=== PATIENT | female | born 1990 | race Caucasian/White ===

== ENCOUNTER 2019-03-29 11:18 | Inpatient (IN) | payer MEDICAID ==
[~2019-03-29] VITALS: Ht 160 cm; Wt 77.6 kg
[2019-03-29] VITALS (10 sets, daily range): BP systolic 83–134; BP diastolic 48–79
[2019-03-29] MEDS ORDERED: [UNRECOGNIZED DRUG - CODE] PO (13:02)
[2019-03-29] MEDS ORDERED: IBUP-1060 PO (13:02)
[2019-03-29] MEDS ORDERED: DOCU100C28 PO (13:02)
[2019-03-29] MEDS ORDERED: FERR325T14 PO (13:02)
[2019-03-29] MEDS: IV NORMAL SALINE 1000ML BAG 1,000 ML IV SCH ×2 (14:30→23:25)
[2019-03-29] MEDS ORDERED: ALBUMIN HUMAN 25% 100 ML IV ONE (14:30)
[2019-03-29 15:18] LABS: BASO % 1 % (0-3); EOS % 0 % (0-3); HEMOGLOBIN 7.1 g/dL (12.0-15.5); LYMPH # 0.7 x10^3/uL (1.0-4.8); LYMPH % 9 % (24-48); MEAN CORPUSCULAR HEMOGLOBIN 27 pg (25-35); MEAN CORPUSCULAR HGB CONC 34 g/dL (31-37); MEAN CORPUSCULAR VOLUME 80 fL (79-100); MONO # 0.9 x10^3/uL (0.0-1.1); MONO % 11 % (0-9); NEUT # 6.4 x10^3/uL (1.8-7.7); NEUT % 79 % (31-73); RED CELL DISTRIBUTION WIDTH 18.9 % (11.5-14.5)
[2019-03-29 15:29] LABS: CALCIUM 6.9 mg/dL (8.5-10.1); CREATININE 1.3 mg/dL (0.6-1.0); GFR 47.8; MAGNESIUM 1.7 mg/dL (1.8-2.4); POTASSIUM 4.1 mmol/L (3.5-5.1)
[2019-03-29 15:33] LABS: HEMATOCRIT 20.9 % (36.0-47.0); PLATELET COUNT 25 x10^3/uL (140-400)
--- NOTE | 2019-03-29 15:40 | CONS ---
DATE OF CONSULTATION: 03/29/2019 ATTENDING PHYSICIAN: Dr. Morales. REASON FOR CONSULTATION: Septic emboli, abnormal CT chest, sepsis. HISTORY OF PRESENT ILLNESS: The patient is a 29-year-old female who has history of substance abuse including marijuana, IV meth. The patient was brought into [facility] with complaint of lightheaded and dizziness and appeared to be dehydrated with decreased oral intake. She was also complaining of shortness of breath. She also had a cough and a low-grade fever. She is 4 weeks . The patient underwent workup including a chest x-ray and CT chest. I have reviewed the report from the CT chest. The actual images were not available. The patient had evidence of lower lobe pulmonary emboli. The patient had multiple thick wall cavitary lesions throughout both lungs, largest in the left upper lobe measuring 3-4 cm in diameter. There was no focal consolidation. There were no pleural effusions. The patient had possible subcarinal and mild bilateral hilar adenopathy. She was noted to be septic and as a result was transferred to our facility. She on arrival appears to be mildly tachypneic. She is lethargic. She is currently on oxygen via nasal cannula. She is able to answer questions. She says she quit IV meth about a year ago. She says she also does vaping and use different flavours as well. The patient has history of tobacco use as well. She is currently requiring low dose Levophed. She is receiving IV fluids as well. Antibiotics have been initiated per Infectious Disease's recommendation. PAST MEDICAL HISTORY: Significant for asthma, history of miscarriage in the past, history of hepatitis C, history of polysubstance abuse including meth and marijuana, history of depression, trauma and visual impairment. PAST SURGICAL HISTORY: . Dental surgeries and D and C. SOCIAL HISTORY: Smoker every day about half pack a day for the last 10 years, history of alcohol use, history of substance abuse. She said she quit meth about a year ago. REVIEW OF SYSTEMS: Limited, but pertinent positives discussed in my history of present illness, otherwise noncontributory. All systems that were negative were reviewed as well. No nausea, no vomiting. No headaches. No dysuria. No focal weakness. FAMILY HISTORY: Noncontributory to lungs. MEDICATIONS: Upon transfer were all reviewed. PHYSICAL EXAMINATION: GENERAL: She is mildly tachypneic. VITAL SIGNS: Blood pressure is stable on low dose Levophed. Pulse is 120 in sinus tachycardia. NECK: Supple. LUNGS: With diminished breath sounds at the bases. CARDIOVASCULAR: With tachycardia. ABDOMEN: Soft, nontender. EXTREMITIES: With no pitting edema. CT chest findings as discussed above. LABORATORY DATA: From [facility] showed a white cell count of 6.2, hemoglobin 7.2 and platelets are 39,000. Sodium 129, potassium 4, chloride 93, bicarbonate 22, albumin 2.3. Bilirubin is 0.9. Urine is negative. D-dimer 5.7. INR is 1.2. IMPRESSION: 1. Acute hypoxic respiratory failure secondary to sepsis/systemic inflammatory response syndrome. Sources of infection likely in the lungs. 2. Highly suspected septic emboli in a patient who has IV meth abuse. 3. Abnormal CT chest with bilateral cavitary nodules throughout the lungs, likely suggestive of septic emboli from suspected right-sided endocarditis. 4. Lower lobe pulmonary emboli.Likely infective emboli. I suspect this is related to obstruction of the pulmonary vessels from right-sided vegetations. In the setting of anemia and thrombocytopenia, anticoagulation would be high risk and not indicated. 5. History of hepatitis C with chronic thrombocytopenia. 6. Polysubstance abuse. 7. Hypotension. Suspect combination of hypovolemic and septic shock. RECOMMENDATIONS: 1. Continue with present oxygen. 2. We will obtain ABGs and assess the need for BiPAP. 3. Avoid benzodiazepines and narcotics. 4. Broad-spectrum antibiotics. 5. Transthoracic echo and if it is not conclusive for right-sided vegetations, then she will need a transesophageal echo. 6. Obtain venous Dopplers of lower extremities and if they are positive, then consider doing IVC filter. 7. Will withhold anticoagulation for now due to her severe thrombocytopenia and anemia. 8. Follow all cultures. 9. Follow labs. 10. GI consult regarding anemia. 11. Hematology consult regarding thrombocytopenia. 12. Discussed with RN. We will follow along with you. Critical care time 39 minutes. EMY SAEED MD DR: NAVEEN/rhina JOB#: [id number] / [id number] INA
[2019-03-29 15:47] LABS: BASE EXCESS ABG -6 mmol/L (-3-3); HCO3 ABG 17 mmol/L (21-28); PCO2 ABG 24 mmHg (35-46); PO2 ABG 71 mmHg (85-108); SAT O2 ABG 92 % (92-99)
--- NOTE | 2019-03-29 15:55 | CARD ---
MR#: [id number] Date of Study: 03/29/2019 Ordering Physician: EMY SAEED, Referring Physician: EMY SAEED Tech: Siri Bocanegra RDCS APPROVED REPORT EXAM: Two-dimensional and M-mode echocardiogram with Doppler and color Doppler. Other Information Quality : Good Rhythm : Tachycardia INDICATION Infection:Rule out subacute bacterial endocarditis 2D DIMENSIONS RVDd3.5 (2.9-3.5cm)Left Atrium(2D)2.7 (1.6-4.0cm) IVSd0.6 (0.7-1.1cm)Aortic Root(2D)2.6 (2.0-3.7cm) LVDd4.8 (3.9-5.9cm)LVOT Diameter2.0 (1.8-2.4cm) PWd0.6 (0.7-1.1cm)LVDs3.6 (2.5-4.0cm) FS (%) 24.3 %SV51.6 ml LVEF(%)48.3 (>50%) Aortic Valve AoV Peak Kirit.96.1cm/sAoV VTI12.8cm AO Peak GR.3.7mmHgLVOT VTI 11.58cm AO Mean GR.2mmHgAVA (VTI)2.90cm2 Mitral Valve MV E Lqjqujyy72.9cm/sMV DECEL AFZP16wy MV A Bscogime25.1cm/sE/A Ratio0.9 TDI Lateral E' P. V6.11cm/sMedial E' P. V6.82cm/s E/Lateral E'10.6E/Medial E'9.5 Tricuspid Valve TR P. Qwshbnmy681gn/sRAP LOKYNDHC89mxFj TR Peak Gr.02daZnVSYM47ksOc Pulmonary Vein S1 Smxqwoto41.6cm/sS2 Onzutash19.41cm/s D2 Llegswdx24.4cm/s LEFT VENTRICLE The left ventricle is normal size. There is normal left ventricular wall thickness. Left ventricle sy stolic function is normal. The ejection fraction is 50-55%. There is a flattened septum consistent wi th right ventricle volume and pressure overload. RIGHT VENTRICLE The right ventricle is moderately dilated. Systolic function is mildly reduced. ATRIA The left atrium size is normal. The right atrium is moderately dilated. The interatrial septum is int act with no evidence for an atrial septal defect or patent foramen ovale as noted on 2-D or Doppler i maging. AORTIC VALVE The aortic valve is normal in structure and function. Doppler and Color Flow revealed no significant aortic regurgitation. There is no significant aortic valvular stenosis. MITRAL VALVE The mitral valve is normal in structure and function. There is no evidence of mitral valve prolapse. There is no mitral valve stenosis. Doppler and Color-flow revealed trace mitral regurgitation. TRICUSPID VALVE The tricuspid valve is not well visualized due to a large vegetation on the valve. Doppler and Color Flow revealed severe tricuspid regurgitation. There is severe pulmonary hypertension. The PA pressure was estimated at 74 mmHg. There is no tricuspid valve stenosis. PULMONIC VALVE The pulmonic valve is not well visualized. Doppler and Color Flow revealed trace pulmonic valvular re gurgitation. There is no pulmonic valvular stenosis. GREAT VESSELS The aortic root is normal in size. The ascending aorta is not well seen. The IVC is dilated and colla pses <50% with inspiration. PERICARDIAL EFFUSION There is no evidence of significant pericardial effusion. Critical Notification Physician Notified Date: 03/29/2019 Time: 15:45 Physician Name:Kalpesh Critical Value: Yes <Conclusion> Left ventricle systolic function is normal. The ejection fraction is 50-55%. There is a flattened septum consistent with right ventricle volume and pressure overload. The right ventricle is moderately dilated. The right atrium is moderately dilated. Trace mitral regurgitation. Vegetation measuring 1.3 x 1.4 cm noted on tricuspid valve Severe tricuspid regurgitation. There is severe pulmonary hypertension. The PA pressure was estimated at 74 mmHg. There is no evidence of significant pericardial effusion. Signed by : Charan Minaya, Electronically Approved : 03/29/2019 15:55:05
[2019-03-29 15:59] LABS: % BANDS 20 % (0-9); % BASOS 1 % (0-3); % LYMPHS 8 % (24-48); % MONOS 6 % (0-10); % SEGS 65 % (35-66)
[2019-03-29 16:00] LABS: PLT ESTIMATE DECREASED (ADEQUATE)
[2019-03-29] MEDS ORDERED: SODIUM BICARB ADULT 8.4% 50 MEQ/50 ML DISP.SYRIN. IV ONE ×2 (16:00)
[2019-03-29 16:01] LABS: ANISOCYTOSIS SLIGHT
--- NOTE | 2019-03-29 16:08 | RAD ---
Examination: Bilateral Lower Extremity Venous Doppler Ultrasound History: Bilateral lower extremity edema, shortness of breath Comparison: None Procedure: Ayala scale, color flow 2D and spectal waveform analysis images are obtained with and without compression in the area of the common femoral vein, superficial femoral vein - femoral vein junction, main femoral vein (superficial femoral vein) and popliteal vein. Veins of the proximal calf are also imaged. Findings: There is normal duplex flow, color flow and compressibility of all visualized vein segments. No evidence of deep venous thrombus is present. Impression: No evidence of DVT in the bilateral lower extremity venous system. Electronically signed by: Cedric Headley MD (03/29/2019 4:05 PM) [place] [id number]
[2019-03-29] MEDS: guaiFENesin DM 200MG/20MG 10 ML SYRUP PO PRN (16:49)
[2019-03-29] MEDS ORDERED: PIP/TAZO PER PHARMACY MC PRN (17:15)
[2019-03-29] MEDS ORDERED: VANCOMYCIN 1.25 GM in IV NORMAL SALINE 250ML 250 ML IV ONE (17:15)
[2019-03-29] MEDS: PIPERACILLIN/TAZOBACTAM 4.5 GM in IV NORMAL SALINE 100ML 100 ML IV SCH (17:37)
[2019-03-29] MEDS: VANCOMYCIN PER PHARMACY MC PRN (17:44)
--- NOTE | 2019-03-29 17:51 | NUR ---
Pharmacy Vancomycin Dosing Note S:Consulted to monitor and dose vancomycin started 03/29/19. O:JODIE SAMSON is a 29 year old F with concerns for septic emboli. Transferred from [facility]. Height: 5 feet, 3 inches Weight: 52.117161 kg [place] Body Weight: 52.40 Adjusted Body Weight: 52.32 Dosing Weight: Actual Other Antibiotics: Zosyn LABS: Last BUN: 54 Last Creatinine: 1.3 Creatinine Clearance: about 50-55 mL/min Last WBC: 8 Last Procalcitonin: 16.76 Tmax (past 24 hours): Temp not yet documented on new admit Microbiology: Pending I/O: Not yet documented new admit Drug Levels: Last dose given 03/29/19 at 1737 Vancomycin Dosing: Loading Dose: 1250 mg x1 Dosing Weight: Actual Target Trough: 15-20 A: Based on: Patient's renal function (unknown baseline renal function), PMH, and severity of suspected infection P: 1. Will initiate Vancomycin 750 mg IV q18h 2. Follow up Trough level on 03/31/19 at 2230 3. Pharmacy will continue to monitor, follow and adjust therapy as needed. YURI JEONG, [facility], 03/29/19 [id number]
--- NOTE | 2019-03-29 18:25 | NUR ---
Dr. Morales discussed with Dr. Chandra about abx. for patient. Dr. Chandra gave recommendations to Dr. Morales. No ABX. were started. RN called Dr. Morales to receive orders for abx. Dr. Morales ordered zosyn and vanco per pharmacy. Orders placed.
[2019-03-29] MEDS ORDERED: MAGNESIUM SULFATE 2GM 50 ML IV ONE (20:00)
[2019-03-29] MEDS: NOREPINEPHRIN 8MG/250ML PREMIX 250 ML IV PRN ×2 (20:09→23:25)
--- NOTE | 2019-03-29 20:38 | HP ---
ADMIT DATE: 03/29/2019 CHIEF COMPLAINT: Sepsis. HISTORY OF PRESENT ILLNESS: The patient is a pleasant 29-year-old female who does IV drugs including methamphetamine and smokes marijuana and actually vapes tobacco as well with flavors in it. She presented to [facility] initially, appeared to be quite septic. They were [place] to [place] the [place] facility, but apparently there were no beds available. I accepted the patient as a transfer. She is now being examined in the ICU where she appears quite ill. She just arrived by ambulance. I helped to transfer her over to the bed. PAST MEDICAL HISTORY: Asthma, hepatitis C, polysubstance abuse, depression, D and C and . ALLERGIES: LATEX, HYDROCODONE, TYLENOL AND PHENERGAN. FAMILY HISTORY: Noncontributory. SOCIAL HISTORY: She smokes and marijuana. She vapes cigarettes. She uses IV methamphetamine, but states she has not done it for a year. MEDICATIONS: Reviewed, please refer to the MRAD. REVIEW OF SYSTEMS: GENERAL: She complains of weakness and fevers. SKIN: No bruising, hair changes or rashes. EYES: No blurred, double or loss of vision. NOSE AND THROAT: No history of nosebleeds, hoarseness or sore throat. HEART: She complains of palpitations. LUNGS: She complains of shortness of breath. GASTROINTESTINAL: Denies changes in appetite, nausea, vomiting, diarrhea or constipation. GENITOURINARY: No history of frequency, urgency, hesitancy or nocturia. NEUROLOGIC: She complains of dizziness. PSYCHIATRIC: She complains of depression. ENDOCRINE: No history of heat or cold intolerance, polyuria or polydipsia. EXTREMITIES: Denies muscle weakness, joint pain, pain on walking or stiffness. PHYSICAL EXAMINATION: VITALS: Within normal limits and are stable. GENERAL: No apparent distress. Alert and oriented. HEENT: Head is normocephalic, atraumatic, pupils were equally round and reactive to light and accommodation. NECK: Supple, no JVD, no thyromegaly was noted. LUNGS: She has some coarse breath sounds bilaterally, greater on the right. HEART: She is tachycardic, irregular at times. No obvious murmurs are noted at this time. ABDOMEN: Nontender, decreased bowel sounds. EXTREMITIES: Very thin skin. She has multiple tattoos. NEUROLOGIC: Normal speech, normal tone. A & O x3, moves all extremities, no obvious focal deficits. PSYCHIATRIC: She seems very depressed and anxious. SKIN: No ulcerations or rashes, good skin turgor, no jaundice. VASCULAR: Good capillary refill, neurovascular bundle appears to be intact. IMAGING: CT of the chest, we do not have the threshold scan here, but as I understand it showed pulmonary emboli including septic emboli as well. LABORATORY DATA: White count 8, hemoglobin 7.1, platelets 25. Electrolytes: Sodium 140, potassium 4.1, chloride 106, bicarb 22, BUN 54, creatinine 1.3, glucose 88. Procalcitonin 16.76. Calcium 6.9. ABG shows a pH of 7.47, pCO2 of 24, pO2 of 71, bicarbonate of 17 with 92% sat, and that was on 2 liters. ASSESSMENT AND PLAN: Severe sepsis, respiratory failure, septic pulmonary emboli, possible right-sided endocarditis, drug abuse, and renal failure. The patient has been admitted to the ICU. We have her on a Levophed drip. I consulted Dr. Pugh, Infectious Disease and called him. He requested we go ahead and get vancomycin and Zosyn running per pharmacy. She did receive a dose of Unasyn at [place]. Consult Dr. Hughes, Pulmonary Medicine. Consult Nephrology regarding the renal failure. Consult Cardiology, ICU monitoring. DVT prophylaxis, frequent labs. Cigarette cessation education. PROGNOSIS: Extremely guarded at best. KALA BATES DO DR: LUZ ELENA/rhina JOB#: [id number] / [id number]
[2019-03-30] VITALS (29 sets, daily range): BP systolic 87–139; BP diastolic 56–74
[2019-03-30] MEDS: PIPERACILLIN/TAZOBACTAM 4.5 GM in IV NORMAL SALINE 100ML 100 ML IV SCH ×4 (00:03→17:26)
--- NOTE | 2019-03-30 00:30 | NUR ---
received call from [facility] at [facility] who stated the pt's blood cultures had resulted from [facility]'s lab. Blood cultures positive for MRSA.
[2019-03-30 01:47] LABS: RED BLOOD COUNT 2.38 x10^6/uL (3.50-5.40); RED CELL DISTRIBUTION WIDTH 18.8 % (11.5-14.5); WHITE BLOOD COUNT 10.6 x10^3/uL (4.0-11.0)
[2019-03-30 01:51] LABS: CALCIUM 6.9 mg/dL (8.5-10.1); CREATININE 1.3 mg/dL (0.6-1.0); GFR 47.8; POTASSIUM 3.6 mmol/L (3.5-5.1)
[2019-03-30 01:57] LABS: HEMATOCRIT 19.4 % (36.0-47.0); HEMOGLOBIN 6.4 g/dL (12.0-15.5)
--- NOTE | 2019-03-30 06:46 | PDOC ---
Infectious Disease Note Vital Sign Vital Signs Vital Signs Date Time Temp Pulse Resp B/P (MAP) Pulse Ox O2 Delivery O2 Flow Rate FiO2 03/30/19 06:00 105 26 112/68 (83) 97 Nasal Cannula 2.0 03/30/19 04:55 99.1 99.1 Labs Lab Laboratory Tests Test 03/29/19 15:05 03/29/19 15:40 03/30/19 01:30 White Blood Count 8.0 x10^3/uL (4.0-11.0) 10.6 x10^3/uL (4.0-11.0) Red Blood Count 2.60 x10^6/uL (3.50-5.40) 2.38 x10^6/uL (3.50-5.40) Hemoglobin 7.1 g/dL (12.0-15.5) 6.4 g/dL (12.0-15.5) Hematocrit 20.9 % (36.0-47.0) 19.4 % (36.0-47.0) Mean Corpuscular Volume 80 fL (79-100) 81 fL (79-100) Mean Corpuscular Hemoglobin 27 pg (25-35) 27 pg (25-35) Mean Corpuscular Hemoglobin Concent 34 g/dL (31-37) 33 g/dL (31-37) Red Cell Distribution Width 18.9 % (11.5-14.5) 18.8 % (11.5-14.5) Platelet Count 25 x10^3/uL (140-400) 25 x10^3/uL (140-400) Neutrophils (%) (Auto) 79 % (31-73) Lymphocytes (%) (Auto) 9 % (24-48) Monocytes (%) (Auto) 11 % (0-9) Eosinophils (%) (Auto) 0 % (0-3) Basophils (%) (Auto) 1 % (0-3) Neutrophils # (Auto) 6.4 x10^3/uL (1.8-7.7) Lymphocytes # (Auto) 0.7 x10^3/uL (1.0-4.8) Monocytes # (Auto) 0.9 x10^3/uL (0.0-1.1) Eosinophils # (Auto) 0.0 x10^3/uL (0.0-0.7) Basophils # (Auto) 0.0 x10^3/uL (0.0-0.2) Segmented Neutrophils % 65 % (35-66) Band Neutrophils % 20 % (0-9) Lymphocytes % 8 % (24-48) Monocytes % 6 % (0-10) Basophils % 1 % (0-3) Platelet Estimate Decreased (ADEQUATE) Large Platelets Occ Anisocytosis Slight Sodium Level 140 mmol/L (136-145) 140 mmol/L (136-145) Potassium Level 4.1 mmol/L (3.5-5.1) 3.6 mmol/L (3.5-5.1) Chloride Level 106 mmol/L (98-107) 108 mmol/L (98-107) Carbon Dioxide Level 22 mmol/L (21-32) 21 mmol/L (21-32) Anion Gap 12 (6-14) 11 (6-14) Blood Urea Nitrogen 54 mg/dL (7-20) 53 mg/dL (7-20) Creatinine 1.3 mg/dL (0.6-1.0) 1.3 mg/dL (0.6-1.0) Estimated GFR (Cockcroft-Gault) 47.8 47.8 Glucose Level 88 mg/dL (70-99) 103 mg/dL (70-99) Lactic Acid Level 2.8 mmol/L (0.4-2.0) 3.3 mmol/L (0.4-2.0) Calcium Level 6.9 mg/dL (8.5-10.1) 6.9 mg/dL (8.5-10.1) Magnesium Level 1.7 mg/dL (1.8-2.4) Procalcitonin 16.76 ng/mL (0.00-0.10) O2 Saturation 92 % (92-99) Arterial Blood pH 7.47 (7.35-7.45) Arterial Blood pCO2 at Patient Temp 24 mmHg (35-46) Arterial Blood pO2 at Patient Temp 71 mmHg (85-108) Arterial Blood HCO3 17 mmol/L (21-28) Arterial Blood Base Excess -6 mmol/L (-3-3) FiO2 2 lpm nc Micro TTE 03/29Left ventricle systolic function is normal. The ejection fraction is 50-55%. There is a flattened septum consistent with right ventricle volume and pressure overload. The right ventricle is moderately dilated. The right atrium is moderately dilated. Trace mitral regurgitation. Vegetation measuring 1.3 x 1.4 cm noted on tricuspid valve Severe tricuspid regurgitation. There is severe pulmonary hypertension. The PA pressure was estimated at 74 mmHg. There is no evidence of significant pericardial effusion. Objective Assessment MRSA sepsis at [facility] per report from blood 03/29 Pancytopenia - S/p PRBCs this am TV Endocarditis Substance abuse PE Likely septic emboli Pulm HTN Hep C - ? if treated in past 4 weeks post parttum Plan Plan of Care Cont Vanc and Zosyn for now - taper Zosyn likely 03/31 when confirm Blood/Urine have no additional organisms from [facility] Add zyvox Perdiex - oral care F/u sensitivities from [facility] Repeat Blood cults in m Will need HUNTER when stable F/u labs and cults May need GI eval from Hep C [facility] records reviewed 35 mins CC time D/w nursing Thank you # [id number] BREN LOCKHART MD Mar 30, 2019 06:46
[2019-03-30] MEDS: CHLORHEXIDINE 0.12% 15 ML MOUTHWASH. SWSP SCH ×2 (08:29→21:04)
[2019-03-30 09:12] LABS: HEMATOCRIT 27.2 % (36.0-47.0); RED BLOOD COUNT 3.26 x10^6/uL (3.50-5.40); RED CELL DISTRIBUTION WIDTH 18.9 % (11.5-14.5); WHITE BLOOD COUNT 11.6 x10^3/uL (4.0-11.0)
[2019-03-30 09:25] LABS: CREATININE 1.1 mg/dL (0.6-1.0); GFR 57.9; MAGNESIUM 2.4 mg/dL (1.8-2.4); POTASSIUM 3.5 mmol/L (3.5-5.1)
--- NOTE | 2019-03-30 09:59 | PDOC ---
[employer] PROGRESS NOTE Chief Complaint Chief Complaint Sepsis Tricuspid Vegetation Septic emboli MRSA History of Present Illness History of Present Illness 03/30/19 Pt seen and examined in the ICU Pt was awake and oriented Pt is weak and tired DW RN Vitals/I&O Vitals/I&O: Vital Signs Date Time Temp Pulse Resp B/P (MAP) Pulse Ox O2 Delivery O2 Flow Rate FiO2 03/30/19 09:00 105 24 128/62 (84) 97 Nasal Cannula 2.0 03/30/19 07:00 98.1 98.1 I & O 03/29/19 03/29/19 03/30/19 15:00 23:00 07:00 Intake Total 0 ml 410 ml 2680 ml Output Total 800 ml Balance 0 ml 410 ml 1880 ml Physical Exam General: Alert, Oriented X3, mild distress Heart: Regular rate, Normal S1, Normal S2 Lungs: Clear Abdomen: Normal bowel sounds Extremities: No clubbing, No cyanosis Skin: No rashes Labs Labs: Laboratory Tests Test 03/29/19 15:05 03/29/19 15:40 03/30/19 01:30 03/30/19 08:40 White Blood Count 8.0 x10^3/uL (4.0-11.0) 10.6 x10^3/uL (4.0-11.0) 11.6 x10^3/uL (4.0-11.0) Red Blood Count 2.60 x10^6/uL (3.50-5.40) 2.38 x10^6/uL (3.50-5.40) 3.26 x10^6/uL (3.50-5.40) Hemoglobin 7.1 g/dL (12.0-15.5) 6.4 g/dL (12.0-15.5) 9.0 g/dL (12.0-15.5) Hematocrit 20.9 % (36.0-47.0) 19.4 % (36.0-47.0) 27.2 % (36.0-47.0) Mean Corpuscular Volume 80 fL (79-100) 81 fL (79-100) 83 fL (79-100) Mean Corpuscular Hemoglobin 27 pg (25-35) 27 pg (25-35) 28 pg (25-35) Mean Corpuscular Hemoglobin Concent 34 g/dL (31-37) 33 g/dL (31-37) 33 g/dL (31-37) Red Cell Distribution Width 18.9 % (11.5-14.5) 18.8 % (11.5-14.5) 18.9 % (11.5-14.5) Platelet Count 25 x10^3/uL (140-400) 25 x10^3/uL (140-400) 27 x10^3/uL (140-400) Neutrophils (%) (Auto) 79 % (31-73) Lymphocytes (%) (Auto) 9 % (24-48) Monocytes (%) (Auto) 11 % (0-9) Eosinophils (%) (Auto) 0 % (0-3) Basophils (%) (Auto) 1 % (0-3) Neutrophils # (Auto) 6.4 x10^3/uL (1.8-7.7) Lymphocytes # (Auto) 0.7 x10^3/uL (1.0-4.8) Monocytes # (Auto) 0.9 x10^3/uL (0.0-1.1) Eosinophils # (Auto) 0.0 x10^3/uL (0.0-0.7) Basophils # (Auto) 0.0 x10^3/uL (0.0-0.2) Segmented Neutrophils % 65 % (35-66) Band Neutrophils % 20 % (0-9) Lymphocytes % 8 % (24-48) Monocytes % 6 % (0-10) Basophils % 1 % (0-3) Platelet Estimate Decreased (ADEQUATE) Large Platelets Occ Anisocytosis Slight Sodium Level 140 mmol/L (136-145) 140 mmol/L (136-145) 141 mmol/L (136-145) Potassium Level 4.1 mmol/L (3.5-5.1) 3.6 mmol/L (3.5-5.1) 3.5 mmol/L (3.5-5.1) Chloride Level 106 mmol/L (98-107) 108 mmol/L (98-107) 107 mmol/L (98-107) Carbon Dioxide Level 22 mmol/L (21-32) 21 mmol/L (21-32) 22 mmol/L (21-32) Anion Gap 12 (6-14) 11 (6-14) 12 (6-14) Blood Urea Nitrogen 54 mg/dL (7-20) 53 mg/dL (7-20) 51 mg/dL (7-20) Creatinine 1.3 mg/dL (0.6-1.0) 1.3 mg/dL (0.6-1.0) 1.1 mg/dL (0.6-1.0) Estimated GFR (Cockcroft-Gault) 47.8 47.8 57.9 Glucose Level 88 mg/dL (70-99) 103 mg/dL (70-99) 115 mg/dL (70-99) Lactic Acid Level 2.8 mmol/L (0.4-2.0) 3.3 mmol/L (0.4-2.0) Calcium Level 6.9 mg/dL (8.5-10.1) 6.9 mg/dL (8.5-10.1) 7.0 mg/dL (8.5-10.1) Magnesium Level 1.7 mg/dL (1.8-2.4) 2.4 mg/dL (1.8-2.4) Procalcitonin 16.76 ng/mL (0.00-0.10) O2 Saturation 92 % (92-99) Arterial Blood pH 7.47 (7.35-7.45) Arterial Blood pCO2 at Patient Temp 24 mmHg (35-46) Arterial Blood pO2 at Patient Temp 71 mmHg (85-108) Arterial Blood HCO3 17 mmol/L (21-28) Arterial Blood Base Excess -6 mmol/L (-3-3) FiO2 2 lpm nc Iron Level 85 ug/dL (50-170) Total Iron Binding Capacity 136 ug/dL (250-450) Iron Saturation 63 % (15-34) Ferritin 583 ng/mL (8-252) Review of Systems Review of Systems: Co weakness Denies pain Assessment and Plan Assessmemt and Plan Problems Medical Problems: (1) Endocarditis Status: Acute (2) Renal failure Status: Acute (3) Respiratory failure Status: Acute (4) Septic pulmonary embolism Status: Acute (5) Severe sepsis Status: Acute Assessment Endocarditis Renal failure respiratory failure Septic PE Severe sepsis Plan ICU monitoring Wean Levophed Consult GI IV Antibiotics Stop normal saline Start procalamine 100/hr Encourage PO Comment Review of Relevant I have reviewed the following items kim (where applicable) has been applied. Medications: Current Medications Medications (Trade) Dose Ordered Sig/[place] Route PRN Reason Start Time Stop Time Status Last Admin Dose Admin Albumin Human 100 ml @ 100 mls/hr 1X ONCE IV 03/29/19 14:30 03/29/19 15:29 DC 03/29/19 14:59 Norepinephrine Bitartrate 250 ml @ 9.781 mls/ hr CONT PRN IV SEE I/O RECORD 03/29/19 14:30 03/29/19 23:25 Sodium Chloride 1,000 ml @ 100 mls/hr Q10H IV 03/29/19 14:30 03/29/19 23:25 Guaifenesin (Robitussin Dm) 10 ml PRN Q6HRS PRN PO COUGH 03/29/19 15:30 03/29/19 16:49 Sodium Bicarbonate (Sodium Bicarb Adult 8.4% Syr) 50 meq 1X ONCE IV 03/29/19 16:00 03/29/19 16:01 DC 03/29/19 16:49 Sodium Bicarbonate (Sodium Bicarb Adult 8.4% Syr) 50 meq 1X ONCE IV 03/29/19 16:00 03/29/19 16:01 DC 03/29/19 16:49 Vancomycin HCl (Vanco Per Pharmacy) 1 each PRN DAILY PRN MC SEE COMMENTS 03/29/19 17:15 03/29/19 17:50 Piperacillin Sod/ Tazobactam Sod 4.5 gm/Sodium Chloride 100 ml @ 200 mls/hr Q6HRS IV 03/29/19 18:00 03/30/19 05:59 Vancomycin HCl 1.25 gm/Sodium Chloride 250 ml @ 166.667 mls/hr 1X ONCE IV 03/29/19 17:15 03/29/19 18:44 DC 03/29/19 17:37 Magnesium Sulfate 50 ml @ 25 mls/hr 1X ONCE IV 03/29/19 20:00 03/29/19 21:59 DC 03/29/19 20:02 Linezolid/Dextrose 300 ml @ 300 mls/hr Q12HR IV 03/30/19 09:00 03/30/19 08:20 Chlorhexidine Gluconate (Peridex) 15 ml BID SWSP 03/30/19 09:00 03/30/19 08:29 KALA BATES III DO Mar 30, 2019 09:59
--- NOTE | 2019-03-30 10:07 | PDOC ---
PULMONARY PROGRESS NOTES Subjective reports she is feeling better, remains on N/C reports non-productive cough Vitals Vital Signs Date Time Temp Pulse Resp B/P (MAP) Pulse Ox O2 Delivery O2 Flow Rate FiO2 03/30/19 09:00 105 24 128/62 (84) 97 Nasal Cannula 2.0 03/30/19 07:00 98.1 98.1 ROS: No Nausea, No Chest Pain, No Abdominal Pain, No Increase Cough General: Alert, No acute distress Lungs: Other (dimished) Cardiovascular: S1, S2 Abdomen: Soft, Non-tender Neuro Exam: Alert Extremities: No Edema Skin: Warm Labs Laboratory Tests Test 03/29/19 15:05 03/29/19 15:40 03/30/19 01:30 03/30/19 08:40 White Blood Count 8.0 x10^3/uL (4.0-11.0) 10.6 x10^3/uL (4.0-11.0) 11.6 x10^3/uL (4.0-11.0) Red Blood Count 2.60 x10^6/uL (3.50-5.40) 2.38 x10^6/uL (3.50-5.40) 3.26 x10^6/uL (3.50-5.40) Hemoglobin 7.1 g/dL (12.0-15.5) 6.4 g/dL (12.0-15.5) 9.0 g/dL (12.0-15.5) Hematocrit 20.9 % (36.0-47.0) 19.4 % (36.0-47.0) 27.2 % (36.0-47.0) Mean Corpuscular Volume 80 fL (79-100) 81 fL (79-100) 83 fL (79-100) Mean Corpuscular Hemoglobin 27 pg (25-35) 27 pg (25-35) 28 pg (25-35) Mean Corpuscular Hemoglobin Concent 34 g/dL (31-37) 33 g/dL (31-37) 33 g/dL (31-37) Red Cell Distribution Width 18.9 % (11.5-14.5) 18.8 % (11.5-14.5) 18.9 % (11.5-14.5) Platelet Count 25 x10^3/uL (140-400) 25 x10^3/uL (140-400) 27 x10^3/uL (140-400) Neutrophils (%) (Auto) 79 % (31-73) Lymphocytes (%) (Auto) 9 % (24-48) Monocytes (%) (Auto) 11 % (0-9) Eosinophils (%) (Auto) 0 % (0-3) Basophils (%) (Auto) 1 % (0-3) Neutrophils # (Auto) 6.4 x10^3/uL (1.8-7.7) Lymphocytes # (Auto) 0.7 x10^3/uL (1.0-4.8) Monocytes # (Auto) 0.9 x10^3/uL (0.0-1.1) Eosinophils # (Auto) 0.0 x10^3/uL (0.0-0.7) Basophils # (Auto) 0.0 x10^3/uL (0.0-0.2) Segmented Neutrophils % 65 % (35-66) Band Neutrophils % 20 % (0-9) Lymphocytes % 8 % (24-48) Monocytes % 6 % (0-10) Basophils % 1 % (0-3) Platelet Estimate Decreased (ADEQUATE) Large Platelets Occ Anisocytosis Slight Sodium Level 140 mmol/L (136-145) 140 mmol/L (136-145) 141 mmol/L (136-145) Potassium Level 4.1 mmol/L (3.5-5.1) 3.6 mmol/L (3.5-5.1) 3.5 mmol/L (3.5-5.1) Chloride Level 106 mmol/L (98-107) 108 mmol/L (98-107) 107 mmol/L (98-107) Carbon Dioxide Level 22 mmol/L (21-32) 21 mmol/L (21-32) 22 mmol/L (21-32) Anion Gap 12 (6-14) 11 (6-14) 12 (6-14) Blood Urea Nitrogen 54 mg/dL (7-20) 53 mg/dL (7-20) 51 mg/dL (7-20) Creatinine 1.3 mg/dL (0.6-1.0) 1.3 mg/dL (0.6-1.0) 1.1 mg/dL (0.6-1.0) Estimated GFR (Cockcroft-Gault) 47.8 47.8 57.9 Glucose Level 88 mg/dL (70-99) 103 mg/dL (70-99) 115 mg/dL (70-99) Lactic Acid Level 2.8 mmol/L (0.4-2.0) 3.3 mmol/L (0.4-2.0) Calcium Level 6.9 mg/dL (8.5-10.1) 6.9 mg/dL (8.5-10.1) 7.0 mg/dL (8.5-10.1) Magnesium Level 1.7 mg/dL (1.8-2.4) 2.4 mg/dL (1.8-2.4) Procalcitonin 16.76 ng/mL (0.00-0.10) O2 Saturation 92 % (92-99) Arterial Blood pH 7.47 (7.35-7.45) Arterial Blood pCO2 at Patient Temp 24 mmHg (35-46) Arterial Blood pO2 at Patient Temp 71 mmHg (85-108) Arterial Blood HCO3 17 mmol/L (21-28) Arterial Blood Base Excess -6 mmol/L (-3-3) FiO2 2 lpm nc Iron Level 85 ug/dL (50-170) Total Iron Binding Capacity 136 ug/dL (250-450) Iron Saturation 63 % (15-34) Ferritin 583 ng/mL (8-252) Laboratory Tests Test 03/29/19 15:05 03/29/19 15:40 03/30/19 01:30 03/30/19 08:40 White Blood Count 8.0 x10^3/uL (4.0-11.0) 10.6 x10^3/uL (4.0-11.0) 11.6 x10^3/uL (4.0-11.0) Red Blood Count 2.60 x10^6/uL (3.50-5.40) 2.38 x10^6/uL (3.50-5.40) 3.26 x10^6/uL (3.50-5.40) Hemoglobin 7.1 g/dL (12.0-15.5) 6.4 g/dL (12.0-15.5) 9.0 g/dL (12.0-15.5) Hematocrit 20.9 % (36.0-47.0) 19.4 % (36.0-47.0) 27.2 % (36.0-47.0) Mean Corpuscular Volume 80 fL (79-100) 81 fL (79-100) 83 fL (79-100) Mean Corpuscular Hemoglobin 27 pg (25-35) 27 pg (25-35) 28 pg (25-35) Mean Corpuscular Hemoglobin Concent 34 g/dL (31-37) 33 g/dL (31-37) 33 g/dL (31-37) Red Cell Distribution Width 18.9 % (11.5-14.5) 18.8 % (11.5-14.5) 18.9 % (11.5-14.5) Platelet Count 25 x10^3/uL (140-400) 25 x10^3/uL (140-400) 27 x10^3/uL (140-400) Neutrophils (%) (Auto) 79 % (31-73) Lymphocytes (%) (Auto) 9 % (24-48) Monocytes (%) (Auto) 11 % (0-9) Eosinophils (%) (Auto) 0 % (0-3) Basophils (%) (Auto) 1 % (0-3) Neutrophils # (Auto) 6.4 x10^3/uL (1.8-7.7) Lymphocytes # (Auto) 0.7 x10^3/uL (1.0-4.8) Monocytes # (Auto) 0.9 x10^3/uL (0.0-1.1) Eosinophils # (Auto) 0.0 x10^3/uL (0.0-0.7) Basophils # (Auto) 0.0 x10^3/uL (0.0-0.2) Segmented Neutrophils % 65 % (35-66) Band Neutrophils % 20 % (0-9) Lymphocytes % 8 % (24-48) Monocytes % 6 % (0-10) Basophils % 1 % (0-3) Platelet Estimate Decreased (ADEQUATE) Large Platelets Occ Anisocytosis Slight Sodium Level 140 mmol/L (136-145) 140 mmol/L (136-145) 141 mmol/L (136-145) Potassium Level 4.1 mmol/L (3.5-5.1) 3.6 mmol/L (3.5-5.1) 3.5 mmol/L (3.5-5.1) Chloride Level 106 mmol/L (98-107) 108 mmol/L (98-107) 107 mmol/L (98-107) Carbon Dioxide Level 22 mmol/L (21-32) 21 mmol/L (21-32) 22 mmol/L (21-32) Anion Gap 12 (6-14) 11 (6-14) 12 (6-14) Blood Urea Nitrogen 54 mg/dL (7-20) 53 mg/dL (7-20) 51 mg/dL (7-20) Creatinine 1.3 mg/dL (0.6-1.0) 1.3 mg/dL (0.6-1.0) 1.1 mg/dL (0.6-1.0) Estimated GFR (Cockcroft-Gault) 47.8 47.8 57.9 Glucose Level 88 mg/dL (70-99) 103 mg/dL (70-99) 115 mg/dL (70-99) Lactic Acid Level 2.8 mmol/L (0.4-2.0) 3.3 mmol/L (0.4-2.0) Calcium Level 6.9 mg/dL (8.5-10.1) 6.9 mg/dL (8.5-10.1) 7.0 mg/dL (8.5-10.1) Magnesium Level 1.7 mg/dL (1.8-2.4) 2.4 mg/dL (1.8-2.4) Procalcitonin 16.76 ng/mL (0.00-0.10) O2 Saturation 92 % (92-99) Arterial Blood pH 7.47 (7.35-7.45) Arterial Blood pCO2 at Patient Temp 24 mmHg (35-46) Arterial Blood pO2 at Patient Temp 71 mmHg (85-108) Arterial Blood HCO3 17 mmol/L (21-28) Arterial Blood Base Excess -6 mmol/L (-3-3) FiO2 2 lpm nc Iron Level 85 ug/dL (50-170) Total Iron Binding Capacity 136 ug/dL (250-450) Iron Saturation 63 % (15-34) Ferritin 583 ng/mL (8-252) Medications Active Scripts Medications Dose Route/Sig Max Daily Dose Days Date Category Prenate Elite Tablet ( #79/Iron Asp Gly/FA#1) 1 Each Tablet 1 Each PO DAILY 03/29/19 Reported Ibuprofen 800 Mg Tablet 800 Mg PO PRN Q6HRS PRN 03/29/19 Reported Ferrous Sulfate 325 Mg Tablet 325 Mg PO DAILY 03/29/19 Reported Docusate Sodium 100 Mg Capsule 100 Mg PO BID 03/29/19 Reported Impression . IMPRESSION: 1. Acute hypoxic respiratory failure secondary to sepsis/systemic inflammatory response syndrome. MRSA in blood 2. 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 3. Abnormal CT chest with bilateral cavitary nodules throughout the lungs, likely suggestive of septic emboli from right-sided endocarditis. 4. Lower lobe pulmonary emboli.Likely infective emboli. I suspect this is related to obstruction of the pulmonary vessels from right-sided vegetations and dislodgement. In the setting of anemia and thrombocytopenia, anticoagulation would be high risk and not indicated. 5. History of hepatitis C with chronic thrombocytopenia. 6. Polysubstance abuse. 7. Hypotension. Suspect combination of hypovolemic and septic shock.improving Plan . 1. Continue with present oxygen. 3. Avoid benzodiazepines and narcotics. 4. antibiotics per ID 5. Transthoracic echo c/w tricuspid right-sided vegetations, EF 50-55% 6. Dopplers of lower extremities and negative 7. No need for anticoagulation 8. Follow all cultures. 9. Follow labs. 10.GI consult regarding anemia. 11.Hematology consult regarding thrombocytopenia. 12. Discussed with JAKY. EMY SAEED MD Mar 30, 2019 10:07
[2019-03-30] MEDS: IV NORMAL SALINE 1000ML BAG 1,000 ML IV SCH (10:30)
[2019-03-30 10:39] LABS: PROTHROMBIN TIME PATIENT 15.7 SEC (11.7-14.0)
--- NOTE | 2019-03-30 10:59 | PDOC2 ---
CONSULT Date of Consult Date of Consult DATE: 03/30/19 TIME: 10:34 Reason for Consult Reason for Consult: Azotemia Referring Physician Referring Physician: Dr. Morales Source Source: Chart review History of Present Illness Reason for Visit: Pt is a 29-year-old CF with Hx of substance abuse including marijuana, IV meth. She was brought to [facility] with complaint of lightheaded and dizziness , decreased oral intake. She was also complaining of shortness of breath. She also had a cough and a low-grade fever. She is 4 weeks . She underwent workup including a chest x-ray and CT chest with evidence of lower lobe pulmonary emboli and multiple thick wall cavitary lesions throughout both lungs, largest in the left upper lobe measuring 3-4 cm in diameter. No pleural effusions. She was noted to be septic and transferred to [facility] . Currently she is lethargic, confused/ hallucinating. She is currently on oxygen via nasal cannula. She quit IV meth about a year ago. She also does vaping and tobacco use. PMHx significant for history of miscarriage , history of hepatitis C, polysubstance abuse including meth and marijuana, history of depression, trauma and visual impairment. We are consulted for " Azotemia" . She doesn't have urinary complaints. Unable to obtain detailed Hx as she is answering intermittently but speech not very clear and is confused as well Current Problem List Problem List Problems Medical Problems: (1) Endocarditis Status: Acute (2) Renal failure Status: Acute (3) Respiratory failure Status: Acute (4) Septic pulmonary embolism Status: Acute (5) Severe sepsis Status: Acute Current Medications Current Medications Current Medications Albumin Human 100 ml @ 100 mls/hr 1X ONCE IV Last administered on 03/29/19at 1 4:59; Start 03/29/19 at 14:30; Stop 03/29/19 at 15:29; Status DC Norepinephrine Bitartrate 250 ml @ 9.781 mls/ hr CONT PRN IV SEE I/O RECORD Last administered on 03/29/19at 23:25; Start 03/29/19 at 14:30 Sodium Chloride 1,000 ml @ 100 mls/hr Q10H IV Last administered on 03/29/19at 23:25; Start 03/29/19 at 14:30 Guaifenesin (Robitussin Dm) 10 ml PRN Q6HRS PRN PO COUGH Last administered on 03/29/19at 16:49; Start 03/29/19 at 15:30 Sodium Bicarbonate (Sodium Bicarb Adult 8.4% Syr) 50 meq 1X ONCE IV Last a dministered on 03/29/19at 16:49; Start 03/29/19 at 16:00; Stop 03/29/19 at 16:01; Status DC Sodium Bicarbonate (Sodium Bicarb Adult 8.4% Syr) 50 meq 1X ONCE IV Last administered on 03/29/19at 16:49; Start 03/29/19 at 16:00; Stop 03/29/19 at 16:01; Status DC Vancomycin HCl (Vanco Per Pharmacy) 1 each PRN DAILY PRN MC SEE COMMENTS Last administered on 03/29/19at 17:50; Start 03/29/19 at 17:15 Piperacillin Sod/ Tazobactam Sod (Zosyn Per Pharmacy) 1 each PRN DAILY PRN MC SEE COMMENTS; Start 03/29/19 at 17:15 Piperacillin Sod/ Tazobactam Sod 4.5 gm/Sodium Chloride 100 ml @ 200 mls/hr Q6HRS IV Last administered on 03/30/19at 05:59; Start 03/29/19 at 18:00 Vancomycin HCl 1.25 gm/Sodium Chloride 250 ml @ 166.667 mls/hr 1X ONCE IV Last administered on 03/29/19at 17:37; Start 03/29/19 at 17:15; Stop 03/29/19 at 18:44; Status DC Vancomycin HCl 750 mg/Sodium Chloride 250 ml @ 250 mls/hr Q18H IV Last administered on 03/30/19at 10:19; Start 03/30/19 at 11:00 Vancomycin HCl (Vancomycin Trough Level) 1 each 1X ONCE MC ; Start 03/31/19 at 22:30; Stop 03/31/19 at 22:31 Magnesium Sulfate 50 ml @ 25 mls/hr 1X ONCE IV Last administered on 03/29/19at 20:02; Start 03/29/19 at 20:00; Stop 03/29/19 at 21:59; Status DC Linezolid/Dextrose 300 ml @ 300 mls/hr Q12HR IV Last administered on 03/30/19at 08:20; Start 03/30/19 at 09:00 Chlorhexidine Gluconate (Peridex) 15 ml BID SWSP Last administered on 03/30/19at 08:29; Start 03/30/19 at 09:00 Active Scripts Active Reported Prenate Elite Tablet ( #79/Iron Asp Gly/FA#1) 1 Each Tablet 1 Each PO DAILY Ibuprofen 800 Mg Tablet 800 Mg PO PRN Q6HRS PRN Ferrous Sulfate 325 Mg Tablet 325 Mg PO DAILY Docusate Sodium 100 Mg Capsule 100 Mg PO BID Allergies Allergies: Coded Allergies: Latex, Natural Rubber (Verified Allergy, Intermediate, Unknown, 03/29/19) acetaminophen (Unverified Allergy, Intermediate, Unknown, 03/29/19) Patient denies alergy hydrocodone (Unverified Allergy, Intermediate, Unknown, 03/29/19) Patient denies alergy prochlorperazine (Verified Adverse Reaction, Intermediate, Anxiety, 03/29/19) ROS Review of System Per HPI Physical Exam Physical Exam GEN: tachypneic HEENT-OM dry NECK: supple CVS: Regular rhythm, tachycardic RESP: decreased at bases GI: BS + ve, Non Tender, Non Distended : No CVA tenderness, No Suprapubic Tenderness, No Sean Neuro- Confused intermittently Skin -Tattoos, No Rash Ext- No edema Vital Signs Vital Signs Date Time Temp Pulse Resp B/P (MAP) Pulse Ox O2 Delivery O2 Flow Rate FiO2 03/30/19 10:00 105 24 132/74 (93) 94 Nasal Cannula 2.0 03/30/19 07:00 98.1 98.1 Assessment & Plan RIKY- Pre-renal 2/2 Hypotension/ sepsis Renal function improving UA no micr hematuria , mild proteinuria , no e/o UTI Will get renal US Supportive care, IVF, strict I/O, Monitor, avoid nephrotoxins MRSA sepsis Anemia - S/p PRBCs this am Hypotension. hypovolemic and septic shock IVF, low dose pressors Acute hypoxic respiratory failure secondary to sepsis/SIRS Sources of infection likely in the lungs. Suspicion of septic emboli - Abnormal CT chest with bilateral cavitary nodules throughout the lungs, Lower lobe pulmonary emboli.Likely infective emboli. Rt Sided Endocarditis- vegetations tricuspid valve on ECHO Severe tricuspid regurgitation. Severe pulmonary hypertension-PA pressure was estimated at 74 mmHg. History of hepatitis C - not sure if treated Recommend GI consult Thrombocytopenia -? Chronic, Hx of Hep C Hem/Onc consulted Polysubstance abuse. Labs Labs Laboratory Tests Test 03/29/19 15:05 03/29/19 15:40 03/30/19 01:30 03/30/19 08:40 White Blood Count 8.0 x10^3/uL (4.0-11.0) 10.6 x10^3/uL (4.0-11.0) 11.6 x10^3/uL (4.0-11.0) Red Blood Count 2.60 x10^6/uL (3.50-5.40) 2.38 x10^6/uL (3.50-5.40) 3.25 x10^6/uL (3.50-5.70) Hemoglobin 7.1 g/dL (12.0-15.5) 6.4 g/dL (12.0-15.5) 9.0 g/dL (12.0-15.5) Hematocrit 20.9 % (36.0-47.0) 19.4 % (36.0-47.0) 27.2 % (36.0-47.0) Mean Corpuscular Volume 80 fL (79-100) 81 fL (79-100) 83 fL (79-100) Mean Corpuscular Hemoglobin 27 pg (25-35) 27 pg (25-35) 28 pg (25-35) Mean Corpuscular Hemoglobin Concent 34 g/dL (31-37) 33 g/dL (31-37) 33 g/dL (31-37) Red Cell Distribution Width 18.9 % (11.5-14.5) 18.8 % (11.5-14.5) 18.9 % (11.5-14.5) Platelet Count 25 x10^3/uL (140-400) 25 x10^3/uL (140-400) 27 x10^3/uL (140-400) Neutrophils (%) (Auto) 79 % (31-73) Lymphocytes (%) (Auto) 9 % (24-48) Monocytes (%) (Auto) 11 % (0-9) Eosinophils (%) (Auto) 0 % (0-3) Basophils (%) (Auto) 1 % (0-3) Neutrophils # (Auto) 6.4 x10^3/uL (1.8-7.7) Lymphocytes # (Auto) 0.7 x10^3/uL (1.0-4.8) Monocytes # (Auto) 0.9 x10^3/uL (0.0-1.1) Eosinophils # (Auto) 0.0 x10^3/uL (0.0-0.7) Basophils # (Auto) 0.0 x10^3/uL (0.0-0.2) Segmented Neutrophils % 65 % (35-66) Band Neutrophils % 20 % (0-9) Lymphocytes % 8 % (24-48) Monocytes % 6 % (0-10) Basophils % 1 % (0-3) Platelet Estimate Decreased (ADEQUATE) Large Platelets Occ Anisocytosis Slight Sodium Level 140 mmol/L (136-145) 140 mmol/L (136-145) 141 mmol/L (136-145) Potassium Level 4.1 mmol/L (3.5-5.1) 3.6 mmol/L (3.5-5.1) 3.5 mmol/L (3.5-5.1) Chloride Level 106 mmol/L (98-107) 108 mmol/L (98-107) 107 mmol/L (98-107) Carbon Dioxide Level 22 mmol/L (21-32) 21 mmol/L (21-32) 22 mmol/L (21-32) Anion Gap 12 (6-14) 11 (6-14) 12 (6-14) Blood Urea Nitrogen 54 mg/dL (7-20) 53 mg/dL (7-20) 51 mg/dL (7-20) Creatinine 1.3 mg/dL (0.6-1.0) 1.3 mg/dL (0.6-1.0) 1.1 mg/dL (0.6-1.0) Estimated GFR (Cockcroft-Gault) 47.8 47.8 57.9 Glucose Level 88 mg/dL (70-99) 103 mg/dL (70-99) 115 mg/dL (70-99) Lactic Acid Level 2.8 mmol/L (0.4-2.0) 3.3 mmol/L (0.4-2.0) Calcium Level 6.9 mg/dL (8.5-10.1) 6.9 mg/dL (8.5-10.1) 7.0 mg/dL (8.5-10.1) Magnesium Level 1.7 mg/dL (1.8-2.4) 2.4 mg/dL (1.8-2.4) Procalcitonin 16.76 ng/mL (0.00-0.10) O2 Saturation 92 % (92-99) Arterial Blood pH 7.47 (7.35-7.45) Arterial Blood pCO2 at Patient Temp 24 mmHg (35-46) Arterial Blood pO2 at Patient Temp 71 mmHg (85-108) Arterial Blood HCO3 17 mmol/L (21-28) Arterial Blood Base Excess -6 mmol/L (-3-3) FiO2 2 lpm nc Absolute Reticulocyte Count 0.024 x10^6/uL (0.020-0.120) Percent Reticulocyte Count 0.7 % (0.5-2.3) Immature Reticulocyte Fraction 0.54 (0.20-0.60) Iron Level 85 ug/dL (50-170) Total Iron Binding Capacity 136 ug/dL (250-450) Iron Saturation 63 % (15-34) Ferritin 583 ng/mL (8-252) Laboratory Tests Test 03/29/19 15:05 03/29/19 15:40 03/30/19 01:30 03/30/19 08:40 White Blood Count 8.0 x10^3/uL (4.0-11.0) 10.6 x10^3/uL (4.0-11.0) 11.6 x10^3/uL (4.0-11.0) Red Blood Count 2.60 x10^6/uL (3.50-5.40) 2.38 x10^6/uL (3.50-5.40) 3.25 x10^6/uL (3.50-5.70) Hemoglobin 7.1 g/dL (12.0-15.5) 6.4 g/dL (12.0-15.5) 9.0 g/dL (12.0-15.5) Hematocrit 20.9 % (36.0-47.0) 19.4 % (36.0-47.0) 27.2 % (36.0-47.0) Mean Corpuscular Volume 80 fL (79-100) 81 fL (79-100) 83 fL (79-100) Mean Corpuscular Hemoglobin 27 pg (25-35) 27 pg (25-35) 28 pg (25-35) Mean Corpuscular Hemoglobin Concent 34 g/dL (31-37) 33 g/dL (31-37) 33 g/dL (31-37) Red Cell Distribution Width 18.9 % (11.5-14.5) 18.8 % (11.5-14.5) 18.9 % (11.5-14.5) Platelet Count 25 x10^3/uL (140-400) 25 x10^3/uL (140-400) 27 x10^3/uL (140-400) Neutrophils (%) (Auto) 79 % (31-73) Lymphocytes (%) (Auto) 9 % (24-48) Monocytes (%) (Auto) 11 % (0-9) Eosinophils (%) (Auto) 0 % (0-3) Basophils (%) (Auto) 1 % (0-3) Neutrophils # (Auto) 6.4 x10^3/uL (1.8-7.7) Lymphocytes # (Auto) 0.7 x10^3/uL (1.0-4.8) Monocytes # (Auto) 0.9 x10^3/uL (0.0-1.1) Eosinophils # (Auto) 0.0 x10^3/uL (0.0-0.7) Basophils # (Auto) 0.0 x10^3/uL (0.0-0.2) Segmented Neutrophils % 65 % (35-66) Band Neutrophils % 20 % (0-9) Lymphocytes % 8 % (24-48) Monocytes % 6 % (0-10) Basophils % 1 % (0-3) Platelet Estimate Decreased (ADEQUATE) Large Platelets Occ Anisocytosis Slight Sodium Level 140 mmol/L (136-145) 140 mmol/L (136-145) 141 mmol/L (136-145) Potassium Level 4.1 mmol/L (3.5-5.1) 3.6 mmol/L (3.5-5.1) 3.5 mmol/L (3.5-5.1) Chloride Level 106 mmol/L (98-107) 108 mmol/L (98-107) 107 mmol/L (98-107) Carbon Dioxide Level 22 mmol/L (21-32) 21 mmol/L (21-32) 22 mmol/L (21-32) Anion Gap 12 (6-14) 11 (6-14) 12 (6-14) Blood Urea Nitrogen 54 mg/dL (7-20) 53 mg/dL (7-20) 51 mg/dL (7-20) Creatinine 1.3 mg/dL (0.6-1.0) 1.3 mg/dL (0.6-1.0) 1.1 mg/dL (0.6-1.0) Estimated GFR (Cockcroft-Gault) 47.8 47.8 57.9 Glucose Level 88 mg/dL (70-99) 103 mg/dL (70-99) 115 mg/dL (70-99) Lactic Acid Level 2.8 mmol/L (0.4-2.0) 3.3 mmol/L (0.4-2.0) Calcium Level 6.9 mg/dL (8.5-10.1) 6.9 mg/dL (8.5-10.1) 7.0 mg/dL (8.5-10.1) Magnesium Level 1.7 mg/dL (1.8-2.4) 2.4 mg/dL (1.8-2.4) Procalcitonin 16.76 ng/mL (0.00-0.10) O2 Saturation 92 % (92-99) Arterial Blood pH 7.47 (7.35-7.45) Arterial Blood pCO2 at Patient Temp 24 mmHg (35-46) Arterial Blood pO2 at Patient Temp 71 mmHg (85-108) Arterial Blood HCO3 17 mmol/L (21-28) Arterial Blood Base Excess -6 mmol/L (-3-3) FiO2 2 lpm nc Absolute Reticulocyte Count 0.024 x10^6/uL (0.020-0.120) Percent Reticulocyte Count 0.7 % (0.5-2.3) Immature Reticulocyte Fraction 0.54 (0.20-0.60) Iron Level 85 ug/dL (50-170) Total Iron Binding Capacity 136 ug/dL (250-450) Iron Saturation 63 % (15-34) Ferritin 583 ng/mL (8-252) Review All relevant outside records, renal labs, imaging studies, telemetry/EKG's were reviewed. Images Images No evidence of DVT in the bilateral lower extremity venous system. EMMETT NARANJO MD Mar 30, 2019 10:59
[2019-03-30] MEDS ORDERED: VANCOMYCIN 750 MG in IV NORMAL SALINE 250ML 250 ML IV SCH (11:00)
--- NOTE | 2019-03-30 11:45 | RAD ---
RENAL COMPLETE BILATERAL History: Acute kidney injury Comparison: None. Procedure: Transabdominal ultrasound images are obtained of the kidneys and bladder. Findings: Right kidney: measures 12.7 x 5.7 x 4.1 cm. Normal cortical echotexture. Corticomedullary differentiation is preserved. No hydronephrosis. No renal cyst. No solid renal mass or calculus. Left kidney: measures 12.8 x 4.1 x 4.6 cm. Normal cortical echotexture. Corticomedullary differentiation is preserved. No hydronephrosis. No renal cyst. No solid renal mass or calculus. Urinary bladder: No urinary bladder wall thickening, stone or calculus. The IVC is patent. The visualized abdominal aorta is normal caliber. IMPRESSION: 1. Unremarkable renal ultrasound. Electronically signed by: Matthew Scott DO (03/30/2019 11:42 AM) [id number]
--- NOTE | 2019-03-30 12:26 | NUR ---
SS following for discharge planning. SS reviewed pt chart. Pt is from home with spouse and is currently requiring oxygen. No discharge needs noted at this time. SS will continue to follow for discharge planning.
[2019-03-30] MEDS: AMINO AC 3%/ELECTROLYTE/GLYCER 1,000 ML IV SCH ×2 (12:37→22:31)
--- NOTE | 2019-03-30 12:40 | PDOC2 ---
BOB MCNAMARA AUDIO VISUAL AIDS DIRECTOR 03/30/19 1240: CARDIAC CONSULT DATE OF CONSULT Date of Consult DATE: 03/30/19 TIME: 11:02 REASON FOR CONSULT Reason for Consult: Tricuspid valve vegetation REFERRING PHYSICIAN Referring Physician: Andrew SOURCE Source: Chart review, Patient HISTORY OF PRESENT ILLNESS HISTORY OF PRESENT ILLNESS This is a 29 yo female admitted initially at [facility] complaining with dizziness and was noted to be dehydrated and SOA as well. She just recently had a baby about 4 weeks ago and has been having cough and fever. She was then transferred to [facility]. After further evaluation she has been noted with septic emboli to lungs and was noted with TV vegetation with also cavitary lesions to her lungs. She is significant for hx of vaping, tobaccoism, and past hx of marijuana and IV meth use. Also noted with anemia. No childhood hx of heart disease. PAST MEDICAL HISTORY Pulmonary: Asthma Hepatobiliary: Hep A/B/C (C) Psych: Depression PAST SURGICAL HISTORY Past Surgical History: (x3) SOCIAL HISTORY Smoke: <1 pack per day ALCOHOL: occassional Drugs: Other (hx of marijuana and IV meth use) Lives: with Family CURRENT MEDICATIONS CURRENT MEDICATIONS Current Medications Medications (Trade) Dose Ordered Sig/[place] Route PRN Reason Start Time Stop Time Status Last Admin Dose Admin Albumin Human 100 ml @ 100 mls/hr 1X ONCE IV 03/29/19 14:30 03/29/19 15:29 DC 03/29/19 14:59 Norepinephrine Bitartrate 250 ml @ 9.781 mls/ hr CONT PRN IV SEE I/O RECORD 03/29/19 14:30 03/29/19 23:25 Sodium Chloride 1,000 ml @ 100 mls/hr Q10H IV 03/29/19 14:30 03/29/19 23:25 Guaifenesin (Robitussin Dm) 10 ml PRN Q6HRS PRN PO COUGH 03/29/19 15:30 03/29/19 16:49 Sodium Bicarbonate (Sodium Bicarb Adult 8.4% Syr) 50 meq 1X ONCE IV 03/29/19 16:00 03/29/19 16:01 DC 03/29/19 16:49 Sodium Bicarbonate (Sodium Bicarb Adult 8.4% Syr) 50 meq 1X ONCE IV 03/29/19 16:00 03/29/19 16:01 DC 03/29/19 16:49 Vancomycin HCl (Vanco Per Pharmacy) 1 each PRN DAILY PRN MC SEE COMMENTS 03/29/19 17:15 03/29/19 17:50 Piperacillin Sod/ Tazobactam Sod 4.5 gm/Sodium Chloride 100 ml @ 200 mls/hr Q6HRS IV 03/29/19 18:00 03/30/19 05:59 Vancomycin HCl 1.25 gm/Sodium Chloride 250 ml @ 166.667 mls/hr 1X ONCE IV 03/29/19 17:15 03/29/19 18:44 DC 03/29/19 17:37 Vancomycin HCl 750 mg/Sodium Chloride 250 ml @ 250 mls/hr Q18H IV 03/30/19 11:00 03/30/19 10:19 Magnesium Sulfate 50 ml @ 25 mls/hr 1X ONCE IV 03/29/19 20:00 03/29/19 21:59 DC 03/29/19 20:02 Linezolid/Dextrose 300 ml @ 300 mls/hr Q12HR IV 03/30/19 09:00 03/30/19 08:20 Chlorhexidine Gluconate (Peridex) 15 ml BID SWSP 03/30/19 09:00 03/30/19 08:29 ALLERGIES ALLERGIES: Coded Allergies: Latex, Natural Rubber (Verified Allergy, Intermediate, Unknown, 03/29/19) acetaminophen (Unverified Allergy, Intermediate, Unknown, 03/29/19) Patient denies alergy hydrocodone (Unverified Allergy, Intermediate, Unknown, 03/29/19) Patient denies alergy prochlorperazine (Verified Adverse Reaction, Intermediate, Anxiety, 03/29/19) ROS Review of System limited, drowsy PHYSICAL EXAM General: Alert, Cooperative, No acute distress HEENT: Atraumatic, Other (dry oral mucoa) Heart: Regular rate (SR), Other (3/6 systolic mumrur to LLS border) Abdomen: Soft, No tenderness Extremities: No cyanosis, No edema Skin: No breakdown Neuro: Other (mumbles) Psych/Mental Status: Other (flat affect; drowsy) MUSCULOSKELETAL: Full range of motion without pain VITALS/I&O VITALS/I&O: Vital Signs Date Time Temp Pulse Resp B/P (MAP) Pulse Ox O2 Delivery O2 Flow Rate FiO2 03/30/19 10:00 105 24 132/74 (93) 94 Nasal Cannula 2.0 03/30/19 07:00 98.1 98.1 I & O 03/29/19 03/29/19 03/30/19 15:00 23:00 07:00 Intake Total 0 ml 410 ml 2680 ml Output Total 800 ml Balance 0 ml 410 ml 1880 ml LABS Lab: Laboratory Tests Test 03/29/19 15:05 03/29/19 15:40 03/30/19 01:30 03/30/19 08:40 White Blood Count 8.0 x10^3/uL (4.0-11.0) 10.6 x10^3/uL (4.0-11.0) 11.6 x10^3/uL (4.0-11.0) H Red Blood Count 2.60 x10^6/uL (3.50-5.40) L 2.38 x10^6/uL (3.50-5.40) L 3.25 x10^6/uL (3.50-5.70) L Hemoglobin 7.1 g/dL (12.0-15.5) L 6.4 g/dL (12.0-15.5) *L 9.0 g/dL (12.0-15.5) #L Hematocrit 20.9 % (36.0-47.0) *L 19.4 % (36.0-47.0) *L 27.2 % (36.0-47.0) L Mean Corpuscular Volume 80 fL (79-100) 81 fL (79-100) 83 fL (79-100) Mean Corpuscular Hemoglobin 27 pg (25-35) 27 pg (25-35) 28 pg (25-35) Mean Corpuscular Hemoglobin Concent 34 g/dL (31-37) 33 g/dL (31-37) 33 g/dL (31-37) Red Cell Distribution Width 18.9 % (11.5-14.5) H 18.8 % (11.5-14.5) H 18.9 % (11.5-14.5) H Platelet Count 25 x10^3/uL (140-400) *L 25 x10^3/uL (140-400) *L 27 x10^3/uL (140-400) L Neutrophils (%) (Auto) 79 % (31-73) H Lymphocytes (%) (Auto) 9 % (24-48) L Monocytes (%) (Auto) 11 % (0-9) H Eosinophils (%) (Auto) 0 % (0-3) Basophils (%) (Auto) 1 % (0-3) Neutrophils # (Auto) 6.4 x10^3/uL (1.8-7.7) Lymphocytes # (Auto) 0.7 x10^3/uL (1.0-4.8) L Monocytes # (Auto) 0.9 x10^3/uL (0.0-1.1) Eosinophils # (Auto) 0.0 x10^3/uL (0.0-0.7) Basophils # (Auto) 0.0 x10^3/uL (0.0-0.2) Segmented Neutrophils % 65 % (35-66) Band Neutrophils % 20 % (0-9) H Lymphocytes % 8 % (24-48) L Monocytes % 6 % (0-10) Basophils % 1 % (0-3) Platelet Estimate Decreased (ADEQUATE) Large Platelets Occ Anisocytosis Slight Sodium Level 140 mmol/L (136-145) 140 mmol/L (136-145) 141 mmol/L (136-145) Potassium Level 4.1 mmol/L (3.5-5.1) 3.6 mmol/L (3.5-5.1) 3.5 mmol/L (3.5-5.1) Chloride Level 106 mmol/L (98-107) 108 mmol/L (98-107) H 107 mmol/L (98-107) Carbon Dioxide Level 22 mmol/L (21-32) 21 mmol/L (21-32) 22 mmol/L (21-32) Anion Gap 12 (6-14) 11 (6-14) 12 (6-14) Blood Urea Nitrogen 54 mg/dL (7-20) H 53 mg/dL (7-20) H 51 mg/dL (7-20) H Creatinine 1.3 mg/dL (0.6-1.0) H 1.3 mg/dL (0.6-1.0) H 1.1 mg/dL (0.6-1.0) H Estimated GFR (Cockcroft-Gault) 47.8 47.8 57.9 Glucose Level 88 mg/dL (70-99) 103 mg/dL (70-99) H 115 mg/dL (70-99) H Lactic Acid Level 2.8 mmol/L (0.4-2.0) H 3.3 mmol/L (0.4-2.0) H Calcium Level 6.9 mg/dL (8.5-10.1) L 6.9 mg/dL (8.5-10.1) L 7.0 mg/dL (8.5-10.1) L Magnesium Level 1.7 mg/dL (1.8-2.4) L 2.4 mg/dL (1.8-2.4) Procalcitonin 16.76 ng/mL (0.00-0.10) H O2 Saturation 92 % (92-99) Arterial Blood pH 7.47 (7.35-7.45) H Arterial Blood pCO2 at Patient Temp 24 mmHg (35-46) L Arterial Blood pO2 at Patient Temp 71 mmHg (85-108) L Arterial Blood HCO3 17 mmol/L (21-28) L Arterial Blood Base Excess -6 mmol/L (-3-3) L FiO2 2 lpm nc Absolute Reticulocyte Count 0.024 x10^6/uL (0.020-0.120) Percent Reticulocyte Count 0.7 % (0.5-2.3) Immature Reticulocyte Fraction 0.54 (0.20-0.60) Iron Level 85 ug/dL (50-170) Total Iron Binding Capacity 136 ug/dL (250-450) L Iron Saturation 63 % (15-34) H Ferritin 583 ng/mL (8-252) H Test 03/30/19 10:15 Prothrombin Time 15.7 SEC (11.7-14.0) H Prothrombin Time INR 1.3 (0.8-1.1) H Activated Partial Thromboplast Time 30 SEC (24-38) Laboratory Tests 03/29/19 15:05 03/30/19 01:30 03/30/19 08:40 Laboratory Tests 03/29/19 15:05 03/30/19 01:30 03/30/19 08:40 ECHOCARDIOGRAM ECHOCARDIOGRAM <Conclusion> Left ventricle systolic function is normal. The ejection fraction is 50-55%. There is a flattened septum consistent with right ventricle volume and pressure overload. The right ventricle is moderately dilated. The right atrium is moderately dilated. Trace mitral regurgitation. Vegetation measuring 1.3 x 1.4 cm noted on tricuspid valve Severe tricuspid regurgitation. There is severe pulmonary hypertension. The PA pressure was estimated at 74 mmHg. There is no evidence of significant pericardial effusion. DATE: 03/29/19 1545 ASSESSMENT/PLAN ASSESSMENT/PLAN 1. Acute PE: septic emboli 2. TV vegetation/endocarditis: per TTE 3. RIKY: prerenal 4. Microcytic hypochromic anemia with thrombocytopenia 5. Substance abuse: relapse + for meth with hx of IV drug use and marijuana 6. : C section 02/07/2019 7. Sepsis: MRSA with past hx of hep C 8. NSVT: prone to this with TV vegetation Recommendations 1. Continue antibiotic treatment. Now off levophed. 2. Metoprolol PRN. 3. Unable to anticoagulate with platelet significantly low. 4. Maintain hydration. Supportive care. STEPHANE HAYS MD 03/30/19 1639: CARDIAC CONSULT ASSESSMENT/PLAN ASSESSMENT/PLAN Patient seen and examined. Agree with STUDENT DEVELOPMENT SPECIALIST's assessment and plan. Patient with infective endocarditis and septic pulmonary emboli secondary to IV drug use 2-D echo showed tricuspid valve vegetation and severe tricuspid regurgitation. LV systolic function preserved. Continue antibiotics per ID team. Thank you for your consultation. BOB MCNAMARA APRN Mar 30, 2019 12:40 STEPHANE HAYS MD Mar 30, 2019 16:39
[2019-03-30] MEDS: VANCOMYCIN PER PHARMACY MC PRN (13:03)
--- NOTE | 2019-03-30 13:04 | NUR ---
BRIEF VANCOMYCIN DOSING NOTE Patient was started on vancomycin 03/29/19 for possible endocarditis. Dosing started at vancomycin 750 mg IV a18hrs due to an eCrCl of 55 ml/min. Her renal function has improved slightly today on AM labs. Due to the high trough goal associated with endocarditis, will change to more aggressive dosing. Plan: 1. Change to vancomycin 750 mg IV q12hrs 2. Vancomycin trough 03/31 @ 0930 Linda Jordan Pharm.D.
--- NOTE | 2019-03-30 15:08 | NUR ---
Rehab screen completed. Pt would benefit from PT/OT eval and treat once medically stable. Please order if you agree. Addendum: 03/30/19 at 1509 by ISABEL CORONADO PT Amended: Links added.
--- NOTE | 2019-03-30 15:24 | CONS ---
DATE OF CONSULTATION: 03/30/2019 INFECTIOUS DISEASE CONSULTATION LOCATION: Patient's room, ICU, 103. REQUESTING PHYSICIAN: Dr. Morales. REASON FOR CONSULTATION: Sepsis. HISTORY OF PRESENT ILLNESS: The patient is a 29-year-old female who is not a very good historian currently as she has a history of substance abuse including meth, marijuana, and per nursing report, some heroin. She reports that she had been feeling ill since this past Wednesday, she began taking cephalexin which she got from a friend. She denies any known previous staph or strep infections, but does state that she had previous urinary tract infections. She presented to [facility] on the with lightheadedness and dehydration as well as shortness of air. She is 4 weeks with a and bilateral tubal ligation. She states that her last meth use was about a year ago or so at least IV-padron, but she does admit states that some people put it in a vape pen and she is unaware of it at times. While at [facility], she underwent a CT scan of her chest after a chest x-ray, which showed some bilateral interstitial infiltrates and nodular opacities. White count was 6.26, hemoglobin was 7.9, platelets were 39. She had 83% neutrophils. Sodium was 129, creatinine was 1.3. Urinalysis did not appear infected as the nitrite and leukocyte esterase were negative. test was negative. Drug screen was positive for methamphetamines and tricyclics. She had a normal TSH of 1.33 and her lactic acid was 3.8. CT scan revealed she had acute PE in the lower lungs, left greater than right with multiple bilateral pulmonary nodules, many of which are cavitary. She had blood cultures obtained. She was given Zosyn and then transferred to [facility]. She underwent an echo yesterday afternoon, showed she had a vegetation on her tricuspid valve, it is 1.3 x 1.4 cm. Additionally, she had severe pulmonary hypertension with a PA pressure of 74. She has been placed on vancomycin and Zosyn. Per nursing report [facility] called this morning and states that a blood culture is positive for MRSA. Currently, the patient is lying in bed. She is complaining of "cotton mouth." She has no gross headaches or change in vision. She states she has been coughing a lot without any blood with minimal sputum production. No nausea, vomiting or diarrhea. No dysuria, frequency or urgency. Denies any joint aches. PAST MEDICAL HISTORY: Positive for the above-mentioned substance abuse. She has a history of asthma; previous miscarriage; history of hepatitis C, uncertain if it has ever been treated or not; depression; trauma; visual impairment; history of urinary tract infections. PAST SURGICAL HISTORY: Positive for C-sections, dental surgery, D and C of the uterus. REVIEW OF SYSTEMS: Otherwise negative except for what is mentioned above. ALLERGIES: LISTED LATEX, NATURAL RUBBER, ACETAMINOPHEN, HYDROCORTISONE, . SOCIAL HISTORY: She is a smoker. Does substance abuse. She is . FAMILY HISTORY: Noncontributory. No staph infections. CURRENT MEDICATIONS: Include Levophed at 2 down from 8 initially, Zosyn, vancomycin, guaifenesin. PHYSICAL EXAMINATION: VITAL SIGNS: T-max has been 99.9 axillary, currently 99.1, pulse 105, respirations 26, blood pressure 112/68, satting 97% on 2 L. CONSTITUTIONAL: She is alert. She is little confused. She feels tired. She does not look in any acute distress. HEENT: Her pupils are equal and reactive. She has questionable conjunctival hemorrhage on the right side. Oral cavity, pharynx is very dry, questionable dentition, no petechia. NECK: Supple, no JVD. LUNGS: Clear to auscultation bilaterally. Lungs were decreased in the bases, no wheeze. HEART: Mildly tachy. S1, S2 with questionable murmur. ABDOMEN: Soft, nontender, no guarding or rebound. EXTREMITIES: Without clubbing or cyanosis. No gross edema. SKIN: Warm to touch without rash. She has multiple tattoos. Her toes are painted, unable to see if there are any splinter hemorrhages there. Her fingers were without splinter hemorrhages. NEUROLOGIC: She is nonfocal, moves all extremities. She is a little confused, but improved per nursing. PSYCHIATRIC: Affect is somewhat flat. LABORATORY VALUES: White count 10.6, hemoglobin was 6.4, platelets are 25. She had 20% bands, 8 lymphs and 65 neutrophils on arrival. Creatinine is 1.3, glucose of 103. Lactic acid recently was 3.3. Procalcitonin of 16.76. Lower extremity Dopplers negative for DVT. IMPRESSION: 1. Methicillin-resistant Staphylococcus aureus sepsis at [facility] per report from blood, 03/29. 2. Pancytopenia, status post packed red blood cells this a.m. 3. Tricuspid valve endocarditis. 4. Substance abuse. 5. Pulmonary embolism. 6. Likely septic emboli. 7. Pulmonary hypertension. 8. Hepatitis C, question if treated in the past. 9. Four weeks . RECOMMENDATIONS: Continue vancomycin and Zosyn for now and taper Zosyn likely on when confirmed blood and urine. Have no additional organisms from [facility]. I will add Zyvox for now given her septic emboli. Add oral care and Peridex, follow up sensitivities from [facility], repeat blood cultures in the morning. She will need a HUNTER when she is stable. Follow up on labs and cultures. [facility] records were reviewed with the nurse. I spent 35 minutes of critical care time. Dr. Morales, thank you for allowing me to see and participate in the patient's care. Should you have any questions, please do not hesitate to contact me. BREN LOCKHART MD DR: MAX/rhina JOB#: [id number] / [id number]
--- NOTE | 2019-03-30 15:30 | NUR ---
talked to trinity her on the phone. He states "if I come to see her, she is going to want to leave with me". "I don't think I can come, I want to but..." Discussed with Trinity what the physicians are discussing on pt. Talked about pt hallucinating, aggitated, incontinent of urine/stool and being delusional most of the time if she is not asleep. plan of care discussed. verbalized understanding. the next time pt awake will have her call Trinity.
[2019-03-30] MEDS: HYDROmorphone 2 MG/ML VIAL IV PRN (21:04)
--- NOTE | 2019-03-30 21:15 | NUR ---
Pt has c/o 7-8/10 neck, upper arm, and generalized pain. No PRN pain medication available. Call placed to on-call MD, Dr. George. Updated MD on pt condition. Received order for Dilaudid 1 mg Q4hrs x1 day for pain. Pt a&o to self and situation. Pt did report "seeing an Amazonian woman in the corner of the room". Pt denied any further hallucinations. Pt is within sight of this RN and pt call light is within reach. Will continue to monitor.
[2019-03-30] MEDS: VANCOMYCIN 750 MG in IV NORMAL SALINE 250ML 250 ML IV SCH (22:32)
[2019-03-30 22:45] LABS: BASE EXCESS ABG -6 mmol/L (-3-3); HCO3 ABG 18 mmol/L (21-28); PCO2 ABG 29 mmHg (35-46); PO2 ABG 66 mmHg (85-108); SAT O2 ABG 90 % (92-99)
[2019-03-30 22:50] LABS: FIO2 ABG 21
[2019-03-31] VITALS (23 sets, daily range): BP systolic 86–110; BP diastolic 49–68
[2019-03-31] MEDS: PIPERACILLIN/TAZOBACTAM 4.5 GM in IV NORMAL SALINE 100ML 100 ML IV SCH ×2 (00:02→06:23)
[2019-03-31] MEDS: HYDROmorphone 2 MG/ML VIAL IV PRN ×4 (01:06→20:06)
--- NOTE | 2019-03-31 04:41 | CONS ---
DATE OF CONSULTATION: 03/30/2019 HEMATOLOGY ONCOLOGY CONSULTATION REQUESTING PHYSICIAN: Tino Morales DO REASON FOR CONSULTATION: Thrombocytopenia. HISTORY OF PRESENT ILLNESS: The patient is a 29-year-old female, who has a history of substance abuse including marijuana and IV meth. She was brought in to [facility] with complaints of lightheadedness and dizziness. She also had symptoms of cough, low-grade fever, and dyspnea. She was 4 weeks at the time of admission. CT scan of the chest revealed evidence of lower lobe pulmonary emboli. The patient had multiple thick walled cavitary lesions throughout the lung, largest in the left upper lobe measuring 3-4 cm in diameter. She had possible subcarinal and mild bilateral hilar lymphadenopathy. She was transferred to [facility] because of sepsis. She also has history of vaping as well as tobacco use as well. She was given IV fluids, Levophed, and antibiotics per Infectious Disease. She was noted to have thrombocytopenia with a platelet count of 25,000 on 03/29/2019, and hence I was consulted for further evaluation. WBC was 8 with 20% bands. PAST MEDICAL HISTORY: Bronchial asthma, history of miscarriage, hepatitis C, polysubstance abuse including meth and marijuana, history of depression, trauma, and visual impairment. PAST SURGICAL HISTORY: section. SOCIAL HISTORY: She smokes cigarettes every day for at least 10 years. She has a history of alcohol use and substance abuse. FAMILY HISTORY: Negative for primary hematologic disorders. REVIEW OF SYSTEMS: A 12-point review of system was performed. Pertinent positives are mentioned in the history of present illness. Rest of the system review is negative. PHYSICAL EXAMINATION: GENERAL APPEARANCE: The patient is a 29-year-old female, who is in no acute cardiorespiratory distress. VITAL SIGNS: Blood pressure 139/69, heart rate 103, and temperature 98.1. HEENT: Atraumatic, normocephalic. EYES: No icterus. NECK: Supple. CHEST: Bilaterally symmetrical. HEART: S1, S2 normal. ABDOMEN: Soft, nontender. CENTRAL NERVOUS SYSTEM: No focal deficits. LYMPHATICS: No lymphadenopathy. SKIN: No rashes. PSYCHOLOGIC: Flat affect. MUSCULOSKELETAL: No joint effusions. LABORATORY DATA: On 03/29/2019, WBC 8, hemoglobin 7.1, and platelet count 25. On 03/30/2019, hemoglobin 6.4 with a platelet count of 25, reticulocyte count 0.7. Ferritin 583, iron 85, iron saturation 63, TIBC 136. B12 of 776. BUN 51 and creatinine 1.1. IMPRESSION AND PLAN: 1. Thrombocytopenia due to sepsis. Appreciate Infectious Disease consultation. The patient has methicillin-resistant Staphylococcus aureus sepsis noted in [facility]. She is on vancomycin and Zosyn. Continue antibiotic management per Infectious Diseases. I suspect that the significant worsened thrombocytopenia is also due to underlying hepatitis C. No signs of bleeding. If she has any significant bleeding, she would need platelet transfusion. I discussed with the patient and the registered nurse. 2. Septic pulmonary emboli. Platelet counts are too low for anticoagulation. In addition, since these are septic emboli, I agree with Dr. Hughes that treatment with antibiotics will be the primary modality of management. 3. Abnormal CT with bilateral cavitary nodules throughout the lungs, likely suggestive of septic emboli. I discussed with Dr. Hughes. Continue management per Dr. Hughes. TROY WASSERMAN MD DR: GAVIOTA/rhina JOB#: [id number] / [id number] INA
[2019-03-31 05:18] LABS: BASO % 0 % (0-3); EOS # 0.1 x10^3/uL (0.0-0.7); EOS % 1 % (0-3); HEMOGLOBIN 8.3 g/dL (12.0-15.5); LYMPH # 1.5 x10^3/uL (1.0-4.8); LYMPH % 12 % (24-48); MEAN CORPUSCULAR HEMOGLOBIN 28 pg (25-35); MEAN CORPUSCULAR HGB CONC 33 g/dL (31-37); MEAN CORPUSCULAR VOLUME 83 fL (79-100); MONO # 1.1 x10^3/uL (0.0-1.1); MONO % 9 % (0-9); NEUT # 9.7 x10^3/uL (1.8-7.7); NEUT % 78 % (31-73); PLATELET COUNT 30 x10^3/uL (140-400); RED BLOOD COUNT 3.02 x10^6/uL (3.50-5.40); RED CELL DISTRIBUTION WIDTH 18.8 % (11.5-14.5); WHITE BLOOD COUNT 12.4 x10^3/uL (4.0-11.0)
[2019-03-31 05:55] LABS: ALBUMIN 1.2 g/dL (3.4-5.0); ALBUMIN/GLOBULIN RATIO 0.3 (1.0-1.7); CALCIUM 7.2 mg/dL (8.5-10.1); CREATININE 1.2 mg/dL (0.6-1.0); GFR 52.4; POTASSIUM 3.5 mmol/L (3.5-5.1); TOTAL BILIRUBIN 0.7 mg/dL (0.2-1.0); TOTAL PROTEIN 5.2 g/dL (6.4-8.2)
--- NOTE | 2019-03-31 07:37 | PDOC ---
Infectious Disease Note Subjective Subjective Has some pain in LUE No N/V/SOA/Rash/F/C/S ROS ROS o/w neg Vital Sign Vital Signs Vital Signs Date Time Temp Pulse Resp B/P (MAP) Pulse Ox O2 Delivery O2 Flow Rate FiO2 03/31/19 06:24 30 94 Nasal Cannula 2.0 03/31/19 06:00 102 91/49 (63) 03/31/19 04:00 97.1 97.1 Physical Exam PHYSICAL EXAM CONSTITUTIONAL: She is alert. She is little confused. She looks tired. She does not look in any acute distress. HEENT: Her pupils are equal and reactive. She has questionable conjunctival hemorrhage on the right side. Oral cavity, pharynx is very dry, questionable dentition, no petechia. NECK: Supple, no JVD. LUNGS: Clear to auscultation bilaterally. Lungs were decreased in the bases, no wheeze. HEART: Mildly tachy. S1, S2 with questionable murmur. ABDOMEN: Soft, nontender, no guarding or rebound. EXTREMITIES: Without clubbing or cyanosis. No gross edema. Some pain in LUE with PROM but no joint swelling and no gross erythema/warmth SKIN: Warm to touch without rash. She has multiple tattoos. Her toes are painted, unable to see if there are any splinter hemorrhages there. Her fingers were without splinter hemorrhages. NEUROLOGIC: She is nonfocal, moves all extremities. She is a little confused, but improved per nursing. PSYCHIATRIC: Affect is somewhat flat. Labs Lab Laboratory Tests Test 03/30/19 08:40 03/30/19 10:15 03/30/19 22:19 03/31/19 04:55 White Blood Count 11.6 x10^3/uL (4.0-11.0) 12.4 x10^3/uL (4.0-11.0) Red Blood Count 3.25 x10^6/uL (3.50-5.70) 3.02 x10^6/uL (3.50-5.40) Hemoglobin 9.0 g/dL (12.0-15.5) 8.3 g/dL (12.0-15.5) Hematocrit 27.2 % (36.0-47.0) 25.0 % (36.0-47.0) Mean Corpuscular Volume 83 fL (79-100) 83 fL (79-100) Mean Corpuscular Hemoglobin 28 pg (25-35) 28 pg (25-35) Mean Corpuscular Hemoglobin Concent 33 g/dL (31-37) 33 g/dL (31-37) Red Cell Distribution Width 18.9 % (11.5-14.5) 18.8 % (11.5-14.5) Platelet Count 27 x10^3/uL (140-400) 30 x10^3/uL (140-400) Absolute Reticulocyte Count 0.024 x10^6/uL (0.020-0.120) Percent Reticulocyte Count 0.7 % (0.5-2.3) Immature Reticulocyte Fraction 0.54 (0.20-0.60) Sodium Level 141 mmol/L (136-145) 135 mmol/L (136-145) Potassium Level 3.5 mmol/L (3.5-5.1) 3.5 mmol/L (3.5-5.1) Chloride Level 107 mmol/L (98-107) 104 mmol/L (98-107) Carbon Dioxide Level 22 mmol/L (21-32) 21 mmol/L (21-32) Anion Gap 12 (6-14) 10 (6-14) Blood Urea Nitrogen 51 mg/dL (7-20) 53 mg/dL (7-20) Creatinine 1.1 mg/dL (0.6-1.0) 1.2 mg/dL (0.6-1.0) Estimated GFR (Cockcroft-Gault) 57.9 52.4 Glucose Level 115 mg/dL (70-99) 110 mg/dL (70-99) Calcium Level 7.0 mg/dL (8.5-10.1) 7.2 mg/dL (8.5-10.1) Magnesium Level 2.4 mg/dL (1.8-2.4) Iron Level 85 ug/dL (50-170) Total Iron Binding Capacity 136 ug/dL (250-450) Iron Saturation 63 % (15-34) Ferritin 583 ng/mL (8-252) Vitamin B12 Level 776 pg/mL (247-911) Prothrombin Time 15.7 SEC (11.7-14.0) Prothromb Time International Ratio 1.3 (0.8-1.1) Activated Partial Thromboplast Time 30 SEC (24-38) O2 Saturation 90 % (92-99) Arterial Blood pH 7.41 (7.35-7.45) Arterial Blood pCO2 at Patient Temp 29 mmHg (35-46) Arterial Blood pO2 at Patient Temp 66 mmHg (85-108) Arterial Blood HCO3 18 mmol/L (21-28) Arterial Blood Base Excess -6 mmol/L (-3-3) FiO2 21 Neutrophils (%) (Auto) 78 % (31-73) Lymphocytes (%) (Auto) 12 % (24-48) Monocytes (%) (Auto) 9 % (0-9) Eosinophils (%) (Auto) 1 % (0-3) Basophils (%) (Auto) 0 % (0-3) Neutrophils # (Auto) 9.7 x10^3/uL (1.8-7.7) Lymphocytes # (Auto) 1.5 x10^3/uL (1.0-4.8) Monocytes # (Auto) 1.1 x10^3/uL (0.0-1.1) Eosinophils # (Auto) 0.1 x10^3/uL (0.0-0.7) Basophils # (Auto) 0.0 x10^3/uL (0.0-0.2) BUN/Creatinine Ratio 44 (6-20) Total Bilirubin 0.7 mg/dL (0.2-1.0) Aspartate Amino Transf (AST/SGOT) 21 U/L (15-37) Alanine Aminotransferase (ALT/SGPT) 8 U/L (14-59) Alkaline Phosphatase 95 U/L (46-116) Total Protein 5.2 g/dL (6.4-8.2) Albumin 1.2 g/dL (3.4-5.0) Albumin/Globulin Ratio 0.3 (1.0-1.7) Micro TTE 03/29Left ventricle systolic function is normal. The ejection fraction is 50-55%. There is a flattened septum consistent with right ventricle volume and pressure overload. The right ventricle is moderately dilated. The right atrium is moderately dilated. Trace mitral regurgitation. Vegetation measuring 1.3 x 1.4 cm noted on tricuspid valve Severe tricuspid regurgitation. There is severe pulmonary hypertension. The PA pressure was estimated at 74 mmHg. There is no evidence of significant pericardial effusion. Objective Assessment + MRSA sepsis at [place] per report from blood 03/29 Leukocytosis - in part post PRBCs Pancytopenia - S/p PRBCs this am TV Endocarditis Substance abuse ? PE Likely septic emboli Pulm HTN Hep C - ? if treated in past 4 weeks post Plan Plan of Care Cont Vanc and Zyvox D/c Zosyn Perdiex - oral care F/u sensitivities from [place] to be faxed Repeat Blood cults this am Will need HUNTER when stable F/u labs and cults May need GI eval from Hep C D/w [facility] micro Critically ill BREN LOCKHART MD Mar 31, 2019 07:37
[2019-03-31] MEDS: CHLORHEXIDINE 0.12% 15 ML MOUTHWASH. SWSP SCH ×2 (08:10→21:12)
[2019-03-31] MEDS: AMINO AC 3%/ELECTROLYTE/GLYCER 1,000 ML IV SCH ×2 (08:10→17:46)
--- NOTE | 2019-03-31 09:30 | NUR ---
pt awake. unable to find words to express needs. garbled/loose speech. pt talking about standing in corner and different animals walking in her room. pt oriented to self and time. pt able to tell the time and count out when her next pain meds are due. pt keeps yelling out about how much pain she is in, and requesting pain medication at the appropriate times that she was told the pain med is due. pt states she is unable to move her left arm and even when you point to a spot on her body, to see if it hurts, she yells about how much it hurts that i am touching her. When able to distract pt and help her to commode, she is able to move her entire body fluidly without any complaints of pain even when touching her in the transfer. Communicated to dr hsu.
--- NOTE | 2019-03-31 09:48 | PDOC ---
SUBJECTIVE ROS More alert , states mouth feels dry ,withdrawing, c/o pain per RN OBJECTIVE Vital Signs Vital Signs Date Time Temp Pulse Resp B/P (MAP) Pulse Ox O2 Delivery O2 Flow Rate FiO2 03/31/19 08:00 98.0 91 26 104/58 (73) 97 Nasal Cannula 2.0 98.0 I & 0 Intake and Output 03/31/19 06:59 Intake Total 6444.9 ml Balance 6444.9 ml Intake Oral 1950 ml IV Total 4494.9 ml # Voids 6 # Bowel Movements 5 PHYSICAL EXAM Physical Exam General- NAD HEENT: OM NECK: Supple, LUNGS: Clear to auscultation bilaterally. Lungs were decreased in the bases, HEART: Mildly tachy. S1, S2 ABDOMEN: Soft, nontender, EXTREMITIES: Without clubbing or cyanosis. No gross edema SKIN: multiple tattoos NEUROLOGIC:little confused, [place] + DIAGNOSIS/ASSESSMENT Assessment & Plan RIKY- ATN 2/2 Hypotension/ sepsis Renal function stable , incontinent UA no micr hematuria, mild proteinuria , no e/o UTI , renal US unremarkable Supportive care, currently on PPN MRSA sepsis - On Abx Anemia - S/p PRBCs 03/30 Hypotension. hypovolemic and septic shock IVF, low dose pressors Acute hypoxic respiratory failure secondary to sepsis/SIRS Sources of infection likely in the lungs. Suspicion of septic emboli - Abnormal CT chest with bilateral cavitary nodules throughout the lungs, Lower lobe pulmonary emboli.Likely infective emboli. Rt Sided Endocarditis- vegetations tricuspid valve on ECHO Severe tricuspid regurgitation. Severe pulmonary hypertension-PA pressure was estimated at 74 mmHg. History of hepatitis C - not sure if treated Recommend GI consult Thrombocytopenia -? Chronic, Hx of Hep C Hem/Onc consulted Polysubstance abuse. COMMENT/RELEVANT DATA Meds Current Medications Medications (Trade) Dose Ordered Sig/[place] Start Time Stop Time Status Last Admin Dose Admin Albumin Human 100 ml @ 100 mls/hr 1X ONCE 03/29/19 14:30 03/29/19 15:29 DC 03/29/19 14:59 100 MLS/HR Amino Acids/ Glycerin/ Electrolytes 1,000 ml @ 100 mls/hr Q10H 03/30/19 12:00 03/31/19 08:10 100 MLS/HR Chlorhexidine Gluconate (Peridex) 15 ml BID 03/30/19 09:00 03/31/19 08:11 15 ML Guaifenesin (Robitussin Dm) 10 ml PRN Q6HRS PRN 03/29/19 15:30 03/29/19 16:49 10 ML Hydromorphone HCl (Dilaudid) 1 mg PRN Q4HRS PRN 03/30/19 21:00 03/31/19 22:00 03/31/19 05:11 1 MG Linezolid/Dextrose 300 ml @ 300 mls/hr Q12HR 03/30/19 09:00 03/31/19 08:10 300 MLS/HR Magnesium Sulfate 50 ml @ 25 mls/hr 1X ONCE 03/29/19 20:00 03/29/19 21:59 DC 03/29/19 20:02 25 MLS/HR Norepinephrine Bitartrate 250 ml @ 9.781 mls/ hr CONT PRN 03/29/19 14:30 03/29/19 23:25 9.781 MLS/HR Piperacillin Sod/ Tazobactam Sod (Zosyn Per Pharmacy) 1 each PRN DAILY PRN 03/29/19 17:15 03/31/19 07:37 DC Piperacillin Sod/ Tazobactam Sod 4.5 gm/Sodium Chloride 100 ml @ 200 mls/hr Q6HRS 03/29/19 18:00 03/31/19 07:37 DC 03/31/19 06:23 200 MLS/HR Sodium Bicarbonate (Sodium Bicarb Adult 8.4% Syr) 50 meq 1X ONCE 03/29/19 16:00 03/29/19 16:01 DC 03/29/19 16:49 50 MEQ Sodium Chloride 1,000 ml @ 100 mls/hr Q10H 03/29/19 14:30 03/30/19 12:08 DC 03/29/19 23:25 100 MLS/HR Vancomycin HCl (Vanco Per Pharmacy) 1 each PRN DAILY PRN 03/29/19 17:15 03/30/19 13:03 1 EACH Vancomycin HCl (Vancomycin Trough Level) 1 each 1X ONCE 03/31/19 09:30 03/31/19 09:31 DC Vancomycin HCl 1.25 gm/Sodium Chloride 250 ml @ 166.667 mls/hr 1X ONCE 03/29/19 17:15 03/29/19 18:44 DC 03/29/19 17:37 166.667 MLS/HR Vancomycin HCl 750 mg/Sodium Chloride 250 ml @ 250 mls/hr Q12H 03/30/19 22:00 03/30/19 22:32 250 MLS/HR Lab Laboratory Tests Test 03/30/19 10:15 03/30/19 22:19 03/31/19 04:55 Prothrombin Time 15.7 SEC (11.7-14.0) Prothromb Time International Ratio 1.3 (0.8-1.1) Activated Partial Thromboplast Time 30 SEC (24-38) O2 Saturation 90 % (92-99) Arterial Blood pH 7.41 (7.35-7.45) Arterial Blood pCO2 at Patient Temp 29 mmHg (35-46) Arterial Blood pO2 at Patient Temp 66 mmHg (85-108) Arterial Blood HCO3 18 mmol/L (21-28) Arterial Blood Base Excess -6 mmol/L (-3-3) FiO2 21 White Blood Count 12.4 x10^3/uL (4.0-11.0) Red Blood Count 3.02 x10^6/uL (3.50-5.40) Hemoglobin 8.3 g/dL (12.0-15.5) Hematocrit 25.0 % (36.0-47.0) Mean Corpuscular Volume 83 fL (79-100) Mean Corpuscular Hemoglobin 28 pg (25-35) Mean Corpuscular Hemoglobin Concent 33 g/dL (31-37) Red Cell Distribution Width 18.8 % (11.5-14.5) Platelet Count 30 x10^3/uL (140-400) Neutrophils (%) (Auto) 78 % (31-73) Lymphocytes (%) (Auto) 12 % (24-48) Monocytes (%) (Auto) 9 % (0-9) Eosinophils (%) (Auto) 1 % (0-3) Basophils (%) (Auto) 0 % (0-3) Neutrophils # (Auto) 9.7 x10^3/uL (1.8-7.7) Lymphocytes # (Auto) 1.5 x10^3/uL (1.0-4.8) Monocytes # (Auto) 1.1 x10^3/uL (0.0-1.1) Eosinophils # (Auto) 0.1 x10^3/uL (0.0-0.7) Basophils # (Auto) 0.0 x10^3/uL (0.0-0.2) Sodium Level 135 mmol/L (136-145) Potassium Level 3.5 mmol/L (3.5-5.1) Chloride Level 104 mmol/L (98-107) Carbon Dioxide Level 21 mmol/L (21-32) Anion Gap 10 (6-14) Blood Urea Nitrogen 53 mg/dL (7-20) Creatinine 1.2 mg/dL (0.6-1.0) Estimated GFR (Cockcroft-Gault) 52.4 BUN/Creatinine Ratio 44 (6-20) Glucose Level 110 mg/dL (70-99) Calcium Level 7.2 mg/dL (8.5-10.1) Total Bilirubin 0.7 mg/dL (0.2-1.0) Aspartate Amino Transf (AST/SGOT) 21 U/L (15-37) Alanine Aminotransferase (ALT/SGPT) 8 U/L (14-59) Alkaline Phosphatase 95 U/L (46-116) Total Protein 5.2 g/dL (6.4-8.2) Albumin 1.2 g/dL (3.4-5.0) Albumin/Globulin Ratio 0.3 (1.0-1.7) Results All relevant outside records, renal labs, imaging studies, telemetry/EKG's were reviewed. Other Renal US-- Right kidney: measures 12.7 x 5.7 x 4.1 cm. Normal cortical echotexture. Corticomedullary differentiation is preserved. No hydronephrosis. No renal cyst. No solid renal mass or calculus. Left kidney: measures 12.8 x 4.1 x 4.6 cm. Normal cortical echotexture. Corticomedullary differentiation is preserved. No hydronephrosis. No renal cyst. No solid renal mass or calculus. Urinary bladder: No urinary bladder wall thickening, stone or calculus. The IVC is patent. The visualized abdominal aorta is normal caliber. IMPRESSION: 1. Unremarkable renal ultrasound. EMMETT NARANJO MD Mar 31, 2019 09:48
[2019-03-31] MEDS: HALOPERIDOL LACTATE 5 MG/ML VIAL. IVP PRN ×2 (10:32→18:31)
[2019-03-31 10:44] LABS: VANC TR 18.2 mcg/mL (10.0-20.0)
[2019-03-31] MEDS: VANCOMYCIN 750 MG in IV NORMAL SALINE 250ML 250 ML IV SCH ×2 (11:02→22:24)
[2019-03-31] MEDS: VANCOMYCIN PER PHARMACY MC PRN (11:05)
--- NOTE | 2019-03-31 11:05 | NUR ---
Pharmacy Vancomycin Dosing Note S:Consulted to monitor and dose vancomycin started 03/29/19. O:JODIE SAMSON is a 29 year old F with bacteremia/endocarditis/septic emboli. Height: 5 feet, 3 inches Weight: 59.947450 kg [place] Body Weight: 52.40 Adjusted Body Weight: 55.20 Dosing Weight: Actual Other Antibiotics: ZOSYN 4.5G IV Q6HRS - Dc'd per ID ZYVOX 600 MG IV Q12HRS LABS: Last BUN: 53 Last Creatinine: 1.2 Creatinine Clearance: 55-60 mL/min Last WBC: 12.4 Last Procalcitonin: 16.76 Tmax (past 24 hours): 99.1 Microbiology: BLOOD CX (@ [facility]): MRSA I/O: 6444.9/ 6 voids Drug Levels: Last Trough level: 18.2 on 03/31/19 at 1010 Last dose given 03/30/19 at 2232 Vancomycin Dosing: Loading Dose: 1250 mg x1 Dosing Weight: Actual Target Trough: 15-20 A: Based on: Patient's vancomycin trough, renal function, severity of suspected infection and patient's PMH P: 1. Will continue Vancomycin 750 mg IV q12h 2. Follow up Trough level as needed 3. Pharmacy will continue to monitor, follow and adjust therapy as needed. YURI JEONG [facility], 03/31/19 [id number]
--- NOTE | 2019-03-31 11:31 | PDOC ---
PULMONARY PROGRESS NOTES Subjective remains on N/C no increase SOA no increase cough Vitals Vital Signs Date Time Temp Pulse Resp B/P (MAP) Pulse Ox O2 Delivery O2 Flow Rate FiO2 03/31/19 11:04 90 26 95/58 (70) 96 Nasal Cannula 2.0 03/31/19 08:00 98.0 98.0 ROS: No Nausea, No Chest Pain, No Abdominal Pain, No Increase Cough General: Alert, No acute distress Lungs: Other (dimished) Cardiovascular: S1, S2 Abdomen: Soft, Non-tender Neuro Exam: Alert, Oriented Extremities: No Edema Skin: Warm Labs Laboratory Tests Test 03/29/19 15:05 03/29/19 15:40 03/30/19 01:30 03/30/19 08:40 White Blood Count 8.0 x10^3/uL (4.0-11.0) 10.6 x10^3/uL (4.0-11.0) 11.6 x10^3/uL (4.0-11.0) Red Blood Count 2.60 x10^6/uL (3.50-5.40) 2.38 x10^6/uL (3.50-5.40) 3.25 x10^6/uL (3.50-5.70) Hemoglobin 7.1 g/dL (12.0-15.5) 6.4 g/dL (12.0-15.5) 9.0 g/dL (12.0-15.5) Hematocrit 20.9 % (36.0-47.0) 19.4 % (36.0-47.0) 27.2 % (36.0-47.0) Mean Corpuscular Volume 80 fL (79-100) 81 fL (79-100) 83 fL (79-100) Mean Corpuscular Hemoglobin 27 pg (25-35) 27 pg (25-35) 28 pg (25-35) Mean Corpuscular Hemoglobin Concent 34 g/dL (31-37) 33 g/dL (31-37) 33 g/dL (31-37) Red Cell Distribution Width 18.9 % (11.5-14.5) 18.8 % (11.5-14.5) 18.9 % (11.5-14.5) Platelet Count 25 x10^3/uL (140-400) 25 x10^3/uL (140-400) 27 x10^3/uL (140-400) Neutrophils (%) (Auto) 79 % (31-73) Lymphocytes (%) (Auto) 9 % (24-48) Monocytes (%) (Auto) 11 % (0-9) Eosinophils (%) (Auto) 0 % (0-3) Basophils (%) (Auto) 1 % (0-3) Neutrophils # (Auto) 6.4 x10^3/uL (1.8-7.7) Lymphocytes # (Auto) 0.7 x10^3/uL (1.0-4.8) Monocytes # (Auto) 0.9 x10^3/uL (0.0-1.1) Eosinophils # (Auto) 0.0 x10^3/uL (0.0-0.7) Basophils # (Auto) 0.0 x10^3/uL (0.0-0.2) Segmented Neutrophils % 65 % (35-66) Band Neutrophils % 20 % (0-9) Lymphocytes % 8 % (24-48) Monocytes % 6 % (0-10) Basophils % 1 % (0-3) Platelet Estimate Decreased (ADEQUATE) Large Platelets Occ Anisocytosis Slight Sodium Level 140 mmol/L (136-145) 140 mmol/L (136-145) 141 mmol/L (136-145) Potassium Level 4.1 mmol/L (3.5-5.1) 3.6 mmol/L (3.5-5.1) 3.5 mmol/L (3.5-5.1) Chloride Level 106 mmol/L (98-107) 108 mmol/L (98-107) 107 mmol/L (98-107) Carbon Dioxide Level 22 mmol/L (21-32) 21 mmol/L (21-32) 22 mmol/L (21-32) Anion Gap 12 (6-14) 11 (6-14) 12 (6-14) Blood Urea Nitrogen 54 mg/dL (7-20) 53 mg/dL (7-20) 51 mg/dL (7-20) Creatinine 1.3 mg/dL (0.6-1.0) 1.3 mg/dL (0.6-1.0) 1.1 mg/dL (0.6-1.0) Estimated GFR (Cockcroft-Gault) 47.8 47.8 57.9 Glucose Level 88 mg/dL (70-99) 103 mg/dL (70-99) 115 mg/dL (70-99) Lactic Acid Level 2.8 mmol/L (0.4-2.0) 3.3 mmol/L (0.4-2.0) Calcium Level 6.9 mg/dL (8.5-10.1) 6.9 mg/dL (8.5-10.1) 7.0 mg/dL (8.5-10.1) Magnesium Level 1.7 mg/dL (1.8-2.4) 2.4 mg/dL (1.8-2.4) Procalcitonin 16.76 ng/mL (0.00-0.10) O2 Saturation 92 % (92-99) Arterial Blood pH 7.47 (7.35-7.45) Arterial Blood pCO2 at Patient Temp 24 mmHg (35-46) Arterial Blood pO2 at Patient Temp 71 mmHg (85-108) Arterial Blood HCO3 17 mmol/L (21-28) Arterial Blood Base Excess -6 mmol/L (-3-3) FiO2 2 lpm nc Absolute Reticulocyte Count 0.024 x10^6/uL (0.020-0.120) Percent Reticulocyte Count 0.7 % (0.5-2.3) Immature Reticulocyte Fraction 0.54 (0.20-0.60) Iron Level 85 ug/dL (50-170) Total Iron Binding Capacity 136 ug/dL (250-450) Iron Saturation 63 % (15-34) Ferritin 583 ng/mL (8-252) Vitamin B12 Level 776 pg/mL (247-911) Test 03/30/19 10:15 03/30/19 22:19 03/31/19 04:55 03/31/19 10:10 Prothrombin Time 15.7 SEC (11.7-14.0) Prothromb Time International Ratio 1.3 (0.8-1.1) Activated Partial Thromboplast Time 30 SEC (24-38) O2 Saturation 90 % (92-99) Arterial Blood pH 7.41 (7.35-7.45) Arterial Blood pCO2 at Patient Temp 29 mmHg (35-46) Arterial Blood pO2 at Patient Temp 66 mmHg (85-108) Arterial Blood HCO3 18 mmol/L (21-28) Arterial Blood Base Excess -6 mmol/L (-3-3) FiO2 21 White Blood Count 12.4 x10^3/uL (4.0-11.0) Red Blood Count 3.02 x10^6/uL (3.50-5.40) Hemoglobin 8.3 g/dL (12.0-15.5) Hematocrit 25.0 % (36.0-47.0) Mean Corpuscular Volume 83 fL (79-100) Mean Corpuscular Hemoglobin 28 pg (25-35) Mean Corpuscular Hemoglobin Concent 33 g/dL (31-37) Red Cell Distribution Width 18.8 % (11.5-14.5) Platelet Count 30 x10^3/uL (140-400) Neutrophils (%) (Auto) 78 % (31-73) Lymphocytes (%) (Auto) 12 % (24-48) Monocytes (%) (Auto) 9 % (0-9) Eosinophils (%) (Auto) 1 % (0-3) Basophils (%) (Auto) 0 % (0-3) Neutrophils # (Auto) 9.7 x10^3/uL (1.8-7.7) Lymphocytes # (Auto) 1.5 x10^3/uL (1.0-4.8) Monocytes # (Auto) 1.1 x10^3/uL (0.0-1.1) Eosinophils # (Auto) 0.1 x10^3/uL (0.0-0.7) Basophils # (Auto) 0.0 x10^3/uL (0.0-0.2) Sodium Level 135 mmol/L (136-145) Potassium Level 3.5 mmol/L (3.5-5.1) Chloride Level 104 mmol/L (98-107) Carbon Dioxide Level 21 mmol/L (21-32) Anion Gap 10 (6-14) Blood Urea Nitrogen 53 mg/dL (7-20) Creatinine 1.2 mg/dL (0.6-1.0) Estimated GFR (Cockcroft-Gault) 52.4 BUN/Creatinine Ratio 44 (6-20) Glucose Level 110 mg/dL (70-99) Calcium Level 7.2 mg/dL (8.5-10.1) Total Bilirubin 0.7 mg/dL (0.2-1.0) Aspartate Amino Transf (AST/SGOT) 21 U/L (15-37) Alanine Aminotransferase (ALT/SGPT) 8 U/L (14-59) Alkaline Phosphatase 95 U/L (46-116) Total Protein 5.2 g/dL (6.4-8.2) Albumin 1.2 g/dL (3.4-5.0) Albumin/Globulin Ratio 0.3 (1.0-1.7) Vancomycin Level Trough 18.2 mcg/mL (10.0-20.0) Vancomycin Last Dose Date 03/30/19 Vancomycin Last Dose Time 2200 Laboratory Tests Test 03/30/19 22:19 03/31/19 04:55 03/31/19 10:10 O2 Saturation 90 % (92-99) Arterial Blood pH 7.41 (7.35-7.45) Arterial Blood pCO2 at Patient Temp 29 mmHg (35-46) Arterial Blood pO2 at Patient Temp 66 mmHg (85-108) Arterial Blood HCO3 18 mmol/L (21-28) Arterial Blood Base Excess -6 mmol/L (-3-3) FiO2 21 White Blood Count 12.4 x10^3/uL (4.0-11.0) Red Blood Count 3.02 x10^6/uL (3.50-5.40) Hemoglobin 8.3 g/dL (12.0-15.5) Hematocrit 25.0 % (36.0-47.0) Mean Corpuscular Volume 83 fL (79-100) Mean Corpuscular Hemoglobin 28 pg (25-35) Mean Corpuscular Hemoglobin Concent 33 g/dL (31-37) Red Cell Distribution Width 18.8 % (11.5-14.5) Platelet Count 30 x10^3/uL (140-400) Neutrophils (%) (Auto) 78 % (31-73) Lymphocytes (%) (Auto) 12 % (24-48) Monocytes (%) (Auto) 9 % (0-9) Eosinophils (%) (Auto) 1 % (0-3) Basophils (%) (Auto) 0 % (0-3) Neutrophils # (Auto) 9.7 x10^3/uL (1.8-7.7) Lymphocytes # (Auto) 1.5 x10^3/uL (1.0-4.8) Monocytes # (Auto) 1.1 x10^3/uL (0.0-1.1) Eosinophils # (Auto) 0.1 x10^3/uL (0.0-0.7) Basophils # (Auto) 0.0 x10^3/uL (0.0-0.2) Sodium Level 135 mmol/L (136-145) Potassium Level 3.5 mmol/L (3.5-5.1) Chloride Level 104 mmol/L (98-107) Carbon Dioxide Level 21 mmol/L (21-32) Anion Gap 10 (6-14) Blood Urea Nitrogen 53 mg/dL (7-20) Creatinine 1.2 mg/dL (0.6-1.0) Estimated GFR (Cockcroft-Gault) 52.4 BUN/Creatinine Ratio 44 (6-20) Glucose Level 110 mg/dL (70-99) Calcium Level 7.2 mg/dL (8.5-10.1) Total Bilirubin 0.7 mg/dL (0.2-1.0) Aspartate Amino Transf (AST/SGOT) 21 U/L (15-37) Alanine Aminotransferase (ALT/SGPT) 8 U/L (14-59) Alkaline Phosphatase 95 U/L (46-116) Total Protein 5.2 g/dL (6.4-8.2) Albumin 1.2 g/dL (3.4-5.0) Albumin/Globulin Ratio 0.3 (1.0-1.7) Vancomycin Level Trough 18.2 mcg/mL (10.0-20.0) Vancomycin Last Dose Date 03/30/19 Vancomycin Last Dose Time 2200 Medications Active Scripts Medications Dose Route/Sig Max Daily Dose Days Date Category Prenate Elite Tablet ( #79/Iron Asp Gly/FA#1) 1 Each Tablet 1 Each PO DAILY 03/29/19 Reported Ibuprofen 800 Mg Tablet 800 Mg PO PRN Q6HRS PRN 03/29/19 Reported Ferrous Sulfate 325 Mg Tablet 325 Mg PO DAILY 03/29/19 Reported Docusate Sodium 100 Mg Capsule 100 Mg PO BID 03/29/19 Reported Impression . IMPRESSION: 1. Acute hypoxic respiratory failure secondary to sepsis MRSA in blood.- improved 2. septic emboli history of IV meth abuse. 3. Abnormal CT chest with bilateral cavitary nodules throughout the lungs, likely suggestive of septic emboli from right-sided endocarditis. 4. Lower lobe pulmonary emboli.Likely infective emboli. I suspect this is related to obstruction of the pulmonary vessels from right-sided vegetations and dislodgement. In the setting of anemia and thrombocytopenia, anticoagulation would be high risk and not indicated. 5. History of hepatitis C with chronic thrombocytopenia.--improving slowly/stable 6. Polysubstance abuse. 7. Hypotension. Suspect combination of hypovolemic and septic shock.---improving Plan . 1. Continue with present oxygen. 3. Avoid benzodiazepines and narcotics. 4. antibiotics per ID currently vanco/zyvox 5. Transthoracic echo c/w tricuspid right-sided vegetations, EF 50-55% 6. Dopplers of lower extremities and negative 7. No need for anticoagulation 8. Follow all cultures, blood cultures repeated on 03/30/19 9.GI consult regarding anemia. 10.Hematology consulted regarding thrombocytopenia. 11. Discussed with JAKY. EMY SAEED MD Mar 31, 2019 11:31
--- NOTE | 2019-03-31 13:47 | PDOC ---
PROGRESS NOTES Chief Complaint Chief Complaint Sepsis Tricuspid Vegetation Septic emboli MRSA bacteremia acute metabolic encephalopathy polysubstance abuse History of Present Illness History of Present Illness critcally ill agitated, wants more pain meds is confusd, will try low dose haldol, PRN Vitals Vitals Vital Signs Date Time Temp Pulse Resp B/P (MAP) Pulse Ox O2 Delivery O2 Flow Rate FiO2 03/31/19 13:42 28 97 Nasal Cannula 2.0 03/31/19 13:06 96 98/62 (74) 03/31/19 12:00 98.0 98.0 Physical Exam Physical Exam CONSTITUTIONAL: She is alert. She is little confused. She looks tired. She does not look in any acute distress. HEENT: Her pupils are equal and reactive. She has questionable conjunctival hemorrhage on the right side. Oral cavity, pharynx is very dry, questionable dentition, no petechia. NECK: Supple, no JVD. LUNGS: Clear to auscultation bilaterally. Lungs were decreased in the bases, no wheeze. HEART: Mildly tachy. S1, S2 with questionable murmur. ABDOMEN: Soft, nontender, no guarding or rebound. EXTREMITIES: Without clubbing or cyanosis. No gross edema. Some pain in LUE with PROM but no joint swelling and no gross erythema/warmth SKIN: Warm to touch without rash. She has multiple tattoos. Her toes are painted, unable to see if there are any splinter hemorrhages there. Her fingers were without splinter hemorrhages. NEUROLOGIC: She is nonfocal, moves all extremities. She is a little confused, but improved per nursing. PSYCHIATRIC: Affect is somewhat flat. General: Alert, Cooperative, No acute distress Heart: Regular rate (SR), Other (3/6 systolic mumrur to LLS border) Lungs: Other (dimished) Abdomen: Soft, No tenderness Extremities: No cyanosis, No edema Skin: No breakdown Labs LABS Laboratory Tests Test 03/30/19 22:19 03/31/19 04:55 03/31/19 10:10 O2 Saturation 90 % (92-99) Arterial Blood pH 7.41 (7.35-7.45) Arterial Blood pCO2 at Patient Temp 29 mmHg (35-46) Arterial Blood pO2 at Patient Temp 66 mmHg (85-108) Arterial Blood HCO3 18 mmol/L (21-28) Arterial Blood Base Excess -6 mmol/L (-3-3) FiO2 21 White Blood Count 12.4 x10^3/uL (4.0-11.0) Red Blood Count 3.02 x10^6/uL (3.50-5.40) Hemoglobin 8.3 g/dL (12.0-15.5) Hematocrit 25.0 % (36.0-47.0) Mean Corpuscular Volume 83 fL (79-100) Mean Corpuscular Hemoglobin 28 pg (25-35) Mean Corpuscular Hemoglobin Concent 33 g/dL (31-37) Red Cell Distribution Width 18.8 % (11.5-14.5) Platelet Count 30 x10^3/uL (140-400) Neutrophils (%) (Auto) 78 % (31-73) Lymphocytes (%) (Auto) 12 % (24-48) Monocytes (%) (Auto) 9 % (0-9) Eosinophils (%) (Auto) 1 % (0-3) Basophils (%) (Auto) 0 % (0-3) Neutrophils # (Auto) 9.7 x10^3/uL (1.8-7.7) Lymphocytes # (Auto) 1.5 x10^3/uL (1.0-4.8) Monocytes # (Auto) 1.1 x10^3/uL (0.0-1.1) Eosinophils # (Auto) 0.1 x10^3/uL (0.0-0.7) Basophils # (Auto) 0.0 x10^3/uL (0.0-0.2) Sodium Level 135 mmol/L (136-145) Potassium Level 3.5 mmol/L (3.5-5.1) Chloride Level 104 mmol/L (98-107) Carbon Dioxide Level 21 mmol/L (21-32) Anion Gap 10 (6-14) Blood Urea Nitrogen 53 mg/dL (7-20) Creatinine 1.2 mg/dL (0.6-1.0) Estimated GFR (Cockcroft-Gault) 52.4 BUN/Creatinine Ratio 44 (6-20) Glucose Level 110 mg/dL (70-99) Calcium Level 7.2 mg/dL (8.5-10.1) Total Bilirubin 0.7 mg/dL (0.2-1.0) Aspartate Amino Transf (AST/SGOT) 21 U/L (15-37) Alanine Aminotransferase (ALT/SGPT) 8 U/L (14-59) Alkaline Phosphatase 95 U/L (46-116) Total Protein 5.2 g/dL (6.4-8.2) Albumin 1.2 g/dL (3.4-5.0) Albumin/Globulin Ratio 0.3 (1.0-1.7) Vancomycin Level Trough 18.2 mcg/mL (10.0-20.0) Vancomycin Last Dose Date 03/30/19 Vancomycin Last Dose Time 2200 Assessment and Plan Assessmemt and Plan Problems Medical Problems: (1) RIKY (acute kidney injury) Status: Acute (2) Endocarditis Status: Acute (3) Hypotension Status: Acute (4) Pulmonary hypertension Status: Chronic (5) Renal failure Status: Acute (6) Respiratory failure Status: Acute (7) Septic pulmonary embolism Status: Acute (8) Severe sepsis Status: Acute (9) Severe tricuspid regurgitation Status: Chronic Comment Review of Relevant I have reviewed the following items kim (where applicable) has been applied. Labs Laboratory Tests Test 03/29/19 15:05 03/29/19 15:40 03/30/19 01:30 03/30/19 08:40 White Blood Count 8.0 x10^3/uL (4.0-11.0) 10.6 x10^3/uL (4.0-11.0) 11.6 x10^3/uL (4.0-11.0) Red Blood Count 2.60 x10^6/uL (3.50-5.40) 2.38 x10^6/uL (3.50-5.40) 3.25 x10^6/uL (3.50-5.70) Hemoglobin 7.1 g/dL (12.0-15.5) 6.4 g/dL (12.0-15.5) 9.0 g/dL (12.0-15.5) Hematocrit 20.9 % (36.0-47.0) 19.4 % (36.0-47.0) 27.2 % (36.0-47.0) Mean Corpuscular Volume 80 fL (79-100) 81 fL (79-100) 83 fL (79-100) Mean Corpuscular Hemoglobin 27 pg (25-35) 27 pg (25-35) 28 pg (25-35) Mean Corpuscular Hemoglobin Concent 34 g/dL (31-37) 33 g/dL (31-37) 33 g/dL (31-37) Red Cell Distribution Width 18.9 % (11.5-14.5) 18.8 % (11.5-14.5) 18.9 % (11.5-14.5) Platelet Count 25 x10^3/uL (140-400) 25 x10^3/uL (140-400) 27 x10^3/uL (140-400) Neutrophils (%) (Auto) 79 % (31-73) Lymphocytes (%) (Auto) 9 % (24-48) Monocytes (%) (Auto) 11 % (0-9) Eosinophils (%) (Auto) 0 % (0-3) Basophils (%) (Auto) 1 % (0-3) Neutrophils # (Auto) 6.4 x10^3/uL (1.8-7.7) Lymphocytes # (Auto) 0.7 x10^3/uL (1.0-4.8) Monocytes # (Auto) 0.9 x10^3/uL (0.0-1.1) Eosinophils # (Auto) 0.0 x10^3/uL (0.0-0.7) Basophils # (Auto) 0.0 x10^3/uL (0.0-0.2) Segmented Neutrophils % 65 % (35-66) Band Neutrophils % 20 % (0-9) Lymphocytes % 8 % (24-48) Monocytes % 6 % (0-10) Basophils % 1 % (0-3) Platelet Estimate Decreased (ADEQUATE) Large Platelets Occ Anisocytosis Slight Sodium Level 140 mmol/L (136-145) 140 mmol/L (136-145) 141 mmol/L (136-145) Potassium Level 4.1 mmol/L (3.5-5.1) 3.6 mmol/L (3.5-5.1) 3.5 mmol/L (3.5-5.1) Chloride Level 106 mmol/L (98-107) 108 mmol/L (98-107) 107 mmol/L (98-107) Carbon Dioxide Level 22 mmol/L (21-32) 21 mmol/L (21-32) 22 mmol/L (21-32) Anion Gap 12 (6-14) 11 (6-14) 12 (6-14) Blood Urea Nitrogen 54 mg/dL (7-20) 53 mg/dL (7-20) 51 mg/dL (7-20) Creatinine 1.3 mg/dL (0.6-1.0) 1.3 mg/dL (0.6-1.0) 1.1 mg/dL (0.6-1.0) Estimated GFR (Cockcroft-Gault) 47.8 47.8 57.9 Glucose Level 88 mg/dL (70-99) 103 mg/dL (70-99) 115 mg/dL (70-99) Lactic Acid Level 2.8 mmol/L (0.4-2.0) 3.3 mmol/L (0.4-2.0) Calcium Level 6.9 mg/dL (8.5-10.1) 6.9 mg/dL (8.5-10.1) 7.0 mg/dL (8.5-10.1) Magnesium Level 1.7 mg/dL (1.8-2.4) 2.4 mg/dL (1.8-2.4) Procalcitonin 16.76 ng/mL (0.00-0.10) O2 Saturation 92 % (92-99) Arterial Blood pH 7.47 (7.35-7.45) Arterial Blood pCO2 at Patient Temp 24 mmHg (35-46) Arterial Blood pO2 at Patient Temp 71 mmHg (85-108) Arterial Blood HCO3 17 mmol/L (21-28) Arterial Blood Base Excess -6 mmol/L (-3-3) FiO2 2 lpm nc Absolute Reticulocyte Count 0.024 x10^6/uL (0.020-0.120) Percent Reticulocyte Count 0.7 % (0.5-2.3) Immature Reticulocyte Fraction 0.54 (0.20-0.60) Iron Level 85 ug/dL (50-170) Total Iron Binding Capacity 136 ug/dL (250-450) Iron Saturation 63 % (15-34) Ferritin 583 ng/mL (8-252) Vitamin B12 Level 776 pg/mL (247-911) Test 03/30/19 10:15 03/30/19 22:19 03/31/19 04:55 03/31/19 10:10 Prothrombin Time 15.7 SEC (11.7-14.0) Prothromb Time International Ratio 1.3 (0.8-1.1) Activated Partial Thromboplast Time 30 SEC (24-38) O2 Saturation 90 % (92-99) Arterial Blood pH 7.41 (7.35-7.45) Arterial Blood pCO2 at Patient Temp 29 mmHg (35-46) Arterial Blood pO2 at Patient Temp 66 mmHg (85-108) Arterial Blood HCO3 18 mmol/L (21-28) Arterial Blood Base Excess -6 mmol/L (-3-3) FiO2 21 White Blood Count 12.4 x10^3/uL (4.0-11.0) Red Blood Count 3.02 x10^6/uL (3.50-5.40) Hemoglobin 8.3 g/dL (12.0-15.5) Hematocrit 25.0 % (36.0-47.0) Mean Corpuscular Volume 83 fL (79-100) Mean Corpuscular Hemoglobin 28 pg (25-35) Mean Corpuscular Hemoglobin Concent 33 g/dL (31-37) Red Cell Distribution Width 18.8 % (11.5-14.5) Platelet Count 30 x10^3/uL (140-400) Neutrophils (%) (Auto) 78 % (31-73) Lymphocytes (%) (Auto) 12 % (24-48) Monocytes (%) (Auto) 9 % (0-9) Eosinophils (%) (Auto) 1 % (0-3) Basophils (%) (Auto) 0 % (0-3) Neutrophils # (Auto) 9.7 x10^3/uL (1.8-7.7) Lymphocytes # (Auto) 1.5 x10^3/uL (1.0-4.8) Monocytes # (Auto) 1.1 x10^3/uL (0.0-1.1) Eosinophils # (Auto) 0.1 x10^3/uL (0.0-0.7) Basophils # (Auto) 0.0 x10^3/uL (0.0-0.2) Sodium Level 135 mmol/L (136-145) Potassium Level 3.5 mmol/L (3.5-5.1) Chloride Level 104 mmol/L (98-107) Carbon Dioxide Level 21 mmol/L (21-32) Anion Gap 10 (6-14) Blood Urea Nitrogen 53 mg/dL (7-20) Creatinine 1.2 mg/dL (0.6-1.0) Estimated GFR (Cockcroft-Gault) 52.4 BUN/Creatinine Ratio 44 (6-20) Glucose Level 110 mg/dL (70-99) Calcium Level 7.2 mg/dL (8.5-10.1) Total Bilirubin 0.7 mg/dL (0.2-1.0) Aspartate Amino Transf (AST/SGOT) 21 U/L (15-37) Alanine Aminotransferase (ALT/SGPT) 8 U/L (14-59) Alkaline Phosphatase 95 U/L (46-116) Total Protein 5.2 g/dL (6.4-8.2) Albumin 1.2 g/dL (3.4-5.0) Albumin/Globulin Ratio 0.3 (1.0-1.7) Vancomycin Level Trough 18.2 mcg/mL (10.0-20.0) Vancomycin Last Dose Date 03/30/19 Vancomycin Last Dose Time 2200 Laboratory Tests Test 03/30/19 22:19 03/31/19 04:55 03/31/19 10:10 O2 Saturation 90 % (92-99) Arterial Blood pH 7.41 (7.35-7.45) Arterial Blood pCO2 at Patient Temp 29 mmHg (35-46) Arterial Blood pO2 at Patient Temp 66 mmHg (85-108) Arterial Blood HCO3 18 mmol/L (21-28) Arterial Blood Base Excess -6 mmol/L (-3-3) FiO2 21 White Blood Count 12.4 x10^3/uL (4.0-11.0) Red Blood Count 3.02 x10^6/uL (3.50-5.40) Hemoglobin 8.3 g/dL (12.0-15.5) Hematocrit 25.0 % (36.0-47.0) Mean Corpuscular Volume 83 fL (79-100) Mean Corpuscular Hemoglobin 28 pg (25-35) Mean Corpuscular Hemoglobin Concent 33 g/dL (31-37) Red Cell Distribution Width 18.8 % (11.5-14.5) Platelet Count 30 x10^3/uL (140-400) Neutrophils (%) (Auto) 78 % (31-73) Lymphocytes (%) (Auto) 12 % (24-48) Monocytes (%) (Auto) 9 % (0-9) Eosinophils (%) (Auto) 1 % (0-3) Basophils (%) (Auto) 0 % (0-3) Neutrophils # (Auto) 9.7 x10^3/uL (1.8-7.7) Lymphocytes # (Auto) 1.5 x10^3/uL (1.0-4.8) Monocytes # (Auto) 1.1 x10^3/uL (0.0-1.1) Eosinophils # (Auto) 0.1 x10^3/uL (0.0-0.7) Basophils # (Auto) 0.0 x10^3/uL (0.0-0.2) Sodium Level 135 mmol/L (136-145) Potassium Level 3.5 mmol/L (3.5-5.1) Chloride Level 104 mmol/L (98-107) Carbon Dioxide Level 21 mmol/L (21-32) Anion Gap 10 (6-14) Blood Urea Nitrogen 53 mg/dL (7-20) Creatinine 1.2 mg/dL (0.6-1.0) Estimated GFR (Cockcroft-Gault) 52.4 BUN/Creatinine Ratio 44 (6-20) Glucose Level 110 mg/dL (70-99) Calcium Level 7.2 mg/dL (8.5-10.1) Total Bilirubin 0.7 mg/dL (0.2-1.0) Aspartate Amino Transf (AST/SGOT) 21 U/L (15-37) Alanine Aminotransferase (ALT/SGPT) 8 U/L (14-59) Alkaline Phosphatase 95 U/L (46-116) Total Protein 5.2 g/dL (6.4-8.2) Albumin 1.2 g/dL (3.4-5.0) Albumin/Globulin Ratio 0.3 (1.0-1.7) Vancomycin Level Trough 18.2 mcg/mL (10.0-20.0) Vancomycin Last Dose Date 03/30/19 Vancomycin Last Dose Time 2200 Medications Current Medications Albumin Human 100 ml @ 100 mls/hr 1X ONCE IV Last administered on 03/29/19at 14:59; Start 03/29/19 at 14:30; Stop 03/29/19 at 15:29; Status DC Norepinephrine Bitartrate 250 ml @ 9.781 mls/ hr CONT PRN IV SEE I/O RECORD Last administered on 03/29/19at 23:25; Start 03/29/19 at 14:30 Sodium Chloride 1,000 ml @ 100 mls/hr Q10H IV Last administered on 03/29/19at 23:25; Start 03/29/19 at 14:30; Stop 03/30/19 at 12:08; Status DC Guaifenesin (Robitussin Dm) 10 ml PRN Q6HRS PRN PO COUGH Last administered on 03/29/19at 16:49; Start 03/29/19 at 15:30 Sodium Bicarbonate (Sodium Bicarb Adult 8.4% Syr) 50 meq 1X ONCE IV Last administered on 03/29/19at 16:49; Start 03/29/19 at 16:00; Stop 03/29/19 at 16:01; Status DC Sodium Bicarbonate (Sodium Bicarb Adult 8.4% Syr) 50 meq 1X ONCE IV Last admi nistered on 03/29/19at 16:49; Start 03/29/19 at 16:00; Stop 03/29/19 at 16:01; Status DC Vancomycin HCl (Vanco Per Pharmacy) 1 each PRN DAILY PRN MC SEE COMMENTS Last administered on 03/31/19at 11:05; Start 03/29/19 at 17:15 Piperacillin Sod/ Tazobactam Sod (Zosyn Per Pharmacy) 1 each PRN DAILY PRN MC SEE COMMENTS; Start 03/29/19 at 17:15; Stop 03/31/19 at 07:37; Status DC Piperacillin Sod/ Tazobactam Sod 4.5 gm/Sodium Chloride 100 ml @ 200 mls/hr Q6HRS IV Last administered on 03/31/19at 06:23; Start 03/29/19 at 18:00; Stop 03/31/19 at 07:37; Status DC Vancomycin HCl 1.25 gm/Sodium Chloride 250 ml @ 166.667 mls/hr 1X ONCE IV Last administered on 03/29/19at 17:37; Start 03/29/19 at 17:15; Stop 03/29/19 at 18:44; Status DC Vancomycin HCl 750 mg/Sodium Chloride 250 ml @ 250 mls/hr Q18H IV Last administered on 03/30/19at 10:19; Start 03/30/19 at 11:00; Stop 03/30/19 at 12:54; Status DC Vancomycin HCl (Vancomycin Trough Level) 1 each 1X ONCE MC ; Start 03/31/19 at 09:30; Stop 03/31/19 at 09:31; Status DC Magnesium Sulfate 50 ml @ 25 mls/hr 1X ONCE IV Last administered on 03/29/19at 20:02; Start 03/29/19 at 20:00; Stop 03/29/19 at 21:59; Status DC Linezolid/Dextrose 300 ml @ 300 mls/hr Q12HR IV Last administered on 03/31/19at 08:10; Start 03/30/19 at 09:00 Chlorhexidine Gluconate (Peridex) 15 ml BID SWSP Last administered on 03/31/19at 08:11; Start 03/30/19 at 09:00 Amino Acids/ Glycerin/ Electrolytes 1,000 ml @ 100 mls/hr Q10H IV Last administered on 03/31/19at 08:10; Start 03/30/19 at 12:00 Vancomycin HCl 750 mg/Sodium Chloride 250 ml @ 250 mls/hr Q12H IV Last administered on 03/31/19at 11:02; Start 03/30/19 at 22:00 Hydromorphone HCl (Dilaudid) 1 mg PRN Q4HRS PRN IV PAIN Last administered on 03/31/19at 05:11; Start 03/30/19 at 21:00; Stop 03/31/19 at 09:43; Status DC Hydromorphone HCl (Dilaudid) 1 mg PRN Q2HR PRN IV PAIN Last administered on 03/31/19at 13:42; Start 03/31/19 at 09:45; Stop 03/31/19 at 22:00 Haloperidol Lactate (Haldol Inj) 2 mg PRN Q6HRS PRN IVP AGITATION Last administered on 03/31/19at 10:32; Start 03/31/19 at 09:45 Active Scripts Active Reported Prenate Elite Tablet ( #79/Iron Asp Gly/FA#1) 1 Each Tablet 1 Each PO DAILY Ibuprofen 800 Mg Tablet 800 Mg PO PRN Q6HRS PRN Ferrous Sulfate 325 Mg Tablet 325 Mg PO DAILY Docusate Sodium 100 Mg Capsule 100 Mg PO BID Vitals/I & O Vital Sign - Last 24 Hours 03/30/19 03/30/19 03/30/19 03/30/19 14:00 15:00 15:16 16:00 Pulse 103 103 103 Resp 24 B/P (MAP) 112/67 (82) 117/66 (83) 136/71 (92) Pulse Ox 93 95 93 O2 Delivery Nasal Cannula Nasal Cannula Nasal Cannula Nasal Cannula O2 Flow Rate 2.0 2.0 2.0 2.0 03/30/19 03/30/19 03/30/19 03/30/19 17:00 18:02 19:00 20:00 Temp 97.7 97.7 97.7 97.7 Pulse 106 108 107 106 Resp 22 20 B/P (MAP) 108/59 (75) 138/73 (94) 112/57 (75) 104/67 (79) Pulse Ox 96 96 97 95 O2 Delivery Nasal Cannula Nasal Cannula Nasal Cannula Nasal Cannula O2 Flow Rate 2.0 2.0 2.0 2.0 03/30/19 03/30/19 03/30/19 03/30/19 20:00 21:00 21:07 22:00 Pulse 108 106 Resp B/P (MAP) 105/74 (84) 94/62 (73) Pulse Ox 96 93 O2 Delivery Nasal Cannula Nasal Cannula Nasal Cannula Nasal Cannula O2 Flow Rate 2.0 2.0 2.0 03/30/19 03/30/19 03/30/19 03/31/19 22:34 23:00 23:59 00:00 Temp 98.0 98.0 Pulse 102 101 Resp 28 B/P (MAP) 96/61 (73) 95/61 (72) Pulse Ox 93 98 O2 Delivery Nasal Cannula Nasal Cannula Nasal Cannula Nasal Cannula O2 Flow Rate 2.0 2.0 2.0 2.0 03/31/19 03/31/19 03/31/19 03/31/19 01:00 01:06 01:45 02:00 Pulse 104 100 Resp 24 B/P (MAP) 101/62 (75) 90/54 (66) Pulse Ox 96 95 94 96 O2 Delivery Nasal Cannula Nasal Cannula Nasal Cannula Nasal Cannula O2 Flow Rate 2.0 2.0 2.0 2.0 03/31/19 03/31/19 03/31/19 03/31/19 03:00 04:00 04:00 05:00 Temp 97.1 97.1 Pulse 104 106 106 Resp 20 B/P (MAP) 87/63 (71) 90/62 (71) 91/57 (68) Pulse Ox 96 97 96 O2 Delivery Nasal Cannula Nasal Cannula Nasal Cannula Nasal Cannula O2 Flow Rate 2.0 2.0 2.0 2.0 03/31/19 03/31/19 03/31/19 03/31/19 05:11 06:00 06:24 07:00 Pulse 102 96 Resp B/P (MAP) 91/49 (63) 86/55 (65) Pulse Ox 96 95 94 96 O2 Delivery Nasal Cannula Nasal Cannula Nasal Cannula Nasal Cannula O2 Flow Rate 2.0 2.0 2.0 2.0 03/31/19 03/31/19 03/31/19 03/31/19 07:30 08:00 09:00 10:00 Temp 98.0 98.0 Pulse 91 98 92 Resp B/P (MAP) 104/58 (73) 93/56 (68) 99/56 (70) Pulse Ox 97 98 99 O2 Delivery Nasal Cannula Nasal Cannula Nasal Cannula Nasal Cannula O2 Flow Rate 2.0 2.0 2.0 2.0 03/31/19 03/31/19 03/31/19 03/31/19 11:04 12:00 12:00 13:06 Temp 98.0 98.0 Pulse 90 90 96 Resp 28 B/P (MAP) 95/58 (70) 92/52 (65) 98/62 (74) Pulse Ox 96 96 99 O2 Delivery Nasal Cannula Nasal Cannula Nasal Cannula Nasal Cannula O2 Flow Rate 2.0 2.0 2.0 2.0 03/31/19 13:42 Resp 28 Pulse Ox 97 O2 Delivery Nasal Cannula O2 Flow Rate 2.0 Intake and Output 03/30/19 03/30/19 03/31/19 14:59 22:59 06:59 Intake Total 2626 ml 1682 ml 2136.9 ml Balance 2626 ml 1682 ml 2136.9 ml Nutrition Consultation Dietary Evaluation: Recommendations by RD: Protein supplementation, PPN/TPN Comments: REC Ensure clear w/dinner trays Continue w/PPN to supplement PO intake at this time Advance diet as able/tolerated to goal diet regular Expected Outcomes/Goals: PO intake + PPN to meet >75% est needs Interpretation of weight loss: >20% in 1 year Malnutrition Findings: Food and Nutrition Intake (Mod: <75% est energy req 7days Weight Status: Appropriate ELISE LOVETT MD Mar 31, 2019 13:47
--- NOTE | 2019-03-31 14:03 | PDOC ---
PROGRESS NOTES Subjective Subjective HPI - f/u of Thrombocytopenia ROS - no bleeding Objective Objective Vital Signs Date Time Temp Pulse Resp B/P (MAP) Pulse Ox O2 Delivery O2 Flow Rate FiO2 03/31/19 13:42 28 97 Nasal Cannula 2.0 03/31/19 13:06 96 98/62 (74) 03/31/19 12:00 98.0 98.0 Intake and Output 03/31/19 06:59 Intake Total 6444.9 ml Balance 6444.9 ml Intake Oral 1950 ml IV Total 4494.9 ml # Voids 6 # Bowel Movements 5 Physical Exam Heart: Normal S1, Normal S2 General: Alert, No acute distress Lungs: Clear to auscultation Assessment Assessment Problems Medical Problems: (1) RIKY (acute kidney injury) Status: Acute (2) Endocarditis Status: Acute (3) Hypotension Status: Acute (4) Pulmonary hypertension Status: Chronic (5) Renal failure Status: Acute (6) Respiratory failure Status: Acute (7) Septic pulmonary embolism Status: Acute (8) Severe sepsis Status: Acute (9) Severe tricuspid regurgitation Status: Chronic IMPRESSION AND PLAN: 1. Thrombocytopenia due to sepsis. Appreciate Infectious Disease consultation. The patient has methicillin-resistant Staphylococcus aureus sepsis noted in [facility]. She is on vancomycin and Zosyn. Continue antibiotic management per Infectious Diseases. I suspect that the significant worsened thrombocytopenia is also due to underlying hepatitis C. No signs of bleeding. If she has any significant bleeding, she would need platelet transfusion. I discussed with the patient and the registered nurse. Plt 30. 2. Septic pulmonary emboli. Platelet counts are too low for anticoagulation. In addition, since these are septic emboli, I agree with Dr. Hughes that treatment with antibiotics will be the primary modality of management. 3. Abnormal CT with bilateral cavitary nodules throughout the lungs, likely suggestive of septic emboli. I discussed with Dr. Hughes. Continue management per Dr. Hughes. 4. Sepsis - management per ID Comment Review of Relevant I have reviewed the following items kim (where applicable) has been applied. Labs Laboratory Tests Test 03/29/19 15:05 03/29/19 15:40 03/30/19 01:30 03/30/19 08:40 White Blood Count 8.0 x10^3/uL (4.0-11.0) 10.6 x10^3/uL (4.0-11.0) 11.6 x10^3/uL (4.0-11.0) Red Blood Count 2.60 x10^6/uL (3.50-5.40) 2.38 x10^6/uL (3.50-5.40) 3.25 x10^6/uL (3.50-5.70) Hemoglobin 7.1 g/dL (12.0-15.5) 6.4 g/dL (12.0-15.5) 9.0 g/dL (12.0-15.5) Hematocrit 20.9 % (36.0-47.0) 19.4 % (36.0-47.0) 27.2 % (36.0-47.0) Mean Corpuscular Volume 80 fL (79-100) 81 fL (79-100) 83 fL (79-100) Mean Corpuscular Hemoglobin 27 pg (25-35) 27 pg (25-35) 28 pg (25-35) Mean Corpuscular Hemoglobin Concent 34 g/dL (31-37) 33 g/dL (31-37) 33 g/dL (31-37) Red Cell Distribution Width 18.9 % (11.5-14.5) 18.8 % (11.5-14.5) 18.9 % (11.5-14.5) Platelet Count 25 x10^3/uL (140-400) 25 x10^3/uL (140-400) 27 x10^3/uL (140-400) Neutrophils (%) (Auto) 79 % (31-73) Lymphocytes (%) (Auto) 9 % (24-48) Monocytes (%) (Auto) 11 % (0-9) Eosinophils (%) (Auto) 0 % (0-3) Basophils (%) (Auto) 1 % (0-3) Neutrophils # (Auto) 6.4 x10^3/uL (1.8-7.7) Lymphocytes # (Auto) 0.7 x10^3/uL (1.0-4.8) Monocytes # (Auto) 0.9 x10^3/uL (0.0-1.1) Eosinophils # (Auto) 0.0 x10^3/uL (0.0-0.7) Basophils # (Auto) 0.0 x10^3/uL (0.0-0.2) Segmented Neutrophils % 65 % (35-66) Band Neutrophils % 20 % (0-9) Lymphocytes % 8 % (24-48) Monocytes % 6 % (0-10) Basophils % 1 % (0-3) Platelet Estimate Decreased (ADEQUATE) Large Platelets Occ Anisocytosis Slight Sodium Level 140 mmol/L (136-145) 140 mmol/L (136-145) 141 mmol/L (136-145) Potassium Level 4.1 mmol/L (3.5-5.1) 3.6 mmol/L (3.5-5.1) 3.5 mmol/L (3.5-5.1) Chloride Level 106 mmol/L (98-107) 108 mmol/L (98-107) 107 mmol/L (98-107) Carbon Dioxide Level 22 mmol/L (21-32) 21 mmol/L (21-32) 22 mmol/L (21-32) Anion Gap 12 (6-14) 11 (6-14) 12 (6-14) Blood Urea Nitrogen 54 mg/dL (7-20) 53 mg/dL (7-20) 51 mg/dL (7-20) Creatinine 1.3 mg/dL (0.6-1.0) 1.3 mg/dL (0.6-1.0) 1.1 mg/dL (0.6-1.0) Estimated GFR (Cockcroft-Gault) 47.8 47.8 57.9 Glucose Level 88 mg/dL (70-99) 103 mg/dL (70-99) 115 mg/dL (70-99) Lactic Acid Level 2.8 mmol/L (0.4-2.0) 3.3 mmol/L (0.4-2.0) Calcium Level 6.9 mg/dL (8.5-10.1) 6.9 mg/dL (8.5-10.1) 7.0 mg/dL (8.5-10.1) Magnesium Level 1.7 mg/dL (1.8-2.4) 2.4 mg/dL (1.8-2.4) Procalcitonin 16.76 ng/mL (0.00-0.10) O2 Saturation 92 % (92-99) Arterial Blood pH 7.47 (7.35-7.45) Arterial Blood pCO2 at Patient Temp 24 mmHg (35-46) Arterial Blood pO2 at Patient Temp 71 mmHg (85-108) Arterial Blood HCO3 17 mmol/L (21-28) Arterial Blood Base Excess -6 mmol/L (-3-3) FiO2 2 lpm nc Absolute Reticulocyte Count 0.024 x10^6/uL (0.020-0.120) Percent Reticulocyte Count 0.7 % (0.5-2.3) Immature Reticulocyte Fraction 0.54 (0.20-0.60) Iron Level 85 ug/dL (50-170) Total Iron Binding Capacity 136 ug/dL (250-450) Iron Saturation 63 % (15-34) Ferritin 583 ng/mL (8-252) Vitamin B12 Level 776 pg/mL (247-911) Test 03/30/19 10:15 03/30/19 22:19 03/31/19 04:55 03/31/19 10:10 Prothrombin Time 15.7 SEC (11.7-14.0) Prothromb Time International Ratio 1.3 (0.8-1.1) Activated Partial Thromboplast Time 30 SEC (24-38) O2 Saturation 90 % (92-99) Arterial Blood pH 7.41 (7.35-7.45) Arterial Blood pCO2 at Patient Temp 29 mmHg (35-46) Arterial Blood pO2 at Patient Temp 66 mmHg (85-108) Arterial Blood HCO3 18 mmol/L (21-28) Arterial Blood Base Excess -6 mmol/L (-3-3) FiO2 21 White Blood Count 12.4 x10^3/uL (4.0-11.0) Red Blood Count 3.02 x10^6/uL (3.50-5.40) Hemoglobin 8.3 g/dL (12.0-15.5) Hematocrit 25.0 % (36.0-47.0) Mean Corpuscular Volume 83 fL (79-100) Mean Corpuscular Hemoglobin 28 pg (25-35) Mean Corpuscular Hemoglobin Concent 33 g/dL (31-37) Red Cell Distribution Width 18.8 % (11.5-14.5) Platelet Count 30 x10^3/uL (140-400) Neutrophils (%) (Auto) 78 % (31-73) Lymphocytes (%) (Auto) 12 % (24-48) Monocytes (%) (Auto) 9 % (0-9) Eosinophils (%) (Auto) 1 % (0-3) Basophils (%) (Auto) 0 % (0-3) Neutrophils # (Auto) 9.7 x10^3/uL (1.8-7.7) Lymphocytes # (Auto) 1.5 x10^3/uL (1.0-4.8) Monocytes # (Auto) 1.1 x10^3/uL (0.0-1.1) Eosinophils # (Auto) 0.1 x10^3/uL (0.0-0.7) Basophils # (Auto) 0.0 x10^3/uL (0.0-0.2) Sodium Level 135 mmol/L (136-145) Potassium Level 3.5 mmol/L (3.5-5.1) Chloride Level 104 mmol/L (98-107) Carbon Dioxide Level 21 mmol/L (21-32) Anion Gap 10 (6-14) Blood Urea Nitrogen 53 mg/dL (7-20) Creatinine 1.2 mg/dL (0.6-1.0) Estimated GFR (Cockcroft-Gault) 52.4 BUN/Creatinine Ratio 44 (6-20) Glucose Level 110 mg/dL (70-99) Calcium Level 7.2 mg/dL (8.5-10.1) Total Bilirubin 0.7 mg/dL (0.2-1.0) Aspartate Amino Transf (AST/SGOT) 21 U/L (15-37) Alanine Aminotransferase (ALT/SGPT) 8 U/L (14-59) Alkaline Phosphatase 95 U/L (46-116) Total Protein 5.2 g/dL (6.4-8.2) Albumin 1.2 g/dL (3.4-5.0) Albumin/Globulin Ratio 0.3 (1.0-1.7) Vancomycin Level Trough 18.2 mcg/mL (10.0-20.0) Vancomycin Last Dose Date 03/30/19 Vancomycin Last Dose Time 2200 Laboratory Tests Test 03/30/19 22:19 03/31/19 04:55 03/31/19 10:10 O2 Saturation 90 % (92-99) Arterial Blood pH 7.41 (7.35-7.45) Arterial Blood pCO2 at Patient Temp 29 mmHg (35-46) Arterial Blood pO2 at Patient Temp 66 mmHg (85-108) Arterial Blood HCO3 18 mmol/L (21-28) Arterial Blood Base Excess -6 mmol/L (-3-3) FiO2 21 White Blood Count 12.4 x10^3/uL (4.0-11.0) Red Blood Count 3.02 x10^6/uL (3.50-5.40) Hemoglobin 8.3 g/dL (12.0-15.5) Hematocrit 25.0 % (36.0-47.0) Mean Corpuscular Volume 83 fL (79-100) Mean Corpuscular Hemoglobin 28 pg (25-35) Mean Corpuscular Hemoglobin Concent 33 g/dL (31-37) Red Cell Distribution Width 18.8 % (11.5-14.5) Platelet Count 30 x10^3/uL (140-400) Neutrophils (%) (Auto) 78 % (31-73) Lymphocytes (%) (Auto) 12 % (24-48) Monocytes (%) (Auto) 9 % (0-9) Eosinophils (%) (Auto) 1 % (0-3) Basophils (%) (Auto) 0 % (0-3) Neutrophils # (Auto) 9.7 x10^3/uL (1.8-7.7) Lymphocytes # (Auto) 1.5 x10^3/uL (1.0-4.8) Monocytes # (Auto) 1.1 x10^3/uL (0.0-1.1) Eosinophils # (Auto) 0.1 x10^3/uL (0.0-0.7) Basophils # (Auto) 0.0 x10^3/uL (0.0-0.2) Sodium Level 135 mmol/L (136-145) Potassium Level 3.5 mmol/L (3.5-5.1) Chloride Level 104 mmol/L (98-107) Carbon Dioxide Level 21 mmol/L (21-32) Anion Gap 10 (6-14) Blood Urea Nitrogen 53 mg/dL (7-20) Creatinine 1.2 mg/dL (0.6-1.0) Estimated GFR (Cockcroft-Gault) 52.4 BUN/Creatinine Ratio 44 (6-20) Glucose Level 110 mg/dL (70-99) Calcium Level 7.2 mg/dL (8.5-10.1) Total Bilirubin 0.7 mg/dL (0.2-1.0) Aspartate Amino Transf (AST/SGOT) 21 U/L (15-37) Alanine Aminotransferase (ALT/SGPT) 8 U/L (14-59) Alkaline Phosphatase 95 U/L (46-116) Total Protein 5.2 g/dL (6.4-8.2) Albumin 1.2 g/dL (3.4-5.0) Albumin/Globulin Ratio 0.3 (1.0-1.7) Vancomycin Level Trough 18.2 mcg/mL (10.0-20.0) Vancomycin Last Dose Date 03/30/19 Vancomycin Last Dose Time 2200 Medications Current Medications Albumin Human 100 ml @ 100 mls/hr 1X ONCE IV Last administered on 03/29/19at 14:59; Start 03/29/19 at 14:30; Stop 03/29/19 at 15:29; Status DC Norepinephrine Bitartrate 250 ml @ 9.781 mls/ hr CONT PRN IV SEE I/O RECORD Last administered on 03/29/19at 23:25; Start 03/29/19 at 14:30 Sodium Chloride 1,000 ml @ 100 mls/hr Q10H IV Last administered on 03/29/19at 23:25; Start 03/29/19 at 14:30; Stop 03/30/19 at 12:08; Status DC Guaifenesin (Robitussin Dm) 10 ml PRN Q6HRS PRN PO COUGH Last administered on 03/29/19at 16:49; Start 03/29/19 at 15:30 Sodium Bicarbonate (Sodium Bicarb Adult 8.4% Syr) 50 meq 1X ONCE IV Last administered on 03/29/19 16:49; Start 03/29/19 at 16:00; Stop 03/29/19 at 16:01; Status DC Sodium Bicarbonate (Sodium Bicarb Adult 8.4% Syr) 50 meq 1X ONCE IV Last administered on 03/29/19at 16:49; Start 03/29/19 at 16:00; Stop 03/29/19 at 16:01; Status DC Vancomycin HCl (Vanco Per Pharmacy) 1 each PRN DAILY PRN MC SEE COMMENTS Last administered on 03/31/19at 11:05; Start 03/29/19 at 17:15 Piperacillin Sod/ Tazobactam Sod (Zosyn Per Pharmacy) 1 each PRN DAILY PRN MC SEE COMMENTS; Start 03/29/19 at 17:15; Stop 03/31/19 at 07:37; Status DC Piperacillin Sod/ Tazobactam Sod 4.5 gm/Sodium Chloride 100 ml @ 200 mls/hr Q6HRS IV Last administered on 03/31/19at 06:23; Start 03/29/19 at 18:00; Stop 03/31/19 at 07:37; Status DC Vancomycin HCl 1.25 gm/Sodium Chloride 250 ml @ 166.667 mls/hr 1X ONCE IV Last administered on 03/29/19at 17:37; Start 03/29/19 at 17:15; Stop 03/29/19 at 18:44; Status DC Vancomycin HCl 750 mg/Sodium Chloride 250 ml @ 250 mls/hr Q18H IV Last administered on 03/30/19at 10:19; Start 03/30/19 at 11:00; Stop 03/30/19 at 12:54; Status DC Vancomycin HCl (Vancomycin Trough Level) 1 each 1X ONCE MC ; Start 03/31/19 at 09:30; Stop 03/31/19 at 09:31; Status DC Magnesium Sulfate 50 ml @ 25 mls/hr 1X ONCE IV Last administered on 03/29/19at 20:02; Start 03/29/19 at 20:00; Stop 03/29/19 at 21:59; Status DC Linezolid/Dextrose 300 ml @ 300 mls/hr Q12HR IV Last administered on 03/31/19at 08:10; Start 03/30/19 at 09:00 Chlorhexidine Gluconate (Peridex) 15 ml BID SWSP Last administered on 03/31/19at 08:11; Start 03/30/19 at 09:00 Amino Acids/ Glycerin/ Electrolytes 1,000 ml @ 100 mls/hr Q10H IV Last administered on 03/31/19at 08:10; Start 03/30/19 at 12:00 Vancomycin HCl 750 mg/Sodium Chloride 250 ml @ 250 mls/hr Q12H IV Last administered on 03/31/19at 11:02; Start 03/30/19 at 22:00 Hydromorphone HCl (Dilaudid) 1 mg PRN Q4HRS PRN IV PAIN Last administered on 03/31/19at 05:11; Start 03/30/19 at 21:00; Stop 03/31/19 at 09:43; Status DC Hydromorphone HCl (Dilaudid) 1 mg PRN Q2HR PRN IV PAIN Last administered on 03/31/19at 13:42; Start 03/31/19 at 09:45; Stop 03/31/19 at 22:00 Haloperidol Lactate (Haldol Inj) 2 mg PRN Q6HRS PRN IVP AGITATION Last administered on 03/31/19at 10:32; Start 03/31/19 at 09:45 Active Scripts Active Reported Prenate Elite Tablet ( #79/Iron Asp Gly/FA#1) 1 Each Tablet 1 Each PO DAILY Ibuprofen 800 Mg Tablet 800 Mg PO PRN Q6HRS PRN Ferrous Sulfate 325 Mg Tablet 325 Mg PO DAILY Docusate Sodium 100 Mg Capsule 100 Mg PO BID Vitals/I & O Vital Sign - Last 24 Hours 03/30/19 03/30/19 03/30/19 03/30/19 15:00 15:16 16:00 17:00 Temp 97.7 97.7 Pulse 103 103 106 Resp 24 24 24 B/P (MAP) 117/66 (83) 136/71 (92) 108/59 (75) Pulse Ox 95 93 96 O2 Delivery Nasal Cannula Nasal Cannula Nasal Cannula Nasal Cannula O2 Flow Rate 2.0 2.0 2.0 2.0 03/30/19 03/30/19 03/30/19 03/30/19 18:02 19:00 20:00 20:00 Temp 97.7 97.7 Pulse 108 107 106 Resp 24 22 20 B/P (MAP) 138/73 (94) 112/57 (75) 104/67 (79) Pulse Ox 96 97 95 O2 Delivery Nasal Cannula Nasal Cannula Nasal Cannula Nasal Cannula O2 Flow Rate 2.0 2.0 2.0 2.0 03/30/19 03/30/19 03/30/19 03/30/19 21:00 21:07 22:00 22:34 Pulse 108 106 Resp 24 26 24 B/P (MAP) 105/74 (84) 94/62 (73) Pulse Ox 96 93 O2 Delivery Nasal Cannula Nasal Cannula Nasal Cannula Nasal Cannula O2 Flow Rate 2.0 2.0 2.0 03/30/19 03/30/19 03/31/19 03/31/19 23:00 23:59 00:00 01:00 Temp 98.0 98.0 Pulse 102 101 104 Resp 24 28 26 B/P (MAP) 96/61 (73) 95/61 (72) 101/62 (75) Pulse Ox 93 98 96 O2 Delivery Nasal Cannula Nasal Cannula Nasal Cannula Nasal Cannula O2 Flow Rate 2.0 2.0 2.0 2.0 03/31/19 03/31/19 03/31/19 03/31/19 01:06 01:45 02:00 03:00 Pulse 100 104 Resp 24 B/P (MAP) 90/54 (66) 87/63 (71) Pulse Ox 95 94 96 96 O2 Delivery Nasal Cannula Nasal Cannula Nasal Cannula Nasal Cannula O2 Flow Rate 2.0 2.0 2.0 2.0 03/31/19 03/31/19 03/31/19 03/31/19 04:00 04:00 05:00 05:11 Temp 97.1 97.1 Pulse 106 106 Resp 22 20 B/P (MAP) 90/62 (71) 91/57 (68) Pulse Ox 97 96 96 O2 Delivery Nasal Cannula Nasal Cannula Nasal Cannula Nasal Cannula O2 Flow Rate 2.0 2.0 2.0 2.0 03/31/19 03/31/19 03/31/19 03/31/19 06:00 06:24 07:00 07:30 Pulse 102 96 Resp 26 B/P (MAP) 91/49 (63) 86/55 (65) Pulse Ox 95 94 96 O2 Delivery Nasal Cannula Nasal Cannula Nasal Cannula Nasal Cannula O2 Flow Rate 2.0 2.0 2.0 2.0 03/31/19 03/31/19 03/31/19 03/31/19 08:00 09:00 10:00 11:04 Temp 98.0 98.0 Pulse 91 98 92 90 Resp 26 26 26 26 B/P (MAP) 104/58 (73) 93/56 (68) 99/56 (70) 95/58 (70) Pulse Ox 97 98 99 96 O2 Delivery Nasal Cannula Nasal Cannula Nasal Cannula Nasal Cannula O2 Flow Rate 2.0 2.0 2.0 2.0 03/31/19 03/31/19 03/31/19 03/31/19 12:00 12:00 13:06 13:42 Temp 98.0 98.0 Pulse 90 96 Resp 26 28 28 B/P (MAP) 92/52 (65) 98/62 (74) Pulse Ox 96 99 97 O2 Delivery Nasal Cannula Nasal Cannula Nasal Cannula Nasal Cannula O2 Flow Rate 2.0 2.0 2.0 2.0 Intake and Output 0 03/30/19 03/30/19 03/31/19 14:59 22:59 06:59 Intake Total 2626 ml 1682 ml 2136.9 ml Balance 2626 ml 1682 ml 2136.9 ml Nutrition Consultation Dietary Evaluation: Recommendations by RD: Protein supplementation, PPN/TPN Comments: REC Ensure clear w/dinner trays Continue w/PPN to supplement PO intake at this time Advance diet as able/tolerated to goal diet regular Expected Outcomes/Goals: PO intake + PPN to meet >75% est needs Interpretation of weight loss: >20% in 1 year Malnutrition Findings: Food and Nutrition Intake (Mod: <75% est energy req 7days Weight Status: Appropriate TROY WASSERMAN MD Mar 31, 2019 14:02
[2019-04-01] VITALS (20 sets, daily range): BP systolic 76–113; BP diastolic 47–63
[2019-04-01] MEDS: HALOPERIDOL LACTATE 5 MG/ML VIAL. IVP PRN (00:07)
--- NOTE | 2019-04-01 00:46 | NUR ---
Pt c/o extreme pain r/t coughing rated at 10/10. Provider paged through [email or web address] paging service at [phone]. Provider returned page at [phone]. Provider updated on pt condition. Order received for Dilaudid 1mg Q2H PRN IVP. Will continue to assess and monitor.
[2019-04-01] MEDS: HYDROmorphone 2 MG/ML VIAL IV PRN (01:36)
[2019-04-01] MEDS: AMINO AC 3%/ELECTROLYTE/GLYCER 1,000 ML IV SCH ×2 (03:57→18:06)
[2019-04-01 05:32] LABS: BASO % 0 % (0-3); EOS % 0 % (0-3); HEMATOCRIT 22.4 % (36.0-47.0); HEMOGLOBIN 7.3 g/dL (12.0-15.5); LYMPH # 1.2 x10^3/uL (1.0-4.8); LYMPH % 11 % (24-48); MEAN CORPUSCULAR HEMOGLOBIN 27 pg (25-35); MEAN CORPUSCULAR HGB CONC 33 g/dL (31-37); MEAN CORPUSCULAR VOLUME 83 fL (79-100); MONO # 0.9 x10^3/uL (0.0-1.1); MONO % 8 % (0-9); NEUT # 9.1 x10^3/uL (1.8-7.7); NEUT % 81 % (31-73); PLATELET COUNT 27 x10^3/uL (140-400); RED CELL DISTRIBUTION WIDTH 19.1 % (11.5-14.5); WHITE BLOOD COUNT 11.2 x10^3/uL (4.0-11.0)
[2019-04-01 06:02] LABS: CALCIUM 7.3 mg/dL (8.5-10.1); CREATININE 1.1 mg/dL (0.6-1.0); GFR 57.9; POTASSIUM 3.6 mmol/L (3.5-5.1)
--- NOTE | 2019-04-01 08:24 | PDOC ---
PULMONARY PROGRESS NOTES Subjective Sleeping upon my entry. complains of cough, shortness of breath and generally feeling bad. Comments no acute distress. Vitals Vital Signs Date Time Temp Pulse Resp B/P (MAP) Pulse Ox O2 Delivery O2 Flow Rate FiO2 04/01/19 06:00 100 30 97/53 (68) 94 Nasal Cannula 2.0 04/01/19 05:00 98.5 98.5 ROS: No Nausea, No Chest Pain, No Abdominal Pain, No Increase Cough General: Alert, No acute distress Lungs: Clear, Other Cardiovascular: S1, S2 Abdomen: Soft, Non-tender Neuro Exam: Alert, Oriented Extremities: No Edema Skin: Warm Labs Laboratory Tests Test 03/30/19 08:40 03/30/19 10:15 03/30/19 22:19 03/31/19 04:55 White Blood Count 11.6 x10^3/uL (4.0-11.0) 12.4 x10^3/uL (4.0-11.0) Red Blood Count 3.25 x10^6/uL (3.50-5.70) 3.02 x10^6/uL (3.50-5.40) Hemoglobin 9.0 g/dL (12.0-15.5) 8.3 g/dL (12.0-15.5) Hematocrit 27.2 % (36.0-47.0) 25.0 % (36.0-47.0) Mean Corpuscular Volume 83 fL (79-100) 83 fL (79-100) Mean Corpuscular Hemoglobin 28 pg (25-35) 28 pg (25-35) Mean Corpuscular Hemoglobin Concent 33 g/dL (31-37) 33 g/dL (31-37) Red Cell Distribution Width 18.9 % (11.5-14.5) 18.8 % (11.5-14.5) Platelet Count 27 x10^3/uL (140-400) 30 x10^3/uL (140-400) Absolute Reticulocyte Count 0.024 x10^6/uL (0.020-0.120) Percent Reticulocyte Count 0.7 % (0.5-2.3) Immature Reticulocyte Fraction 0.54 (0.20-0.60) Sodium Level 141 mmol/L (136-145) 135 mmol/L (136-145) Potassium Level 3.5 mmol/L (3.5-5.1) 3.5 mmol/L (3.5-5.1) Chloride Level 107 mmol/L (98-107) 104 mmol/L (98-107) Carbon Dioxide Level 22 mmol/L (21-32) 21 mmol/L (21-32) Anion Gap 12 (6-14) 10 (6-14) Blood Urea Nitrogen 51 mg/dL (7-20) 53 mg/dL (7-20) Creatinine 1.1 mg/dL (0.6-1.0) 1.2 mg/dL (0.6-1.0) Estimated GFR (Cockcroft-Gault) 57.9 52.4 Glucose Level 115 mg/dL (70-99) 110 mg/dL (70-99) Calcium Level 7.0 mg/dL (8.5-10.1) 7.2 mg/dL (8.5-10.1) Magnesium Level 2.4 mg/dL (1.8-2.4) Iron Level 85 ug/dL (50-170) Total Iron Binding Capacity 136 ug/dL (250-450) Iron Saturation 63 % (15-34) Ferritin 583 ng/mL (8-252) Vitamin B12 Level 776 pg/mL (247-911) Prothrombin Time 15.7 SEC (11.7-14.0) Prothromb Time International Ratio 1.3 (0.8-1.1) Activated Partial Thromboplast Time 30 SEC (24-38) O2 Saturation 90 % (92-99) Arterial Blood pH 7.41 (7.35-7.45) Arterial Blood pCO2 at Patient Temp 29 mmHg (35-46) Arterial Blood pO2 at Patient Temp 66 mmHg (85-108) Arterial Blood HCO3 18 mmol/L (21-28) Arterial Blood Base Excess -6 mmol/L (-3-3) FiO2 21 Neutrophils (%) (Auto) 78 % (31-73) Lymphocytes (%) (Auto) 12 % (24-48) Monocytes (%) (Auto) 9 % (0-9) Eosinophils (%) (Auto) 1 % (0-3) Basophils (%) (Auto) 0 % (0-3) Neutrophils # (Auto) 9.7 x10^3/uL (1.8-7.7) Lymphocytes # (Auto) 1.5 x10^3/uL (1.0-4.8) Monocytes # (Auto) 1.1 x10^3/uL (0.0-1.1) Eosinophils # (Auto) 0.1 x10^3/uL (0.0-0.7) Basophils # (Auto) 0.0 x10^3/uL (0.0-0.2) BUN/Creatinine Ratio 44 (6-20) Total Bilirubin 0.7 mg/dL (0.2-1.0) Aspartate Amino Transf (AST/SGOT) 21 U/L (15-37) Alanine Aminotransferase (ALT/SGPT) 8 U/L (14-59) Alkaline Phosphatase 95 U/L (46-116) Total Protein 5.2 g/dL (6.4-8.2) Albumin 1.2 g/dL (3.4-5.0) Albumin/Globulin Ratio 0.3 (1.0-1.7) Test 03/31/19 10:10 04/01/19 05:11 Vancomycin Level Trough 18.2 mcg/mL (10.0-20.0) Vancomycin Last Dose Date 03/30/19 Vancomycin Last Dose Time 2200 White Blood Count 11.2 x10^3/uL (4.0-11.0) Red Blood Count 2.70 x10^6/uL (3.50-5.40) Hemoglobin 7.3 g/dL (12.0-15.5) Hematocrit 22.4 % (36.0-47.0) Mean Corpuscular Volume 83 fL (79-100) Mean Corpuscular Hemoglobin 27 pg (25-35) Mean Corpuscular Hemoglobin Concent 33 g/dL (31-37) Red Cell Distribution Width 19.1 % (11.5-14.5) Platelet Count 27 x10^3/uL (140-400) Neutrophils (%) (Auto) 81 % (31-73) Lymphocytes (%) (Auto) 11 % (24-48) Monocytes (%) (Auto) 8 % (0-9) Eosinophils (%) (Auto) 0 % (0-3) Basophils (%) (Auto) 0 % (0-3) Neutrophils # (Auto) 9.1 x10^3/uL (1.8-7.7) Lymphocytes # (Auto) 1.2 x10^3/uL (1.0-4.8) Monocytes # (Auto) 0.9 x10^3/uL (0.0-1.1) Eosinophils # (Auto) 0.0 x10^3/uL (0.0-0.7) Basophils # (Auto) 0.0 x10^3/uL (0.0-0.2) Sodium Level 132 mmol/L (136-145) Potassium Level 3.6 mmol/L (3.5-5.1) Chloride Level 103 mmol/L (98-107) Carbon Dioxide Level 19 mmol/L (21-32) Anion Gap 10 (6-14) Blood Urea Nitrogen 60 mg/dL (7-20) Creatinine 1.1 mg/dL (0.6-1.0) Estimated GFR (Cockcroft-Gault) 57.9 Glucose Level 100 mg/dL (70-99) Calcium Level 7.3 mg/dL (8.5-10.1) Laboratory Tests Test 03/31/19 10:10 04/01/19 05:11 Vancomycin Level Trough 18.2 mcg/mL (10.0-20.0) Vancomycin Last Dose Date 03/30/19 Vancomycin Last Dose Time 2200 White Blood Count 11.2 x10^3/uL (4.0-11.0) Red Blood Count 2.70 x10^6/uL (3.50-5.40) Hemoglobin 7.3 g/dL (12.0-15.5) Hematocrit 22.4 % (36.0-47.0) Mean Corpuscular Volume 83 fL (79-100) Mean Corpuscular Hemoglobin 27 pg (25-35) Mean Corpuscular Hemoglobin Concent 33 g/dL (31-37) Red Cell Distribution Width 19.1 % (11.5-14.5) Platelet Count 27 x10^3/uL (140-400) Neutrophils (%) (Auto) 81 % (31-73) Lymphocytes (%) (Auto) 11 % (24-48) Monocytes (%) (Auto) 8 % (0-9) Eosinophils (%) (Auto) 0 % (0-3) Basophils (%) (Auto) 0 % (0-3) Neutrophils # (Auto) 9.1 x10^3/uL (1.8-7.7) Lymphocytes # (Auto) 1.2 x10^3/uL (1.0-4.8) Monocytes # (Auto) 0.9 x10^3/uL (0.0-1.1) Eosinophils # (Auto) 0.0 x10^3/uL (0.0-0.7) Basophils # (Auto) 0.0 x10^3/uL (0.0-0.2) Sodium Level 132 mmol/L (136-145) Potassium Level 3.6 mmol/L (3.5-5.1) Chloride Level 103 mmol/L (98-107) Carbon Dioxide Level 19 mmol/L (21-32) Anion Gap 10 (6-14) Blood Urea Nitrogen 60 mg/dL (7-20) Creatinine 1.1 mg/dL (0.6-1.0) Estimated GFR (Cockcroft-Gault) 57.9 Glucose Level 100 mg/dL (70-99) Calcium Level 7.3 mg/dL (8.5-10.1) Medications Active Scripts Medications Dose Route/Sig Max Daily Dose Days Date Category Prenate Elite Tablet ( #79/Iron Asp Gly/FA#1) 1 Each Tablet 1 Each PO DAILY 03/29/19 Reported Ibuprofen 800 Mg Tablet 800 Mg PO PRN Q6HRS PRN 03/29/19 Reported Ferrous Sulfate 325 Mg Tablet 325 Mg PO DAILY 03/29/19 Reported Docusate Sodium 100 Mg Capsule 100 Mg PO BID 03/29/19 Reported Impression . IMPRESSION: 1. Acute hypoxic respiratory failure secondary to sepsis MRSA in blood.- improved 2. septic emboli, history of IV meth abuse. 3. 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 4. Lower lobe pulmonary emboli.Likely infective emboli. I suspect this is related to obstruction of the pulmonary vessels from right-sided vegetations and dislodgement. In the setting of anemia and thrombocytopenia, anticoagulation would be high risk and not indicated. 5. History of hepatitis C with chronic thrombocytopenia.--improving slowly/stable 6. Polysubstance abuse. 7. Hypotension. Suspect combination of hypovolemic and septic shock.---improving Plan . 1. Continue with present oxygen. 2. Avoid benzodiazepines and narcotics. 3. antibiotics per ID currently vanco/zyvox 4. No need for anticoagulation 5. Follow all cultures, blood cultures repeated on 03/30/19 6.GI consult regarding anemia. 7.Hematology consulted regarding thrombocytopenia. . Discussed with JAKY. GILBERTO VITALE MD Apr 01, 2019 08:24
--- NOTE | 2019-04-01 08:49 | PDOC ---
Infectious Disease Note Subjective Subjective Fever 100.0 c/o all body aches and joint pain Denies N/V/SOA/CP ROS ROS per HPI Vital Sign Vital Signs Vital Signs Date Time Temp Pulse Resp B/P (MAP) Pulse Ox O2 Delivery O2 Flow Rate FiO2 04/01/19 06:00 100 30 97/53 (68) 94 Nasal Cannula 2.0 04/01/19 05:00 98.5 98.5 Physical Exam PHYSICAL EXAM GENERAL: Propped up in bed, tired appearance, NAD HEENT: Pupils are equal and reactive. She has questionable conjunctival hemorrhage on the right side. Oral cavity, pharynx is very dry, questionable dentition, no petechia. NECK: Supple, no JVD. LUNGS: Clear to auscultation bilaterally. HEART: S1, S2 with questionable murmur. ABDOMEN: Soft, nontender, no guarding or rebound. EXTREMITIES: Without clubbing or cyanosis. No gross edema. Some pain in LUE with PROM but no joint swelling and no gross erythema/warmth SKIN: Warm to touch without rash. Multiple tattoos. NEUROLOGIC: Nonfocal, moves all extremities. PIV Labs Lab Laboratory Tests Test 03/31/19 10:10 04/01/19 05:11 Vancomycin Level Trough 18.2 mcg/mL (10.0-20.0) Vancomycin Last Dose Date 03/30/19 Vancomycin Last Dose Time 2200 White Blood Count 11.2 x10^3/uL (4.0-11.0) Red Blood Count 2.70 x10^6/uL (3.50-5.40) Hemoglobin 7.3 g/dL (12.0-15.5) Hematocrit 22.4 % (36.0-47.0) Mean Corpuscular Volume 83 fL (79-100) Mean Corpuscular Hemoglobin 27 pg (25-35) Mean Corpuscular Hemoglobin Concent 33 g/dL (31-37) Red Cell Distribution Width 19.1 % (11.5-14.5) Platelet Count 27 x10^3/uL (140-400) Neutrophils (%) (Auto) 81 % (31-73) Lymphocytes (%) (Auto) 11 % (24-48) Monocytes (%) (Auto) 8 % (0-9) Eosinophils (%) (Auto) 0 % (0-3) Basophils (%) (Auto) 0 % (0-3) Neutrophils # (Auto) 9.1 x10^3/uL (1.8-7.7) Lymphocytes # (Auto) 1.2 x10^3/uL (1.0-4.8) Monocytes # (Auto) 0.9 x10^3/uL (0.0-1.1) Eosinophils # (Auto) 0.0 x10^3/uL (0.0-0.7) Basophils # (Auto) 0.0 x10^3/uL (0.0-0.2) Sodium Level 132 mmol/L (136-145) Potassium Level 3.6 mmol/L (3.5-5.1) Chloride Level 103 mmol/L (98-107) Carbon Dioxide Level 19 mmol/L (21-32) Anion Gap 10 (6-14) Blood Urea Nitrogen 60 mg/dL (7-20) Creatinine 1.1 mg/dL (0.6-1.0) Estimated GFR (Cockcroft-Gault) 57.9 Glucose Level 100 mg/dL (70-99) Calcium Level 7.3 mg/dL (8.5-10.1) Micro 03/31. BLOOD CULTURE Final GRAM POSITIVE COCCI IN CLUSTERS SEEN IN 2 OF 4 BOTTLES; 2 SETS WERE DRAWN; RESULTS WERE CALLED TO SUNITHA ZACARIAS IN ICU AT 0648; 04/01/19 BY MAYA. THE BLOOD CULTURES HAVE BEEN SENT TO [facility] FOR FURTHER WORKUP. Objective Assessment Fever MRSA sepsis (at [place] per report from blood 03/29). repeat BC 03/31 GPC TV endocarditis Cavitary nodules, likely septic emboli Leukocytosis, better Thrombocytopenia/anemia Substance abuse ? PE Pulm HTN Hep C - ? if treated in past 4 weeks post Plan Plan of Care Cont Vanc and Zyvox Trough 18.2 Perdiex - oral care Repeat BC Will need HUNTER when stable F/u labs and cults May need GI eval from Hep C D/w nursing Critically ill Attending Co-Sign The patient was seen and interviewed as well as examined at the bedside. The chart was reviewed. The case was discussed. Agree with the plan of care. JERRY ZUNIGA APRN Apr 01, 2019 08:49 VERA CARTER MD Apr 01, 2019 10:54
[2019-04-01] MEDS ORDERED: IV NORMAL SALINE 1000ML BAG 1,000 ML IV ONE (09:00)
[2019-04-01] MEDS: oxyCODONE/APAP 7.5/325 1 TAB TABLET PO PRN ×3 (09:36→21:39)
[2019-04-01] MEDS: KETOROLAC 15 MG/ML VIAL. IV PRN ×2 (09:36→18:16)
[2019-04-01] MEDS: CHLORHEXIDINE 0.12% 15 ML MOUTHWASH. SWSP SCH ×2 (09:37→21:21)
[2019-04-01] MEDS: VANCOMYCIN 750 MG in IV NORMAL SALINE 250ML 250 ML IV SCH ×2 (09:38→22:37)
[2019-04-01] MEDS: guaiFENesin DM 200MG/20MG 10 ML SYRUP PO PRN ×2 (10:57→18:04)
--- NOTE | 2019-04-01 13:51 | PDOC ---
SUBJECTIVE ROS Hurting all over, BP dropped to 70's , Good UOP OBJECTIVE Vital Signs Vital Signs Date Time Temp Pulse Resp B/P (MAP) Pulse Ox O2 Delivery O2 Flow Rate FiO2 04/01/19 12:00 Nasal Cannula 2.0 04/01/19 10:00 100 33 80/47 (58) 98 04/01/19 08:00 97.9 97.9 I & 0 Intake and Output 04/01/19 07:00 Intake Total 3654 ml Output Total 850 ml Balance 2804 ml Intake Oral 480 ml IV Total 3174 ml Output Urine Total 850 ml # Voids 1 # Bowel Movements 1 PHYSICAL EXAM Physical Exam General- NAD HEENT: OM dry, On O2 by NC 2 lts NECK: Supple, LUNGS: Clear to auscultation bilaterally. Lungs were decreased in the bases, HEART: S1, S2 ABDOMEN: Soft, nontender, EXTREMITIES: Without clubbing or cyanosis. No gross edema SKIN: multiple tattoos NEUROLOGIC:alert, Oriented No [place] DIAGNOSIS/ASSESSMENT Assessment & Plan RIKY- ATN 2/2 Hypotension/ sepsis Renal function stable , incontinent UA no micr hematuria, mild proteinuria , no e/o UTI , renal US unremarkable on PPN , IV NS bolus if hypotensive MRSA sepsis - On Abx Anemia - S/p PRBCs 03/30 Hypotension. hypovolemic and septic shock IVF, been off pressor Acute hypoxic respiratory failure secondary to sepsis/SIRS Sources of infection likely in the lungs. Suspicion of septic emboli - Abnormal CT chest with bilateral cavitary nodules throughout the lungs, Lower lobe pulmonary emboli.Likely infective emboli. Rt Sided Endocarditis- vegetations tricuspid valve on ECHO Severe tricuspid regurgitation. Severe pulmonary hypertension-PA pressure was estimated at 74 mmHg. History of hepatitis C - not sure if treated Recommend GI consult Thrombocytopenia -? Chronic, Hx of Hep C Hem/Onc consulted Polysubstance abuse. COMMENT/RELEVANT DATA Meds Current Medications Medications (Trade) Dose Ordered Sig/[place] Start Time Stop Time Status Last Admin Dose Admin Albumin Human 100 ml @ 100 mls/hr 1X ONCE 03/29/19 14:30 03/29/19 15:29 DC 03/29/19 14:59 100 MLS/HR Amino Acids/ Glycerin/ Electrolytes 1,000 ml @ 100 mls/hr Q10H 03/30/19 12:00 04/01/19 03:57 100 MLS/HR Chlorhexidine Gluconate (Peridex) 15 ml BID 03/30/19 09:00 04/01/19 09:38 15 ML Guaifenesin (Robitussin Dm) 10 ml PRN Q6HRS PRN 03/29/19 15:30 04/01/19 10:57 10 ML Haloperidol Lactate (Haldol Inj) 2 mg PRN Q6HRS PRN 03/31/19 09:45 04/01/19 00:07 2 MG Hydromorphone HCl (Dilaudid) 1 mg PRN Q2HR PRN 04/01/19 00:45 04/01/19 01:37 1 MG Ketorolac Tromethamine (Toradol 15mg Vial) 15 mg PRN Q6HRS PRN 04/01/19 09:00 04/06/19 08:59 04/01/19 09:36 15 MG Linezolid/Dextrose 300 ml @ 300 mls/hr Q12HR 03/30/19 09:00 04/01/19 09:38 300 MLS/HR Magnesium Sulfate 50 ml @ 25 mls/hr 1X ONCE 03/29/19 20:00 03/29/19 21:59 DC 03/29/19 20:02 25 MLS/HR Norepinephrine Bitartrate 250 ml @ 9.781 mls/ hr CONT PRN 03/29/19 14:30 03/29/19 23:25 9.781 MLS/HR Oxycodone/ Acetaminophen (Percocet 7.5/ 325) 1 tab PRN Q4HRS PRN 04/01/19 09:00 04/01/19 09:36 1 TAB Piperacillin Sod/ Tazobactam Sod (Zosyn Per Pharmacy) 1 each PRN DAILY PRN 03/29/19 17:15 03/31/19 07:37 DC Piperacillin Sod/ Tazobactam Sod 4.5 gm/Sodium Chloride 100 ml @ 200 mls/hr Q6HRS 03/29/19 18:00 03/31/19 07:37 DC 03/31/19 06:23 200 MLS/HR Sodium Bicarbonate (Sodium Bicarb Adult 8.4% Syr) 50 meq 1X ONCE 03/29/19 16:00 03/29/19 16:01 DC 03/29/19 16:49 50 MEQ Sodium Chloride 1,000 ml @ 125 mls/hr 1X ONCE 04/01/19 09:00 04/01/19 16:59 Vancomycin HCl (Vanco Per Pharmacy) 1 each PRN DAILY PRN 03/29/19 17:15 03/31/19 11:05 1 EACH Vancomycin HCl (Vancomycin Trough Level) 1 each 1X ONCE 03/31/19 09:30 03/31/19 09:31 DC Vancomycin HCl 1.25 gm/Sodium Chloride 250 ml @ 166.667 mls/hr 1X ONCE 03/29/19 17:15 03/29/19 18:44 DC 03/29/19 17:37 166.667 MLS/HR Vancomycin HCl 750 mg/Sodium Chloride 250 ml @ 250 mls/hr Q12H 03/30/19 22:00 04/01/19 09:38 250 MLS/HR Lab Laboratory Tests Test 04/01/19 05:11 White Blood Count 11.2 x10^3/uL (4.0-11.0) Red Blood Count 2.70 x10^6/uL (3.50-5.40) Hemoglobin 7.3 g/dL (12.0-15.5) Hematocrit 22.4 % (36.0-47.0) Mean Corpuscular Volume 83 fL (79-100) Mean Corpuscular Hemoglobin 27 pg (25-35) Mean Corpuscular Hemoglobin Concent 33 g/dL (31-37) Red Cell Distribution Width 19.1 % (11.5-14.5) Platelet Count 27 x10^3/uL (140-400) Neutrophils (%) (Auto) 81 % (31-73) Lymphocytes (%) (Auto) 11 % (24-48) Monocytes (%) (Auto) 8 % (0-9) Eosinophils (%) (Auto) 0 % (0-3) Basophils (%) (Auto) 0 % (0-3) Neutrophils # (Auto) 9.1 x10^3/uL (1.8-7.7) Lymphocytes # (Auto) 1.2 x10^3/uL (1.0-4.8) Monocytes # (Auto) 0.9 x10^3/uL (0.0-1.1) Eosinophils # (Auto) 0.0 x10^3/uL (0.0-0.7) Basophils # (Auto) 0.0 x10^3/uL (0.0-0.2) Sodium Level 132 mmol/L (136-145) Potassium Level 3.6 mmol/L (3.5-5.1) Chloride Level 103 mmol/L (98-107) Carbon Dioxide Level 19 mmol/L (21-32) Anion Gap 10 (6-14) Blood Urea Nitrogen 60 mg/dL (7-20) Creatinine 1.1 mg/dL (0.6-1.0) Estimated GFR (Cockcroft-Gault) 57.9 Glucose Level 100 mg/dL (70-99) Calcium Level 7.3 mg/dL (8.5-10.1) Results All relevant outside records, renal labs, imaging studies, telemetry/EKG's were reviewed. EMMETT NARANJO MD Apr 01, 2019 13:51
--- NOTE | 2019-04-01 13:56 | PDOC ---
PROGRESS NOTES Chief Complaint Chief Complaint Sepsis Tricuspid Vegetation Septic emboli MRSA bacteremia acute metabolic encephalopathy polysubstance abuse, and withdrawl symptoms pancytopenia from sepsis History of Present Illness History of Present Illness today is much less agitated, again wants more pain meds confused still in ICU, sepsis, has been hypotensive, Vitals Vitals Vital Signs Date Time Temp Pulse Resp B/P (MAP) Pulse Ox O2 Delivery O2 Flow Rate FiO2 04/01/19 12:00 Nasal Cannula 2.0 04/01/19 10:00 100 33 80/47 (58) 98 04/01/19 08:00 97.9 97.9 Physical Exam Physical Exam GENERAL: Propped up in bed, tired appearance, NAD HEENT: Pupils are equal and reactive. She has questionable conjunctival hemorrhage on the right side. Oral cavity, pharynx is very dry, questionable dentition, no petechia. NECK: Supple, no JVD. LUNGS: Clear to auscultation bilaterally. HEART: S1, S2 with questionable murmur. ABDOMEN: Soft, nontender, no guarding or rebound. EXTREMITIES: Without clubbing or cyanosis. No gross edema. Some pain in LUE with PROM but no joint swelling and no gross erythema/warmth SKIN: Warm to touch without rash. Multiple tattoos. NEUROLOGIC: Nonfocal, moves all extremities. PIV General: Alert, No acute distress Heart: Normal S1, Normal S2 Lungs: Clear, Other Abdomen: Soft, No tenderness Extremities: No cyanosis, No edema Skin: No breakdown Labs LABS Laboratory Tests Test 04/01/19 05:11 White Blood Count 11.2 x10^3/uL (4.0-11.0) Red Blood Count 2.70 x10^6/uL (3.50-5.40) Hemoglobin 7.3 g/dL (12.0-15.5) Hematocrit 22.4 % (36.0-47.0) Mean Corpuscular Volume 83 fL (79-100) Mean Corpuscular Hemoglobin 27 pg (25-35) Mean Corpuscular Hemoglobin Concent 33 g/dL (31-37) Red Cell Distribution Width 19.1 % (11.5-14.5) Platelet Count 27 x10^3/uL (140-400) Neutrophils (%) (Auto) 81 % (31-73) Lymphocytes (%) (Auto) 11 % (24-48) Monocytes (%) (Auto) 8 % (0-9) Eosinophils (%) (Auto) 0 % (0-3) Basophils (%) (Auto) 0 % (0-3) Neutrophils # (Auto) 9.1 x10^3/uL (1.8-7.7) Lymphocytes # (Auto) 1.2 x10^3/uL (1.0-4.8) Monocytes # (Auto) 0.9 x10^3/uL (0.0-1.1) Eosinophils # (Auto) 0.0 x10^3/uL (0.0-0.7) Basophils # (Auto) 0.0 x10^3/uL (0.0-0.2) Sodium Level 132 mmol/L (136-145) Potassium Level 3.6 mmol/L (3.5-5.1) Chloride Level 103 mmol/L (98-107) Carbon Dioxide Level 19 mmol/L (21-32) Anion Gap 10 (6-14) Blood Urea Nitrogen 60 mg/dL (7-20) Creatinine 1.1 mg/dL (0.6-1.0) Estimated GFR (Cockcroft-Gault) 57.9 Glucose Level 100 mg/dL (70-99) Calcium Level 7.3 mg/dL (8.5-10.1) Assessment and Plan Assessmemt and Plan Problems Medical Problems: (1) RIKY (acute kidney injury) Status: Acute (2) Endocarditis Status: Acute (3) Hypotension Status: Acute (4) Pulmonary hypertension Status: Chronic (5) Renal failure Status: Acute (6) Respiratory failure Status: Acute (7) Septic pulmonary embolism Status: Acute (8) Severe sepsis Status: Acute (9) Severe tricuspid regurgitation Status: Chronic Comment Review of Relevant I have reviewed the following items kim (where applicable) has been applied. Labs Laboratory Tests Test 03/30/19 22:19 03/31/19 04:55 03/31/19 10:10 04/01/19 05:11 O2 Saturation 90 % (92-99) Arterial Blood pH 7.41 (7.35-7.45) Arterial Blood pCO2 at Patient Temp 29 mmHg (35-46) Arterial Blood pO2 at Patient Temp 66 mmHg (85-108) Arterial Blood HCO3 18 mmol/L (21-28) Arterial Blood Base Excess -6 mmol/L (-3-3) FiO2 21 White Blood Count 12.4 x10^3/uL (4.0-11.0) 11.2 x10^3/uL (4.0-11.0) Red Blood Count 3.02 x10^6/uL (3.50-5.40) 2.70 x10^6/uL (3.50-5.40) Hemoglobin 8.3 g/dL (12.0-15.5) 7.3 g/dL (12.0-15.5) Hematocrit 25.0 % (36.0-47.0) 22.4 % (36.0-47.0) Mean Corpuscular Volume 83 fL (79-100) 83 fL (79-100) Mean Corpuscular Hemoglobin 28 pg (25-35) 27 pg (25-35) Mean Corpuscular Hemoglobin Concent 33 g/dL (31-37) 33 g/dL (31-37) Red Cell Distribution Width 18.8 % (11.5-14.5) 19.1 % (11.5-14.5) Platelet Count 30 x10^3/uL (140-400) 27 x10^3/uL (140-400) Neutrophils (%) (Auto) 78 % (31-73) 81 % (31-73) Lymphocytes (%) (Auto) 12 % (24-48) 11 % (24-48) Monocytes (%) (Auto) 9 % (0-9) 8 % (0-9) Eosinophils (%) (Auto) 1 % (0-3) 0 % (0-3) Basophils (%) (Auto) 0 % (0-3) 0 % (0-3) Neutrophils # (Auto) 9.7 x10^3/uL (1.8-7.7) 9.1 x10^3/uL (1.8-7.7) Lymphocytes # (Auto) 1.5 x10^3/uL (1.0-4.8) 1.2 x10^3/uL (1.0-4.8) Monocytes # (Auto) 1.1 x10^3/uL (0.0-1.1) 0.9 x10^3/uL (0.0-1.1) Eosinophils # (Auto) 0.1 x10^3/uL (0.0-0.7) 0.0 x10^3/uL (0.0-0.7) Basophils # (Auto) 0.0 x10^3/uL (0.0-0.2) 0.0 x10^3/uL (0.0-0.2) Sodium Level 135 mmol/L (136-145) 132 mmol/L (136-145) Potassium Level 3.5 mmol/L (3.5-5.1) 3.6 mmol/L (3.5-5.1) Chloride Level 104 mmol/L (98-107) 103 mmol/L (98-107) Carbon Dioxide Level 21 mmol/L (21-32) 19 mmol/L (21-32) Anion Gap 10 (6-14) 10 (6-14) Blood Urea Nitrogen 53 mg/dL (7-20) 60 mg/dL (7-20) Creatinine 1.2 mg/dL (0.6-1.0) 1.1 mg/dL (0.6-1.0) Estimated GFR (Cockcroft-Gault) 52.4 57.9 BUN/Creatinine Ratio 44 (6-20) Glucose Level 110 mg/dL (70-99) 100 mg/dL (70-99) Calcium Level 7.2 mg/dL (8.5-10.1) 7.3 mg/dL (8.5-10.1) Total Bilirubin 0.7 mg/dL (0.2-1.0) Aspartate Amino Transf (AST/SGOT) 21 U/L (15-37) Alanine Aminotransferase (ALT/SGPT) 8 U/L (14-59) Alkaline Phosphatase 95 U/L (46-116) Total Protein 5.2 g/dL (6.4-8.2) Albumin 1.2 g/dL (3.4-5.0) Albumin/Globulin Ratio 0.3 (1.0-1.7) Vancomycin Level Trough 18.2 mcg/mL (10.0-20.0) Vancomycin Last Dose Date 03/30/19 Vancomycin Last Dose Time 2200 Laboratory Tests Test 04/01/19 05:11 White Blood Count 11.2 x10^3/uL (4.0-11.0) Red Blood Count 2.70 x10^6/uL (3.50-5.40) Hemoglobin 7.3 g/dL (12.0-15.5) Hematocrit 22.4 % (36.0-47.0) Mean Corpuscular Volume 83 fL (79-100) Mean Corpuscular Hemoglobin 27 pg (25-35) Mean Corpuscular Hemoglobin Concent 33 g/dL (31-37) Red Cell Distribution Width 19.1 % (11.5-14.5) Platelet Count 27 x10^3/uL (140-400) Neutrophils (%) (Auto) 81 % (31-73) Lymphocytes (%) (Auto) 11 % (24-48) Monocytes (%) (Auto) 8 % (0-9) Eosinophils (%) (Auto) 0 % (0-3) Basophils (%) (Auto) 0 % (0-3) Neutrophils # (Auto) 9.1 x10^3/uL (1.8-7.7) Lymphocytes # (Auto) 1.2 x10^3/uL (1.0-4.8) Monocytes # (Auto) 0.9 x10^3/uL (0.0-1.1) Eosinophils # (Auto) 0.0 x10^3/uL (0.0-0.7) Basophils # (Auto) 0.0 x10^3/uL (0.0-0.2) Sodium Level 132 mmol/L (136-145) Potassium Level 3.6 mmol/L (3.5-5.1) Chloride Level 103 mmol/L (98-107) Carbon Dioxide Level 19 mmol/L (21-32) Anion Gap 10 (6-14) Blood Urea Nitrogen 60 mg/dL (7-20) Creatinine 1.1 mg/dL (0.6-1.0) Estimated GFR (Cockcroft-Gault) 57.9 Glucose Level 100 mg/dL (70-99) Calcium Level 7.3 mg/dL (8.5-10.1) Microbiology 03/31/19 Blood Culture - Final, Complete Medications Current Medications Albumin Human 100 ml @ 100 mls/hr 1X ONCE IV Last administered on 03/29/19at 14:59; Start 03/29/19 at 14:30; Stop 03/29/19 at 15:29; Status DC Norepinephrine Bitartrate 250 ml @ 9.781 mls/ hr CONT PRN IV SEE I/O RECORD Last administered on 03/29/19at 23:25; Start 03/29/19 at 14:30 Sodium Chloride 1,000 ml @ 100 mls/hr Q10H IV Last administered on 03/29/19at 23:25; Start 03/29/19 at 14:30; Stop 03/30/19 at 12:08; Status DC Guaifenesin (Robitussin Dm) 10 ml PRN Q6HRS PRN PO COUGH Last administered on 04/01/19at 10:57; Start 03/29/19 at 15:30 Sodium Bicarbonate (Sodium Bicarb Adult 8.4% Syr) 50 meq 1X ONCE IV Last administered on 03/29/19 16:49; Start 03/29/19 at 16:00; Stop 03/29/19 at 16:01; Status DC Sodium Bicarbonate (Sodium Bicarb Adult 8.4% Syr) 50 meq 1X ONCE IV Last administered on 03/29/19at 16:49; Start 03/29/19 at 16:00; Stop 03/29/19 at 16:01; Status DC Vancomycin HCl (Vanco Per Pharmacy) 1 each PRN DAILY PRN MC SEE COMMENTS Last administered on 03/31/19at 11:05; Start 03/29/19 at 17:15 Piperacillin Sod/ Tazobactam Sod (Zosyn Per Pharmacy) 1 each PRN DAILY PRN MC SEE COMMENTS; Start 03/29/19 at 17:15; Stop 03/31/19 at 07:37; Status DC Piperacillin Sod/ Tazobactam Sod 4.5 gm/Sodium Chloride 100 ml @ 200 mls/hr Q6HRS IV Last administered on 03/31/19at 06:23; Start 03/29/19 at 18:00; Stop 03/31/19 at 07:37; Status DC Vancomycin HCl 1.25 gm/Sodium Chloride 250 ml @ 166.667 mls/hr 1X ONCE IV Last administered on 03/29/19at 17:37; Start 03/29/19 at 17:15; Stop 03/29/19 at 18:44; Status DC Vancomycin HCl 750 mg/Sodium Chloride 250 ml @ 250 mls/hr Q18H IV Last administered on 9/19/19at 10:19; Start 03/30/19 at 11:00; Stop 03/30/19 at 12:54; Status DC Vancomycin HCl (Vancomycin Trough Level) 1 each 1X ONCE MC ; Start 03/31/19 at 09:30; Stop 03/31/19 at 09:31; Status DC Magnesium Sulfate 50 ml @ 25 mls/hr 1X ONCE IV Last administered on 03/29/19at 20:02; Start 03/29/19 at 20:00; Stop 03/29/19 at 21:59; Status DC Linezolid/Dextrose 300 ml @ 300 mls/hr Q12HR IV Last administered on 04/01/19 09:38; Start 03/30/19 at 09:00 Chlorhexidine Gluconate (Peridex) 15 ml BID SWSP Last administered on 04/01/19 09:38; Start 03/30/19 at 09:00 Amino Acids/ Glycerin/ Electrolytes 1,000 ml @ 100 mls/hr Q10H IV Last administered on 04/01/19 03:57; Start 03/30/19 at 12:00 Vancomycin HCl 750 mg/Sodium Chloride 250 ml @ 250 mls/hr Q12H IV Last administered on 04/01/19 09:38; Start 03/30/19 at 22:00 Hydromorphone HCl (Dilaudid) 1 mg PRN Q4HRS PRN IV PAIN Last administered on 03/31/19at 05:11; Start 03/30/19 at 21:00; Stop 03/31/19 at 09:43; Status DC Hydromorphone HCl (Dilaudid) 1 mg PRN Q2HR PRN IV PAIN Last administered on 03/31/19at 20:06; Start 03/31/19 at 09:45; Stop 03/31/19 at 22:00; Status DC Haloperidol Lactate (Haldol Inj) 2 mg PRN Q6HRS PRN IVP AGITATION Last administered on 04/01/19at 00:07; Start 03/31/19 at 09:45 Hydromorphone HCl (Dilaudid) 1 mg PRN Q2HR PRN IV MOD TO SEVERE PAIN Last administered on 04/01/19at 01:37; Start 04/01/19 at 00:45 Oxycodone/ Acetaminophen (Percocet 7.5/ 325) 1 tab PRN Q4HRS PRN PO PAIN Last administered on 04/01/19at 09:36; Start 04/01/19 at 09:00 Sodium Chloride 1,000 ml @ 125 mls/hr 1X ONCE IV ; Start 04/01/19 at 09:00; Stop 04/01/19 at 16:59 Ketorolac Tromethamine (Toradol 15mg Vial) 15 mg PRN Q6HRS PRN IV MILD PAIN 1-3 Last administered on 04/01/19at 09:36; Start 04/01/19 at 09:00; Stop 04/06/19 at 08:59 Active Scripts Active Reported Prenate Elite Tablet ( #79/Iron Asp Gly/FA#1) 1 Each Tablet 1 Each PO DAILY Ibuprofen 800 Mg Tablet 800 Mg PO PRN Q6HRS PRN Ferrous Sulfate 325 Mg Tablet 325 Mg PO DAILY Docusate Sodium 100 Mg Capsule 100 Mg PO BID Vitals/I & O Vital Sign - Last 24 Hours 03/31/19 03/31/19 03/31/19 03/31/19 14:00 15:00 15:26 15:50 Pulse 93 93 Resp 30 30 30 B/P (MAP) 97/61 (73) 93/58 (70) Pulse Ox 96 96 96 O2 Delivery Nasal Cannula Nasal Cannula Nasal Cannula Nasal Cannula O2 Flow Rate 2.0 2.0 2.0 2.0 03/31/19 03/31/19 03/31/19 03/31/19 16:07 17:00 18:00 20:00 Temp 98.0 98.3 98.0 98.3 Pulse 91 96 96 99 Resp 30 30 30 28 B/P (MAP) 107/68 (81) 101/64 (76) 107/66 (80) 110/61 (77) Pulse Ox 96 97 99 100 O2 Delivery Nasal Cannula Nasal Cannula Nasal Cannula Nasal Cannula O2 Flow Rate 2.0 2.0 2.0 2.0 03/31/19 03/31/19 03/31/19 03/31/19 20:00 20:06 21:00 21:12 Pulse 100 Resp 28 30 32 B/P (MAP) 109/57 (74) Pulse Ox 98 97 96 O2 Delivery Nasal Cannula Nasal Cannula Nasal Cannula Nasal Cannula O2 Flow Rate 2.0 2.0 2.0 2.0 03/31/19 03/31/19 04/01/19 04/01/19 22:00 23:00 00:00 00:00 Temp 100.0 100.0 Pulse 100 102 108 Resp 30 30 30 B/P (MAP) 103/55 (71) 96/65 (75) 113/63 (80) Pulse Ox 96 97 100 O2 Delivery Nasal Cannula Nasal Cannula Nasal Cannula Nasal Cannula O2 Flow Rate 2.0 2.0 2.0 2.0 04/01/19 04/01/19 04/01/19 04/01/19 01:00 01:37 02:00 02:12 Pulse 116 108 Resp 30 30 30 28 B/P (MAP) 101/55 (70) 93/50 (64) Pulse Ox 98 95 95 93 O2 Delivery Nasal Cannula Nasal Cannula Nasal Cannula Nasal Cannula O2 Flow Rate 2.0 2.0 04/01/19 04/01/19 04/01/19 04/01/19 03:00 04:00 04:00 05:00 Temp 98.5 98.5 Pulse 103 105 97 Resp 30 30 30 B/P (MAP) 95/49 (64) 104/59 (74) 94/54 (67) Pulse Ox 98 97 98 O2 Delivery Nasal Cannula Nasal Cannula Nasal Cannula Nasal Cannula O2 Flow Rate 2.0 2.0 2.0 2.0 04/01/19 04/01/19 04/01/19 04/01/19 06:00 07:00 08:00 08:00 Temp 97.9 97.9 Pulse 100 94 92 Resp 30 34 29 B/P (MAP) 97/53 (68) 88/53 (65) 95/54 (68) Pulse Ox 94 97 99 O2 Delivery Nasal Cannula Nasal Cannula Nasal Cannula Nasal Cannula O2 Flow Rate 2.0 2.0 2.0 2.0 04/01/19 04/01/19 04/01/19 04/01/19 09:00 09:36 10:00 12:00 Pulse 104 100 Resp 30 33 B/P (MAP) 93/57 (69) 80/47 (58) Pulse Ox 100 94 98 O2 Delivery Nasal Cannula Nasal Cannula Nasal Cannula Nasal Cannula O2 Flow Rate 2.0 2.0 2.0 2.0 Intake and Output 9/20/19 9/20/19 9/21/19 14:59 22:59 06:59 Intake Total 730 ml 1204 ml 1820 ml Output Total 650 ml 200 ml Balance 730 ml 554 ml 1620 ml Nutrition Consultation Dietary Evaluation: Recommendations by RD: Protein supplementation, PPN/TPN Comments: REC Ensure clear w/dinner trays Continue w/PPN to supplement PO intake at this time Advance diet as able/tolerated to goal diet regular Expected Outcomes/Goals: PO intake + PPN to meet >75% est needs Interpretation of weight loss: >20% in 1 year Malnutrition Findings: Food and Nutrition Intake (Mod: <75% est energy req 7days Weight Status: Appropriate ELISE LOVETT MD Apr 01, 2019 13:56
[2019-04-01] MEDS: diphenhydrAMINE 50 MG/ML VIAL IVP PRN (14:43)
[2019-04-01] MEDS: VANCOMYCIN PER PHARMACY MC PRN (15:03)
[2019-04-02] VITALS (19 sets, daily range): BP systolic 89–109; BP diastolic 53–67
[2019-04-02] MEDS: KETOROLAC 15 MG/ML VIAL. IV PRN ×4 (00:27→22:30)
[2019-04-02] MEDS: AMINO AC 3%/ELECTROLYTE/GLYCER 1,000 ML IV SCH ×3 (00:27→20:39)
[2019-04-02] MEDS: guaiFENesin DM 200MG/20MG 10 ML SYRUP PO PRN ×3 (02:26→22:30)
[2019-04-02] MEDS: diphenhydrAMINE 50 MG/ML VIAL IVP PRN ×3 (02:27→20:39)
[2019-04-02] MEDS: oxyCODONE/APAP 7.5/325 1 TAB TABLET PO PRN ×4 (05:11→20:40)
--- NOTE | 2019-04-02 07:52 | PDOC ---
PULMONARY PROGRESS NOTES Subjective Sleeping upon my entry. more comfortable today. denies shortness of breath.. Comments no acute distress. Vitals Vital Signs Date Time Temp Pulse Resp B/P (MAP) Pulse Ox O2 Delivery O2 Flow Rate FiO2 04/02/19 06:26 100 Nasal Cannula 2.0 04/02/19 05:53 97.5 91 16 98/63 (75) 97.5 ROS: No Nausea, No Chest Pain, No Abdominal Pain, No Increase Cough General: Alert, No acute distress Lungs: Clear, Other Cardiovascular: S1, S2 Abdomen: Soft, Non-tender Neuro Exam: Alert, Oriented Extremities: No Edema Skin: Warm Labs Blood cultures 03/31 still positive 08/15 Laboratory Tests Test 03/31/19 10:10 04/01/19 05:11 Vancomycin Level Trough 18.2 mcg/mL (10.0-20.0) Vancomycin Last Dose Date 03/30/19 Vancomycin Last Dose Time 2200 White Blood Count 11.2 x10^3/uL (4.0-11.0) Red Blood Count 2.70 x10^6/uL (3.50-5.40) Hemoglobin 7.3 g/dL (12.0-15.5) Hematocrit 22.4 % (36.0-47.0) Mean Corpuscular Volume 83 fL (79-100) Mean Corpuscular Hemoglobin 27 pg (25-35) Mean Corpuscular Hemoglobin Concent 33 g/dL (31-37) Red Cell Distribution Width 19.1 % (11.5-14.5) Platelet Count 27 x10^3/uL (140-400) Neutrophils (%) (Auto) 81 % (31-73) Lymphocytes (%) (Auto) 11 % (24-48) Monocytes (%) (Auto) 8 % (0-9) Eosinophils (%) (Auto) 0 % (0-3) Basophils (%) (Auto) 0 % (0-3) Neutrophils # (Auto) 9.1 x10^3/uL (1.8-7.7) Lymphocytes # (Auto) 1.2 x10^3/uL (1.0-4.8) Monocytes # (Auto) 0.9 x10^3/uL (0.0-1.1) Eosinophils # (Auto) 0.0 x10^3/uL (0.0-0.7) Basophils # (Auto) 0.0 x10^3/uL (0.0-0.2) Sodium Level 132 mmol/L (136-145) Potassium Level 3.6 mmol/L (3.5-5.1) Chloride Level 103 mmol/L (98-107) Carbon Dioxide Level 19 mmol/L (21-32) Anion Gap 10 (6-14) Blood Urea Nitrogen 60 mg/dL (7-20) Creatinine 1.1 mg/dL (0.6-1.0) Estimated GFR (Cockcroft-Gault) 57.9 Glucose Level 100 mg/dL (70-99) Calcium Level 7.3 mg/dL (8.5-10.1) Medications Active Scripts Medications Dose Route/Sig Max Daily Dose Days Date Category Prenate Elite Tablet ( #79/Iron Asp Gly/FA#1) 1 Each Tablet 1 Each PO DAILY 03/29/19 Reported Ibuprofen 800 Mg Tablet 800 Mg PO PRN Q6HRS PRN 03/29/19 Reported Ferrous Sulfate 325 Mg Tablet 325 Mg PO DAILY 03/29/19 Reported Docusate Sodium 100 Mg Capsule 100 Mg PO BID 03/29/19 Reported Impression . IMPRESSION: 1. Acute hypoxic respiratory failure secondary to sepsis MRSA in blood.- improved 2. septic emboli, history of IV meth abuse. Clinically doing well although still had 2/4 blood cultures positive from 03/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 4. Lower lobe pulmonary emboli.Likely infective emboli. I suspect this is related to obstruction of the pulmonary vessels from right-sided vegetations and dislodgement. In the setting of anemia and thrombocytopenia, anticoagulation would be high risk and not indicated. 5. History of hepatitis C with chronic thrombocytopenia.--improving slowly/stable 6. Polysubstance abuse. 7. Hypotension. Suspect combination of hypovolemic and septic shock.---improving Plan . 1. Continue with present oxygen. 2. minimize benzodiazepines and narcotics. 3. antibiotics per ID currently vanco/zyvox 4. No need for anticoagulation 5. Repeat CXR in AM, blood culture repeat per ID . Discussed with JAKY. GILBERTO VITALE MD Apr 02, 2019 07:52
--- NOTE | 2019-04-02 08:36 | PDOC ---
Infectious Disease Note Subjective Subjective No fevers last 24 hours Denies SOA/CP Sating 100% on 2L PPN ROS ROS per HPI Vital Sign Vital Signs Vital Signs Date Time Temp Pulse Resp B/P (MAP) Pulse Ox O2 Delivery O2 Flow Rate FiO2 04/02/19 06:26 100 Nasal Cannula 2.0 04/02/19 05:53 97.5 91 16 98/63 (75) 97.5 Physical Exam PHYSICAL EXAM GENERAL: Propped up in bed, tired appearance, NAD HEENT: Pupils are equal and reactive. Oral cavity, pharynx is very dry NECK: Supple, no JVD. LUNGS: Clear to auscultation bilaterally. HEART: S1, S2 with questionable murmur. ABDOMEN: Soft, nontender, no guarding or rebound. EXTREMITIES: Trace edema, no cyanosis SKIN: Warm to touch without rash. Multiple tattoos. NEUROLOGIC: Nonfocal, moves all extremities. PIVs Labs Micro 03/31. BLOOD CULTURE Final GRAM POSITIVE COCCI IN CLUSTERS SEEN IN 2 OF 4 BOTTLES; 2 SETS WERE DRAWN; RESULTS WERE CALLED TO SUNITHA ZACARIAS IN ICU AT 0648; 04/01/19 BY MAYA. THE BLOOD CULTURES HAVE BEEN SENT TO [facility] FOR FURTHER WORKUP. 04/01. BLOOD CULTURE Final GRAM POSITIVE COCCI IN CLUSTERS SEEN IN 1 OF 1 PED BOTTLES; 1 SET WAS DRAWN; RESULTS WERE CALLED TO TON VANN IN ICU AT 0815; 04/02/19 BY MAYA. THE BLOOD CULTURES HAVE Objective Assessment Fever MRSA sepsis (at [place] per report from blood 03/29). repeat BC 03/31 & 04/01 [facility] TV endocarditis Cavitary nodules, likely septic emboli Leukocytosis, better Thrombocytopenia/anemia Substance abuse ? PE Pulm HTN Hep C - ? if treated in past 4 weeks post Plan Plan of Care Cont Vanc and Zyvox Trough 18.2 Perdiex - oral care Will need HUNTER when stable F/u labs and cults May need GI eval from Hep C f/u todays labs D/w nursing Critically ill Attending Co-Sign The patient was seen and interviewed as well as examined at the bedside. The chart was reviewed. The case was discussed. Agree with the plan of care. JERRY ZUNIGA APRN Apr 02, 2019 08:36 VERA CARTER MD Apr 02, 2019 10:24
--- NOTE | 2019-04-02 09:16 | RAD ---
Exam performed one view chest HISTORY: Respiratory failure DATE OF SERVICE: 04/02/2019. COMPARISON: None available FINDINGS: Heart size and mediastinal silhouette is within limits of normal. Pulmonary vascularity is unremarkable. Diffuse patchy airspace opacities are seen throughout both lungs most pronounced in the left lung base. There are small bilateral pleural effusions. There is no pneumothorax. IMPRESSION: Scattered bilateral airspace opacities and small bilateral pleural effusions. Electronically signed by: Mine Britton MD (04/02/2019 9:13 AM) [facility]
[2019-04-02] MEDS: CHLORHEXIDINE 0.12% 15 ML MOUTHWASH. SWSP SCH ×2 (09:42→20:39)
[2019-04-02] MEDS: VANCOMYCIN PER PHARMACY MC PRN ×3 (11:18→15:03)
[2019-04-02] MEDS: VANCOMYCIN 750 MG in IV NORMAL SALINE 250ML 250 ML IV SCH ×2 (11:25→21:48)
[2019-04-02 12:11] LABS: BASO % 0 % (0-3); EOS # 0.1 x10^3/uL (0.0-0.7); EOS % 1 % (0-3); HEMOGLOBIN 7.3 g/dL (12.0-15.5); LYMPH # 0.8 x10^3/uL (1.0-4.8); LYMPH % 8 % (24-48); MEAN CORPUSCULAR HEMOGLOBIN 28 pg (25-35); MEAN CORPUSCULAR HGB CONC 33 g/dL (31-37); MEAN CORPUSCULAR VOLUME 84 fL (79-100); MONO # 0.5 x10^3/uL (0.0-1.1); MONO % 5 % (0-9); NEUT # 8.6 x10^3/uL (1.8-7.7); NEUT % 87 % (31-73); PLATELET COUNT 33 x10^3/uL (140-400); RED BLOOD COUNT 2.62 x10^6/uL (3.50-5.40); RED CELL DISTRIBUTION WIDTH 19.7 % (11.5-14.5); WHITE BLOOD COUNT 9.9 x10^3/uL (4.0-11.0)
[2019-04-02 12:26] LABS: ALBUMIN 0.9 g/dL (3.4-5.0); ALBUMIN/GLOBULIN RATIO 0.2 (1.0-1.7); CALCIUM 7.3 mg/dL (8.5-10.1); CREATININE 1.4 mg/dL (0.6-1.0); GFR 43.9; POTASSIUM 4.4 mmol/L (3.5-5.1); TOTAL BILIRUBIN 0.3 mg/dL (0.2-1.0); TOTAL PROTEIN 5.2 g/dL (6.4-8.2)
--- NOTE | 2019-04-02 12:58 | PDOC ---
OBJECTIVE Vital Signs Vital Signs Date Time Temp Pulse Resp B/P (MAP) Pulse Ox O2 Delivery O2 Flow Rate FiO2 04/02/19 11:46 98 Nasal Cannula 2.0 04/02/19 11:00 90 38 96/58 (71) 04/02/19 08:00 96.8 96.8 I & 0 Intake and Output 04/02/19 07:00 Intake Total 690 ml Output Total 0 ml Balance 690 ml Intake Oral 690 ml Output Urine Total 0 ml # Voids 4 PHYSICAL EXAM Physical Exam General- NAD HEENT: OM dry, On O2 by NC 2 lts NECK: Supple, LUNGS: Clear to auscultation bilaterally. Lungs were decreased in the bases, HEART: S1, S2 ABDOMEN: Soft, nontender, EXTREMITIES: Without clubbing or cyanosis. No gross edema SKIN: multiple tattoos NEUROLOGIC:alert, Oriented No [place] DIAGNOSIS/ASSESSMENT Assessment & Plan RIKY- ATN 2/2 Hypotension/ sepsis Renal function - Cr Increased this am , was hypotensive, recd boluses UA no micr hematuria, mild proteinuria , no e/o UTI , renal US unremarkable on PPN , Van Trough 18, ID managing Supportive care Monitor, I/O(If Out not accurate, check Bladder scan to r/o retention) - Alvin RN MRSA sepsis - On Abx Anemia - S/p PRBCs 03/30 Hypotension. hypovolemic and septic shock IVF, been off pressor Acute hypoxic respiratory failure secondary to sepsis/SIRS Sources of infection likely in the lungs. Suspicion of septic emboli - Abnormal CT chest with bilateral cavitary nodules throughout the lungs, Lower lobe pulmonary emboli.Likely infective emboli. Rt Sided Endocarditis- vegetations tricuspid valve on ECHO Severe tricuspid regurgitation. Severe pulmonary hypertension-PA pressure was estimated at 74 mmHg. History of hepatitis C - not sure if treated Recommend GI consult Thrombocytopenia -? Chronic, Hx of Hep C Hem/Onc consulted Polysubstance abuse. COMMENT/RELEVANT DATA Meds Current Medications Medications (Trade) Dose Ordered Sig/[place] Start Time Stop Time Status Last Admin Dose Admin Albumin Human 100 ml @ 100 mls/hr 1X ONCE 03/29/19 14:30 03/29/19 15:29 DC 03/29/19 14:59 100 MLS/HR Amino Acids/ Glycerin/ Electrolytes 1,000 ml @ 100 mls/hr Q10H 03/30/19 12:00 04/02/19 11:25 100 MLS/HR Chlorhexidine Gluconate (Peridex) 15 ml BID 03/30/19 09:00 04/02/19 09:43 15 ML Diphenhydramine HCl (Benadryl) 25 mg PRN Q6HRS PRN 04/01/19 14:00 04/02/19 11:25 25 MG Guaifenesin (Robitussin Dm) 10 ml PRN Q6HRS PRN 03/29/19 15:30 04/02/19 02:29 10 ML Haloperidol Lactate (Haldol Inj) 2 mg PRN Q6HRS PRN 03/31/19 09:45 04/01/19 00:07 2 MG Hydromorphone HCl (Dilaudid) 1 mg PRN Q2HR PRN 04/01/19 00:45 04/01/19 01:37 1 MG Ketorolac Tromethamine (Toradol 15mg Vial) 15 mg PRN Q6HRS PRN 04/01/19 09:00 04/06/19 08:59 04/02/19 09:43 15 MG Linezolid/Dextrose 300 ml @ 300 mls/hr Q12HR 03/30/19 09:00 04/02/19 09:44 300 MLS/HR Magnesium Sulfate 50 ml @ 25 mls/hr 1X ONCE 03/29/19 20:00 03/29/19 21:59 DC 03/29/19 20:02 25 MLS/HR Norepinephrine Bitartrate 250 ml @ 9.781 mls/ hr CONT PRN 03/29/19 14:30 03/29/19 23:25 9.781 MLS/HR Oxycodone/ Acetaminophen (Percocet 7.5/ 325) 1 tab PRN Q4HRS PRN 04/01/19 09:00 04/02/19 09:43 1 TAB Piperacillin Sod/ Tazobactam Sod (Zosyn Per Pharmacy) 1 each PRN DAILY PRN 03/29/19 17:15 03/31/19 07:37 DC Piperacillin Sod/ Tazobactam Sod 4.5 gm/Sodium Chloride 100 ml @ 200 mls/hr Q6HRS 03/29/19 18:00 03/31/19 07:37 DC 03/31/19 06:23 200 MLS/HR Sodium Bicarbonate (Sodium Bicarb Adult 8.4% Syr) 50 meq 1X ONCE 03/29/19 16:00 03/29/19 16:01 DC 03/29/19 16:49 50 MEQ Sodium Chloride 1,000 ml @ 125 mls/hr 1X ONCE 04/01/19 09:00 04/01/19 16:59 DC 04/01/19 18:11 125 MLS/HR Vancomycin HCl (Vanco Per Pharmacy) 1 each PRN DAILY PRN 03/29/19 17:15 04/02/19 11:47 1 EACH Vancomycin HCl (Vancomycin Trough Level) 1 each 1X ONCE 03/31/19 09:30 03/31/19 09:31 DC Vancomycin HCl 1.25 gm/Sodium Chloride 250 ml @ 166.667 mls/hr 1X ONCE 03/29/19 17:15 03/29/19 18:44 DC 03/29/19 17:37 166.667 MLS/HR Vancomycin HCl 750 mg/Sodium Chloride 250 ml @ 250 mls/hr Q12H 03/30/19 22:00 04/02/19 11:25 250 MLS/HR Lab Laboratory Tests Test 04/02/19 11:35 White Blood Count 9.9 x10^3/uL (4.0-11.0) Red Blood Count 2.62 x10^6/uL (3.50-5.40) Hemoglobin 7.3 g/dL (12.0-15.5) Hematocrit 22.0 % (36.0-47.0) Mean Corpuscular Volume 84 fL (79-100) Mean Corpuscular Hemoglobin 28 pg (25-35) Mean Corpuscular Hemoglobin Concent 33 g/dL (31-37) Red Cell Distribution Width 19.7 % (11.5-14.5) Platelet Count 33 x10^3/uL (140-400) Neutrophils (%) (Auto) 87 % (31-73) Lymphocytes (%) (Auto) 8 % (24-48) Monocytes (%) (Auto) 5 % (0-9) Eosinophils (%) (Auto) 1 % (0-3) Basophils (%) (Auto) 0 % (0-3) Neutrophils # (Auto) 8.6 x10^3/uL (1.8-7.7) Lymphocytes # (Auto) 0.8 x10^3/uL (1.0-4.8) Monocytes # (Auto) 0.5 x10^3/uL (0.0-1.1) Eosinophils # (Auto) 0.1 x10^3/uL (0.0-0.7) Basophils # (Auto) 0.0 x10^3/uL (0.0-0.2) Sodium Level 131 mmol/L (136-145) Potassium Level 4.4 mmol/L (3.5-5.1) Chloride Level 102 mmol/L (98-107) Carbon Dioxide Level 18 mmol/L (21-32) Anion Gap 11 (6-14) Blood Urea Nitrogen 74 mg/dL (7-20) Creatinine 1.4 mg/dL (0.6-1.0) Estimated GFR (Cockcroft-Gault) 43.9 BUN/Creatinine Ratio 53 (6-20) Glucose Level 99 mg/dL (70-99) Calcium Level 7.3 mg/dL (8.5-10.1) Total Bilirubin 0.3 mg/dL (0.2-1.0) Aspartate Amino Transf (AST/SGOT) 16 U/L (15-37) Alanine Aminotransferase (ALT/SGPT) 8 U/L (14-59) Alkaline Phosphatase 77 U/L (46-116) Total Protein 5.2 g/dL (6.4-8.2) Albumin 0.9 g/dL (3.4-5.0) Albumin/Globulin Ratio 0.2 (1.0-1.7) Results All relevant outside records, renal labs, imaging studies, telemetry/EKG's were reviewed. Other Scattered bilateral airspace opacities and small bilateral pleural effusions. EMMETT NARANJO MD Apr 02, 2019 12:58
--- NOTE | 2019-04-02 16:18 | PDOC ---
PROGRESS NOTES Chief Complaint Chief Complaint Sepsis Tricuspid Vegetation Septic emboli MRSA bacteremia acute metabolic encephalopathy polysubstance abuse, and withdrawl symptoms pancytopenia from sepsis History of Present Illness History of Present Illness more orientd, up to chair able to eat more, will advance diet discussed with ID consult, keep in ICU Vitals Vitals Vital Signs Date Time Temp Pulse Resp B/P (MAP) Pulse Ox O2 Delivery O2 Flow Rate FiO2 04/02/19 11:46 98 Nasal Cannula 2.0 04/02/19 11:00 90 38 96/58 (71) 04/02/19 08:00 96.8 96.8 Physical Exam Physical Exam GENERAL: Propped up in bed, tired appearance, NAD HEENT: Pupils are equal and reactive. Oral cavity, pharynx is very dry NECK: Supple, no JVD. LUNGS: Clear to auscultation bilaterally. HEART: S1, S2 with questionable murmur. ABDOMEN: Soft, nontender, no guarding or rebound. EXTREMITIES: Trace edema, no cyanosis SKIN: Warm to touch without rash. Multiple tattoos. NEUROLOGIC: Nonfocal, moves all extremities. PIVs General: Alert, No acute distress Heart: Normal S1, Normal S2 Lungs: Clear, Other Abdomen: Soft, No tenderness Extremities: No cyanosis, No edema Skin: No breakdown Labs LABS Laboratory Tests Test 04/02/19 11:35 White Blood Count 9.9 x10^3/uL (4.0-11.0) Red Blood Count 2.62 x10^6/uL (3.50-5.40) Hemoglobin 7.3 g/dL (12.0-15.5) Hematocrit 22.0 % (36.0-47.0) Mean Corpuscular Volume 84 fL (79-100) Mean Corpuscular Hemoglobin 28 pg (25-35) Mean Corpuscular Hemoglobin Concent 33 g/dL (31-37) Red Cell Distribution Width 19.7 % (11.5-14.5) Platelet Count 33 x10^3/uL (140-400) Neutrophils (%) (Auto) 87 % (31-73) Lymphocytes (%) (Auto) 8 % (24-48) Monocytes (%) (Auto) 5 % (0-9) Eosinophils (%) (Auto) 1 % (0-3) Basophils (%) (Auto) 0 % (0-3) Neutrophils # (Auto) 8.6 x10^3/uL (1.8-7.7) Lymphocytes # (Auto) 0.8 x10^3/uL (1.0-4.8) Monocytes # (Auto) 0.5 x10^3/uL (0.0-1.1) Eosinophils # (Auto) 0.1 x10^3/uL (0.0-0.7) Basophils # (Auto) 0.0 x10^3/uL (0.0-0.2) Sodium Level 131 mmol/L (136-145) Potassium Level 4.4 mmol/L (3.5-5.1) Chloride Level 102 mmol/L (98-107) Carbon Dioxide Level 18 mmol/L (21-32) Anion Gap 11 (6-14) Blood Urea Nitrogen 74 mg/dL (7-20) Creatinine 1.4 mg/dL (0.6-1.0) Estimated GFR (Cockcroft-Gault) 43.9 BUN/Creatinine Ratio 53 (6-20) Glucose Level 99 mg/dL (70-99) Calcium Level 7.3 mg/dL (8.5-10.1) Total Bilirubin 0.3 mg/dL (0.2-1.0) Aspartate Amino Transf (AST/SGOT) 16 U/L (15-37) Alanine Aminotransferase (ALT/SGPT) 8 U/L (14-59) Alkaline Phosphatase 77 U/L (46-116) Total Protein 5.2 g/dL (6.4-8.2) Albumin 0.9 g/dL (3.4-5.0) Albumin/Globulin Ratio 0.2 (1.0-1.7) Assessment and Plan Assessmemt and Plan Problems Medical Problems: (1) RIKY (acute kidney injury) Status: Acute (2) Endocarditis Status: Acute (3) Hypotension Status: Acute (4) Pulmonary hypertension Status: Chronic (5) Renal failure Status: Acute (6) Respiratory failure Status: Acute (7) Septic pulmonary embolism Status: Acute (8) Severe sepsis Status: Acute (9) Severe tricuspid regurgitation Status: Chronic Comment Review of Relevant I have reviewed the following items kim (where applicable) has been applied. Labs Laboratory Tests Test 04/01/19 05:11 04/02/19 11:35 White Blood Count 11.2 x10^3/uL (4.0-11.0) 9.9 x10^3/uL (4.0-11.0) Red Blood Count 2.70 x10^6/uL (3.50-5.40) 2.62 x10^6/uL (3.50-5.40) Hemoglobin 7.3 g/dL (12.0-15.5) 7.3 g/dL (12.0-15.5) Hematocrit 22.4 % (36.0-47.0) 22.0 % (36.0-47.0) Mean Corpuscular Volume 83 fL (79-100) 84 fL (79-100) Mean Corpuscular Hemoglobin 27 pg (25-35) 28 pg (25-35) Mean Corpuscular Hemoglobin Concent 33 g/dL (31-37) 33 g/dL (31-37) Red Cell Distribution Width 19.1 % (11.5-14.5) 19.7 % (11.5-14.5) Platelet Count 27 x10^3/uL (140-400) 33 x10^3/uL (140-400) Neutrophils (%) (Auto) 81 % (31-73) 87 % (31-73) Lymphocytes (%) (Auto) 11 % (24-48) 8 % (24-48) Monocytes (%) (Auto) 8 % (0-9) 5 % (0-9) Eosinophils (%) (Auto) 0 % (0-3) 1 % (0-3) Basophils (%) (Auto) 0 % (0-3) 0 % (0-3) Neutrophils # (Auto) 9.1 x10^3/uL (1.8-7.7) 8.6 x10^3/uL (1.8-7.7) Lymphocytes # (Auto) 1.2 x10^3/uL (1.0-4.8) 0.8 x10^3/uL (1.0-4.8) Monocytes # (Auto) 0.9 x10^3/uL (0.0-1.1) 0.5 x10^3/uL (0.0-1.1) Eosinophils # (Auto) 0.0 x10^3/uL (0.0-0.7) 0.1 x10^3/uL (0.0-0.7) Basophils # (Auto) 0.0 x10^3/uL (0.0-0.2) 0.0 x10^3/uL (0.0-0.2) Sodium Level 132 mmol/L (136-145) 131 mmol/L (136-145) Potassium Level 3.6 mmol/L (3.5-5.1) 4.4 mmol/L (3.5-5.1) Chloride Level 103 mmol/L (98-107) 102 mmol/L (98-107) Carbon Dioxide Level 19 mmol/L (21-32) 18 mmol/L (21-32) Anion Gap 10 (6-14) 11 (6-14) Blood Urea Nitrogen 60 mg/dL (7-20) 74 mg/dL (7-20) Creatinine 1.1 mg/dL (0.6-1.0) 1.4 mg/dL (0.6-1.0) Estimated GFR (Cockcroft-Gault) 57.9 43.9 Glucose Level 100 mg/dL (70-99) 99 mg/dL (70-99) Calcium Level 7.3 mg/dL (8.5-10.1) 7.3 mg/dL (8.5-10.1) BUN/Creatinine Ratio 53 (6-20) Total Bilirubin 0.3 mg/dL (0.2-1.0) Aspartate Amino Transf (AST/SGOT) 16 U/L (15-37) Alanine Aminotransferase (ALT/SGPT) 8 U/L (14-59) Alkaline Phosphatase 77 U/L (46-116) Total Protein 5.2 g/dL (6.4-8.2) Albumin 0.9 g/dL (3.4-5.0) Albumin/Globulin Ratio 0.2 (1.0-1.7) Laboratory Tests Test 04/02/19 11:35 White Blood Count 9.9 x10^3/uL (4.0-11.0) Red Blood Count 2.62 x10^6/uL (3.50-5.40) Hemoglobin 7.3 g/dL (12.0-15.5) Hematocrit 22.0 % (36.0-47.0) Mean Corpuscular Volume 84 fL (79-100) Mean Corpuscular Hemoglobin 28 pg (25-35) Mean Corpuscular Hemoglobin Concent 33 g/dL (31-37) Red Cell Distribution Width 19.7 % (11.5-14.5) Platelet Count 33 x10^3/uL (140-400) Neutrophils (%) (Auto) 87 % (31-73) Lymphocytes (%) (Auto) 8 % (24-48) Monocytes (%) (Auto) 5 % (0-9) Eosinophils (%) (Auto) 1 % (0-3) Basophils (%) (Auto) 0 % (0-3) Neutrophils # (Auto) 8.6 x10^3/uL (1.8-7.7) Lymphocytes # (Auto) 0.8 x10^3/uL (1.0-4.8) Monocytes # (Auto) 0.5 x10^3/uL (0.0-1.1) Eosinophils # (Auto) 0.1 x10^3/uL (0.0-0.7) Basophils # (Auto) 0.0 x10^3/uL (0.0-0.2) Sodium Level 131 mmol/L (136-145) Potassium Level 4.4 mmol/L (3.5-5.1) Chloride Level 102 mmol/L (98-107) Carbon Dioxide Level 18 mmol/L (21-32) Anion Gap 11 (6-14) Blood Urea Nitrogen 74 mg/dL (7-20) Creatinine 1.4 mg/dL (0.6-1.0) Estimated GFR (Cockcroft-Gault) 43.9 BUN/Creatinine Ratio 53 (6-20) Glucose Level 99 mg/dL (70-99) Calcium Level 7.3 mg/dL (8.5-10.1) Total Bilirubin 0.3 mg/dL (0.2-1.0) Aspartate Amino Transf (AST/SGOT) 16 U/L (15-37) Alanine Aminotransferase (ALT/SGPT) 8 U/L (14-59) Alkaline Phosphatase 77 U/L (46-116) Total Protein 5.2 g/dL (6.4-8.2) Albumin 0.9 g/dL (3.4-5.0) Albumin/Globulin Ratio 0.2 (1.0-1.7) Microbiology 04/01/19 Blood Culture - Final, Complete Medications Current Medications Albumin Human 100 ml @ 100 mls/hr 1X ONCE IV Last administered on 03/29/19at 14:59; Start 03/29/19 at 14:30; Stop 03/29/19 at 15:29; Status DC Norepinephrine Bitartrate 250 ml @ 9.781 mls/ hr CONT PRN IV SEE I/O RECORD Last administered on 03/29/19at 23:25; Start 03/29/19 at 14:30 Sodium Chloride 1,000 ml @ 100 mls/hr Q10H IV Last administered on 03/29/19at 23:25; Start 03/29/19 at 14:30; Stop 03/30/19 at 12:08; Status DC Guaifenesin (Robitussin Dm) 10 ml PRN Q6HRS PRN PO COUGH Last administered on 04/02/19at 02:29; Start 03/29/19 at 15:30 Sodium Bicarbonate (Sodium Bicarb Adult 8.4% Syr) 50 meq 1X ONCE IV Last administered on 03/29/19at 16:49; Start 03/29/19 at 16:00; Stop 03/29/19 at 16:01; Status DC Sodium Bicarbonate (Sodium Bicarb Adult 8.4% Syr) 50 meq 1X ONCE IV Last administered on 03/29/19at 16:49; Start 03/29/19 at 16:00; Stop 03/29/19 at 16:01; Status DC Vancomycin HCl (Vanco Per Pharmacy) 1 each PRN DAILY PRN MC SEE COMMENTS Last administered on 04/02/19at 15:03; Start 03/29/19 at 17:15 Piperacillin Sod/ Tazobactam Sod (Zosyn Per Pharmacy) 1 each PRN DAILY PRN MC SEE COMMENTS; Start 03/29/19 at 17:15; Stop 03/31/19 at 07:37; Status DC Piperacillin Sod/ Tazobactam Sod 4.5 gm/Sodium Chloride 100 ml @ 200 mls/hr Q6HRS IV Last administered on 03/31/19at 06:23; Start 03/29/19 at 18:00; Stop 03/31/19 at 07:37; Status DC Vancomycin HCl 1.25 gm/Sodium Chloride 250 ml @ 166.667 mls/hr 1X ONCE IV Last administered on 03/29/19at 17:37; Start 03/29/19 at 17:15; Stop 03/29/19 at 18:44; Status DC Vancomycin HCl 750 mg/Sodium Chloride 250 ml @ 250 mls/hr Q18H IV Last administered on 03/30/19at 10:19; Start 03/30/19 at 11:00; Stop 03/30/19 at 12:54; Status DC Vancomycin HCl (Vancomycin Trough Level) 1 each 1X ONCE MC ; Start 03/31/19 at 09:30; Stop 03/31/19 at 09:31; Status DC Magnesium Sulfate 50 ml @ 25 mls/hr 1X ONCE IV Last administered on 03/29/19at 20:02; Start 03/29/19 at 20:00; Stop 03/29/19 at 21:59; Status DC Linezolid/Dextrose 300 ml @ 300 mls/hr Q12HR IV Last administered on 04/02/19at 09:44; Start 03/30/19 at 09:00 Chlorhexidine Gluconate (Peridex) 15 ml BID SWSP Last administered on 04/02/19 09:43; Start 03/30/19 at 09:00 Amino Acids/ Glycerin/ Electrolytes 1,000 ml @ 100 mls/hr Q10H IV Last administered on 04/02/19 11:25; Start 03/30/19 at 12:00 Vancomycin HCl 750 mg/Sodium Chloride 250 ml @ 250 mls/hr Q12H IV Last administered on 04/02/19 11:25; Start 03/30/19 at 22:00 Hydromorphone HCl (Dilaudid) 1 mg PRN Q4HRS PRN IV PAIN Last administered on 03/31/19at 05:11; Start 03/30/19 at 21:00; Stop 03/31/19 at 09:43; Status DC Hydromorphone HCl (Dilaudid) 1 mg PRN Q2HR PRN IV PAIN Last administered on 03/31/19at 20:06; Start 03/31/19 at 09:45; Stop 03/31/19 at 22:00; Status DC Haloperidol Lactate (Haldol Inj) 2 mg PRN Q6HRS PRN IVP AGITATION Last administered on 04/01/19at 00:07; Start 03/31/19 at 09:45 Hydromorphone HCl (Dilaudid) 1 mg PRN Q2HR PRN IV MOD TO SEVERE PAIN Last administered on 04/01/19at 01:37; Start 04/01/19 at 00:45 Oxycodone/ Acetaminophen (Percocet 7.5/ 325) 1 tab PRN Q4HRS PRN PO PAIN Last administered on 04/02/19 09:43; Start 04/01/19 at 09:00 Sodium Chloride 1,000 ml @ 125 mls/hr 1X ONCE IV Last administered on 04/01/19at 18:11; Start 04/01/19 at 09:00; Stop 04/01/19 at 16:59; Status DC Ketorolac Tromethamine (Toradol 15mg Vial) 15 mg PRN Q6HRS PRN IV MILD PAIN 1-3 Last administered on 04/02/19at 09:43; Start 04/01/19 at 09:00; Stop 04/06/19 at 08:59 Diphenhydramine HCl (Benadryl) 25 mg PRN Q6HRS PRN IVP ITCHING Last administered on 04/02/19at 11:25; Start 04/01/19 at 14:00 Lactobacillus Rhamnosus (Culturelle) 1 cap BID PO ; Start 04/02/19 at 21:00 Active Scripts Active Reported Prenate Elite Tablet ( #79/Iron Asp Gly/FA#1) 1 Each Tablet 1 Each PO DAILY Ibuprofen 800 Mg Tablet 800 Mg PO PRN Q6HRS PRN Ferrous Sulfate 325 Mg Tablet 325 Mg PO DAILY Docusate Sodium 100 Mg Capsule 100 Mg PO BID Vitals/I & O Vital Sign - Last 24 Hours 04/01/19 04/01/19 04/01/19 04/01/19 18:00 18:11 18:12 19:00 Temp 97.1 97.1 Pulse 100 80 Resp 22 20 B/P (MAP) 90/62 (71) 97/63 (74) Pulse Ox 99 98 98 100 O2 Delivery Nasal Cannula Nasal Cannula Nasal Cannula Nasal Cannula O2 Flow Rate 2.0 2.0 2.0 2.0 04/01/19 04/01/19 04/01/19 04/01/19 20:00 20:00 21:00 21:39 Pulse 68 82 Resp 26 26 30 B/P (MAP) 76/62 (67) 85/54 (64) Pulse Ox 100 100 100 O2 Delivery Nasal Cannula Nasal Cannula Nasal Cannula Nasal Cannula O2 Flow Rate 2.0 2.0 2.0 2.0 04/01/19 04/01/19 04/01/19 04/02/19 22:00 23:00 23:00 00:00 Pulse 80 80 Resp 24 25 18 B/P (MAP) 80/53 (62) 91/53 (66) Pulse Ox 100 100 100 O2 Delivery Nasal Cannula Nasal Cannula Nasal Cannula Nasal Cannula O2 Flow Rate 2.0 2.0 2.0 2.0 04/02/19 04/02/19 04/02/19 04/02/19 02:00 03:03 03:58 04:05 Temp 97.8 97.5 96.5 97.8 97.5 96.5 Pulse 83 89 88 Resp 12 12 16 B/P (MAP) 96/56 (69) 94/55 (68) 94/54 (67) Pulse Ox 99 100 100 O2 Delivery Nasal Cannula Nasal Cannula Nasal Cannula Nasal Cannula O2 Flow Rate 2.0 2.0 2.0 2.0 04/02/19 04/02/19 04/02/19 04/02/19 05:00 05:12 05:53 06:26 Temp 97.6 97.5 97.6 97.5 Pulse 96 91 Resp 16 16 B/P (MAP) 107/59 (75) 98/63 (75) Pulse Ox 100 100 100 O2 Delivery Nasal Cannula Nasal Cannula Nasal Cannula Nasal Cannula O2 Flow Rate 2.0 2.0 2.0 2.0 04/02/19 04/02/19 04/02/19 04/02/19 08:00 08:00 10:00 11:00 Temp 96.8 96.8 Pulse 90 88 90 Resp 27 24 38 B/P (MAP) 95/54 (68) 109/61 (77) 96/58 (71) Pulse Ox 100 100 98 O2 Delivery Nasal Cannula Nasal Cannula Nasal Cannula Nasal Cannula O2 Flow Rate 2.0 2.0 2.0 2.0 04/02/19 11:46 Pulse Ox 98 O2 Delivery Nasal Cannula O2 Flow Rate 2.0 Intake and Output 04/01/19 04/01/19 04/02/19 15:00 23:00 07:00 Intake Total 320 ml 150 ml 220 ml Output Total 0 ml 0 ml 0 ml Balance 320 ml 150 ml 220 ml Nutrition Consultation Dietary Evaluation: Recommendations by RD: Protein supplementation, PPN/TPN Comments: REC Ensure clear w/dinner trays Continue w/PPN to supplement PO intake at this time Advance diet as able/tolerated to goal diet regular Expected Outcomes/Goals: PO intake + PPN to meet >75% est needs Interpretation of weight loss: >20% in 1 year Malnutrition Findings: Food and Nutrition Intake (Mod: <75% est energy req 7days Weight Status: Appropriate ELISE LOVETT MD Apr 02, 2019 16:18
[2019-04-02] MEDS: LACTOBACILLUS RHAMNOSUS GG 1 CAPSULE. PO SCH (20:39)
[2019-04-03] VITALS (13 sets, daily range): BP systolic 72–123; BP diastolic 52–75
[2019-04-03] MEDS: oxyCODONE/APAP 7.5/325 1 TAB TABLET PO PRN ×4 (00:31→21:16)
[2019-04-03] MEDS: guaiFENesin DM 200MG/20MG 10 ML SYRUP PO PRN ×3 (04:29→23:27)
[2019-04-03] MEDS: KETOROLAC 15 MG/ML VIAL. IV PRN ×2 (04:29→16:21)
[2019-04-03] MEDS: diphenhydrAMINE 50 MG/ML VIAL IVP PRN ×3 (04:29→21:35)
--- NOTE | 2019-04-03 05:45 | NUR ---
Patient refused labs this AM because she "hurt all over". Convinced patient to possibly reconsider after pain medication is given. Will inform next RN.
[2019-04-03] MEDS: AMINO AC 3%/ELECTROLYTE/GLYCER 1,000 ML IV SCH (07:36)
--- NOTE | 2019-04-03 07:39 | PDOC ---
Infectious Disease Note Subjective Subjective No fevers last 24 hours Denies SOA/CP Sating 100% on 2L PPN ROS ROS no n/v/d/sob Vital Sign Vital Signs Vital Signs Date Time Temp Pulse Resp B/P (MAP) Pulse Ox O2 Delivery O2 Flow Rate FiO2 04/03/19 06:00 99 32 103/65 (78) 95 Room Air 04/03/19 04:00 97.6 97.6 04/02/19 18:19 2.0 Physical Exam PHYSICAL EXAM GENERAL: Propped up in bed, tired appearance, NAD HEENT: Pupils are equal and reactive. Oral cavity, pharynx is very dry NECK: Supple, no JVD. LUNGS: Clear to auscultation bilaterally. HEART: S1, S2 with questionable murmur. ABDOMEN: Soft, nontender, no guarding or rebound. EXTREMITIES: Trace edema, no cyanosis SKIN: Warm to touch without rash. Multiple tattoos. NEUROLOGIC: Nonfocal, moves all extremities. PIVs Labs Lab Laboratory Tests Test 04/02/19 11:35 White Blood Count 9.9 x10^3/uL (4.0-11.0) Red Blood Count 2.62 x10^6/uL (3.50-5.40) Hemoglobin 7.3 g/dL (12.0-15.5) Hematocrit 22.0 % (36.0-47.0) Mean Corpuscular Volume 84 fL (79-100) Mean Corpuscular Hemoglobin 28 pg (25-35) Mean Corpuscular Hemoglobin Concent 33 g/dL (31-37) Red Cell Distribution Width 19.7 % (11.5-14.5) Platelet Count 33 x10^3/uL (140-400) Neutrophils (%) (Auto) 87 % (31-73) Lymphocytes (%) (Auto) 8 % (24-48) Monocytes (%) (Auto) 5 % (0-9) Eosinophils (%) (Auto) 1 % (0-3) Basophils (%) (Auto) 0 % (0-3) Neutrophils # (Auto) 8.6 x10^3/uL (1.8-7.7) Lymphocytes # (Auto) 0.8 x10^3/uL (1.0-4.8) Monocytes # (Auto) 0.5 x10^3/uL (0.0-1.1) Eosinophils # (Auto) 0.1 x10^3/uL (0.0-0.7) Basophils # (Auto) 0.0 x10^3/uL (0.0-0.2) Sodium Level 131 mmol/L (136-145) Potassium Level 4.4 mmol/L (3.5-5.1) Chloride Level 102 mmol/L (98-107) Carbon Dioxide Level 18 mmol/L (21-32) Anion Gap 11 (6-14) Blood Urea Nitrogen 74 mg/dL (7-20) Creatinine 1.4 mg/dL (0.6-1.0) Estimated GFR (Cockcroft-Gault) 43.9 BUN/Creatinine Ratio 53 (6-20) Glucose Level 99 mg/dL (70-99) Calcium Level 7.3 mg/dL (8.5-10.1) Total Bilirubin 0.3 mg/dL (0.2-1.0) Aspartate Amino Transf (AST/SGOT) 16 U/L (15-37) Alanine Aminotransferase (ALT/SGPT) 8 U/L (14-59) Alkaline Phosphatase 77 U/L (46-116) Total Protein 5.2 g/dL (6.4-8.2) Albumin 0.9 g/dL (3.4-5.0) Albumin/Globulin Ratio 0.2 (1.0-1.7) Micro BLOOD CULTURE Final GRAM POSITIVE COCCI IN CLUSTERS SEEN IN 1 OF 1 PED BOTTLES; 1 SET WAS DRAWN; RESULTS WERE CALLED TO [facility] VANN IN ICU AT 0815; 04/02/19 BY MAYA. THE BLOOD CULTURES HAVE BEEN SENT TO [facility] FOR FURTHER WORKUP. Objective Assessment Fever MRSA sepsis (at [facility] per report from blood 03/29). repeat BC 03/31 & 04/01 GPC TV endocarditis Cavitary nodules, likely septic emboli Leukocytosis, better Thrombocytopenia/anemia Substance abuse ? PE Pulm HTN Hep C - ? if treated in past 4 weeks post Plan Plan of Care Cont Zyvox ,, change vanc to ceftarolin, cr is going up need fluids Trough 18.2 Perdiex - oral care Will need HUNTER when stable F/u labs and cults May need GI eval from Hep C f/u todays labs D/w nursing VERA CARTER MD Apr 03, 2019 07:39
[2019-04-03] MEDS ORDERED: IV NORMAL SALINE 1000ML BAG 1,000 ML IV ONE (08:30)
[2019-04-03 08:42] LABS: BASO % 0 % (0-3); EOS # 0.1 x10^3/uL (0.0-0.7); EOS % 1 % (0-3); HEMATOCRIT 23.1 % (36.0-47.0); HEMOGLOBIN 7.6 g/dL (12.0-15.5); LYMPH # 1.1 x10^3/uL (1.0-4.8); LYMPH % 9 % (24-48); MEAN CORPUSCULAR HEMOGLOBIN 28 pg (25-35); MEAN CORPUSCULAR HGB CONC 33 g/dL (31-37); MEAN CORPUSCULAR VOLUME 84 fL (79-100); MONO # 0.6 x10^3/uL (0.0-1.1); MONO % 5 % (0-9); NEUT # 9.5 x10^3/uL (1.8-7.7); NEUT % 84 % (31-73); PLATELET COUNT 52 x10^3/uL (140-400); RED BLOOD COUNT 2.74 x10^6/uL (3.50-5.40); RED CELL DISTRIBUTION WIDTH 19.6 % (11.5-14.5); WHITE BLOOD COUNT 11.2 x10^3/uL (4.0-11.0)
[2019-04-03] MEDS: LACTOBACILLUS RHAMNOSUS GG 1 CAPSULE. PO SCH ×2 (08:44→21:15)
[2019-04-03] MEDS: CEFTAROLINE FOSAMIL 600 MG in IV NORMAL SALINE 250ML 250 ML IV SCH ×2 (08:45→16:23)
[2019-04-03 08:57] LABS: ALBUMIN/GLOBULIN RATIO 0.2 (1.0-1.7); CALCIUM 7.5 mg/dL (8.5-10.1); CREATININE 1.4 mg/dL (0.6-1.0); GFR 43.9; POTASSIUM 4.8 mmol/L (3.5-5.1); TOTAL BILIRUBIN 0.3 mg/dL (0.2-1.0); TOTAL PROTEIN 5.4 g/dL (6.4-8.2)
[2019-04-03] MEDS: CHLORHEXIDINE 0.12% 15 ML MOUTHWASH. SWSP SCH ×3 (09:00→21:15)
--- NOTE | 2019-04-03 09:14 | PDOC ---
PROGRESS NOTES Subjective Subjective HPI - f/u of Thrombocytopenia ROS - no bleeding Objective Objective Vital Signs Date Time Temp Pulse Resp B/P (MAP) Pulse Ox O2 Delivery O2 Flow Rate FiO2 04/03/19 08:00 102 32 102/62 (75) 98 Room Air 04/03/19 07:00 97.8 97.8 04/02/19 18:19 2.0 Intake and Output 04/03/19 07:00 Intake Total 1683 ml Output Total 301 ml Balance 1382 ml Intake Oral 75 ml IV Total 1608 ml Output Urine Total 300 ml Stool Total 1 ml # Voids 2 # Bowel Movements 1 Physical Exam General: Alert, No acute distress Assessment Assessment Problems Medical Problems: (1) RIKY (acute kidney injury) Status: Acute (2) Endocarditis Status: Acute (3) Hypotension Status: Acute (4) Pulmonary hypertension Status: Chronic (5) Renal failure Status: Acute (6) Respiratory failure Status: Acute (7) Septic pulmonary embolism Status: Acute (8) Severe sepsis Status: Acute (9) Severe tricuspid regurgitation Status: Chronic IMPRESSION AND PLAN: 1. Thrombocytopenia due to sepsis. Appreciate Infectious Disease consultation. The patient has methicillin-resistant Staphylococcus aureus sepsis noted in [facility]. Continue antibiotic management per Infectious Diseases. I suspect that the significant worsened thrombocytopenia is also due to underlying hepatitis C. No signs of bleeding. If she has any significant bleeding, she would need platelet transfusion. Plt 33. I d/w RN, no bleeding. 2. Septic pulmonary emboli. Platelet counts are too low for anticoagulation. In addition, since these are septic emboli, I agree with Dr. Hughes that treatment with antibiotics will be the primary modality of management. 3. Abnormal CT with bilateral cavitary nodules throughout the lungs, likely suggestive of septic emboli. I discussed with Dr. Hughes. Continue management per Dr. Hughes. 4. Sepsis - management per ID Comment Review of Relevant I have reviewed the following items kim (where applicable) has been applied. Labs Laboratory Tests Test 04/02/19 11:35 04/03/19 08:10 White Blood Count 9.9 x10^3/uL (4.0-11.0) 11.2 x10^3/uL (4.0-11.0) Red Blood Count 2.62 x10^6/uL (3.50-5.40) 2.74 x10^6/uL (3.50-5.40) Hemoglobin 7.3 g/dL (12.0-15.5) 7.6 g/dL (12.0-15.5) Hematocrit 22.0 % (36.0-47.0) 23.1 % (36.0-47.0) Mean Corpuscular Volume 84 fL (79-100) 84 fL (79-100) Mean Corpuscular Hemoglobin 28 pg (25-35) 28 pg (25-35) Mean Corpuscular Hemoglobin Concent 33 g/dL (31-37) 33 g/dL (31-37) Red Cell Distribution Width 19.7 % (11.5-14.5) 19.6 % (11.5-14.5) Platelet Count 33 x10^3/uL (140-400) 52 x10^3/uL (140-400) Neutrophils (%) (Auto) 87 % (31-73) 84 % (31-73) Lymphocytes (%) (Auto) 8 % (24-48) 9 % (24-48) Monocytes (%) (Auto) 5 % (0-9) 5 % (0-9) Eosinophils (%) (Auto) 1 % (0-3) 1 % (0-3) Basophils (%) (Auto) 0 % (0-3) 0 % (0-3) Neutrophils # (Auto) 8.6 x10^3/uL (1.8-7.7) 9.5 x10^3/uL (1.8-7.7) Lymphocytes # (Auto) 0.8 x10^3/uL (1.0-4.8) 1.1 x10^3/uL (1.0-4.8) Monocytes # (Auto) 0.5 x10^3/uL (0.0-1.1) 0.6 x10^3/uL (0.0-1.1) Eosinophils # (Auto) 0.1 x10^3/uL (0.0-0.7) 0.1 x10^3/uL (0.0-0.7) Basophils # (Auto) 0.0 x10^3/uL (0.0-0.2) 0.0 x10^3/uL (0.0-0.2) Sodium Level 131 mmol/L (136-145) 129 mmol/L (136-145) Potassium Level 4.4 mmol/L (3.5-5.1) 4.8 mmol/L (3.5-5.1) Chloride Level 102 mmol/L (98-107) 101 mmol/L (98-107) Carbon Dioxide Level 18 mmol/L (21-32) 17 mmol/L (21-32) Anion Gap 11 (6-14) 11 (6-14) Blood Urea Nitrogen 74 mg/dL (7-20) 86 mg/dL (7-20) Creatinine 1.4 mg/dL (0.6-1.0) 1.4 mg/dL (0.6-1.0) Estimated GFR (Cockcroft-Gault) 43.9 43.9 BUN/Creatinine Ratio 53 (6-20) 61 (6-20) Glucose Level 99 mg/dL (70-99) 84 mg/dL (70-99) Calcium Level 7.3 mg/dL (8.5-10.1) 7.5 mg/dL (8.5-10.1) Total Bilirubin 0.3 mg/dL (0.2-1.0) 0.3 mg/dL (0.2-1.0) Aspartate Amino Transf (AST/SGOT) 16 U/L (15-37) 18 U/L (15-37) Alanine Aminotransferase (ALT/SGPT) 8 U/L (14-59) 7 U/L (14-59) Alkaline Phosphatase 77 U/L (46-116) 90 U/L (46-116) Total Protein 5.2 g/dL (6.4-8.2) 5.4 g/dL (6.4-8.2) Albumin 0.9 g/dL (3.4-5.0) 1.0 g/dL (3.4-5.0) Albumin/Globulin Ratio 0.2 (1.0-1.7) 0.2 (1.0-1.7) Laboratory Tests Test 04/02/19 11:35 04/03/19 08:10 White Blood Count 9.9 x10^3/uL (4.0-11.0) 11.2 x10^3/uL (4.0-11.0) Red Blood Count 2.62 x10^6/uL (3.50-5.40) 2.74 x10^6/uL (3.50-5.40) Hemoglobin 7.3 g/dL (12.0-15.5) 7.6 g/dL (12.0-15.5) Hematocrit 22.0 % (36.0-47.0) 23.1 % (36.0-47.0) Mean Corpuscular Volume 84 fL (79-100) 84 fL (79-100) Mean Corpuscular Hemoglobin 28 pg (25-35) 28 pg (25-35) Mean Corpuscular Hemoglobin Concent 33 g/dL (31-37) 33 g/dL (31-37) Red Cell Distribution Width 19.7 % (11.5-14.5) 19.6 % (11.5-14.5) Platelet Count 33 x10^3/uL (140-400) 52 x10^3/uL (140-400) Neutrophils (%) (Auto) 87 % (31-73) 84 % (31-73) Lymphocytes (%) (Auto) 8 % (24-48) 9 % (24-48) Monocytes (%) (Auto) 5 % (0-9) 5 % (0-9) Eosinophils (%) (Auto) 1 % (0-3) 1 % (0-3) Basophils (%) (Auto) 0 % (0-3) 0 % (0-3) Neutrophils # (Auto) 8.6 x10^3/uL (1.8-7.7) 9.5 x10^3/uL (1.8-7.7) Lymphocytes # (Auto) 0.8 x10^3/uL (1.0-4.8) 1.1 x10^3/uL (1.0-4.8) Monocytes # (Auto) 0.5 x10^3/uL (0.0-1.1) 0.6 x10^3/uL (0.0-1.1) Eosinophils # (Auto) 0.1 x10^3/uL (0.0-0.7) 0.1 x10^3/uL (0.0-0.7) Basophils # (Auto) 0.0 x10^3/uL (0.0-0.2) 0.0 x10^3/uL (0.0-0.2) Sodium Level 131 mmol/L (136-145) 129 mmol/L (136-145) Potassium Level 4.4 mmol/L (3.5-5.1) 4.8 mmol/L (3.5-5.1) Chloride Level 102 mmol/L (98-107) 101 mmol/L (98-107) Carbon Dioxide Level 18 mmol/L (21-32) 17 mmol/L (21-32) Anion Gap 11 (6-14) 11 (6-14) Blood Urea Nitrogen 74 mg/dL (7-20) 86 mg/dL (7-20) Creatinine 1.4 mg/dL (0.6-1.0) 1.4 mg/dL (0.6-1.0) Estimated GFR (Cockcroft-Gault) 43.9 43.9 BUN/Creatinine Ratio 53 (6-20) 61 (6-20) Glucose Level 99 mg/dL (70-99) 84 mg/dL (70-99) Calcium Level 7.3 mg/dL (8.5-10.1) 7.5 mg/dL (8.5-10.1) Total Bilirubin 0.3 mg/dL (0.2-1.0) 0.3 mg/dL (0.2-1.0) Aspartate Amino Transf (AST/SGOT) 16 U/L (15-37) 18 U/L (15-37) Alanine Aminotransferase (ALT/SGPT) 8 U/L (14-59) 7 U/L (14-59) Alkaline Phosphatase 77 U/L (46-116) 90 U/L (46-116) Total Protein 5.2 g/dL (6.4-8.2) 5.4 g/dL (6.4-8.2) Albumin 0.9 g/dL (3.4-5.0) 1.0 g/dL (3.4-5.0) Albumin/Globulin Ratio 0.2 (1.0-1.7) 0.2 (1.0-1.7) Microbiology 04/01/19 Blood Culture - Final, Complete Medications Current Medications Albumin Human 100 ml @ 100 mls/hr 1X ONCE IV Last administered on 03/29/19at 14:59; Start 03/29/19 at 14:30; Stop 03/29/19 at 15:29; Status DC Norepinephrine Bitartrate 250 ml @ 9.781 mls/ hr CONT PRN IV SEE I/O RECORD Last administered on 03/29/19at 23:25; Start 03/29/19 at 14:30 Sodium Chloride 1,000 ml @ 100 mls/hr Q10H IV Last administered on 03/29/19at 23:25; Start 03/29/19 at 14:30; Stop 03/30/19 at 12:08; Status DC Guaifenesin (Robitussin Dm) 10 ml PRN Q6HRS PRN PO COUGH Last administered on 04/03/19 04:29; Start 03/29/19 at 15:30 Sodium Bicarbonate (Sodium Bicarb Adult 8.4% Syr) 50 meq 1X ONCE IV Last administered on 03/29/19at 16:49; Start 03/29/19 at 16:00; Stop 03/29/19 at 16:01; Status DC Sodium Bicarbonate (Sodium Bicarb Adult 8.4% Syr) 50 meq 1X ONCE IV Last administered on 03/29/19 16:49; Start 03/29/19 at 16:00; Stop 03/29/19 at 16:01; Status DC Vancomycin HCl (Vanco Per Pharmacy) 1 each PRN DAILY PRN MC SEE COMMENTS Last administered on 04/02/19at 15:03; Start 03/29/19 at 17:15; Stop 04/03/19 at 07:34; Status DC Piperacillin Sod/ Tazobactam Sod (Zosyn Per Pharmacy) 1 each PRN DAILY PRN MC SEE COMMENTS; Start 03/29/19 at 17:15; Stop 03/31/19 at 07:37; Status DC Piperacillin Sod/ Tazobactam Sod 4.5 gm/Sodium Chloride 100 ml @ 200 mls/hr Q6HRS IV Last administered on 03/31/19at 06:23; Start 03/29/19 at 18:00; Stop 03/31/19 at 07:37; Status DC Vancomycin HCl 1.25 gm/Sodium Chloride 250 ml @ 166.667 mls/hr 1X ONCE IV Last administered on 03/29/19at 17:37; Start 03/29/19 at 17:15; Stop 03/29/19 at 18:44; Status DC Vancomycin HCl 750 mg/Sodium Chloride 250 ml @ 250 mls/hr Q18H IV Last administered on 03/30/19at 10:19; Start 03/30/19 at 11:00; Stop 03/30/19 at 12:54; Status DC Vancomycin HCl (Vancomycin Trough Level) 1 each 1X ONCE MC ; Start 03/31/19 at 09:30; Stop 03/31/19 at 09:31; Status DC Magnesium Sulfate 50 ml @ 25 mls/hr 1X ONCE IV Last administered on 03/29/19at 20:02; Start 03/29/19 at 20:00; Stop 03/29/19 at 21:59; Status DC Linezolid/Dextrose 300 ml @ 300 mls/hr Q12HR IV Last administered on 04/02/19at 20:40; Start 03/30/19 at 09:00 Chlorhexidine Gluconate (Peridex) 15 ml BID SWSP Last administered on 04/02/19at 20:40; Start 03/30/19 at 09:00 Amino Acids/ Glycerin/ Electrolytes 1,000 ml @ 100 mls/hr Q10H IV Last administered on 04/03/19at 07:36; Start 03/30/19 at 12:00 Vancomycin HCl 750 mg/Sodium Chloride 250 ml @ 250 mls/hr Q12H IV Last administered on 04/02/19at 21:48; Start 03/30/19 at 22:00; Stop 04/03/19 at 07:34; Status DC Hydromorphone HCl (Dilaudid) 1 mg PRN Q4HRS PRN IV PAIN Last administered on 03/31/19at 05:11; Start 03/30/19 at 21:00; Stop 03/31/19 at 09:43; Status DC Hydromorphone HCl (Dilaudid) 1 mg PRN Q2HR PRN IV PAIN Last administered on 03/31/19at 20:06; Start 03/31/19 at 09:45; Stop 03/31/19 at 22:00; Status DC Haloperidol Lactate (Haldol Inj) 2 mg PRN Q6HRS PRN IVP AGITATION Last administered on 04/01/19at 00:07; Start 03/31/19 at 09:45 Hydromorphone HCl (Dilaudid) 1 mg PRN Q2HR PRN IV MOD TO SEVERE PAIN Last administered on 04/01/19 01:37; Start 04/01/19 at 00:45 Oxycodone/ Acetaminophen (Percocet 7.5/ 325) 1 tab PRN Q4HRS PRN PO PAIN Last administered on 04/03/19 00:31; Start 04/01/19 at 09:00 Sodium Chloride 1,000 ml @ 125 mls/hr 1X ONCE IV Last administered on 04/01/19at 18:11; Start 04/01/19 at 09:00; Stop 04/01/19 at 16:59; Status DC Ketorolac Tromethamine (Toradol 15mg Vial) 15 mg PRN Q6HRS PRN IV MILD PAIN 1-3 Last administered on 04/03/19 04:29; Start 04/01/19 at 09:00; Stop 04/06/19 at 08:59 Diphenhydramine HCl (Benadryl) 25 mg PRN Q6HRS PRN IVP ITCHING Last administered on 04/03/19at 04:29; Start 04/01/19 at 14:00 Lactobacillus Rhamnosus (Culturelle) 1 cap BID PO Last administered on 04/03/19 08:45; Start 04/02/19 at 21:00 Ceftaroline Fosamil 600 mg/ Sodium Chloride 250 ml @ 250 mls/hr Q8HRS IV Last administered on 04/03/19 08:45; Start 04/03/19 at 08:00 Sodium Chloride 1,000 ml @ 200 mls/hr 1X ONCE IV Last administered on 04/03/19 08:45; Start 04/03/19 at 08:30; Stop 04/03/19 at 13:29 Active Scripts Active Reported Prenate Elite Tablet ( #79/Iron Asp Gly/FA#1) 1 Each Tablet 1 Each PO DAILY Ibuprofen 800 Mg Tablet 800 Mg PO PRN Q6HRS PRN Ferrous Sulfate 325 Mg Tablet 325 Mg PO DAILY Docusate Sodium 100 Mg Capsule 100 Mg PO BID Vitals/I & O Vital Sign - Last 24 Hours 04/02/19 04/02/19 04/02/19 04/02/19 10:00 11:00 11:46 12:00 Pulse 88 90 Resp 24 38 B/P (MAP) 109/61 (77) 96/58 (71) Pulse Ox 100 98 98 O2 Delivery Nasal Cannula Nasal Cannula Nasal Cannula Nasal Cannula O2 Flow Rate 2.0 2.0 2.0 2.0 04/02/19 04/02/19 04/02/19 04/02/19 12:00 13:00 14:00 15:00 Temp 97.2 97.2 Pulse 98 91 90 94 Resp 25 26 27 29 B/P (MAP) 91/56 (68) 96/58 (71) 95/58 (70) Pulse Ox 99 100 97 98 O2 Delivery Nasal Cannula Nasal Cannula Nasal Cannula Room Air O2 Flow Rate 2.0 2.0 2.0 04/02/19 04/02/19 04/02/19 04/02/19 16:00 16:00 16:28 17:00 Temp 97.7 97.7 Pulse 92 97 Resp 31 28 B/P (MAP) 96/54 (68) 94/53 (67) Pulse Ox 97 98 97 O2 Delivery Room Air Room Air Nasal Cannula Room Air O2 Flow Rate 2.0 04/02/19 04/02/19 04/02/19 04/02/19 18:00 18:19 19:00 20:00 Temp 97.8 97.8 Pulse 96 98 95 Resp 28 26 27 B/P (MAP) 93/56 (68) 89/59 (69) 101/58 (72) Pulse Ox 97 97 95 97 O2 Delivery Room Air Nasal Cannula Room Air Room Air O2 Flow Rate 2.0 04/02/19 04/02/19 04/02/19 04/02/19 20:00 20:40 21:00 21:47 Pulse 100 Resp 29 32 26 B/P (MAP) 96/62 (73) Pulse Ox 97 97 97 O2 Delivery Room Air Room Air Room Air Room Air 04/02/19 04/02/19 04/02/19 04/03/19 22:00 23:00 23:59 00:00 Pulse 89 96 93 Resp 30 26 32 B/P (MAP) 103/67 (79) 103/62 (76) 101/61 (74) Pulse Ox 97 97 96 O2 Delivery Room Air Room Air Room Air Room Air 04/03/19 04/03/19 04/03/19 04/03/19 00:31 01:00 01:34 02:00 Temp 98.2 98.2 Pulse 95 99 Resp 26 34 27 22 B/P (MAP) 99/59 (72) 111/66 (81) Pulse Ox 97 96 97 97 O2 Delivery Room Air Room Air Room Air Room Air 04/03/19 04/03/19 04/03/19 04/03/19 03:00 03:45 04:00 05:00 Temp 97.6 97.6 Pulse 93 96 97 Resp 30 25 27 B/P (MAP) 116/68 (84) 112/75 (87) 109/62 (78) Pulse Ox 96 98 96 O2 Delivery Room Air Room Air Room Air Room Air 04/03/19 04/03/19 04/03/19 06:00 07:00 08:00 Temp 97.8 97.8 Pulse 99 90 102 Resp 32 32 32 B/P (MAP) 103/65 (78) 109/69 (82) 102/62 (75) Pulse Ox 95 97 98 O2 Delivery Room Air Room Air Room Air Intake and Output 04/02/19 04/02/19 04/03/19 15:00 23:00 07:00 Intake Total 550 ml 1133 ml Output Total 301 ml Balance -301 ml 550 ml 1133 ml Nutrition Consultation Dietary Evaluation: Recommendations by RD: Protein supplementation, PPN/TPN Comments: REC Ensure clear w/dinner trays Continue w/PPN to supplement PO intake at this time Advance diet as able/tolerated to goal diet regular Expected Outcomes/Goals: PO intake + PPN to meet >75% est needs Interpretation of weight loss: >20% in 1 year Malnutrition Findings: Food and Nutrition Intake (Mod: <75% est energy req 7days Weight Status: Appropriate TROY WASSERMAN MD Apr 03, 2019 09:13
--- NOTE | 2019-04-03 09:25 | NUR ---
Bladder scanned patient post void per Dr. Gan note. Bladder scan resulted >200. This RN will update Dr. Gan.
--- NOTE | 2019-04-03 09:49 | PDOC ---
PULMONARY PROGRESS NOTES Subjective denies shortness of breath.. Comments no acute distress. Vitals Vital Signs Date Time Temp Pulse Resp B/P (MAP) Pulse Ox O2 Delivery O2 Flow Rate FiO2 04/03/19 08:00 102 32 102/62 (75) 98 Room Air 04/03/19 07:00 97.8 97.8 04/02/19 18:19 2.0 ROS: No Nausea, No Chest Pain, No Abdominal Pain, No Increase Cough General: Alert, No acute distress Lungs: Clear, Other Cardiovascular: S1, S2 Abdomen: Soft, Non-tender Neuro Exam: Alert, Oriented Extremities: No Edema Skin: Warm Labs Laboratory Tests Test 04/02/19 11:35 04/03/19 08:10 White Blood Count 9.9 x10^3/uL (4.0-11.0) 11.2 x10^3/uL (4.0-11.0) Red Blood Count 2.62 x10^6/uL (3.50-5.40) 2.74 x10^6/uL (3.50-5.40) Hemoglobin 7.3 g/dL (12.0-15.5) 7.6 g/dL (12.0-15.5) Hematocrit 22.0 % (36.0-47.0) 23.1 % (36.0-47.0) Mean Corpuscular Volume 84 fL (79-100) 84 fL (79-100) Mean Corpuscular Hemoglobin 28 pg (25-35) 28 pg (25-35) Mean Corpuscular Hemoglobin Concent 33 g/dL (31-37) 33 g/dL (31-37) Red Cell Distribution Width 19.7 % (11.5-14.5) 19.6 % (11.5-14.5) Platelet Count 33 x10^3/uL (140-400) 52 x10^3/uL (140-400) Neutrophils (%) (Auto) 87 % (31-73) 84 % (31-73) Lymphocytes (%) (Auto) 8 % (24-48) 9 % (24-48) Monocytes (%) (Auto) 5 % (0-9) 5 % (0-9) Eosinophils (%) (Auto) 1 % (0-3) 1 % (0-3) Basophils (%) (Auto) 0 % (0-3) 0 % (0-3) Neutrophils # (Auto) 8.6 x10^3/uL (1.8-7.7) 9.5 x10^3/uL (1.8-7.7) Lymphocytes # (Auto) 0.8 x10^3/uL (1.0-4.8) 1.1 x10^3/uL (1.0-4.8) Monocytes # (Auto) 0.5 x10^3/uL (0.0-1.1) 0.6 x10^3/uL (0.0-1.1) Eosinophils # (Auto) 0.1 x10^3/uL (0.0-0.7) 0.1 x10^3/uL (0.0-0.7) Basophils # (Auto) 0.0 x10^3/uL (0.0-0.2) 0.0 x10^3/uL (0.0-0.2) Sodium Level 131 mmol/L (136-145) 129 mmol/L (136-145) Potassium Level 4.4 mmol/L (3.5-5.1) 4.8 mmol/L (3.5-5.1) Chloride Level 102 mmol/L (98-107) 101 mmol/L (98-107) Carbon Dioxide Level 18 mmol/L (21-32) 17 mmol/L (21-32) Anion Gap 11 (6-14) 11 (6-14) Blood Urea Nitrogen 74 mg/dL (7-20) 86 mg/dL (7-20) Creatinine 1.4 mg/dL (0.6-1.0) 1.4 mg/dL (0.6-1.0) Estimated GFR (Cockcroft-Gault) 43.9 43.9 BUN/Creatinine Ratio 53 (6-20) 61 (6-20) Glucose Level 99 mg/dL (70-99) 84 mg/dL (70-99) Calcium Level 7.3 mg/dL (8.5-10.1) 7.5 mg/dL (8.5-10.1) Total Bilirubin 0.3 mg/dL (0.2-1.0) 0.3 mg/dL (0.2-1.0) Aspartate Amino Transf (AST/SGOT) 16 U/L (15-37) 18 U/L (15-37) Alanine Aminotransferase (ALT/SGPT) 8 U/L (14-59) 7 U/L (14-59) Alkaline Phosphatase 77 U/L (46-116) 90 U/L (46-116) Total Protein 5.2 g/dL (6.4-8.2) 5.4 g/dL (6.4-8.2) Albumin 0.9 g/dL (3.4-5.0) 1.0 g/dL (3.4-5.0) Albumin/Globulin Ratio 0.2 (1.0-1.7) 0.2 (1.0-1.7) Laboratory Tests Test 04/02/19 11:35 04/03/19 08:10 White Blood Count 9.9 x10^3/uL (4.0-11.0) 11.2 x10^3/uL (4.0-11.0) Red Blood Count 2.62 x10^6/uL (3.50-5.40) 2.74 x10^6/uL (3.50-5.40) Hemoglobin 7.3 g/dL (12.0-15.5) 7.6 g/dL (12.0-15.5) Hematocrit 22.0 % (36.0-47.0) 23.1 % (36.0-47.0) Mean Corpuscular Volume 84 fL (79-100) 84 fL (79-100) Mean Corpuscular Hemoglobin 28 pg (25-35) 28 pg (25-35) Mean Corpuscular Hemoglobin Concent 33 g/dL (31-37) 33 g/dL (31-37) Red Cell Distribution Width 19.7 % (11.5-14.5) 19.6 % (11.5-14.5) Platelet Count 33 x10^3/uL (140-400) 52 x10^3/uL (140-400) Neutrophils (%) (Auto) 87 % (31-73) 84 % (31-73) Lymphocytes (%) (Auto) 8 % (24-48) 9 % (24-48) Monocytes (%) (Auto) 5 % (0-9) 5 % (0-9) Eosinophils (%) (Auto) 1 % (0-3) 1 % (0-3) Basophils (%) (Auto) 0 % (0-3) 0 % (0-3) Neutrophils # (Auto) 8.6 x10^3/uL (1.8-7.7) 9.5 x10^3/uL (1.8-7.7) Lymphocytes # (Auto) 0.8 x10^3/uL (1.0-4.8) 1.1 x10^3/uL (1.0-4.8) Monocytes # (Auto) 0.5 x10^3/uL (0.0-1.1) 0.6 x10^3/uL (0.0-1.1) Eosinophils # (Auto) 0.1 x10^3/uL (0.0-0.7) 0.1 x10^3/uL (0.0-0.7) Basophils # (Auto) 0.0 x10^3/uL (0.0-0.2) 0.0 x10^3/uL (0.0-0.2) Sodium Level 131 mmol/L (136-145) 129 mmol/L (136-145) Potassium Level 4.4 mmol/L (3.5-5.1) 4.8 mmol/L (3.5-5.1) Chloride Level 102 mmol/L (98-107) 101 mmol/L (98-107) Carbon Dioxide Level 18 mmol/L (21-32) 17 mmol/L (21-32) Anion Gap 11 (6-14) 11 (6-14) Blood Urea Nitrogen 74 mg/dL (7-20) 86 mg/dL (7-20) Creatinine 1.4 mg/dL (0.6-1.0) 1.4 mg/dL (0.6-1.0) Estimated GFR (Cockcroft-Gault) 43.9 43.9 BUN/Creatinine Ratio 53 (6-20) 61 (6-20) Glucose Level 99 mg/dL (70-99) 84 mg/dL (70-99) Calcium Level 7.3 mg/dL (8.5-10.1) 7.5 mg/dL (8.5-10.1) Total Bilirubin 0.3 mg/dL (0.2-1.0) 0.3 mg/dL (0.2-1.0) Aspartate Amino Transf (AST/SGOT) 16 U/L (15-37) 18 U/L (15-37) Alanine Aminotransferase (ALT/SGPT) 8 U/L (14-59) 7 U/L (14-59) Alkaline Phosphatase 77 U/L (46-116) 90 U/L (46-116) Total Protein 5.2 g/dL (6.4-8.2) 5.4 g/dL (6.4-8.2) Albumin 0.9 g/dL (3.4-5.0) 1.0 g/dL (3.4-5.0) Albumin/Globulin Ratio 0.2 (1.0-1.7) 0.2 (1.0-1.7) Medications Active Scripts Medications Dose Route/Sig Max Daily Dose Days Date Category Prenate Elite Tablet ( #79/Iron Asp Gly/FA#1) 1 Each Tablet 1 Each PO DAILY 03/29/19 Reported Ibuprofen 800 Mg Tablet 800 Mg PO PRN Q6HRS PRN 03/29/19 Reported Ferrous Sulfate 325 Mg Tablet 325 Mg PO DAILY 03/29/19 Reported Docusate Sodium 100 Mg Capsule 100 Mg PO BID 03/29/19 Reported Impression . IMPRESSION: 1. Acute hypoxic respiratory failure secondary to sepsis MRSA in blood.- improved 2. septic emboli, history of IV meth abuse. Clinically doing well although still had 2/4 blood cultures positive from 03/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 4. Lower lobe pulmonary emboli.Likely infective emboli. I suspect this is related to obstruction of the pulmonary vessels from right-sided vegetations and dislodgement. In the setting of anemia and thrombocytopenia, anticoagulation would be high risk and not indicated. 5. History of hepatitis C with chronic thrombocytopenia.--improving slowly/stable 6. Polysubstance abuse. 7. Hypotension. Suspect combination of hypovolemic and septic shock.---RESOLVED 8. Abn cxr with bilateral cavitary nodules Plan . 1. Continue with present oxygen. 2. minimize benzodiazepines and narcotics. 3. antibiotics per ID currently vanco/zyvox 4. No need for anticoagulation 5. Repeat CXR as needed. blood culture repeat per ID . Discussed with RN. EMY SAEED MD Apr 03, 2019 09:49
--- NOTE | 2019-04-03 11:27 | PDOC ---
Renal-Progress Notes Subjective Notes Notes NOTHING NEW. NO SOB History of Present Illness Hx of present illness STABLE Vitals Vitals Vital Signs Date Time Temp Pulse Resp B/P (MAP) Pulse Ox O2 Delivery O2 Flow Rate FiO2 04/03/19 10:22 32 98 Room Air 2.0 04/03/19 08:00 102 102/62 (75) 04/03/19 07:00 97.8 97.8 Weight Weight [ ] I.O. Intake and Output Intake and Output 04/03/19 07:00 Intake Total 1683 ml Output Total 301 ml Balance 1382 ml Intake Oral 75 ml IV Total 1608 ml Output Urine Total 300 ml Stool Total 1 ml # Voids 2 # Bowel Movements 1 Labs Labs Laboratory Tests Test 04/02/19 11:35 04/03/19 08:10 White Blood Count 9.9 x10^3/uL (4.0-11.0) 11.2 x10^3/uL (4.0-11.0) Red Blood Count 2.62 x10^6/uL (3.50-5.40) 2.74 x10^6/uL (3.50-5.40) Hemoglobin 7.3 g/dL (12.0-15.5) 7.6 g/dL (12.0-15.5) Hematocrit 22.0 % (36.0-47.0) 23.1 % (36.0-47.0) Mean Corpuscular Volume 84 fL (79-100) 84 fL (79-100) Mean Corpuscular Hemoglobin 28 pg (25-35) 28 pg (25-35) Mean Corpuscular Hemoglobin Concent 33 g/dL (31-37) 33 g/dL (31-37) Red Cell Distribution Width 19.7 % (11.5-14.5) 19.6 % (11.5-14.5) Platelet Count 33 x10^3/uL (140-400) 52 x10^3/uL (140-400) Neutrophils (%) (Auto) 87 % (31-73) 84 % (31-73) Lymphocytes (%) (Auto) 8 % (24-48) 9 % (24-48) Monocytes (%) (Auto) 5 % (0-9) 5 % (0-9) Eosinophils (%) (Auto) 1 % (0-3) 1 % (0-3) Basophils (%) (Auto) 0 % (0-3) 0 % (0-3) Neutrophils # (Auto) 8.6 x10^3/uL (1.8-7.7) 9.5 x10^3/uL (1.8-7.7) Lymphocytes # (Auto) 0.8 x10^3/uL (1.0-4.8) 1.1 x10^3/uL (1.0-4.8) Monocytes # (Auto) 0.5 x10^3/uL (0.0-1.1) 0.6 x10^3/uL (0.0-1.1) Eosinophils # (Auto) 0.1 x10^3/uL (0.0-0.7) 0.1 x10^3/uL (0.0-0.7) Basophils # (Auto) 0.0 x10^3/uL (0.0-0.2) 0.0 x10^3/uL (0.0-0.2) Sodium Level 131 mmol/L (136-145) 129 mmol/L (136-145) Potassium Level 4.4 mmol/L (3.5-5.1) 4.8 mmol/L (3.5-5.1) Chloride Level 102 mmol/L (98-107) 101 mmol/L (98-107) Carbon Dioxide Level 18 mmol/L (21-32) 17 mmol/L (21-32) Anion Gap 11 (6-14) 11 (6-14) Blood Urea Nitrogen 74 mg/dL (7-20) 86 mg/dL (7-20) Creatinine 1.4 mg/dL (0.6-1.0) 1.4 mg/dL (0.6-1.0) Estimated GFR (Cockcroft-Gault) 43.9 43.9 BUN/Creatinine Ratio 53 (6-20) 61 (6-20) Glucose Level 99 mg/dL (70-99) 84 mg/dL (70-99) Calcium Level 7.3 mg/dL (8.5-10.1) 7.5 mg/dL (8.5-10.1) Total Bilirubin 0.3 mg/dL (0.2-1.0) 0.3 mg/dL (0.2-1.0) Aspartate Amino Transf (AST/SGOT) 16 U/L (15-37) 18 U/L (15-37) Alanine Aminotransferase (ALT/SGPT) 8 U/L (14-59) 7 U/L (14-59) Alkaline Phosphatase 77 U/L (46-116) 90 U/L (46-116) Total Protein 5.2 g/dL (6.4-8.2) 5.4 g/dL (6.4-8.2) Albumin 0.9 g/dL (3.4-5.0) 1.0 g/dL (3.4-5.0) Albumin/Globulin Ratio 0.2 (1.0-1.7) 0.2 (1.0-1.7) Cortisol AM Sample 24.1 ug/dL (4.3-22.4) Micro Micro Microbiology 04/01/19 Blood Culture - Final, Complete Review of Systems Constitutional: yes: alert Ears/Nose/Throat: Yes: no symptom reported Eyes: Yes: no symptom reported Pulmonary: Yes no symptom reported Cardiovascular: Yes no symptom reported Gastrointestional: Yes: no symptom reported Genitourinary: Yes: no symptom reported Musculoskeletal: Yes: no symptom reported Skin: Yes no symptom reported Psychiatric/Neurological: Yes: no symptom reported Endocrine: Yes: no symptom reported Physical Exam General Appearance: no apparent distress Skin: warm Respiratory: decreased breath sounds Heart: S1S2 Abdomen: soft Genitourinary: bladder flat Neurology: alert Assessment Assessment IMP RIKY-STABLE HYPONATREMIA SEPTIC EMBOLI ACUTE HYPOXIC RESP FAILURE SEPSIS HYPOTENSION-RESOLVED PROB ENDOCARDITIS AND RESULTING EMBOLI TO LUNGS PLAN ENC PO STOP HER PPN ANTIBIOTICS CHECK UA WILL FOLLOW ABHIJEET BOWERS MD Apr 03, 2019 11:27
--- NOTE | 2019-04-03 11:33 | NUR ---
pt arrived to unit at 1125 in stable condition. pt is alert and oriented and on RA. assessment and vitals complete on arrival. pt is not stating that she is having any pain at this time but appears to have tense facial expressions. pt denies the need for anything at this time. call light is within reach. received report from JAKY Hernandez in ICU. will continue to monitor.
[2019-04-03 14:15] LABS: BILIRUBIN,URINE NEGATIVE (NEG); CLARITY,URINE CLEAR; COLOR,URINE YELLOW; NITRITE,URINE NEGATIVE (NEG); PH,URINE 5.5; PROTEIN,URINE NEGATIVE (NEG-TRACE); UROBILINOGEN,URINE 0.2 mg/dL (0.2 mg/dL)
[2019-04-03 14:36] LABS: BACTERIA,URINE FEW /HPF (0-FEW); SQUAMOUS EPITHELIAL CELL,UR MANY /LPF
--- NOTE | 2019-04-03 15:26 | NUR ---
SS following up with discharge planning. Pt is currently on room air. Pt declining PT/OT at this time. No discharge needs noted at this time. SS will continue to follow for discharge planning.
--- NOTE | 2019-04-03 15:35 | PDOC ---
PROGRESS NOTES Chief Complaint Chief Complaint Sepsis Tricuspid Vegetation Septic emboli MRSA bacteremia acute metabolic encephalopathy polysubstance abuse, and withdrawl symptoms pancytopenia from sepsis History of Present Illness History of Present Illness transfer out of ICU today, still weak, eating better, still on PPN, will wean as able to take more food try PT and OT more orientd, up to chair able to eat more, will advance diet discussed with ID consult, keep in ICU Vitals Vitals Vital Signs Date Time Temp Pulse Resp B/P (MAP) Pulse Ox O2 Delivery O2 Flow Rate FiO2 04/03/19 11:29 Room Air 04/03/19 11:25 98.1 105 22 115/66 (82) 97 98.1 04/03/19 10:22 2.0 Physical Exam Physical Exam GENERAL: Propped up in bed, tired appearance, NAD HEENT: Pupils are equal and reactive. Oral cavity, pharynx is very dry NECK: Supple, no JVD. LUNGS: Clear to auscultation bilaterally. HEART: S1, S2 with questionable murmur. ABDOMEN: Soft, nontender, no guarding or rebound. EXTREMITIES: Trace edema, no cyanosis SKIN: Warm to touch without rash. Multiple tattoos. NEUROLOGIC: Nonfocal, moves all extremities. PIVs General: Alert, No acute distress Heart: Normal S1, Normal S2 Lungs: Clear, Other Abdomen: Soft, No tenderness Extremities: No cyanosis, No edema Skin: No breakdown Labs LABS Laboratory Tests Test 04/03/19 08:10 04/03/19 13:20 White Blood Count 11.2 x10^3/uL (4.0-11.0) Red Blood Count 2.74 x10^6/uL (3.50-5.40) Hemoglobin 7.6 g/dL (12.0-15.5) Hematocrit 23.1 % (36.0-47.0) Mean Corpuscular Volume 84 fL (79-100) Mean Corpuscular Hemoglobin 28 pg (25-35) Mean Corpuscular Hemoglobin Concent 33 g/dL (31-37) Red Cell Distribution Width 19.6 % (11.5-14.5) Platelet Count 52 x10^3/uL (140-400) Neutrophils (%) (Auto) 84 % (31-73) Lymphocytes (%) (Auto) 9 % (24-48) Monocytes (%) (Auto) 5 % (0-9) Eosinophils (%) (Auto) 1 % (0-3) Basophils (%) (Auto) 0 % (0-3) Neutrophils # (Auto) 9.5 x10^3/uL (1.8-7.7) Lymphocytes # (Auto) 1.1 x10^3/uL (1.0-4.8) Monocytes # (Auto) 0.6 x10^3/uL (0.0-1.1) Eosinophils # (Auto) 0.1 x10^3/uL (0.0-0.7) Basophils # (Auto) 0.0 x10^3/uL (0.0-0.2) Sodium Level 129 mmol/L (136-145) Potassium Level 4.8 mmol/L (3.5-5.1) Chloride Level 101 mmol/L (98-107) Carbon Dioxide Level 17 mmol/L (21-32) Anion Gap 11 (6-14) Blood Urea Nitrogen 86 mg/dL (7-20) Creatinine 1.4 mg/dL (0.6-1.0) Estimated GFR (Cockcroft-Gault) 43.9 BUN/Creatinine Ratio 61 (6-20) Glucose Level 84 mg/dL (70-99) Calcium Level 7.5 mg/dL (8.5-10.1) Total Bilirubin 0.3 mg/dL (0.2-1.0) Aspartate Amino Transf (AST/SGOT) 18 U/L (15-37) Alanine Aminotransferase (ALT/SGPT) 7 U/L (14-59) Alkaline Phosphatase 90 U/L (46-116) Total Protein 5.4 g/dL (6.4-8.2) Albumin 1.0 g/dL (3.4-5.0) Albumin/Globulin Ratio 0.2 (1.0-1.7) Urine Collection Type Unknown Urine Color Yellow Urine Clarity Clear Urine pH 5.5 Urine Specific [place] 1.015 Urine Protein Negative mg/dL (NEG-TRACE) Urine Glucose (UA) Negative mg/dL (NEG) Urine Ketones (Stick) Negative mg/dL (NEG) Urine Blood Moderate (NEG) Urine Nitrite Negative (NEG) Urine Bilirubin Negative (NEG) Urine Urobilinogen Dipstick 0.2 mg/dL (0.2 mg/dL) Urine Leukocyte Esterase Trace (NEG) Urine RBC 1-2 /HPF (0-2) Urine WBC 1-4 /HPF (0-4) Urine Squamous Epithelial Cells Many /LPF Urine Bacteria Few /HPF (0-FEW) Assessment and Plan Assessmemt and Plan Problems Medical Problems: (1) RIKY (acute kidney injury) Status: Acute (2) Endocarditis Status: Acute (3) Hypotension Status: Acute (4) Pulmonary hypertension Status: Chronic (5) Renal failure Status: Acute (6) Respiratory failure Status: Acute (7) Septic pulmonary embolism Status: Acute (8) Severe sepsis Status: Acute (9) Severe tricuspid regurgitation Status: Chronic Comment Review of Relevant I have reviewed the following items kim (where applicable) has been applied. Labs Laboratory Tests Test 04/02/19 11:35 04/03/19 08:10 04/03/19 13:20 White Blood Count 9.9 x10^3/uL (4.0-11.0) 11.2 x10^3/uL (4.0-11.0) Red Blood Count 2.62 x10^6/uL (3.50-5.40) 2.74 x10^6/uL (3.50-5.40) Hemoglobin 7.3 g/dL (12.0-15.5) 7.6 g/dL (12.0-15.5) Hematocrit 22.0 % (36.0-47.0) 23.1 % (36.0-47.0) Mean Corpuscular Volume 84 fL (79-100) 84 fL (79-100) Mean Corpuscular Hemoglobin 28 pg (25-35) 28 pg (25-35) Mean Corpuscular Hemoglobin Concent 33 g/dL (31-37) 33 g/dL (31-37) Red Cell Distribution Width 19.7 % (11.5-14.5) 19.6 % (11.5-14.5) Platelet Count 33 x10^3/uL (140-400) 52 x10^3/uL (140-400) Neutrophils (%) (Auto) 87 % (31-73) 84 % (31-73) Lymphocytes (%) (Auto) 8 % (24-48) 9 % (24-48) Monocytes (%) (Auto) 5 % (0-9) 5 % (0-9) Eosinophils (%) (Auto) 1 % (0-3) 1 % (0-3) Basophils (%) (Auto) 0 % (0-3) 0 % (0-3) Neutrophils # (Auto) 8.6 x10^3/uL (1.8-7.7) 9.5 x10^3/uL (1.8-7.7) Lymphocytes # (Auto) 0.8 x10^3/uL (1.0-4.8) 1.1 x10^3/uL (1.0-4.8) Monocytes # (Auto) 0.5 x10^3/uL (0.0-1.1) 0.6 x10^3/uL (0.0-1.1) Eosinophils # (Auto) 0.1 x10^3/uL (0.0-0.7) 0.1 x10^3/uL (0.0-0.7) Basophils # (Auto) 0.0 x10^3/uL (0.0-0.2) 0.0 x10^3/uL (0.0-0.2) Sodium Level 131 mmol/L (136-145) 129 mmol/L (136-145) Potassium Level 4.4 mmol/L (3.5-5.1) 4.8 mmol/L (3.5-5.1) Chloride Level 102 mmol/L (98-107) 101 mmol/L (98-107) Carbon Dioxide Level 18 mmol/L (21-32) 17 mmol/L (21-32) Anion Gap 11 (6-14) 11 (6-14) Blood Urea Nitrogen 74 mg/dL (7-20) 86 mg/dL (7-20) Creatinine 1.4 mg/dL (0.6-1.0) 1.4 mg/dL (0.6-1.0) Estimated GFR (Cockcroft-Gault) 43.9 43.9 BUN/Creatinine Ratio 53 (6-20) 61 (6-20) Glucose Level 99 mg/dL (70-99) 84 mg/dL (70-99) Calcium Level 7.3 mg/dL (8.5-10.1) 7.5 mg/dL (8.5-10.1) Total Bilirubin 0.3 mg/dL (0.2-1.0) 0.3 mg/dL (0.2-1.0) Aspartate Amino Transf (AST/SGOT) 16 U/L (15-37) 18 U/L (15-37) Alanine Aminotransferase (ALT/SGPT) 8 U/L (14-59) 7 U/L (14-59) Alkaline Phosphatase 77 U/L (46-116) 90 U/L (46-116) Total Protein 5.2 g/dL (6.4-8.2) 5.4 g/dL (6.4-8.2) Albumin 0.9 g/dL (3.4-5.0) 1.0 g/dL (3.4-5.0) Albumin/Globulin Ratio 0.2 (1.0-1.7) 0.2 (1.0-1.7) Cortisol AM Sample 24.1 ug/dL (4.3-22.4) Urine Collection Type Unknown Urine Color Yellow Urine Clarity Clear Urine pH 5.5 Urine Specific [place] 1.015 Urine Protein Negative mg/dL (NEG-TRACE) Urine Glucose (UA) Negative mg/dL (NEG) Urine Ketones (Stick) Negative mg/dL (NEG) Urine Blood Moderate (NEG) Urine Nitrite Negative (NEG) Urine Bilirubin Negative (NEG) Urine Urobilinogen Dipstick 0.2 mg/dL (0.2 mg/dL) Urine Leukocyte Esterase Trace (NEG) Urine RBC 1-2 /HPF (0-2) Urine WBC 1-4 /HPF (0-4) Urine Squamous Epithelial Cells Many /LPF Urine Bacteria Few /HPF (0-FEW) Laboratory Tests Test 04/03/19 08:10 04/03/19 13:20 White Blood Count 11.2 x10^3/uL (4.0-11.0) Red Blood Count 2.74 x10^6/uL (3.50-5.40) Hemoglobin 7.6 g/dL (12.0-15.5) Hematocrit 23.1 % (36.0-47.0) Mean Corpuscular Volume 84 fL (79-100) Mean Corpuscular Hemoglobin 28 pg (25-35) Mean Corpuscular Hemoglobin Concent 33 g/dL (31-37) Red Cell Distribution Width 19.6 % (11.5-14.5) Platelet Count 52 x10^3/uL (140-400) Neutrophils (%) (Auto) 84 % (31-73) Lymphocytes (%) (Auto) 9 % (24-48) Monocytes (%) (Auto) 5 % (0-9) Eosinophils (%) (Auto) 1 % (0-3) Basophils (%) (Auto) 0 % (0-3) Neutrophils # (Auto) 9.5 x10^3/uL (1.8-7.7) Lymphocytes # (Auto) 1.1 x10^3/uL (1.0-4.8) Monocytes # (Auto) 0.6 x10^3/uL (0.0-1.1) Eosinophils # (Auto) 0.1 x10^3/uL (0.0-0.7) Basophils # (Auto) 0.0 x10^3/uL (0.0-0.2) Sodium Level 129 mmol/L (136-145) Potassium Level 4.8 mmol/L (3.5-5.1) Chloride Level 101 mmol/L (98-107) Carbon Dioxide Level 17 mmol/L (21-32) Anion Gap 11 (6-14) Blood Urea Nitrogen 86 mg/dL (7-20) Creatinine 1.4 mg/dL (0.6-1.0) Estimated GFR (Cockcroft-Gault) 43.9 BUN/Creatinine Ratio 61 (6-20) Glucose Level 84 mg/dL (70-99) Calcium Level 7.5 mg/dL (8.5-10.1) Total Bilirubin 0.3 mg/dL (0.2-1.0) Aspartate Amino Transf (AST/SGOT) 18 U/L (15-37) Alanine Aminotransferase (ALT/SGPT) 7 U/L (14-59) Alkaline Phosphatase 90 U/L (46-116) Total Protein 5.4 g/dL (6.4-8.2) Albumin 1.0 g/dL (3.4-5.0) Albumin/Globulin Ratio 0.2 (1.0-1.7) Urine Collection Type Unknown Urine Color Yellow Urine Clarity Clear Urine pH 5.5 Urine Specific [place] 1.015 Urine Protein Negative mg/dL (NEG-TRACE) Urine Glucose (UA) Negative mg/dL (NEG) Urine Ketones (Stick) Negative mg/dL (NEG) Urine Blood Moderate (NEG) Urine Nitrite Negative (NEG) Urine Bilirubin Negative (NEG) Urine Urobilinogen Dipstick 0.2 mg/dL (0.2 mg/dL) Urine Leukocyte Esterase Trace (NEG) Urine RBC 1-2 /HPF (0-2) Urine WBC 1-4 /HPF (0-4) Urine Squamous Epithelial Cells Many /LPF Urine Bacteria Few /HPF (0-FEW) Microbiology 04/01/19 Blood Culture - Final, Complete Medications Current Medications Albumin Human 100 ml @ 100 mls/hr 1X ONCE IV Last administered on 03/29/19at 14:59; Start 03/29/19 at 14:30; Stop 03/29/19 at 15:29; Status DC Norepinephrine Bitartrate 250 ml @ 9.781 mls/ hr CONT PRN IV SEE I/O RECORD Last administered on 03/29/19at 23:25; Start 03/29/19 at 14:30; Stop 04/03/19 at 11:24; Status DC Sodium Chloride 1,000 ml @ 100 mls/hr Q10H IV Last administered on 03/29/19at 23:25; Start 03/29/19 at 14:30; Stop 03/30/19 at 12:08; Status DC Guaifenesin (Robitussin Dm) 10 ml PRN Q6HRS PRN PO COUGH Last administered on 04/03/19at 04:29; Start 03/29/19 at 15:30 Sodium Bicarbonate (Sodium Bicarb Adult 8.4% Syr) 50 meq 1X ONCE IV Last administered on 03/29/19at 16:49; Start 03/29/19 at 16:00; Stop 03/29/19 at 16:01; Status DC Sodium Bicarbonate (Sodium Bicarb Adult 8.4% Syr) 50 meq 1X ONCE IV Last administered on 03/29/19at 16:49; Start 03/29/19 at 16:00; Stop 03/29/19 at 16:01; Status DC Vancomycin HCl (Vanco Per Pharmacy) 1 each PRN DAILY PRN MC SEE COMMENTS Last administered on 04/02/19at 15:03; Start 03/29/19 at 17:15; Stop 04/03/19 at 07:34; Status DC Piperacillin Sod/ Tazobactam Sod (Zosyn Per Pharmacy) 1 each PRN DAILY PRN MC SEE COMMENTS; Start 03/29/19 at 17:15; Stop 03/31/19 at 07:37; Status DC Piperacillin Sod/ Tazobactam Sod 4.5 gm/Sodium Chloride 100 ml @ 200 mls/hr Q6HRS IV Last administered on 03/31/19at 06:23; Start 03/29/19 at 18:00; Stop 03/31/19 at 07:37; Status DC Vancomycin HCl 1.25 gm/Sodium Chloride 250 ml @ 166.667 mls/hr 1X ONCE IV Last administered on 03/29/19at 17:37; Start 03/29/19 at 17:15; Stop 03/29/19 at 18:44; Status DC Vancomycin HCl 750 mg/Sodium Chloride 250 ml @ 250 mls/hr Q18H IV Last administered on 03/30/19at 10:19; Start 03/30/19 at 11:00; Stop 03/30/19 at 12:54; Status DC Vancomycin HCl (Vancomycin Trough Level) 1 each 1X ONCE MC ; Start 03/31/19 at 09:30; Stop 03/31/19 at 09:31; Status DC Magnesium Sulfate 50 ml @ 25 mls/hr 1X ONCE IV Last administered on 03/29/19at 20:02; Start 03/29/19 at 20:00; Stop 03/29/19 at 21:59; Status DC Linezolid/Dextrose 300 ml @ 300 mls/hr Q12HR IV Last administered on 04/03/19at 10:22; Start 03/30/19 at 09:00 Chlorhexidine Gluconate (Peridex) 15 ml BID SWSP Last administered on 04/02/19at 20:40; Start 03/30/19 at 09:00 Amino Acids/ Glycerin/ Electrolytes 1,000 ml @ 100 mls/hr Q10H IV Last administered on 04/03/19at 07:36; Start 03/30/19 at 12:00; Stop 04/03/19 at 1 1:38; Status DC Vancomycin HCl 750 mg/Sodium Chloride 250 ml @ 250 mls/hr Q12H IV Last administered on 04/02/19at 21:48; Start 03/30/19 at 22:00; Stop 04/03/19 at 07:34; Status DC Hydromorphone HCl (Dilaudid) 1 mg PRN Q4HRS PRN IV PAIN Last administered on 03/31/19at 05:11; Start 03/30/19 at 21:00; Stop 03/31/19 at 09:43; Status DC Hydromorphone HCl (Dilaudid) 1 mg PRN Q2HR PRN IV PAIN Last administered on 03/31/19at 20:06; Start 03/31/19 at 09:45; Stop 03/31/19 at 22:00; Status DC Haloperidol Lactate (Haldol Inj) 2 mg PRN Q6HRS PRN IVP AGITATION Last administered on 04/01/19at 00:07; Start 03/31/19 at 09:45 Hydromorphone HCl (Dilaudid) 1 mg PRN Q2HR PRN IV MOD TO SEVERE PAIN Last administered on 04/01/19at 01:37; Start 04/01/19 at 00:45 Oxycodone/ Acetaminophen (Percocet 7.5/ 325) 1 tab PRN Q4HRS PRN PO PAIN Last administered on 04/03/19 10:22; Start 04/01/19 at 09:00 Sodium Chloride 1,000 ml @ 125 mls/hr 1X ONCE IV Last administered on 04/01/19at 18:11; Start 04/01/19 at 09:00; Stop 04/01/19 at 16:59; Status DC Ketorolac Tromethamine (Toradol 15mg Vial) 15 mg PRN Q6HRS PRN IV MILD PAIN 1-3 Last administered on 04/03/19at 04:29; Start 04/01/19 at 09:00; Stop 04/06/19 at 08:59 Diphenhydramine HCl (Benadryl) 25 mg PRN Q6HRS PRN IVP ITCHING Last admin istered on 04/03/19at 10:22; Start 04/01/19 at 14:00 Lactobacillus Rhamnosus (Culturelle) 1 cap BID PO Last administered on 04/03 08:45; Start 04/02/19 at 21:00 Ceftaroline Fosamil 600 mg/ Sodium Chloride 250 ml @ 250 mls/hr Q8HRS IV Last administered on 9/23/19at 08:45; Start 04/03/19 at 08:00 Sodium Chloride 1,000 ml @ 200 mls/hr 1X ONCE IV Last administered on 04/03/19at 08:45; Start 04/03/19 at 08:30; Stop 04/03/19 at 13:29; Status DC Active Scripts Active Reported Prenate Elite Tablet ( #79/Iron Asp Gly/FA#1) 1 Each Tablet 1 Each PO DAILY Ibuprofen 800 Mg Tablet 800 Mg PO PRN Q6HRS PRN Ferrous Sulfate 325 Mg Tablet 325 Mg PO DAILY Docusate Sodium 100 Mg Capsule 100 Mg PO BID Vitals/I & O Vital Sign - Last 24 Hours 04/02/19 04/02/19 04/02/19 04/02/19 16:00 16:00 16:28 17:00 Temp 97.7 97.7 Pulse 92 97 Resp 31 28 B/P (MAP) 96/54 (68) 94/53 (67) Pulse Ox 97 98 97 O2 Delivery Room Air Room Air Nasal Cannula Room Air O2 Flow Rate 2.0 04/02/19 04/02/19 04/02/19 04/02/19 18:00 18:19 19:00 20:00 Temp 97.8 97.8 Pulse 96 98 95 Resp 28 26 27 B/P (MAP) 93/56 (68) 89/59 (69) 101/58 (72) Pulse Ox 97 97 95 97 O2 Delivery Room Air Nasal Cannula Room Air Room Air O2 Flow Rate 2.0 04/02/19 04/02/19 04/02/19 04/02/19 20:00 20:40 21:00 21:47 Pulse 100 Resp 29 32 26 B/P (MAP) 96/62 (73) Pulse Ox 97 97 97 O2 Delivery Room Air Room Air Room Air Room Air 04/02/19 04/02/19 04/02/19 04/03/19 22:00 23:00 23:59 00:00 Pulse 89 96 93 Resp 30 26 32 B/P (MAP) 103/67 (79) 103/62 (76) 101/61 (74) Pulse Ox 97 97 96 O2 Delivery Room Air Room Air Room Air Room Air 04/03/19 04/03/19 04/03/19 04/03/19 00:31 01:00 01:34 02:00 Temp 98.2 98.2 Pulse 95 99 Resp 26 34 27 22 B/P (MAP) 99/59 (72) 111/66 (81) Pulse Ox 97 96 97 97 O2 Delivery Room Air Room Air Room Air Room Air 04/03/19 04/03/19 04/03/19 04/03/19 03:00 03:45 04:00 05:00 Temp 97.6 97.6 Pulse 93 96 97 Resp 30 25 27 B/P (MAP) 116/68 (84) 112/75 (87) 109/62 (78) Pulse Ox 96 98 96 O2 Delivery Room Air Room Air Room Air Room Air 04/03/19 04/03/19 04/03/19 04/03/19 06:00 07:00 08:00 08:00 Temp 97.8 97.8 Pulse 99 90 102 Resp 32 32 32 B/P (MAP) 103/65 (78) 109/69 (82) 102/62 (75) Pulse Ox 95 97 98 O2 Delivery Room Air Room Air Room Air Room Air 04/03/19 04/03/19 04/03/19 04/03/19 10:22 11:25 11:25 11:29 Temp 98.1 98.1 Pulse 105 Resp 32 22 B/P (MAP) 115/66 (82) Pulse Ox 98 97 O2 Delivery Room Air Room Air Room Air Room Air O2 Flow Rate 2.0 Intake and Output 04/02/19 04/02/19 04/03/19 15:00 23:00 07:00 Intake Total 550 ml 1133 ml Output Total 301 ml Balance -301 ml 550 ml 1133 ml Nutrition Consultation Dietary Evaluation: Recommendations by RD: Protein supplementation, PPN/TPN Comments: Continue w/regular diet as ordered, honor food preferences, and provide snacks as requested Continue w/PPN to supplement PO intake at this time, can stop PPN once PO intake consistently >50% meals and tolerated Expected Outcomes/Goals: PO intake + PPN to meet >75% est needs - met, goal ongoing Interpretation of weight loss: >20% in 1 year Malnutrition Findings: Food and Nutrition Intake (Mod: <75% est energy req 7days Weight Status: Appropriate ELISE LOVETT MD Apr 03, 2019 15:35
[2019-04-04] VITALS (7 sets, daily range): BP systolic 114–126; BP diastolic 70–86
--- NOTE | 2019-04-04 00:47 | NUR ---
RN administered the ceftaroline fosamile late due to not having any IV access. Both of the patients IV's were infiltrated and anesthesia had to come start a new IV. RN will continue to monitor the patient closely.
[2019-04-04] MEDS: oxyCODONE/APAP 7.5/325 1 TAB TABLET PO PRN ×4 (01:58→21:01)
[2019-04-04] MEDS: CEFTAROLINE FOSAMIL 600 MG in IV NORMAL SALINE 250ML 250 ML IV SCH ×5 (05:49→22:30)
[2019-04-04] MEDS: diphenhydrAMINE 50 MG/ML VIAL IVP PRN ×2 (08:17→16:16)
[2019-04-04] MEDS: CHLORHEXIDINE 0.12% 15 ML MOUTHWASH. SWSP SCH ×2 (08:17→21:00)
[2019-04-04] MEDS: LACTOBACILLUS RHAMNOSUS GG 1 CAPSULE. PO SCH ×2 (09:00→21:01)
--- NOTE | 2019-04-04 09:02 | PDOC ---
PROGRESS NOTES Subjective Subjective HPI - f/u of Thrombocytopenia ROS - no bleeding Objective Objective Vital Signs Date Time Temp Pulse Resp B/P (MAP) Pulse Ox O2 Delivery O2 Flow Rate FiO2 04/04/19 08:46 16 Room Air 04/04/19 07:00 98.0 100 114/78 (90) 96 98.0 04/03/19 19:40 2.0 Intake and Output 04/04/19 07:00 Intake Total 1825 ml Output Total 500 ml Balance 1325 ml Intake Oral 275 ml IV Total 1550 ml Output Urine Total 500 ml # Voids 4 Physical Exam Heart: Regular rate General: Alert, Oriented X3, No acute distress Assessment Assessment Problems Medical Problems: (1) RIKY (acute kidney injury) Status: Acute (2) Endocarditis Status: Acute (3) Hypotension Status: Acute (4) Pulmonary hypertension Status: Chronic (5) Renal failure Status: Acute (6) Respiratory failure Status: Acute (7) Septic pulmonary embolism Status: Acute (8) Severe sepsis Status: Acute (9) Severe tricuspid regurgitation Status: Chronic IMPRESSION AND PLAN: 1. Thrombocytopenia due to sepsis. Appreciate Infectious Disease consultation. The patient has methicillin-resistant Staphylococcus aureus sepsis noted in [facility]. Continue antibiotic management per Infectious Diseases. I suspect that the significant worsened thrombocytopenia is also due to underlying hepatitis C. No signs of bleeding. If she has any significant bleeding, she would need platelet transfusion. Plt 52. I d/w RN, no bleeding. 2. Septic pulmonary emboli. Anticoagulation is not indicated for septic emboli as it increases the risk of bleeding, I agree with Dr. Hughes that treatment with antibiotics will be the primary modality of management. 3. Abnormal CT with bilateral cavitary nodules throughout the lungs, likely suggestive of septic emboli. I discussed with Dr. Hughes. Continue management per Dr. Hughes. 4. Sepsis - management per ID Comment Review of Relevant I have reviewed the following items kim (where applicable) has been applied. Labs Laboratory Tests Test 04/02/19 11:35 04/03/19 08:10 04/03/19 13:20 White Blood Count 9.9 x10^3/uL (4.0-11.0) 11.2 x10^3/uL (4.0-11.0) Red Blood Count 2.62 x10^6/uL (3.50-5.40) 2.74 x10^6/uL (3.50-5.40) Hemoglobin 7.3 g/dL (12.0-15.5) 7.6 g/dL (12.0-15.5) Hematocrit 22.0 % (36.0-47.0) 23.1 % (36.0-47.0) Mean Corpuscular Volume 84 fL (79-100) 84 fL (79-100) Mean Corpuscular Hemoglobin 28 pg (25-35) 28 pg (25-35) Mean Corpuscular Hemoglobin Concent 33 g/dL (31-37) 33 g/dL (31-37) Red Cell Distribution Width 19.7 % (11.5-14.5) 19.6 % (11.5-14.5) Platelet Count 33 x10^3/uL (140-400) 52 x10^3/uL (140-400) Neutrophils (%) (Auto) 87 % (31-73) 84 % (31-73) Lymphocytes (%) (Auto) 8 % (24-48) 9 % (24-48) Monocytes (%) (Auto) 5 % (0-9) 5 % (0-9) Eosinophils (%) (Auto) 1 % (0-3) 1 % (0-3) Basophils (%) (Auto) 0 % (0-3) 0 % (0-3) Neutrophils # (Auto) 8.6 x10^3/uL (1.8-7.7) 9.5 x10^3/uL (1.8-7.7) Lymphocytes # (Auto) 0.8 x10^3/uL (1.0-4.8) 1.1 x10^3/uL (1.0-4.8) Monocytes # (Auto) 0.5 x10^3/uL (0.0-1.1) 0.6 x10^3/uL (0.0-1.1) Eosinophils # (Auto) 0.1 x10^3/uL (0.0-0.7) 0.1 x10^3/uL (0.0-0.7) Basophils # (Auto) 0.0 x10^3/uL (0.0-0.2) 0.0 x10^3/uL (0.0-0.2) Sodium Level 131 mmol/L (136-145) 129 mmol/L (136-145) Potassium Level 4.4 mmol/L (3.5-5.1) 4.8 mmol/L (3.5-5.1) Chloride Level 102 mmol/L (98-107) 101 mmol/L (98-107) Carbon Dioxide Level 18 mmol/L (21-32) 17 mmol/L (21-32) Anion Gap 11 (6-14) 11 (6-14) Blood Urea Nitrogen 74 mg/dL (7-20) 86 mg/dL (7-20) Creatinine 1.4 mg/dL (0.6-1.0) 1.4 mg/dL (0.6-1.0) Estimated GFR (Cockcroft-Gault) 43.9 43.9 BUN/Creatinine Ratio 53 (6-20) 61 (6-20) Glucose Level 99 mg/dL (70-99) 84 mg/dL (70-99) Calcium Level 7.3 mg/dL (8.5-10.1) 7.5 mg/dL (8.5-10.1) Total Bilirubin 0.3 mg/dL (0.2-1.0) 0.3 mg/dL (0.2-1.0) Aspartate Amino Transf (AST/SGOT) 16 U/L (15-37) 18 U/L (15-37) Alanine Aminotransferase (ALT/SGPT) 8 U/L (14-59) 7 U/L (14-59) Alkaline Phosphatase 77 U/L (46-116) 90 U/L (46-116) Total Protein 5.2 g/dL (6.4-8.2) 5.4 g/dL (6.4-8.2) Albumin 0.9 g/dL (3.4-5.0) 1.0 g/dL (3.4-5.0) Albumin/Globulin Ratio 0.2 (1.0-1.7) 0.2 (1.0-1.7) Cortisol AM Sample 24.1 ug/dL (4.3-22.4) Urine Collection Type Unknown Urine Color Yellow Urine Clarity Clear Urine pH 5.5 Urine Specific [place] 1.015 Urine Protein Negative mg/dL (NEG-TRACE) Urine Glucose (UA) Negative mg/dL (NEG) Urine Ketones (Stick) Negative mg/dL (NEG) Urine Blood Moderate (NEG) Urine Nitrite Negative (NEG) Urine Bilirubin Negative (NEG) Urine Urobilinogen Dipstick 0.2 mg/dL (0.2 mg/dL) Urine Leukocyte Esterase Trace (NEG) Urine RBC 1-2 /HPF (0-2) Urine WBC 1-4 /HPF (0-4) Urine Squamous Epithelial Cells Many /LPF Urine Bacteria Few /HPF (0-FEW) Laboratory Tests Test 04/03/19 13:20 Urine Collection Type Unknown Urine Color Yellow Urine Clarity Clear Urine pH 5.5 Urine Specific [place] 1.015 Urine Protein Negative mg/dL (NEG-TRACE) Urine Glucose (UA) Negative mg/dL (NEG) Urine Ketones (Stick) Negative mg/dL (NEG) Urine Blood Moderate (NEG) Urine Nitrite Negative (NEG) Urine Bilirubin Negative (NEG) Urine Urobilinogen Dipstick 0.2 mg/dL (0.2 mg/dL) Urine Leukocyte Esterase Trace (NEG) Urine RBC 1-2 /HPF (0-2) Urine WBC 1-4 /HPF (0-4) Urine Squamous Epithelial Cells Many /LPF Urine Bacteria Few /HPF (0-FEW) Microbiology 04/03/19 Blood Culture - Final, Complete Medications Current Medications Albumin Human 100 ml @ 100 mls/hr 1X ONCE IV Last administered on 03/29/19at 14:59; Start 03/29/19 at 14:30; Stop 03/29/19 at 15:29; Status DC Norepinephrine Bitartrate 250 ml @ 9.781 mls/ hr CONT PRN IV SEE I/O RECORD Last administered on 03/29/19at 23:25; Start 03/29/19 at 14:30; Stop 04/03/19 at 11:24; Status DC Sodium Chloride 1,000 ml @ 100 mls/hr Q10H IV Last administered on 03/29/19at 23:25; Start 03/29/19 at 14:30; Stop 03/30/19 at 12:08; Status DC Guaifenesin (Robitussin Dm) 10 ml PRN Q6HRS PRN PO COUGH Last administered on 04/03/19at 23:27; Start 03/29/19 at 15:30 Sodium Bicarbonate (Sodium Bicarb Adult 8.4% Syr) 50 meq 1X ONCE IV Last administered on 03/29/19at 16:49; Start 03/29/19 at 16:00; Stop 03/29/19 at 16:01; Status DC Sodium Bicarbonate (Sodium Bicarb Adult 8.4% Syr) 50 meq 1X ONCE IV Last administered on 03/29/19at 16:49; Start 03/29/19 at 16:00; Stop 03/29/19 at 16:01; Status DC Vancomycin HCl (Vanco Per Pharmacy) 1 each PRN DAILY PRN MC SEE COMMENTS Last administered on 04/02/19at 15:03; Start 03/29/19 at 17:15; Stop 04/03/19 at 07:34; Status DC Piperacillin Sod/ Tazobactam Sod (Zosyn Per Pharmacy) 1 each PRN DAILY PRN MC SEE COMMENTS; Start 03/29/19 at 17:15; Stop 03/31/19 at 07:37; Status DC Piperacillin Sod/ Tazobactam Sod 4.5 gm/Sodium Chloride 100 ml @ 200 mls/hr Q6HRS IV Last administered on 03/31/19at 06:23; Start 03/29/19 at 18:00; Stop 03/31/19 at 07:37; Status DC Vancomycin HCl 1.25 gm/Sodium Chloride 250 ml @ 166.667 mls/hr 1X ONCE IV Last administered on 03/29/19at 17:37; Start 03/29/19 at 17:15; Stop 03/29/19 at 18:44; Status DC Vancomycin HCl 750 mg/Sodium Chloride 250 ml @ 250 mls/hr Q18H IV Last administered on 03/30/19at 10:19; Start 03/30/19 at 11:00; Stop 03/30/19 at 12:54; Status DC Vancomycin HCl (Vancomycin Trough Level) 1 each 1X ONCE MC ; Start 03/31/19 at 09:30; Stop 03/31/19 at 09:31; Status DC Magnesium Sulfate 50 ml @ 25 mls/hr 1X ONCE IV Last administered on 03/29/19at 20:02; Start 03/29/19 at 20:00; Stop 03/29/19 at 21:59; Status DC Linezolid/Dextrose 300 ml @ 300 mls/hr Q12HR IV Last administered on 9/24/19at 08:17; Start 03/30/19 at 09:00 Chlorhexidine Gluconate (Peridex) 15 ml BID SWSP Last administered on 04/04/19 08:17; Start 03/30/19 at 09:00 Amino Acids/ Glycerin/ Electrolytes 1,000 ml @ 100 mls/hr Q10H IV Last administered on 04/03/19 07:36; Start 03/30/19 at 12:00; Stop 04/03/19 at 11:38; Status DC Vancomycin HCl 750 mg/Sodium Chloride 250 ml @ 250 mls/hr Q12H IV Last administered on 04/02/19 21:48; Start 03/30/19 at 22:00; Stop 04/03/19 at 07:34; Status DC Hydromorphone HCl (Dilaudid) 1 mg PRN Q4HRS PRN IV PAIN Last administered on 03/31/19 05:11; Start 03/30/19 at 21:00; Stop 03/31/19 at 09:43; Status DC Hydromorphone HCl (Dilaudid) 1 mg PRN Q2HR PRN IV PAIN Last administered on 03/31/19 20:06; Start 03/31/19 at 09:45; Stop 03/31/19 at 22:00; Status DC Haloperidol Lactate (Haldol Inj) 2 mg PRN Q6HRS PRN IVP AGITATION Last administered on 04/01/19at 00:07; Start 03/31/19 at 09:45 Hydromorphone HCl (Dilaudid) 1 mg PRN Q2HR PRN IV MOD TO SEVERE PAIN Last administered on 04/01/19at 01:37; Start 04/01/19 at 00:45 Oxycodone/ Acetaminophen (Percocet 7.5/ 325) 1 tab PRN Q4HRS PRN PO PAIN Last administered on 04/04/19 07:29; Start 04/01/19 at 09:00 Sodium Chloride 1,000 ml @ 125 mls/hr 1X ONCE IV Last administered on 04/01/19 18:11; Start 04/01/19 at 09:00; Stop 04/01/19 at 16:59; Status DC Ketorolac Tromethamine (Toradol 15mg Vial) 15 mg PRN Q6HRS PRN IV MILD PAIN 1-3 Last administered on 04/03/19at 16:21; Start 04/01/19 at 09:00; Stop 04/06/19 at 08:59 Diphenhydramine HCl (Benadryl) 25 mg PRN Q6HRS PRN IVP ITCHING Last administered on 04/04/19at 08:17; Start 04/01/19 at 14:00 Lactobacillus Rhamnosus (Culturelle) 1 cap BID PO Last administered on 04/03/19at 21:17; Start 04/02/19 at 21:00 Ceftaroline Fosamil 600 mg/ Sodium Chloride 250 ml @ 250 mls/hr Q8HRS IV Last administered on 04/04/19at 05:49; Start 04/03/19 at 08:00 Sodium Chloride 1,000 ml @ 200 mls/hr 1X ONCE IV Last administered on 04/03/19at 08:45; Start 04/03/19 at 08:30; Stop 04/03/19 at 13:29; Status DC Active Scripts Active Reported Prenate Elite Tablet ( #79/Iron Asp Gly/FA#1) 1 Each Tablet 1 Each PO DAILY Ibuprofen 800 Mg Tablet 800 Mg PO PRN Q6HRS PRN Ferrous Sulfate 325 Mg Tablet 325 Mg PO DAILY Docusate Sodium 100 Mg Capsule 100 Mg PO BID Vitals/I & O Vital Sign - Last 24 Hours 04/03/19 04/03/19 04/03/19 04/03/19 10:22 11:25 11:25 11:29 Temp 98.1 98.1 Pulse 105 Resp 32 22 B/P (MAP) 115/66 (82) Pulse Ox 98 97 O2 Delivery Room Air Room Air Room Air Room Air O2 Flow Rate 2.0 04/03/19 04/03/19 04/03/19 04/03/19 15:00 16:21 19:14 19:18 Temp 97.9 97.5 97.9 97.5 Pulse 109 100 Resp 18 18 B/P (MAP) 123/75 (91) 111/69 (83) Pulse Ox 100 97 O2 Delivery Room Air Room Air Room Air Room Air 04/03/19 04/03/19 04/03/19 04/04/19 19:40 21:17 23:33 00:32 Temp 97.5 97.5 Pulse 104 Resp 18 B/P (MAP) 72/52 (59) Pulse Ox 95 O2 Delivery Room Air Room Air Room Air Room Air O2 Flow Rate 2.0 04/04/19 04/04/19 04/04/19 04/04/19 00:44 01:58 03:17 03:32 Temp 97.7 97.7 Pulse 99 98 Resp 18 B/P (MAP) 120/76 (91) 119/83 (95) Pulse Ox 98 O2 Delivery Room Air Room Air Room Air Room Air 04/04/19 04/04/19 04/04/19 07:00 07:29 08:46 Temp 98.0 98.0 Pulse 100 Resp 18 16 16 B/P (MAP) 114/78 (90) Pulse Ox 96 O2 Delivery Room Air Room Air Room Air Intake and Output 04/03/19 04/03/19 04/04/19 15:00 23:00 07:00 Intake Total 300 ml 1325 ml 200 ml Output Total 500 ml Balance -200 ml 1325 ml 200 ml Nutrition Consultation Dietary Evaluation: Recommendations by RD: Protein supplementation, PPN/TPN Comments: Continue w/regular diet as ordered, honor food preferences, and provide snacks as requested Continue w/PPN to supplement PO intake at this time, can stop PPN once PO intake consistently >50% meals and tolerated Expected Outcomes/Goals: PO intake + PPN to meet >75% est needs - met, goal ongoing Interpretation of weight loss: >20% in 1 year Malnutrition Findings: Food and Nutrition Intake (Mod: <75% est energy req 7days Weight Status: Appropriate TROY WASSERMAN MD Apr 04, 2019 09:02
--- NOTE | 2019-04-04 09:12 | PDOC ---
PROGRESS NOTES Chief Complaint Chief Complaint impression Sepsis Tricuspid Vegetation Septic emboli MRSA bacteremia acute metabolic encephalopathy polysubstance abuse, and withdrawl symptoms pancytopenia from sepsis very poor prognosis due to severe drug abuse 39 min pt exam, chart review, > 50% of time spent with exam, chart review, pt care coordination History of Present Illness History of Present Illness transfer out of ICU today, still weak, eating better, still on PPN, will wean as able to take more food try PT and OT more orientd, up to chair able to eat more, will advance diet discussed with ID consult, keep in ICU Vitals Vitals Vital Signs Date Time Temp Pulse Resp B/P (MAP) Pulse Ox O2 Delivery O2 Flow Rate FiO2 04/04/19 08:46 16 Room Air 04/04/19 07:00 98.0 100 114/78 (90) 96 98.0 04/03/19 19:40 2.0 Physical Exam Physical Exam GENERAL: Propped up in bed, tired appearance, NAD HEENT: Pupils are equal and reactive. Oral cavity, pharynx is dry NECK: Supple, no JVD. LUNGS: Clear to auscultation bilaterally. HEART: S1, S2 with questionable murmur. ABDOMEN: Soft, nontender, no guarding or rebound. EXTREMITIES: Trace edema, no cyanosis SKIN: Warm to touch without rash. Multiple tattoos. NEUROLOGIC: Nonfocal, moves all extremities. PIVs General: Alert, Oriented X3, No acute distress, mild distress Heart: Regular rate Lungs: Clear, Other Abdomen: Soft, No tenderness Extremities: No cyanosis, No edema Skin: No breakdown Labs LABS RENAL COMPLETE BILATERAL History: Acute kidney injury Comparison: None. Procedure: Transabdominal ultrasound images are obtained of the kidneys and bladder. Findings: Right kidney: measures 12.7 x 5.7 x 4.1 cm. Normal cortical echotexture. Corticomedullary differentiation is preserved. No hydronephrosis. No renal cyst. No solid renal mass or calculus. Left kidney: measures 12.8 x 4.1 x 4.6 cm. Normal cortical echotexture. Corticomedullary differentiation is preserved. No hydronephrosis. No renal cyst. No solid renal mass or calculus. Urinary bladder: No urinary bladder wall thickening, stone or calculus. The IVC is patent. The visualized abdominal aorta is normal caliber. IMPRESSION: 1. Unremarkable renal ultrasound. Electronically signed by: Matthew Scott DO (03/30/2019 11:42 AM) [facility] Ex[facility] performed one view chest HISTORY: Respiratory failure DATE OF SERVICE: 04/02/2019. COMPARISON: None available FINDINGS: Heart size and mediastinal silhouette is within limits of normal. Pulmonary vascularity is unremarkable. Diffuse patchy airspace opacities are seen throughout both lungs most pronounced in the left lung base. There are small bilateral pleural effusions. There is no pneumothorax. IMPRESSION: Scattered bilateral airspace opacities and small bilateral pleural effusions. Electronically signed by: Mine Britton MD (04/02/2019 9:13 AM) [facility] Laboratory Tests Test 04/03/19 13:20 Urine Collection Type Unknown Urine Color Yellow Urine Clarity Clear Urine pH 5.5 Urine Specific [place] 1.015 Urine Protein Negative mg/dL (NEG-TRACE) Urine Glucose (UA) Negative mg/dL (NEG) Urine Ketones (Stick) Negative mg/dL (NEG) Urine Blood Moderate (NEG) Urine Nitrite Negative (NEG) Urine Bilirubin Negative (NEG) Urine Urobilinogen Dipstick 0.2 mg/dL (0.2 mg/dL) Urine Leukocyte Esterase Trace (NEG) Urine RBC 1-2 /HPF (0-2) Urine WBC 1-4 /HPF (0-4) Urine Squamous Epithelial Cells Many /LPF Urine Bacteria Few /HPF (0-FEW) Assessment and Plan Assessmemt and Plan Problems Medical Problems: (1) RIKY (acute kidney injury) Status: Acute (2) Endocarditis Status: Acute (3) Hypotension Status: Acute (4) Pulmonary hypertension Status: Chronic (5) Renal failure Status: Acute (6) Respiratory failure Status: Acute (7) Septic pulmonary embolism Status: Acute (8) Severe sepsis Status: Acute (9) Severe tricuspid regurgitation Status: Chronic Comment Review of Relevant I have reviewed the following items kim (where applicable) has been applied. Labs Laboratory Tests Test 04/02/19 11:35 04/03/19 08:10 04/03/19 13:20 White Blood Count 9.9 x10^3/uL (4.0-11.0) 11.2 x10^3/uL (4.0-11.0) Red Blood Count 2.62 x10^6/uL (3.50-5.40) 2.74 x10^6/uL (3.50-5.40) Hemoglobin 7.3 g/dL (12.0-15.5) 7.6 g/dL (12.0-15.5) Hematocrit 22.0 % (36.0-47.0) 23.1 % (36.0-47.0) Mean Corpuscular Volume 84 fL (79-100) 84 fL (79-100) Mean Corpuscular Hemoglobin 28 pg (25-35) 28 pg (25-35) Mean Corpuscular Hemoglobin Concent 33 g/dL (31-37) 33 g/dL (31-37) Red Cell Distribution Width 19.7 % (11.5-14.5) 19.6 % (11.5-14.5) Platelet Count 33 x10^3/uL (140-400) 52 x10^3/uL (140-400) Neutrophils (%) (Auto) 87 % (31-73) 84 % (31-73) Lymphocytes (%) (Auto) 8 % (24-48) 9 % (24-48) Monocytes (%) (Auto) 5 % (0-9) 5 % (0-9) Eosinophils (%) (Auto) 1 % (0-3) 1 % (0-3) Basophils (%) (Auto) 0 % (0-3) 0 % (0-3) Neutrophils # (Auto) 8.6 x10^3/uL (1.8-7.7) 9.5 x10^3/uL (1.8-7.7) Lymphocytes # (Auto) 0.8 x10^3/uL (1.0-4.8) 1.1 x10^3/uL (1.0-4.8) Monocytes # (Auto) 0.5 x10^3/uL (0.0-1.1) 0.6 x10^3/uL (0.0-1.1) Eosinophils # (Auto) 0.1 x10^3/uL (0.0-0.7) 0.1 x10^3/uL (0.0-0.7) Basophils # (Auto) 0.0 x10^3/uL (0.0-0.2) 0.0 x10^3/uL (0.0-0.2) Sodium Level 131 mmol/L (136-145) 129 mmol/L (136-145) Potassium Level 4.4 mmol/L (3.5-5.1) 4.8 mmol/L (3.5-5.1) Chloride Level 102 mmol/L (98-107) 101 mmol/L (98-107) Carbon Dioxide Level 18 mmol/L (21-32) 17 mmol/L (21-32) Anion Gap 11 (6-14) 11 (6-14) Blood Urea Nitrogen 74 mg/dL (7-20) 86 mg/dL (7-20) Creatinine 1.4 mg/dL (0.6-1.0) 1.4 mg/dL (0.6-1.0) Estimated GFR (Cockcroft-Gault) 43.9 43.9 BUN/Creatinine Ratio 53 (6-20) 61 (6-20) Glucose Level 99 mg/dL (70-99) 84 mg/dL (70-99) Calcium Level 7.3 mg/dL (8.5-10.1) 7.5 mg/dL (8.5-10.1) Total Bilirubin 0.3 mg/dL (0.2-1.0) 0.3 mg/dL (0.2-1.0) Aspartate Amino Transf (AST/SGOT) 16 U/L (15-37) 18 U/L (15-37) Alanine Aminotransferase (ALT/SGPT) 8 U/L (14-59) 7 U/L (14-59) Alkaline Phosphatase 77 U/L (46-116) 90 U/L (46-116) Total Protein 5.2 g/dL (6.4-8.2) 5.4 g/dL (6.4-8.2) Albumin 0.9 g/dL (3.4-5.0) 1.0 g/dL (3.4-5.0) Albumin/Globulin Ratio 0.2 (1.0-1.7) 0.2 (1.0-1.7) Cortisol AM Sample 24.1 ug/dL (4.3-22.4) Urine Collection Type Unknown Urine Color Yellow Urine Clarity Clear Urine pH 5.5 Urine Specific [place] 1.015 Urine Protein Negative mg/dL (NEG-TRACE) Urine Glucose (UA) Negative mg/dL (NEG) Urine Ketones (Stick) Negative mg/dL (NEG) Urine Blood Moderate (NEG) Urine Nitrite Negative (NEG) Urine Bilirubin Negative (NEG) Urine Urobilinogen Dipstick 0.2 mg/dL (0.2 mg/dL) Urine Leukocyte Esterase Trace (NEG) Urine RBC 1-2 /HPF (0-2) Urine WBC 1-4 /HPF (0-4) Urine Squamous Epithelial Cells Many /LPF Urine Bacteria Few /HPF (0-FEW) Laboratory Tests Test 04/03/19 13:20 Urine Collection Type Unknown Urine Color Yellow Urine Clarity Clear Urine pH 5.5 Urine Specific [place] 1.015 Urine Protein Negative mg/dL (NEG-TRACE) Urine Glucose (UA) Negative mg/dL (NEG) Urine Ketones (Stick) Negative mg/dL (NEG) Urine Blood Moderate (NEG) Urine Nitrite Negative (NEG) Urine Bilirubin Negative (NEG) Urine Urobilinogen Dipstick 0.2 mg/dL (0.2 mg/dL) Urine Leukocyte Esterase Trace (NEG) Urine RBC 1-2 /HPF (0-2) Urine WBC 1-4 /HPF (0-4) Urine Squamous Epithelial Cells Many /LPF Urine Bacteria Few /HPF (0-FEW) Microbiology 04/03/19 Blood Culture - Final, Complete Medications Current Medications Albumin Human 100 ml @ 100 mls/hr 1X ONCE IV Last administered on 03/29/19at 14:59; Start 03/29/19 at 14:30; Stop 03/29/19 at 15:29; Status DC Norepinephrine Bitartrate 250 ml @ 9.781 mls/ hr CONT PRN IV SEE I/O RECORD Last administered on 03/29/19at 23:25; Start 03/29/19 at 14:30; Stop 04/03/19 at 11:24; Status DC Sodium Chloride 1,000 ml @ 100 mls/hr Q10H IV Last administered on 03/29/19at 23:25; Start 03/29/19 at 14:30; Stop 03/30/19 at 12:08; Status DC Guaifenesin (Robitussin Dm) 10 ml PRN Q6HRS PRN PO COUGH Last administered on 04/03/19at 23:27; Start 03/29/19 at 15:30 Sodium Bicarbonate (Sodium Bicarb Adult 8.4% Syr) 50 meq 1X ONCE IV Last administered on 03/29/19at 16:49; Start 03/29/19 at 16:00; Stop 03/29/19 at 16:01; Status DC Sodium Bicarbonate (Sodium Bicarb Adult 8.4% Syr) 50 meq 1X ONCE IV Last administered on 03/29/19at 16:49; Start 03/29/19 at 16:00; Stop 03/29/19 at 16:01; Status DC Vancomycin HCl (Vanco Per Pharmacy) 1 each PRN DAILY PRN MC SEE COMMENTS Last administered on 04/02/19at 15:03; Start 03/29/19 at 17:15; Stop 04/03/19 at 07:34; Status DC Piperacillin Sod/ Tazobactam Sod (Zosyn Per Pharmacy) 1 each PRN DAILY PRN MC SEE COMMENTS; Start 03/29/19 at 17:15; Stop 03/31/19 at 07:37; Status DC Piperacillin Sod/ Tazobactam Sod 4.5 gm/Sodium Chloride 100 ml @ 200 mls/hr Q6HRS IV Last administered on 03/31/19at 06:23; Start 03/29/19 at 18:00; Stop 03/31/19 at 07:37; Status DC Vancomycin HCl 1.25 gm/Sodium Chloride 250 ml @ 166.667 mls/hr 1X ONCE IV Last administered on 03/29/19at 17:37; Start 03/29/19 at 17:15; Stop 03/29/19 at 18:44; Status DC Vancomycin HCl 750 mg/Sodium Chloride 250 ml @ 250 mls/hr Q18H IV Last administered on 03/30/19at 10:19; Start 03/30/19 at 11:00; Stop 03/30/19 at 12:54; Status DC Vancomycin HCl (Vancomycin Trough Level) 1 each 1X ONCE MC ; Start 03/31/19 at 09:30; Stop 03/31/19 at 09:31; Status DC Magnesium Sulfate 50 ml @ 25 mls/hr 1X ONCE IV Last administered on 03/29/19at 20:02; Start 03/29/19 at 20:00; Stop 03/29/19 at 21:59; Status DC Linezolid/Dextrose 300 ml @ 300 mls/hr Q12HR IV Last administered on 04/04/19 08:17; Start 03/30/19 at 09:00 Chlorhexidine Gluconate (Peridex) 15 ml BID SWSP Last administered on 04/04/19 08:17; Start 03/30/19 at 09:00 Amino Acids/ Glycerin/ Electrolytes 1,000 ml @ 100 mls/hr Q10H IV Last administered on 04/03/19 07:36; Start 03/30/19 at 12:00; Stop 04/03/19 at 11:38; Status DC Vancomycin HCl 750 mg/Sodium Chloride 250 ml @ 250 mls/hr Q12H IV Last administered on 04/02/19 21:48; Start 03/30/19 at 22:00; Stop 04/03/19 at 07:34; Status DC Hydromorphone HCl (Dilaudid) 1 mg PRN Q4HRS PRN IV PAIN Last administered on 03/31/19 05:11; Start 03/30/19 at 21:00; Stop 03/31/19 at 09:43; Status DC Hydromorphone HCl (Dilaudid) 1 mg PRN Q2HR PRN IV PAIN Last administered on 03/31/19 20:06; Start 03/31/19 at 09:45; Stop 03/31/19 at 22:00; Status DC Haloperidol Lactate (Haldol Inj) 2 mg PRN Q6HRS PRN IVP AGITATION Last administ ered on 04/01/19at 00:07; Start 03/31/19 at 09:45 Hydromorphone HCl (Dilaudid) 1 mg PRN Q2HR PRN IV MOD TO SEVERE PAIN Last admi nistered on 04/01/19at 01:37; Start 04/01/19 at 00:45 Oxycodone/ Acetaminophen (Percocet 7.5/ 325) 1 tab PRN Q4HRS PRN PO PAIN Last administered on 04/04/19 07:29; Start 04/01/19 at 09:00 Sodium Chloride 1,000 ml @ 125 mls/hr 1X ONCE IV Last administered on 04/01/19 18:11; Start 04/01/19 at 09:00; Stop 04/01/19 at 16:59; Status DC Ketorolac Tromethamine (Toradol 15mg Vial) 15 mg PRN Q6HRS PRN IV MILD PAIN 1-3 Last administered on 04/03/19at 16:21; Start 04/01/19 at 09:00; Stop 04/06/19 at 08:59 Diphenhydramine HCl (Benadryl) 25 mg PRN Q6HRS PRN IVP ITCHING Last administered on 04/04/19at 08:17; Start 04/01/19 at 14:00 Lactobacillus Rhamnosus (Culturelle) 1 cap BID PO Last administered on 04/04/19at 09:11; Start 04/02/19 at 21:00 Ceftaroline Fosamil 600 mg/ Sodium Chloride 250 ml @ 250 mls/hr Q8HRS IV Last administered on 04/04/19at 05:49; Start 04/03/19 at 08:00 Sodium Chloride 1,000 ml @ 200 mls/hr 1X ONCE IV Last administered on 04/03/19at 08:45; Start 04/03/19 at 08:30; Stop 04/03/19 at 13:29; Status DC Active Scripts Active Reported Prenate Elite Tablet ( #79/Iron Asp Gly/FA#1) 1 Each Tablet 1 Each PO DAILY Ibuprofen 800 Mg Tablet 800 Mg PO PRN Q6HRS PRN Ferrous Sulfate 325 Mg Tablet 325 Mg PO DAILY Docusate Sodium 100 Mg Capsule 100 Mg PO BID Vitals/I & O Vital Sign - Last 24 Hours 04/03/19 04/03/19 04/03/19 04/03/19 08:00 08:00 10:22 11:25 Pulse 102 Resp 32 32 B/P (MAP) 102/62 (75) Pulse Ox 98 98 O2 Delivery Room Air Room Air Room Air Room Air O2 Flow Rate 2.0 04/03/19 04/03/19 04/03/19 04/03/19 11:25 11:29 15:00 16:21 Temp 98.1 97.9 98.1 97.9 Pulse 105 109 Resp 22 18 B/P (MAP) 115/66 (82) 123/75 (91) Pulse Ox 97 100 O2 Delivery Room Air Room Air Room Air Room Air 04/03/19 04/03/19 04/03/19 04/03/19 19:14 19:18 19:40 21:17 Temp 97.5 97.5 Pulse 100 Resp 18 B/P (MAP) 111/69 (83) Pulse Ox 97 O2 Delivery Room Air Room Air Room Air Room Air O2 Flow Rate 2.0 04/03/19 04/04/19 04/04/19 04/04/19 23:33 00:32 00:44 01:58 Temp 97.5 97.5 Pulse 104 99 Resp 18 B/P (MAP) 72/52 (59) 120/76 (91) Pulse Ox 95 O2 Delivery Room Air Room Air Room Air Room Air 04/04/19 04/04/19 04/04/19 04/04/19 03:17 03:32 07:00 07:29 Temp 97.7 98.0 97.7 98.0 Pulse 98 100 Resp 18 18 16 B/P (MAP) 119/83 (95) 114/78 (90) Pulse Ox 98 96 O2 Delivery Room Air Room Air Room Air Room Air 04/04/19 08:46 Resp 16 O2 Delivery Room Air Intake and Output 04/03/19 04/04/19 04/04/19 17:00 01:00 09:00 Intake Total 1325 ml 300 ml 200 ml Balance 1325 ml 300 ml 200 ml Nutrition Consultation Dietary Evaluation: Recommendations by RD: Protein supplementation, PPN/TPN Comments: Continue w/regular diet as ordered, honor food preferences, and provide snacks as requested Continue w/PPN to supplement PO intake at this time, can stop PPN once PO intake consistently >50% meals and tolerated Expected Outcomes/Goals: PO intake + PPN to meet >75% est needs - met, goal ongoing Interpretation of weight loss: >20% in 1 year Malnutrition Findings: Food and Nutrition Intake (Mod: <75% est energy req 7days Weight Status: Appropriate TEJA ORTIZ MD Apr 04, 2019 09:12
[2019-04-04 09:21] LABS: CALCIUM 7.6 mg/dL (8.5-10.1); GFR 64.7; POTASSIUM 4.7 mmol/L (3.5-5.1)
--- NOTE | 2019-04-04 09:56 | NUR ---
IP: [facility] reporting mrsa + blood culture prior to patients admission to [facility]. Pt to be in contact precautions until there are 2 negative blood cultures 7 days apart.
--- NOTE | 2019-04-04 10:02 | PDOC ---
Infectious Disease Note Subjective Subjective feeling better, but sleepy all the time ROS ROS no n/v/d/sob/fever Vital Sign Vital Signs Vital Signs Date Time Temp Pulse Resp B/P (MAP) Pulse Ox O2 Delivery O2 Flow Rate FiO2 04/04/19 08:46 16 Room Air 04/04/19 07:00 98.0 100 114/78 (90) 96 98.0 04/03/19 19:40 2.0 Physical Exam PHYSICAL EXAM GENERAL: Propped up in bed, tired appearance, NAD HEENT: Pupils are equal and reactive. Oral cavity, pharynx is very dry NECK: Supple, no JVD. LUNGS: Clear to auscultation bilaterally. HEART: S1, S2 with questionable murmur. ABDOMEN: Soft, nontender, no guarding or rebound. EXTREMITIES: Trace edema, no cyanosis SKIN: Warm to touch without rash. Multiple tattoos. NEUROLOGIC: Nonfocal, moves all extremities. PIVs Labs Lab Laboratory Tests Test 04/03/19 13:20 04/04/19 09:00 Urine Collection Type Unknown Urine Color Yellow Urine Clarity Clear Urine pH 5.5 Urine Specific [place] 1.015 Urine Protein Negative mg/dL (NEG-TRACE) Urine Glucose (UA) Negative mg/dL (NEG) Urine Ketones (Stick) Negative mg/dL (NEG) Urine Blood Moderate (NEG) Urine Nitrite Negative (NEG) Urine Bilirubin Negative (NEG) Urine Urobilinogen Dipstick 0.2 mg/dL (0.2 mg/dL) Urine Leukocyte Esterase Trace (NEG) Urine RBC 1-2 /HPF (0-2) Urine WBC 1-4 /HPF (0-4) Urine Squamous Epithelial Cells Many /LPF Urine Bacteria Few /HPF (0-FEW) Sodium Level 133 mmol/L (136-145) Potassium Level 4.7 mmol/L (3.5-5.1) Chloride Level 106 mmol/L (98-107) Carbon Dioxide Level 17 mmol/L (21-32) Anion Gap 10 (6-14) Blood Urea Nitrogen 69 mg/dL (7-20) Creatinine 1.0 mg/dL (0.6-1.0) Estimated GFR (Cockcroft-Gault) 64.7 Glucose Level 118 mg/dL (70-99) Calcium Level 7.6 mg/dL (8.5-10.1) Micro BLOOD CULTURE Final GRAM POSITIVE COCCI IN CLUSTERS SEEN IN 1 OF 1 PED BOTTLES; 1 SET WAS DRAWN; RESULTS WERE CALLED TO [facility]ANN IN ICU AT 0815; 04/02/19 BY MAYA. THE BLOOD CULTURES HAVE BEEN SENT TO [facility] FOR FURTHER WORKUP. Objective Assessment Fever MRSA sepsis (at [place] per report from blood 03/29). 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 PE Pulm HTN Hep C - ? if treated in past 4 weeks post Plan Plan of Care Cont Zyvox ,, ceftarolin, cr is better now need fluids Trough 18.2 Perdiex - oral care Will need HUNTER when stable F/u labs and cults May need GI eval from Hep C f/u todays labs D/w nursing also need ct chest, abd and pelvis VERA CARTER MD Apr 04, 2019 10:02
[2019-04-04 10:33] LABS: AMPHETAMINE/METHAMPHETAMINE NEG (NEG); BARBITURATES NEG (NEG); BENZODIAZEPINES NEG (NEG); CANNABINOIDS NEG (NEG); COCAINE NEG (NEG); METHADONE NEG (NEG); OPIATES POS (NEG); PHENCYCLIDINE NEG (NEG)
--- NOTE | 2019-04-04 10:59 | PDOC ---
PULMONARY PROGRESS NOTES Subjective denies shortness of breath.. SLEEPY Comments no acute distress. Vitals Vital Signs Date Time Temp Pulse Resp B/P (MAP) Pulse Ox O2 Delivery O2 Flow Rate FiO2 04/04/19 08:46 16 Room Air 04/04/19 07:00 98.0 100 114/78 (90) 96 98.0 04/03/19 19:40 2.0 ROS: No Nausea, No Chest Pain, No Abdominal Pain, No Increase Cough General: Alert, No acute distress Lungs: Clear, Other Cardiovascular: S1, S2 Abdomen: Soft, Non-tender Neuro Exam: Alert, Oriented Extremities: No Edema Skin: Warm Labs Laboratory Tests Test 04/02/19 11:35 04/03/19 08:10 04/03/19 13:20 04/04/19 09:00 White Blood Count 9.9 x10^3/uL (4.0-11.0) 11.2 x10^3/uL (4.0-11.0) Red Blood Count 2.62 x10^6/uL (3.50-5.40) 2.74 x10^6/uL (3.50-5.40) Hemoglobin 7.3 g/dL (12.0-15.5) 7.6 g/dL (12.0-15.5) Hematocrit 22.0 % (36.0-47.0) 23.1 % (36.0-47.0) Mean Corpuscular Volume 84 fL (79-100) 84 fL (79-100) Mean Corpuscular Hemoglobin 28 pg (25-35) 28 pg (25-35) Mean Corpuscular Hemoglobin Concent 33 g/dL (31-37) 33 g/dL (31-37) Red Cell Distribution Width 19.7 % (11.5-14.5) 19.6 % (11.5-14.5) Platelet Count 33 x10^3/uL (140-400) 52 x10^3/uL (140-400) Neutrophils (%) (Auto) 87 % (31-73) 84 % (31-73) Lymphocytes (%) (Auto) 8 % (24-48) 9 % (24-48) Monocytes (%) (Auto) 5 % (0-9) 5 % (0-9) Eosinophils (%) (Auto) 1 % (0-3) 1 % (0-3) Basophils (%) (Auto) 0 % (0-3) 0 % (0-3) Neutrophils # (Auto) 8.6 x10^3/uL (1.8-7.7) 9.5 x10^3/uL (1.8-7.7) Lymphocytes # (Auto) 0.8 x10^3/uL (1.0-4.8) 1.1 x10^3/uL (1.0-4.8) Monocytes # (Auto) 0.5 x10^3/uL (0.0-1.1) 0.6 x10^3/uL (0.0-1.1) Eosinophils # (Auto) 0.1 x10^3/uL (0.0-0.7) 0.1 x10^3/uL (0.0-0.7) Basophils # (Auto) 0.0 x10^3/uL (0.0-0.2) 0.0 x10^3/uL (0.0-0.2) Sodium Level 131 mmol/L (136-145) 129 mmol/L (136-145) 133 mmol/L (136-145) Potassium Level 4.4 mmol/L (3.5-5.1) 4.8 mmol/L (3.5-5.1) 4.7 mmol/L (3.5-5.1) Chloride Level 102 mmol/L (98-107) 101 mmol/L (98-107) 106 mmol/L (98-107) Carbon Dioxide Level 18 mmol/L (21-32) 17 mmol/L (21-32) 17 mmol/L (21-32) Anion Gap 11 (6-14) 11 (6-14) 10 (6-14) Blood Urea Nitrogen 74 mg/dL (7-20) 86 mg/dL (7-20) 69 mg/dL (7-20) Creatinine 1.4 mg/dL (0.6-1.0) 1.4 mg/dL (0.6-1.0) 1.0 mg/dL (0.6-1.0) Estimated GFR (Cockcroft-Gault) 43.9 43.9 64.7 BUN/Creatinine Ratio 53 (6-20) 61 (6-20) Glucose Level 99 mg/dL (70-99) 84 mg/dL (70-99) 118 mg/dL (70-99) Calcium Level 7.3 mg/dL (8.5-10.1) 7.5 mg/dL (8.5-10.1) 7.6 mg/dL (8.5-10.1) Total Bilirubin 0.3 mg/dL (0.2-1.0) 0.3 mg/dL (0.2-1.0) Aspartate Amino Transf (AST/SGOT) 16 U/L (15-37) 18 U/L (15-37) Alanine Aminotransferase (ALT/SGPT) 8 U/L (14-59) 7 U/L (14-59) Alkaline Phosphatase 77 U/L (46-116) 90 U/L (46-116) Total Protein 5.2 g/dL (6.4-8.2) 5.4 g/dL (6.4-8.2) Albumin 0.9 g/dL (3.4-5.0) 1.0 g/dL (3.4-5.0) Albumin/Globulin Ratio 0.2 (1.0-1.7) 0.2 (1.0-1.7) Cortisol AM Sample 24.1 ug/dL (4.3-22.4) Urine Collection Type Unknown Urine Color Yellow Urine Clarity Clear Urine pH 5.5 Urine Specific [place] 1.015 Urine Protein Negative mg/dL (NEG-TRACE) Urine Glucose (UA) Negative mg/dL (NEG) Urine Ketones (Stick) Negative mg/dL (NEG) Urine Blood Moderate (NEG) Urine Nitrite Negative (NEG) Urine Bilirubin Negative (NEG) Urine Urobilinogen Dipstick 0.2 mg/dL (0.2 mg/dL) Urine Leukocyte Esterase Trace (NEG) Urine RBC 1-2 /HPF (0-2) Urine WBC 1-4 /HPF (0-4) Urine Squamous Epithelial Cells Many /LPF Urine Bacteria Few /HPF (0-FEW) Test 04/04/19 10:00 Urine Opiates Screen Pos (NEG) Urine Methadone Screen Neg (NEG) Urine Barbiturates Neg (NEG) Urine Phencyclidine Screen Neg (NEG) Urine Amphetamine/Methamphetamine Neg (NEG) Urine Benzodiazepines Screen Neg (NEG) Urine Cocaine Screen Neg (NEG) Urine Cannabinoids Screen Neg (NEG) Urine Ethyl Alcohol Neg (NEG) Laboratory Tests Test 04/03/19 13:20 04/04/19 09:00 04/04/19 10:00 Urine Collection Type Unknown Urine Color Yellow Urine Clarity Clear Urine pH 5.5 Urine Specific [place] 1.015 Urine Protein Negative mg/dL (NEG-TRACE) Urine Glucose (UA) Negative mg/dL (NEG) Urine Ketones (Stick) Negative mg/dL (NEG) Urine Blood Moderate (NEG) Urine Nitrite Negative (NEG) Urine Bilirubin Negative (NEG) Urine Urobilinogen Dipstick 0.2 mg/dL (0.2 mg/dL) Urine Leukocyte Esterase Trace (NEG) Urine RBC 1-2 /HPF (0-2) Urine WBC 1-4 /HPF (0-4) Urine Squamous Epithelial Cells Many /LPF Urine Bacteria Few /HPF (0-FEW) Sodium Level 133 mmol/L (136-145) Potassium Level 4.7 mmol/L (3.5-5.1) Chloride Level 106 mmol/L (98-107) Carbon Dioxide Level 17 mmol/L (21-32) Anion Gap 10 (6-14) Blood Urea Nitrogen 69 mg/dL (7-20) Creatinine 1.0 mg/dL (0.6-1.0) Estimated GFR (Cockcroft-Gault) 64.7 Glucose Level 118 mg/dL (70-99) Calcium Level 7.6 mg/dL (8.5-10.1) Urine Opiates Screen Pos (NEG) Urine Methadone Screen Neg (NEG) Urine Barbiturates Neg (NEG) Urine Phencyclidine Screen Neg (NEG) Urine Amphetamine/Methamphetamine Neg (NEG) Urine Benzodiazepines Screen Neg (NEG) Urine Cocaine Screen Neg (NEG) Urine Cannabinoids Screen Neg (NEG) Urine Ethyl Alcohol Neg (NEG) Medications Active Scripts Medications Dose Route/Sig Max Daily Dose Days Date Category Prenate Elite Tablet ( #79/Iron Asp Gly/FA#1) 1 Each Tablet 1 Each PO DAILY 03/29/19 Reported Ibuprofen 800 Mg Tablet 800 Mg PO PRN Q6HRS PRN 03/29/19 Reported Ferrous Sulfate 325 Mg Tablet 325 Mg PO DAILY 03/29/19 Reported Docusate Sodium 100 Mg Capsule 100 Mg PO BID 03/29/19 Reported Impression . IMPRESSION: 1. Acute hypoxic respiratory failure secondary to sepsis with MRSA 2. septic emboli, history of IV meth abuse. still had 2/4 blood cultures positive from 03/31, 04/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 4. Lower lobe pulmonary emboli.Likely infective emboli. I suspect this is related to obstruction of the pulmonary vessels from right-sided vegetations and dislodgement. In the setting of anemia and thrombocytopenia, anticoagulation would be high risk and not indicated. 5. History of hepatitis C with chronic thrombocytopenia.--improving slowly/stable 6. Polysubstance abuse. 7. Hypotension. Suspect combination of hypovolemic and septic shock.---RESOLVED 8. Abn cxr with bilateral cavitary nodules Plan . 1. Continue with present oxygen. 2. minimize benzodiazepines and narcotics. 3. antibiotics per ID 4. No need for anticoagulation 5. Repeat CXR as needed. blood culture repeat per ID 6. will need HUNTER to assess the severity of tricuspid vegetations in the setting of persistent bacteremia . Discussed with RN. EMY SAEED MD Apr 04, 2019 10:59
[2019-04-04 12:36] LABS: U PREG PATIENT NEGATIVE (NEG)
[2019-04-04] MEDS ORDERED: IOHEXOL 300 MG/ML 100ML VIAL. IV ONE (13:00)
[2019-04-04] MEDS ORDERED: IOHEXOL 240 MG/ML 50ML VIAL. PO ONE (13:00)
--- NOTE | 2019-04-04 13:37 | PDOC ---
Renal-Progress Notes Subjective Notes Notes NO NEW CHANGES History of Present Illness Hx of present illness STABLE Vitals Vitals Vital Signs Date Time Temp Pulse Resp B/P (MAP) Pulse Ox O2 Delivery O2 Flow Rate FiO2 04/04/19 11:00 97.7 102 18 120/70 (87) 96 Room Air 97.7 04/03/19 19:40 2.0 Weight Weight [ ] I.O. Intake and Output Intake and Output 04/04/19 07:00 Intake Total 1825 ml Output Total 500 ml Balance 1325 ml Intake Oral 275 ml IV Total 1550 ml Output Urine Total 500 ml # Voids 4 Labs Labs Laboratory Tests Test 04/04/19 09:00 04/04/19 10:00 Sodium Level 133 mmol/L (136-145) Potassium Level 4.7 mmol/L (3.5-5.1) Chloride Level 106 mmol/L (98-107) Carbon Dioxide Level 17 mmol/L (21-32) Anion Gap 10 (6-14) Blood Urea Nitrogen 69 mg/dL (7-20) Creatinine 1.0 mg/dL (0.6-1.0) Estimated GFR (Cockcroft-Gault) 64.7 Glucose Level 118 mg/dL (70-99) Calcium Level 7.6 mg/dL (8.5-10.1) Urine Test Negative (NEG) Urine Opiates Screen Pos (NEG) Urine Methadone Screen Neg (NEG) Urine Barbiturates Neg (NEG) Urine Phencyclidine Screen Neg (NEG) Urine Amphetamine/Methamphetamine Neg (NEG) Urine Benzodiazepines Screen Neg (NEG) Urine Cocaine Screen Neg (NEG) Urine Cannabinoids Screen Neg (NEG) Urine Ethyl Alcohol Neg (NEG) Micro Micro Microbiology 04/03/19 Blood Culture - Final, Complete Review of Systems Constitutional: yes: alert Ears/Nose/Throat: Yes: no symptom reported Eyes: Yes: no symptom reported Pulmonary: Yes no symptom reported Cardiovascular: Yes no symptom reported Gastrointestional: Yes: no symptom reported Genitourinary: Yes: no symptom reported Musculoskeletal: Yes: no symptom reported Skin: Yes no symptom reported Psychiatric/Neurological: Yes: no symptom reported Endocrine: Yes: no symptom reported Physical Exam General Appearance: no apparent distress Skin: warm Respiratory: decreased breath sounds Heart: S1S2 Abdomen: soft Genitourinary: bladder flat Neurology: alert Assessment Assessment IMP RIKY-RESOLVED HYPONATREMIA-NEARLY RESOLVED SEPTIC EMBOLI ACUTE HYPOXIC RESP FAILURE SEPSIS HYPOTENSION-RESOLVED PROB ENDOCARDITIS AND RESULTING EMBOLI TO LUNGS PLAN WILL SIGN OFF UA NEG FOR NEPHRITIS ABHIJEET BOWERS MD Apr 04, 2019 13:37
--- NOTE | 2019-04-04 15:33 | RAD ---
Examination: CT CHEST ABD PELVIS W/CONTRAST History: Pulmonary abscess. Nausea, weight loss. Comparison/Correlation: None Findings: Axial images of the chest, abdomen, and pelvis were obtained following IV contrast. Sagittal and coronal reformatted images were provided. Moderate-sized bilateral pleural effusions are present and greater in size on the left. Minimal adjacent bibasilar atelectasis is present. Numerous bilateral pulmonary nodules are present and many of these have cavitary components. The largest of these is at the left anterior apical region measuring up to 2.9 cm diameter on axial image 18 of series 2. Liver is unremarkable. Spleen is enlarged measuring 15 cm longitudinal. The gallbladder fossa is unremarkable. Moderate amount of ascites is present. Anasarca noted. Pancreas, adrenal glands, and kidneys are unremarkable. Uterus is unremarkable. Urinary bladder is unremarkable. Bony structures are unremarkable. Impression: Numerous pulmonary nodules. Cavitary components are evident. Pleural effusions. Underlying infectious etiology may account for these findings. Fungal etiologies may account for these findings. Correlate for possible tuberculosis. Bacterial etiologies are also consideration. Correlate for underlying metastatic etiology alternatively. Ascites and anasarca. Splenomegaly. PQRS Compliance Statement: One or more of the following individualized dose reduction techniques were utilized for this examination: 1. Automated exposure control 2. Adjustment of the mA and/or kV according to patient size 3. Use of iterative reconstruction technique Electronically signed by: Jon Montejo MD (04/04/2019 3:31 PM) [facility]
[2019-04-05] VITALS (11 sets, daily range): BP systolic 113–131; BP diastolic 61–94
[2019-04-05] MEDS: KETOROLAC 15 MG/ML VIAL. IV PRN ×2 (02:47→16:44)
[2019-04-05 05:07] LABS: BASO % 0 % (0-3); EOS % 0 % (0-3); HEMATOCRIT 21.1 % (36.0-47.0); LYMPH # 1.3 x10^3/uL (1.0-4.8); LYMPH % 11 % (24-48); MEAN CORPUSCULAR HEMOGLOBIN 28 pg (25-35); MEAN CORPUSCULAR HGB CONC 33 g/dL (31-37); MEAN CORPUSCULAR VOLUME 84 fL (79-100); MONO # 0.6 x10^3/uL (0.0-1.1); MONO % 5 % (0-9); NEUT # 9.8 x10^3/uL (1.8-7.7); NEUT % 83 % (31-73); PLATELET COUNT 84 x10^3/uL (140-400); RED BLOOD COUNT 2.52 x10^6/uL (3.50-5.40); RED CELL DISTRIBUTION WIDTH 19.7 % (11.5-14.5); WHITE BLOOD COUNT 11.8 x10^3/uL (4.0-11.0)
[2019-04-05 05:17] LABS: HEMOGLOBIN 6.9 g/dL (12.0-15.5)
--- NOTE | 2019-04-05 05:19 | NUR ---
Sabine in lab called with a critical hemoglobin of 6.9 and hematocrit of 21.1 at 0519. RN paged Dr. Clarke at [address] Clarke returned call at 0537 with orders to transfuse 2 units of RBC's. RN will continue to monitor patient closely.
[2019-04-05 05:20] LABS: ALBUMIN 1.1 g/dL (3.4-5.0); ALBUMIN/GLOBULIN RATIO 0.2 (1.0-1.7); CALCIUM 7.9 mg/dL (8.5-10.1); CREATININE 0.9 mg/dL (0.6-1.0); TOTAL BILIRUBIN 0.3 mg/dL (0.2-1.0); TOTAL PROTEIN 5.6 g/dL (6.4-8.2)
[2019-04-05] MEDS: CEFTAROLINE FOSAMIL 600 MG in IV NORMAL SALINE 250ML 250 ML IV SCH ×3 (06:07→21:07)
[2019-04-05] MEDS ORDERED: ACETAMINOPHEN 500 MG TABLET PO PRN (08:45)
[2019-04-05] MEDS ORDERED: LIDOCAINE 2% TOPICAL JELLY 5GM TUBE. TP ONE ×2 (08:45→13:39)
[2019-04-05] MEDS ORDERED: BENZOCAINE ONE 20% MUCOSAL SPRAY. MM (08:45)
[2019-04-05] MEDS ORDERED: ALBUTEROL SULFATE 2.5 MG/3 ML NEBU. NEB PRN (08:45)
[2019-04-05] MEDS ORDERED: LIDOCAINE 2% VISCOUS 15 ML SOLUTION. SWSW ONE (08:45)
[2019-04-05] MEDS: DOCUSATE SODIUM 100 MG CAPSULE. PO SCH ×2 (09:00→21:00)
[2019-04-05] MEDS: CHLORHEXIDINE 0.12% 15 ML MOUTHWASH. SWSP SCH ×2 (09:00→21:00)
[2019-04-05] MEDS: FERROUS SULFATE 325 MG TABLET. PO SCH (09:00)
[2019-04-05] MEDS: LACTOBACILLUS RHAMNOSUS GG 1 CAPSULE. PO SCH ×2 (09:00→21:00)
[2019-04-05] MEDS: oxyCODONE/APAP 7.5/325 1 TAB TABLET PO PRN ×3 (09:05→21:20)
[2019-04-05] MEDS: diphenhydrAMINE 50 MG/ML VIAL IVP PRN (09:09)
--- NOTE | 2019-04-05 10:29 | PDOC ---
Provider Note Provider Note 04/05/2019 1020 Pt noted with with TV vegetation/endocarditis. Remains to have fever despite antibiotics and would need to rule out for any associated abscess. Discussed HUNTER with pt risks and benefits discussed and agreeable to proceed. BOB MCNAMARA [employer]ITTER AND REWIND[employer] MACHINE OPERATOR Apr 05, 2019 10:29
--- NOTE | 2019-04-05 10:46 | PDOC ---
Infectious Disease Note Subjective Subjective feeling better, but sleepy all the time ROS ROS no n/v/d/ Vital Sign Vital Signs Vital Signs Date Time Temp Pulse Resp B/P (MAP) Pulse Ox O2 Delivery O2 Flow Rate FiO2 04/05/19 10:09 20 94 Room Air 2.0 04/05/19 07:00 97.5 101 131/94 (106) 97.5 Physical Exam PHYSICAL EXAM GENERAL: Propped up in bed, tired appearance, NAD HEENT: Pupils are equal and reactive. Oral cavity, pharynx is dry NECK: Supple, no JVD. LUNGS: Clear to auscultation bilaterally. HEART: S1, S2 with questionable murmur. ABDOMEN: Soft, nontender, no guarding or rebound. EXTREMITIES: Trace edema, no cyanosis SKIN: Warm to touch without rash. Multiple tattoos. NEUROLOGIC: Nonfocal, moves all extremities. PIVs Labs Lab Laboratory Tests Test 04/05/19 03:20 White Blood Count 11.8 x10^3/uL (4.0-11.0) Red Blood Count 2.52 x10^6/uL (3.50-5.40) Hemoglobin 6.9 g/dL (12.0-15.5) Hematocrit 21.1 % (36.0-47.0) Mean Corpuscular Volume 84 fL (79-100) Mean Corpuscular Hemoglobin 28 pg (25-35) Mean Corpuscular Hemoglobin Concent 33 g/dL (31-37) Red Cell Distribution Width 19.7 % (11.5-14.5) Platelet Count 84 x10^3/uL (140-400) Neutrophils (%) (Auto) 83 % (31-73) Lymphocytes (%) (Auto) 11 % (24-48) Monocytes (%) (Auto) 5 % (0-9) Eosinophils (%) (Auto) 0 % (0-3) Basophils (%) (Auto) 0 % (0-3) Neutrophils # (Auto) 9.8 x10^3/uL (1.8-7.7) Lymphocytes # (Auto) 1.3 x10^3/uL (1.0-4.8) Monocytes # (Auto) 0.6 x10^3/uL (0.0-1.1) Eosinophils # (Auto) 0.0 x10^3/uL (0.0-0.7) Basophils # (Auto) 0.0 x10^3/uL (0.0-0.2) Sodium Level 140 mmol/L (136-145) Potassium Level 5.0 mmol/L (3.5-5.1) Chloride Level 110 mmol/L (98-107) Carbon Dioxide Level 18 mmol/L (21-32) Anion Gap 12 (6-14) Blood Urea Nitrogen 58 mg/dL (7-20) Creatinine 0.9 mg/dL (0.6-1.0) Estimated GFR (Cockcroft-Gault) 73.0 BUN/Creatinine Ratio 64 (6-20) Glucose Level 83 mg/dL (70-99) Calcium Level 7.9 mg/dL (8.5-10.1) Total Bilirubin 0.3 mg/dL (0.2-1.0) Aspartate Amino Transf (AST/SGOT) 23 U/L (15-37) Alanine Aminotransferase (ALT/SGPT) 8 U/L (14-59) Alkaline Phosphatase 98 U/L (46-116) Total Protein 5.6 g/dL (6.4-8.2) Albumin 1.1 g/dL (3.4-5.0) Albumin/Globulin Ratio 0.2 (1.0-1.7) Micro BLOOD CULTURE Final GRAM POSITIVE COCCI IN CLUSTERS SEEN IN 1 OF 1 PED BOTTLES; 1 SET WAS DRAWN; RESULTS WERE CALLED TO TON VANN IN ICU AT 0815; 04/02/19 BY MAYA. THE BLOOD CULTURES HAVE BEEN SENT TO [facility] FOR FURTHER WORKUP. Objective Assessment Fever MRSA sepsis (at [place] per report from blood 03/29). 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 PE Pulm HTN Hep C - ? if treated in past 4 weeks post Plan Plan of Care Cont Zyvox ,, ceftarolin, cr is better now need fluids Trough 18.2 Perdiex - oral care Will need HUNTER today F/u labs and cults May need GI eval from Hep C f/u todays labs D/w nursing ct chest, abd and pelvis,, VERA Wheat MD Apr 05, 2019 10:46
--- NOTE | 2019-04-05 11:26 | PDOC ---
PULMONARY PROGRESS NOTES Subjective denies shortness of breath.. Comments no acute distress. Vitals Vital Signs Date Time Temp Pulse Resp B/P (MAP) Pulse Ox O2 Delivery O2 Flow Rate FiO2 04/05/19 10:09 20 94 Room Air 2.0 04/05/19 07:00 97.5 101 131/94 (106) 97.5 ROS: No Nausea, No Chest Pain, No Abdominal Pain, No Increase Cough General: Alert, No acute distress Lungs: Clear, Other Cardiovascular: S1, S2 Abdomen: Soft, Non-tender Neuro Exam: Alert, Oriented Extremities: No Edema Skin: Warm Labs Laboratory Tests Test 04/03/19 13:20 04/04/19 09:00 04/04/19 10:00 04/05/19 03:20 Urine Collection Type Unknown Urine Color Yellow Urine Clarity Clear Urine pH 5.5 Urine Specific [place] 1.015 Urine Protein Negative mg/dL (NEG-TRACE) Urine Glucose (UA) Negative mg/dL (NEG) Urine Ketones (Stick) Negative mg/dL (NEG) Urine Blood Moderate (NEG) Urine Nitrite Negative (NEG) Urine Bilirubin Negative (NEG) Urine Urobilinogen Dipstick 0.2 mg/dL (0.2 mg/dL) Urine Leukocyte Esterase Trace (NEG) Urine RBC 1-2 /HPF (0-2) Urine WBC 1-4 /HPF (0-4) Urine Squamous Epithelial Cells Many /LPF Urine Bacteria Few /HPF (0-FEW) Sodium Level 133 mmol/L (136-145) 140 mmol/L (136-145) Potassium Level 4.7 mmol/L (3.5-5.1) 5.0 mmol/L (3.5-5.1) Chloride Level 106 mmol/L (98-107) 110 mmol/L (98-107) Carbon Dioxide Level 17 mmol/L (21-32) 18 mmol/L (21-32) Anion Gap 10 (6-14) 12 (6-14) Blood Urea Nitrogen 69 mg/dL (7-20) 58 mg/dL (7-20) Creatinine 1.0 mg/dL (0.6-1.0) 0.9 mg/dL (0.6-1.0) Estimated GFR (Cockcroft-Gault) 64.7 73.0 Glucose Level 118 mg/dL (70-99) 83 mg/dL (70-99) Calcium Level 7.6 mg/dL (8.5-10.1) 7.9 mg/dL (8.5-10.1) Urine Test Negative (NEG) Urine Opiates Screen Pos (NEG) Urine Methadone Screen Neg (NEG) Urine Barbiturates Neg (NEG) Urine Phencyclidine Screen Neg (NEG) Urine Amphetamine/Methamphetamine Neg (NEG) Urine Benzodiazepines Screen Neg (NEG) Urine Cocaine Screen Neg (NEG) Urine Cannabinoids Screen Neg (NEG) Urine Ethyl Alcohol Neg (NEG) White Blood Count 11.8 x10^3/uL (4.0-11.0) Red Blood Count 2.52 x10^6/uL (3.50-5.40) Hemoglobin 6.9 g/dL (12.0-15.5) Hematocrit 21.1 % (36.0-47.0) Mean Corpuscular Volume 84 fL (79-100) Mean Corpuscular Hemoglobin 28 pg (25-35) Mean Corpuscular Hemoglobin Concent 33 g/dL (31-37) Red Cell Distribution Width 19.7 % (11.5-14.5) Platelet Count 84 x10^3/uL (140-400) Neutrophils (%) (Auto) 83 % (31-73) Lymphocytes (%) (Auto) 11 % (24-48) Monocytes (%) (Auto) 5 % (0-9) Eosinophils (%) (Auto) 0 % (0-3) Basophils (%) (Auto) 0 % (0-3) Neutrophils # (Auto) 9.8 x10^3/uL (1.8-7.7) Lymphocytes # (Auto) 1.3 x10^3/uL (1.0-4.8) Monocytes # (Auto) 0.6 x10^3/uL (0.0-1.1) Eosinophils # (Auto) 0.0 x10^3/uL (0.0-0.7) Basophils # (Auto) 0.0 x10^3/uL (0.0-0.2) BUN/Creatinine Ratio 64 (6-20) Total Bilirubin 0.3 mg/dL (0.2-1.0) Aspartate Amino Transf (AST/SGOT) 23 U/L (15-37) Alanine Aminotransferase (ALT/SGPT) 8 U/L (14-59) Alkaline Phosphatase 98 U/L (46-116) Total Protein 5.6 g/dL (6.4-8.2) Albumin 1.1 g/dL (3.4-5.0) Albumin/Globulin Ratio 0.2 (1.0-1.7) Laboratory Tests Test 04/05/19 03:20 White Blood Count 11.8 x10^3/uL (4.0-11.0) Red Blood Count 2.52 x10^6/uL (3.50-5.40) Hemoglobin 6.9 g/dL (12.0-15.5) Hematocrit 21.1 % (36.0-47.0) Mean Corpuscular Volume 84 fL (79-100) Mean Corpuscular Hemoglobin 28 pg (25-35) Mean Corpuscular Hemoglobin Concent 33 g/dL (31-37) Red Cell Distribution Width 19.7 % (11.5-14.5) Platelet Count 84 x10^3/uL (140-400) Neutrophils (%) (Auto) 83 % (31-73) Lymphocytes (%) (Auto) 11 % (24-48) Monocytes (%) (Auto) 5 % (0-9) Eosinophils (%) (Auto) 0 % (0-3) Basophils (%) (Auto) 0 % (0-3) Neutrophils # (Auto) 9.8 x10^3/uL (1.8-7.7) Lymphocytes # (Auto) 1.3 x10^3/uL (1.0-4.8) Monocytes # (Auto) 0.6 x10^3/uL (0.0-1.1) Eosinophils # (Auto) 0.0 x10^3/uL (0.0-0.7) Basophils # (Auto) 0.0 x10^3/uL (0.0-0.2) Sodium Level 140 mmol/L (136-145) Potassium Level 5.0 mmol/L (3.5-5.1) Chloride Level 110 mmol/L (98-107) Carbon Dioxide Level 18 mmol/L (21-32) Anion Gap 12 (6-14) Blood Urea Nitrogen 58 mg/dL (7-20) Creatinine 0.9 mg/dL (0.6-1.0) Estimated GFR (Cockcroft-Gault) 73.0 BUN/Creatinine Ratio 64 (6-20) Glucose Level 83 mg/dL (70-99) Calcium Level 7.9 mg/dL (8.5-10.1) Total Bilirubin 0.3 mg/dL (0.2-1.0) Aspartate Amino Transf (AST/SGOT) 23 U/L (15-37) Alanine Aminotransferase (ALT/SGPT) 8 U/L (14-59) Alkaline Phosphatase 98 U/L (46-116) Total Protein 5.6 g/dL (6.4-8.2) Albumin 1.1 g/dL (3.4-5.0) Albumin/Globulin Ratio 0.2 (1.0-1.7) Medications Active Scripts Medications Dose Route/Sig Max Daily Dose Days Date Category Prenate Elite Tablet ( #79/Iron Asp Gly/FA#1) 1 Each Tablet 1 Each PO DAILY 03/29/19 Reported Ibuprofen 800 Mg Tablet 800 Mg PO PRN Q6HRS PRN 03/29/19 Reported Ferrous Sulfate 325 Mg Tablet 325 Mg PO DAILY 03/29/19 Reported Docusate Sodium 100 Mg Capsule 100 Mg PO BID 03/29/19 Reported Impression . IMPRESSION: 1. Acute hypoxic respiratory failure secondary to sepsis with MRSA 2. septic emboli, history of IV meth abuse. still had 2/4 blood cultures positive from 03/31, 04/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 4. Lower lobe pulmonary emboli.Likely infective emboli. I suspect this is related to obstruction of the pulmonary vessels from right-sided vegetations and dislodgement. In the setting of anemia and thrombocytopenia, anticoagulation would be high risk and not indicated. 5. History of hepatitis C with chronic thrombocytopenia.--improving slowly/stable 6. Polysubstance abuse. 7. Hypotension. Suspect combination of hypovolemic and septic shock.---RESOLVED 8. Abn cxr with bilateral cavitary nodules Plan . 1. Continue with present oxygen. 2. minimize benzodiazepines and narcotics. 3. antibiotics per ID 4. No need for anticoagulation 5. Repeat CXR as needed. blood culture repeat per ID 6. will need HUNTER to assess the severity of tricuspid vegetations in the setting of persistent bacteremia, scheduled today . Discussed with JAKY. EMY SAEED MD Apr 05, 2019 11:26
--- NOTE | 2019-04-05 11:53 | PDOC ---
PROGRESS NOTES Chief Complaint Chief Complaint MRSA bacteremia Sepsis Tricuspid Vegetation Septic emboli acute metabolic encephalopathy resolved (heroine etc) polysubstance abuse, and withdrawal symptoms pancytopenia from sepsis multiple tattoes Acute precipitous drop hgb SP History of Present Illness History of Present Illness Asleep i did not awaken TRansferred out of ICU For HUNTER later HGb 6, poor IV access ON vanc for mRSA Dw ID - midline ok BUT NOT PICC Dw RN PLAN: TRansfuse HUNTER MID line IV Vanc dw RN and ID cbc tmr Vitals Vitals Vital Signs Date Time Temp Pulse Resp B/P (MAP) Pulse Ox O2 Delivery O2 Flow Rate FiO2 04/05/19 11:37 94 Nasal Cannula 2.0 04/05/19 10:09 20 04/05/19 07:00 97.5 101 131/94 (106) 97.5 Physical Exam Physical Exam GENERAL: Propped up in bed, tired appearance, NAD HEENT: Pupils are equal and reactive. Oral cavity, pharynx is dry NECK: Supple, no JVD. LUNGS: Clear to auscultation bilaterally. HEART: S1, S2 with questionable murmur. ABDOMEN: Soft, nontender, no guarding or rebound. EXTREMITIES: Trace edema, no cyanosis SKIN: Warm to touch without rash. Multiple tattoos. NEUROLOGIC: Nonfocal, moves all extremities. PIVs General: Alert, Oriented X3, No acute distress, mild distress Heart: Regular rate Lungs: Clear, Other Abdomen: Soft, No tenderness Extremities: No cyanosis, No edema Skin: No breakdown Labs LABS Laboratory Tests Test 04/05/19 03:20 White Blood Count 11.8 x10^3/uL (4.0-11.0) Red Blood Count 2.52 x10^6/uL (3.50-5.40) Hemoglobin 6.9 g/dL (12.0-15.5) Hematocrit 21.1 % (36.0-47.0) Mean Corpuscular Volume 84 fL (79-100) Mean Corpuscular Hemoglobin 28 pg (25-35) Mean Corpuscular Hemoglobin Concent 33 g/dL (31-37) Red Cell Distribution Width 19.7 % (11.5-14.5) Platelet Count 84 x10^3/uL (140-400) Neutrophils (%) (Auto) 83 % (31-73) Lymphocytes (%) (Auto) 11 % (24-48) Monocytes (%) (Auto) 5 % (0-9) Eosinophils (%) (Auto) 0 % (0-3) Basophils (%) (Auto) 0 % (0-3) Neutrophils # (Auto) 9.8 x10^3/uL (1.8-7.7) Lymphocytes # (Auto) 1.3 x10^3/uL (1.0-4.8) Monocytes # (Auto) 0.6 x10^3/uL (0.0-1.1) Eosinophils # (Auto) 0.0 x10^3/uL (0.0-0.7) Basophils # (Auto) 0.0 x10^3/uL (0.0-0.2) Sodium Level 140 mmol/L (136-145) Potassium Level 5.0 mmol/L (3.5-5.1) Chloride Level 110 mmol/L (98-107) Carbon Dioxide Level 18 mmol/L (21-32) Anion Gap 12 (6-14) Blood Urea Nitrogen 58 mg/dL (7-20) Creatinine 0.9 mg/dL (0.6-1.0) Estimated GFR (Cockcroft-Gault) 73.0 BUN/Creatinine Ratio 64 (6-20) Glucose Level 83 mg/dL (70-99) Calcium Level 7.9 mg/dL (8.5-10.1) Total Bilirubin 0.3 mg/dL (0.2-1.0) Aspartate Amino Transf (AST/SGOT) 23 U/L (15-37) Alanine Aminotransferase (ALT/SGPT) 8 U/L (14-59) Alkaline Phosphatase 98 U/L (46-116) Total Protein 5.6 g/dL (6.4-8.2) Albumin 1.1 g/dL (3.4-5.0) Albumin/Globulin Ratio 0.2 (1.0-1.7) Review of Systems Review of Systems asleep i did not awaken Assessment and Plan Assessmemt and Plan Problems Medical Problems: (1) RIKY (acute kidney injury) Status: Acute (2) Endocarditis Status: Acute (3) Hypotension Status: Acute (4) Pulmonary hypertension Status: Chronic (5) Renal failure Status: Acute (6) Respiratory failure Status: Acute (7) Septic pulmonary embolism Status: Acute (8) Severe sepsis Status: Acute (9) Severe tricuspid regurgitation Status: Chronic Comment Review of Relevant I have reviewed the following items kim (where applicable) has been applied. Labs Laboratory Tests Test 04/03/19 13:20 04/04/19 09:00 04/04/19 10:00 04/05/19 03:20 Urine Collection Type Unknown Urine Color Yellow Urine Clarity Clear Urine pH 5.5 Urine Specific [place] 1.015 Urine Protein Negative mg/dL (NEG-TRACE) Urine Glucose (UA) Negative mg/dL (NEG) Urine Ketones (Stick) Negative mg/dL (NEG) Urine Blood Moderate (NEG) Urine Nitrite Negative (NEG) Urine Bilirubin Negative (NEG) Urine Urobilinogen Dipstick 0.2 mg/dL (0.2 mg/dL) Urine Leukocyte Esterase Trace (NEG) Urine RBC 1-2 /HPF (0-2) Urine WBC 1-4 /HPF (0-4) Urine Squamous Epithelial Cells Many /LPF Urine Bacteria Few /HPF (0-FEW) Sodium Level 133 mmol/L (136-145) 140 mmol/L (136-145) Potassium Level 4.7 mmol/L (3.5-5.1) 5.0 mmol/L (3.5-5.1) Chloride Level 106 mmol/L (98-107) 110 mmol/L (98-107) Carbon Dioxide Level 17 mmol/L (21-32) 18 mmol/L (21-32) Anion Gap 10 (6-14) 12 (6-14) Blood Urea Nitrogen 69 mg/dL (7-20) 58 mg/dL (7-20) Creatinine 1.0 mg/dL (0.6-1.0) 0.9 mg/dL (0.6-1.0) Estimated GFR (Cockcroft-Gault) 64.7 73.0 Glucose Level 118 mg/dL (70-99) 83 mg/dL (70-99) Calcium Level 7.6 mg/dL (8.5-10.1) 7.9 mg/dL (8.5-10.1) Urine Test Negative (NEG) Urine Opiates Screen Pos (NEG) Urine Methadone Screen Neg (NEG) Urine Barbiturates Neg (NEG) Urine Phencyclidine Screen Neg (NEG) Urine Amphetamine/Methamphetamine Neg (NEG) Urine Benzodiazepines Screen Neg (NEG) Urine Cocaine Screen Neg (NEG) Urine Cannabinoids Screen Neg (NEG) Urine Ethyl Alcohol Neg (NEG) White Blood Count 11.8 x10^3/uL (4.0-11.0) Red Blood Count 2.52 x10^6/uL (3.50-5.40) Hemoglobin 6.9 g/dL (12.0-15.5) Hematocrit 21.1 % (36.0-47.0) Mean Corpuscular Volume 84 fL (79-100) Mean Corpuscular Hemoglobin 28 pg (25-35) Mean Corpuscular Hemoglobin Concent 33 g/dL (31-37) Red Cell Distribution Width 19.7 % (11.5-14.5) Platelet Count 84 x10^3/uL (140-400) Neutrophils (%) (Auto) 83 % (31-73) Lymphocytes (%) (Auto) 11 % (24-48) Monocytes (%) (Auto) 5 % (0-9) Eosinophils (%) (Auto) 0 % (0-3) Basophils (%) (Auto) 0 % (0-3) Neutrophils # (Auto) 9.8 x10^3/uL (1.8-7.7) Lymphocytes # (Auto) 1.3 x10^3/uL (1.0-4.8) Monocytes # (Auto) 0.6 x10^3/uL (0.0-1.1) Eosinophils # (Auto) 0.0 x10^3/uL (0.0-0.7) Basophils # (Auto) 0.0 x10^3/uL (0.0-0.2) BUN/Creatinine Ratio 64 (6-20) Total Bilirubin 0.3 mg/dL (0.2-1.0) Aspartate Amino Transf (AST/SGOT) 23 U/L (15-37) Alanine Aminotransferase (ALT/SGPT) 8 U/L (14-59) Alkaline Phosphatase 98 U/L (46-116) Total Protein 5.6 g/dL (6.4-8.2) Albumin 1.1 g/dL (3.4-5.0) Albumin/Globulin Ratio 0.2 (1.0-1.7) Laboratory Tests Test 04/05/19 03:20 White Blood Count 11.8 x10^3/uL (4.0-11.0) Red Blood Count 2.52 x10^6/uL (3.50-5.40) Hemoglobin 6.9 g/dL (12.0-15.5) Hematocrit 21.1 % (36.0-47.0) Mean Corpuscular Volume 84 fL (79-100) Mean Corpuscular Hemoglobin 28 pg (25-35) Mean Corpuscular Hemoglobin Concent 33 g/dL (31-37) Red Cell Distribution Width 19.7 % (11.5-14.5) Platelet Count 84 x10^3/uL (140-400) Neutrophils (%) (Auto) 83 % (31-73) Lymphocytes (%) (Auto) 11 % (24-48) Monocytes (%) (Auto) 5 % (0-9) Eosinophils (%) (Auto) 0 % (0-3) Basophils (%) (Auto) 0 % (0-3) Neutrophils # (Auto) 9.8 x10^3/uL (1.8-7.7) Lymphocytes # (Auto) 1.3 x10^3/uL (1.0-4.8) Monocytes # (Auto) 0.6 x10^3/uL (0.0-1.1) Eosinophils # (Auto) 0.0 x10^3/uL (0.0-0.7) Basophils # (Auto) 0.0 x10^3/uL (0.0-0.2) Sodium Level 140 mmol/L (136-145) Potassium Level 5.0 mmol/L (3.5-5.1) Chloride Level 110 mmol/L (98-107) Carbon Dioxide Level 18 mmol/L (21-32) Anion Gap 12 (6-14) Blood Urea Nitrogen 58 mg/dL (7-20) Creatinine 0.9 mg/dL (0.6-1.0) Estimated GFR (Cockcroft-Gault) 73.0 BUN/Creatinine Ratio 64 (6-20) Glucose Level 83 mg/dL (70-99) Calcium Level 7.9 mg/dL (8.5-10.1) Total Bilirubin 0.3 mg/dL (0.2-1.0) Aspartate Amino Transf (AST/SGOT) 23 U/L (15-37) Alanine Aminotransferase (ALT/SGPT) 8 U/L (14-59) Alkaline Phosphatase 98 U/L (46-116) Total Protein 5.6 g/dL (6.4-8.2) Albumin 1.1 g/dL (3.4-5.0) Albumin/Globulin Ratio 0.2 (1.0-1.7) Microbiology 04/03/19 Blood Culture - Final, Complete Medications Current Medications Albumin Human 100 ml @ 100 mls/hr 1X ONCE IV Last administered on 03/29/19at 14:59; Start 03/29/19 at 14:30; Stop 03/29/19 at 15:29; Status DC Norepinephrine Bitartrate 250 ml @ 9.781 mls/ hr CONT PRN IV SEE I/O RECORD Last administered on 03/29/19at 23:25; Start 03/29/19 at 14:30; Stop 04/03/19 at 11:24; Status DC Sodium Chloride 1,000 ml @ 100 mls/hr Q10H IV Last administered on 03/29/19at 23:25; Start 03/29/19 at 14:30; Stop 03/30/19 at 12:08; Status DC Guaifenesin (Robitussin Dm) 10 ml PRN Q6HRS PRN PO COUGH Last administered on 04/03/19at 23:27; Start 03/29/19 at 15:30 Sodium Bicarbonate (Sodium Bicarb Adult 8.4% Syr) 50 meq 1X ONCE IV Last administered on 03/29/19at 16:49; Start 03/29/19 at 16:00; Stop 03/29/19 at 16:01; Status DC Sodium Bicarbonate (Sodium Bicarb Adult 8.4% Syr) 50 meq 1X ONCE IV Last administered on 03/29/19at 16:49; Start 03/29/19 at 16:00; Stop 03/29/19 at 16:01; Status DC Vancomycin HCl (Vanco Per Pharmacy) 1 each PRN DAILY PRN MC SEE COMMENTS Last administered on 04/02/19at 15:03; Start 03/29/19 at 17:15; Stop 04/03/19 at 07:34; Status DC Piperacillin Sod/ Tazobactam Sod (Zosyn Per Pharmacy) 1 each PRN DAILY PRN MC SEE COMMENTS; Start 03/29/19 at 17:15; Stop 03/31/19 at 07:37; Status DC Piperacillin Sod/ Tazobactam Sod 4.5 gm/Sodium Chloride 100 ml @ 200 mls/hr Q6HRS IV Last administered on 03/31/19at 06:23; Start 03/29/19 at 18:00; Stop 03/31/19 at 07:37; Status DC Vancomycin HCl 1.25 gm/Sodium Chloride 250 ml @ 166.667 mls/hr 1X ONCE IV Last administered on 03/29/19at 17:37; Start 03/29/19 at 17:15; Stop 03/29/19 at 18:44; Status DC Vancomycin HCl 750 mg/Sodium Chloride 250 ml @ 250 mls/hr Q18H IV Last administered on 03/30/19at 10:19; Start 03/30/19 at 11:00; Stop 03/30/19 at 12:54; Status DC Vancomycin HCl (Vancomycin Trough Level) 1 each 1X ONCE MC ; Start 03/31/19 at 09:30; Stop 03/31/19 at 09:31; Status DC Magnesium Sulfate 50 ml @ 25 mls/hr 1X ONCE IV Last administered on 03/29/19at 20:02; Start 03/29/19 at 20:00; Stop 03/29/19 at 21:59; Status DC Linezolid/Dextrose 300 ml @ 300 mls/hr Q12HR IV Last administered on 04/05/19at 09:05; Start 03/30/19 at 09:00 Chlorhexidine Gluconate (Peridex) 15 ml BID SWSP Last administered on 04/04/19at 08:17; Start 03/30/19 at 09:00 Amino Acids/ Glycerin/ Electrolytes 1,000 ml @ 100 mls/hr Q10H IV Last adminis tered on 04/03/19at 07:36; Start 03/30/19 at 12:00; Stop 04/03/19 at 11:38; Status DC Vancomycin HCl 750 mg/Sodium Chloride 250 ml @ 250 mls/hr Q12H IV Last administered on 04/02/19at 21:48; Start 03/30/19 at 22:00; Stop 04/03/19 at 07:34; Status DC Hydromorphone HCl (Dilaudid) 1 mg PRN Q4HRS PRN IV PAIN Last administered on 03/31/19 05:11; Start 03/30/19 at 21:00; Stop 03/31/19 at 09:43; Status DC Hydromorphone HCl (Dilaudid) 1 mg PRN Q2HR PRN IV PAIN Last administered on 03/31/19at 20:06; Start 03/31/19 at 09:45; Stop 03/31/19 at 22:00; Status DC Haloperidol Lactate (Haldol Inj) 2 mg PRN Q6HRS PRN IVP AGITATION Last adminis tered on 04/01/19at 00:07; Start 03/31/19 at 09:45 Hydromorphone HCl (Dilaudid) 1 mg PRN Q2HR PRN IV MOD TO SEVERE PAIN Last adm inistered on 04/01/19at 01:37; Start 04/01/19 at 00:45 Oxycodone/ Acetaminophen (Percocet 7.5/ 325) 1 tab PRN Q4HRS PRN PO PAIN Last administered on 04/05/19 09:05; Start 04/01/19 at 09:00 Sodium Chloride 1,000 ml @ 125 mls/hr 1X ONCE IV Last administered on 04/01/19at 18:11; Start 04/01/19 at 09:00; Stop 04/01/19 at 16:59; Status DC Ketorolac Tromethamine (Toradol 15mg Vial) 15 mg PRN Q6HRS PRN IV MILD PAIN 1-3 Last administered on 04/05/19at 02:47; Start 04/01/19 at 09:00; Stop 04/06/19 at 08:59 Diphenhydramine HCl (Benadryl) 25 mg PRN Q6HRS PRN IVP ITCHING Last administered on 04/05/19 09:09; Start 04/01/19 at 14:00 Lactobacillus Rhamnosus (Culturelle) 1 cap BID PO Last administered on 04/04/19at 21:02; Start 04/02/19 at 21:00 Ceftaroline Fosamil 600 mg/ Sodium Chloride 250 ml @ 250 mls/hr Q8HRS IV Last administered on 04/05/19 06:07; Start 04/03/19 at 08:00 Sodium Chloride 1,000 ml @ 200 mls/hr 1X ONCE IV Last administered on 04/03/19at 08:45; Start 04/03/19 at 08:30; Stop 04/03/19 at 13:29; Status DC Iohexol (Omnipaque 240 Mg/ml) 30 ml 1X ONCE PO Last administered on 04/04/19at 13:49; Start 04/04/19 at 13:00; Stop 04/04/19 at 13:01; Status DC Iohexol (Omnipaque 300 Mg/ml) 75 ml 1X ONCE IV Last administered on 04/04/19at 14:42; Start 04/04/19 at 13:00; Stop 04/04/19 at 13:01; Status DC Lidocaine HCl (Xylocaine 2% Topical 5gm Tube) 1 garrison 1X ONCE TP ; Start 04/05/19 at 08:45; Stop 04/05/19 at 08:47; Status DC Lidocaine HCl (Viscous Lidocaine) 15 ml 1X ONCE SWSW ; Start 04/05/19 at 08:45; Stop 04/05/19 at 08:47; Status DC Benzocaine (Hurricaine One) 2 spray 1X ONCE MM ; Start 04/05/19 at 08:45; Stop 04/05/19 at 08:47; Status DC Albuterol Sulfate (Ventolin Neb Soln) 2.5 mg PRN Q4HRS PRN NEB SHORTNESS OF BREATH; Start 04/05/19 at 08:45 Ondansetron HCl (Zofran) 4 mg PRN Q6HRS PRN IV NAUSEA/VOMITING; Start 04/05/19 at 08:45 Acetaminophen (Tylenol) 500 mg PRN Q6HRS PRN PO MILD PAIN / TEMP; Start 04/05/19 at 08:45 Docusate Sodium (Colace) 100 mg BID PO ; Start 04/05/19 at 09:00 Ferrous Sulfate (Feosol) 325 mg DAILY PO ; Start 04/05/19 at 09:00 Active Scripts Active Reported Prenate Elite Tablet ( #79/Iron Asp Gly/FA#1) 1 Each Tablet 1 Each PO DAILY Ibuprofen 800 Mg Tablet 800 Mg PO PRN Q6HRS PRN Ferrous Sulfate 325 Mg Tablet 325 Mg PO DAILY Docusate Sodium 100 Mg Capsule 100 Mg PO BID Vitals/I & O Vital Sign - Last 24 Hours 9/24/04/04/19 04/04/19 04/04/19 15:00 16:16 18:15 19:00 Temp 97.4 97.8 97.4 97.8 Pulse 111 106 Resp 18 18 18 B/P (MAP) 120/86 (97) 125/83 (97) Pulse Ox 96 95 O2 Delivery Room Air Room Air Room Air O2 Flow Rate 2.0 04/04/19 04/04/19 04/04/19 04/05/19 19:45 21:02 23:00 02:45 Temp 98.2 98.2 Pulse 109 B/P (MAP) 126/81 (96) Pulse Ox 95 O2 Delivery Room Air Room Air Room Air Room Air O2 Flow Rate 2.0 2.0 04/05/19 04/05/19 04/05/19 04/05/19 03:00 07:00 09:05 10:09 Temp 98.0 97.5 98.0 97.5 Pulse 108 101 Resp 20 B/P (MAP) 129/92 (104) 131/94 (106) Pulse Ox 94 98 94 94 O2 Delivery Room Air Room Air Room Air Room Air O2 Flow Rate 2.0 2.0 2.0 04/05/19 11:37 Pulse Ox 94 O2 Delivery Nasal Cannula O2 Flow Rate 2.0 Intake and Output 04/04/19 04/04/19 04/05/19 15:00 23:00 07:00 Intake Total 200 ml Output Total 500 ml 700 ml Balance -300 ml -700 ml Nutrition Consultation Dietary Evaluation: Recommendations by RD: Protein supplementation, PPN/TPN Comments: Continue w/regular diet as ordered, honor food preferences, and provide snacks as requested Continue w/PPN to supplement PO intake at this time, can stop PPN once PO intake consistently >50% meals and tolerated Expected Outcomes/Goals: PO intake + PPN to meet >75% est needs - met, goal ongoing Interpretation of weight loss: >20% in 1 year Malnutrition Findings: Food and Nutrition Intake (Mod: <75% est energy req 7days Weight Status: Appropriate MACIEJ LOWE MD Apr 05, 2019 11:53
--- NOTE | 2019-04-05 12:00 | NUR ---
SS following up with discharge planning. PT/OT recommended acute rehabilitation. SS met with pt to discuss discharge planning and acute rehabilitation. Pt agreeable to referral to [facility], ; fax [phone]. Pt has Medicaid. SS phoned and faxed referral to [facility]. SS will await acceptance decision and insurance determination and will proceed accordingly with discharge planning.
[2019-04-05] MEDS ORDERED: LIDOCAINE 2% VISCOUS 15 ML SOLUTION. ONE (13:39)
[2019-04-05] MEDS ORDERED: BENZOCAINE ONE 20% MUCOSAL SPRAY. (13:39)
[2019-04-05] MEDS ORDERED: LIDOCAINE WITH 8.4% SOD BICARB 3 ML DISP.SYRIN. ONE (13:50)
[2019-04-05] MEDS ORDERED: LIDOCAINE WITH 8.4% SOD BICARB 3 ML DISP.SYRIN. INJ ONE (14:15)
[2019-04-05] MEDS: IV RINGERS,LACTATED 1000ML 1,000 ML IV SCH ×2 (15:36→21:09)
[2019-04-05] MEDS ORDERED: PROPOFOL 20 ML IV ONE (16:00)
[2019-04-05] MEDS ORDERED: LIDOCAINE 2% PF 5 ML VIAL. ONE (16:00)
[2019-04-05] MEDS ORDERED: PHENYLEPHRINE in 0.9% NACL PF 1 MG/10 ML SYRINGE. IV ONE (16:00)
[2019-04-06] VITALS (11 sets, daily range): BP systolic 115–129; BP diastolic 76–90
[2019-04-06] MEDS: KETOROLAC 15 MG/ML VIAL. IV PRN ×3 (01:59→20:53)
[2019-04-06] MEDS: guaiFENesin DM 200MG/20MG 10 ML SYRUP PO PRN (03:44)
[2019-04-06] MEDS: diphenhydrAMINE 50 MG/ML VIAL IVP PRN ×2 (03:45→22:28)
[2019-04-06 04:43] LABS: BASO # 0.1 x10^3/uL (0.0-0.2); BASO % 1 % (0-3); EOS # 0.1 x10^3/uL (0.0-0.7); EOS % 1 % (0-3); HEMATOCRIT 27.1 % (36.0-47.0); LYMPH # 1.5 x10^3/uL (1.0-4.8); LYMPH % 10 % (24-48); MEAN CORPUSCULAR HEMOGLOBIN 28 pg (25-35); MEAN CORPUSCULAR HGB CONC 33 g/dL (31-37); MEAN CORPUSCULAR VOLUME 85 fL (79-100); MONO # 0.5 x10^3/uL (0.0-1.1); MONO % 3 % (0-9); NEUT # 12.1 x10^3/uL (1.8-7.7); NEUT % 85 % (31-73); PLATELET COUNT 88 x10^3/uL (140-400); RED CELL DISTRIBUTION WIDTH 17.4 % (11.5-14.5); WHITE BLOOD COUNT 14.2 x10^3/uL (4.0-11.0)
[2019-04-06 04:54] LABS: CALCIUM 8.1 mg/dL (8.5-10.1); CREATININE 1.1 mg/dL (0.6-1.0); GFR 57.9; POTASSIUM 5.2 mmol/L (3.5-5.1)
[2019-04-06] MEDS: oxyCODONE/APAP 7.5/325 1 TAB TABLET PO PRN ×3 (04:56→22:28)
[2019-04-06] MEDS: HYDROmorphone 2 MG/ML VIAL IV PRN ×2 (05:07→16:49)
[2019-04-06] MEDS: CEFTAROLINE FOSAMIL 600 MG in IV NORMAL SALINE 250ML 250 ML IV SCH ×3 (05:07→22:27)
[2019-04-06 07:52] LABS: % LYMPHS 14 % (24-48); % MONOS 5 % (0-10); % SEGS 81 % (35-66)
[2019-04-06 07:53] LABS: ANISOCYTOSIS SLIGHT; PLT ESTIMATE DECREASED (ADEQUATE)
[2019-04-06] MEDS: SODIUM POLYSTYRENE SULFON/SORB 15 GM/60 ML ORAL.SUSP PO ONE ×2 (08:45→18:14)
[2019-04-06] MEDS: CHLORHEXIDINE 0.12% 15 ML MOUTHWASH. SWSP SCH ×2 (09:00→20:54)
[2019-04-06] MEDS: DOCUSATE SODIUM 100 MG CAPSULE. PO SCH ×2 (09:00→20:54)
[2019-04-06] MEDS: LACTOBACILLUS RHAMNOSUS GG 1 CAPSULE. PO SCH ×2 (09:00→20:54)
[2019-04-06] MEDS: FERROUS SULFATE 325 MG TABLET. PO SCH (09:00)
--- NOTE | 2019-04-06 09:03 | PDOC ---
PROGRESS NOTES Subjective Subjective HPI - f/u of Thrombocytopenia due to sepsis ROS - no bleeding Objective Objective Vital Signs Date Time Temp Pulse Resp B/P (MAP) Pulse Ox O2 Delivery O2 Flow Rate FiO2 04/06/19 07:34 98.1 73 20 128/84 (99) 96 Nasal Cannula 2.0 98.1 Intake and Output 04/06/19 06:59 Intake Total 200 ml Balance 200 ml Intake Oral 20 ml Blood Product IV Normal Saline Flush 180 ml # Voids 2 Physical Exam General: No acute distress Neck: No JVD Assessment Assessment Problems Medical Problems: (1) RIKY (acute kidney injury) Status: Acute (2) Endocarditis Status: Acute (3) Hypotension Status: Acute (4) Pulmonary hypertension Status: Chronic (5) Renal failure Status: Acute (6) Respiratory failure Status: Acute (7) Septic pulmonary embolism Status: Acute (8) Severe sepsis Status: Acute (9) Severe tricuspid regurgitation Status: Chronic IMPRESSION AND PLAN: 1. Thrombocytopenia due to sepsis. Appreciate Infectious Disease consultation. The patient has methicillin-resistant Staphylococcus aureus sepsis noted in [facility]. Continue antibiotic management per Infectious Diseases. I suspect that the significant worsened thrombocytopenia is also due to underlying hepatitis C. No signs of bleeding. If she has any significant bleeding, she would need platelet transfusion. Plt 88. I d/w RN, no bleeding. 2. Septic pulmonary emboli. Anticoagulation is not indicated for septic emboli as it increases the risk of bleeding, I agree with Dr. Hughes that treatment with antibiotics will be the primary modality of management. 3. Abnormal CT with bilateral cavitary nodules throughout the lungs, likely suggestive of septic emboli. I discussed with Dr. Hughes. Continue management per Dr. Hughes. 4. Sepsis - management per ID Comment Review of Relevant I have reviewed the following items kim (where applicable) has been applied. Labs Laboratory Tests Test 04/04/19 10:00 04/05/19 03:20 04/06/19 04:35 Urine Test Negative (NEG) Urine Opiates Screen Pos (NEG) Urine Methadone Screen Neg (NEG) Urine Barbiturates Neg (NEG) Urine Phencyclidine Screen Neg (NEG) Urine Amphetamine/Methamphetamine Neg (NEG) Urine Benzodiazepines Screen Neg (NEG) Urine Cocaine Screen Neg (NEG) Urine Cannabinoids Screen Neg (NEG) Urine Ethyl Alcohol Neg (NEG) White Blood Count 11.8 x10^3/uL (4.0-11.0) 14.2 x10^3/uL (4.0-11.0) Red Blood Count 2.52 x10^6/uL (3.50-5.40) 3.20 x10^6/uL (3.50-5.40) Hemoglobin 6.9 g/dL (12.0-15.5) 9.0 g/dL (12.0-15.5) Hematocrit 21.1 % (36.0-47.0) 27.1 % (36.0-47.0) Mean Corpuscular Volume 84 fL (79-100) 85 fL (79-100) Mean Corpuscular Hemoglobin 28 pg (25-35) 28 pg (25-35) Mean Corpuscular Hemoglobin Concent 33 g/dL (31-37) 33 g/dL (31-37) Red Cell Distribution Width 19.7 % (11.5-14.5) 17.4 % (11.5-14.5) Platelet Count 84 x10^3/uL (140-400) 88 x10^3/uL (140-400) Neutrophils (%) (Auto) 83 % (31-73) 85 % (31-73) Lymphocytes (%) (Auto) 11 % (24-48) 10 % (24-48) Monocytes (%) (Auto) 5 % (0-9) 3 % (0-9) Eosinophils (%) (Auto) 0 % (0-3) 1 % (0-3) Basophils (%) (Auto) 0 % (0-3) 1 % (0-3) Neutrophils # (Auto) 9.8 x10^3/uL (1.8-7.7) 12.1 x10^3/uL (1.8-7.7) Lymphocytes # (Auto) 1.3 x10^3/uL (1.0-4.8) 1.5 x10^3/uL (1.0-4.8) Monocytes # (Auto) 0.6 x10^3/uL (0.0-1.1) 0.5 x10^3/uL (0.0-1.1) Eosinophils # (Auto) 0.0 x10^3/uL (0.0-0.7) 0.1 x10^3/uL (0.0-0.7) Basophils # (Auto) 0.0 x10^3/uL (0.0-0.2) 0.1 x10^3/uL (0.0-0.2) Sodium Level 140 mmol/L (136-145) 141 mmol/L (136-145) Potassium Level 5.0 mmol/L (3.5-5.1) 5.2 mmol/L (3.5-5.1) Chloride Level 110 mmol/L (98-107) 112 mmol/L (98-107) Carbon Dioxide Level 18 mmol/L (21-32) 19 mmol/L (21-32) Anion Gap 12 (6-14) 10 (6-14) Blood Urea Nitrogen 58 mg/dL (7-20) 51 mg/dL (7-20) Creatinine 0.9 mg/dL (0.6-1.0) 1.1 mg/dL (0.6-1.0) Estimated GFR (Cockcroft-Gault) 73.0 57.9 BUN/Creatinine Ratio 64 (6-20) Glucose Level 83 mg/dL (70-99) 105 mg/dL (70-99) Calcium Level 7.9 mg/dL (8.5-10.1) 8.1 mg/dL (8.5-10.1) Total Bilirubin 0.3 mg/dL (0.2-1.0) Aspartate Amino Transf (AST/SGOT) 23 U/L (15-37) Alanine Aminotransferase (ALT/SGPT) 8 U/L (14-59) Alkaline Phosphatase 98 U/L (46-116) Total Protein 5.6 g/dL (6.4-8.2) Albumin 1.1 g/dL (3.4-5.0) Albumin/Globulin Ratio 0.2 (1.0-1.7) Segmented Neutrophils % 81 % (35-66) Lymphocytes % 14 % (24-48) Monocytes % 5 % (0-10) Platelet Estimate Decreased (ADEQUATE) Anisocytosis Slight Laboratory Tests Test 04/06/19 04:35 White Blood Count 14.2 x10^3/uL (4.0-11.0) Red Blood Count 3.20 x10^6/uL (3.50-5.40) Hemoglobin 9.0 g/dL (12.0-15.5) Hematocrit 27.1 % (36.0-47.0) Mean Corpuscular Volume 85 fL (79-100) Mean Corpuscular Hemoglobin 28 pg (25-35) Mean Corpuscular Hemoglobin Concent 33 g/dL (31-37) Red Cell Distribution Width 17.4 % (11.5-14.5) Platelet Count 88 x10^3/uL (140-400) Neutrophils (%) (Auto) 85 % (31-73) Lymphocytes (%) (Auto) 10 % (24-48) Monocytes (%) (Auto) 3 % (0-9) Eosinophils (%) (Auto) 1 % (0-3) Basophils (%) (Auto) 1 % (0-3) Neutrophils # (Auto) 12.1 x10^3/uL (1.8-7.7) Lymphocytes # (Auto) 1.5 x10^3/uL (1.0-4.8) Monocytes # (Auto) 0.5 x10^3/uL (0.0-1.1) Eosinophils # (Auto) 0.1 x10^3/uL (0.0-0.7) Basophils # (Auto) 0.1 x10^3/uL (0.0-0.2) Segmented Neutrophils % 81 % (35-66) Lymphocytes % 14 % (24-48) Monocytes % 5 % (0-10) Platelet Estimate Decreased (ADEQUATE) Anisocytosis Slight Sodium Level 141 mmol/L (136-145) Potassium Level 5.2 mmol/L (3.5-5.1) Chloride Level 112 mmol/L (98-107) Carbon Dioxide Level 19 mmol/L (21-32) Anion Gap 10 (6-14) Blood Urea Nitrogen 51 mg/dL (7-20) Creatinine 1.1 mg/dL (0.6-1.0) Estimated GFR (Cockcroft-Gault) 57.9 Glucose Level 105 mg/dL (70-99) Calcium Level 8.1 mg/dL (8.5-10.1) Microbiology 04/03/19 Blood Culture - Final, Complete Medications Current Medications Albumin Human 100 ml @ 100 mls/hr 1X ONCE IV Last administered on 03/29/19at 14:59; Start 03/29/19 at 14:30; Stop 03/29/19 at 15:29; Status DC Norepinephrine Bitartrate 250 ml @ 9.781 mls/ hr CONT PRN IV SEE I/O RECORD Last administered on 03/29/19 23:25; Start 03/29/19 at 14:30; Stop 04/03/19 at 11:24; Status DC Sodium Chloride 1,000 ml @ 100 mls/hr Q10H IV Last administered on 03/29/19at 23:25; Start 03/29/19 at 14:30; Stop 03/30/19 at 12:08; Status DC Guaifenesin (Robitussin Dm) 10 ml PRN Q6HRS PRN PO COUGH Last administered on 04/06/19 03:44; Start 03/29/19 at 15:30 Sodium Bicarbonate (Sodium Bicarb Adult 8.4% Syr) 50 meq 1X ONCE IV Last administered on 03/29/19at 16:49; Start 03/29/19 at 16:00; Stop 03/29/19 at 16:01; Status DC Sodium Bicarbonate (Sodium Bicarb Adult 8.4% Syr) 50 meq 1X ONCE IV Last adm inistered on 03/29/19at 16:49; Start 03/29/19 at 16:00; Stop 03/29/19 at 16:01; Status DC Vancomycin HCl (Vanco Per Pharmacy) 1 each PRN DAILY PRN MC SEE COMMENTS Last administered on 04/02/19 15:03; Start 03/29/19 at 17:15; Stop 04/03/19 at 07:34; Status DC Piperacillin Sod/ Tazobactam Sod (Zosyn Per Pharmacy) 1 each PRN DAILY PRN MC SEE COMMENTS; Start 03/29/19 at 17:15; Stop 03/31/19 at 07:37; Status DC Piperacillin Sod/ Tazobactam Sod 4.5 gm/Sodium Chloride 100 ml @ 200 mls/hr Q6HRS IV Last administered on 03/31/19at 06:23; Start 03/29/19 at 18:00; Stop 03/31/19 at 07:37; Status DC Vancomycin HCl 1.25 gm/Sodium Chloride 250 ml @ 166.667 mls/hr 1X ONCE IV Last administered on 03/29/19at 17:37; Start 03/29/19 at 17:15; Stop 03/29/19 at 18:44; Status DC Vancomycin HCl 750 mg/Sodium Chloride 250 ml @ 250 mls/hr Q18H IV Last administered on 03/30/19at 10:19; Start 03/30/19 at 11:00; Stop 03/30/19 at 12:54; Status DC Vancomycin HCl (Vancomycin Trough Level) 1 each 1X ONCE MC ; Start 03/31/19 at 09:30; Stop 03/31/19 at 09:31; Status DC Magnesium Sulfate 50 ml @ 25 mls/hr 1X ONCE IV Last administered on 03/29/19at 20:02; Start 03/29/19 at 20:00; Stop 03/29/19 at 21:59; Status DC Linezolid/Dextrose 300 ml @ 300 mls/hr Q12HR IV Last administered on 04/05/19at 21:07; Start 03/30/19 at 09:00 Chlorhexidine Gluconate (Peridex) 15 ml BID SWSP Last administered on 04/04/19at 08:17; Start 03/30/19 at 09:00 Amino Acids/ Glycerin/ Electrolytes 1,000 ml @ 100 mls/hr Q10H IV Last administered on 04/03/19at 07:36; Start 03/30/19 at 12:00; Stop 04/03/19 at 11:38; Status DC Vancomycin HCl 750 mg/Sodium Chloride 250 ml @ 250 mls/hr Q12H IV Last administered on 04/02/19at 21:48; Start 03/30/19 at 22:00; Stop 04/03/19 at 07:34; Status DC Hydromorphone HCl (Dilaudid) 1 mg PRN Q4HRS PRN IV PAIN Last administered on 03/31/19at 05:11; Start 03/30/19 at 21:00; Stop 03/31/19 at 09:43; Status DC Hydromorphone HCl (Dilaudid) 1 mg PRN Q2HR PRN IV PAIN Last administered on 03/31/19at 20:06; Start 03/31/19 at 09:45; Stop 03/31/19 at 22:00; Status DC Haloperidol Lactate (Haldol Inj) 2 mg PRN Q6HRS PRN IVP AGITATION Last administered on 04/01/19at 00:07; Start 03/31/19 at 09:45 Hydromorphone HCl (Dilaudid) 1 mg PRN Q2HR PRN IV MOD TO SEVERE PAIN Last administered on 04/06/19 05:07; Start 04/01/19 at 00:45 Oxycodone/ Acetaminophen (Percocet 7.5/ 325) 1 tab PRN Q4HRS PRN PO PAIN Last administered on 04/06/19 04:56; Start 04/01/19 at 09:00 Sodium Chloride 1,000 ml @ 125 mls/hr 1X ONCE IV Last administered on 04/01/19 18:11; Start 04/01/19 at 09:00; Stop 04/01/19 at 16:59; Status DC Ketorolac Tromethamine (Toradol 15mg Vial) 15 mg PRN Q6HRS PRN IV MILD PAIN 1-3 Last administered on 04/06/19at 01:59; Start 04/01/19 at 09:00; Stop 04/06/19 at 08:59; Status DC Diphenhydramine HCl (Benadryl) 25 mg PRN Q6HRS PRN IVP ITCHING Last administered on 04/06/19 03:45; Start 04/01/19 at 14:00 Lactobacillus Rhamnosus (Culturelle) 1 cap BID PO Last administered on 04/04/19at 21:02; Start 04/02/19 at 21:00 Ceftaroline Fosamil 600 mg/ Sodium Chloride 250 ml @ 250 mls/hr Q8HRS IV Last administered on 04/06/19 05:07; Start 04/03/19 at 08:00 Sodium Chloride 1,000 ml @ 200 mls/hr 1X ONCE IV Last administered on 04/03/19at 08:45; Start 04/03/19 at 08:30; Stop 04/03/19 at 13:29; Status DC Iohexol (Omnipaque 240 Mg/ml) 30 ml 1X ONCE PO Last administered on 04/04/19at 13:49; Start 04/04/19 at 13:00; Stop 04/04/19 at 13:01; Status DC Iohexol (Omnipaque 300 Mg/ml) 75 ml 1X ONCE IV Last administered on 04/04/19at 14:42; Start 04/04/19 at 13:00; Stop 04/04/19 at 13:01; Status DC Lidocaine HCl (Xylocaine 2% Topical 5gm Tube) 1 garrison 1X ONCE TP Last administered on 04/05/19at 15:35; Start 04/05/19 at 08:45; Stop 04/05/19 at 08:47; Status DC Lidocaine HCl (Viscous Lidocaine) 15 ml 1X ONCE SWSW Last administered on 04/05/19at 15:36; Start 04/05/19 at 08:45; Stop 04/05/19 at 08:47; Status DC Benzocaine (Hurricaine One) 2 spray 1X ONCE MM Last administered on 04/05/19at 15:34; Start 04/05/19 at 08:45; Stop 04/05/19 at 08:47; Status DC Albuterol Sulfate (Ventolin Neb Soln) 2.5 mg PRN Q4HRS PRN NEB SHORTNESS OF BREATH; Start 04/05/19 at 08:45 Ondansetron HCl (Zofran) 4 mg PRN Q6HRS PRN IV NAUSEA/VOMITING; Start 04/05/19 at 08:45 Acetaminophen (Tylenol) 500 mg PRN Q6HRS PRN PO MILD PAIN / TEMP Last administered on 04/06/19at 04:56; Start 04/05/19 at 08:45 Docusate Sodium (Colace) 100 mg BID PO ; Start 04/05/19 at 09:00 Ferrous Sulfate (Feosol) 325 mg DAILY PO ; Start 04/05/19 at 09:00 Benzocaine (Hurricaine One) 1 spray STK-MED ONCE .ROUTE ; Start 04/05/19 at 13:39; Stop 04/05/19 at 13:40; Status DC Lidocaine HCl (Xylocaine 2% Topical 5gm Tube) 5 garrison STK-MED ONCE TP ; Start 04/05/19 at 13:39; Stop 04/05/19 at 13:40; Status DC Lidocaine HCl (Viscous Lidocaine) 15 ml STK-MED ONCE .ROUTE ; Start 04/05/19 at 13:39; Stop 04/05/19 at 13:40; Status DC Lidocaine/Sodium Bicarbonate (Buffered Lidocaine 1%) 3 ml STK-MED ONCE .ROUTE ; Start 04/05/19 at 13:50; Stop 04/05/19 at 13:50; Status DC Lidocaine/Sodium Bicarbonate (Buffered Lidocaine 1%) 6 ml 1X ONCE INJ Last administered on 04/05/19at 14:14; Start 04/05/19 at 14:15; Stop 04/05/19 at 14:16; Status DC Ringer's Solution 1,000 ml @ 75 mls/hr [id number] IV Last administered on 04/05/19at 21:09; Start 04/05/19 at 15:30; Stop 04/06/19 at 08:37; Status DC Propofol 20 ml @ As Directed STK-MED ONCE IV ; Start 04/05/19 at 16:00; Stop 04/05/19 at 16:00; Status DC Lidocaine HCl (Lidocaine Pf 2% Vial) 5 ml STK-MED ONCE .ROUTE ; Start 04/05/19 at 16:00; Stop 04/05/19 at 16:00; Status DC Phenylephrine HCl (PHENYLEPHRINE in 0.9% NACL PF) 1 mg STK-MED ONCE IV ; Start 04/05/19 at 16:00; Stop 04/05/19 at 16:00; Status DC Sodium Polystyrene Sulfonate (Kayexalate) 15 gm 1X ONCE PO ; Start 04/06/19 at 08:45; Stop 04/06/19 at 08:46; Status DC Active Scripts Active Reported Prenate Elite Tablet ( #79/Iron Asp Gly/FA#1) 1 Each Tablet 1 Each PO DAILY Ibuprofen 800 Mg Tablet 800 Mg PO PRN Q6HRS PRN Ferrous Sulfate 325 Mg Tablet 325 Mg PO DAILY Docusate Sodium 100 Mg Capsule 100 Mg PO BID Vitals/I & O Vital Sign - Last 24 Hours 04/05/19 04/05/19 04/05/19 04/05/19 09:05 10:09 11:00 11:37 Temp 97.8 97.8 Pulse 71 Resp 20 20 B/P (MAP) 128/78 (95) Pulse Ox 94 94 99 94 O2 Delivery Room Air Room Air Room Air Nasal Cannula O2 Flow Rate 2.0 2.0 2.0 04/05/19 04/05/19 04/05/19 04/05/19 15:14 15:56 15:56 16:05 Temp 97.6 97.6 97.6 97.6 97.6 97.6 Pulse 105 106 106 Resp 34 30 32 B/P (MAP) 122/79 109/71 114/75 Pulse Ox 94 97 97 O2 Delivery Room Air Room Air Nasal Cannula High Flow Nasal Cannula High Flow Nasal Cannula O2 Flow Rate 4 4 4 04/05/19 04/05/19 04/05/19 04/05/19 16:20 16:45 17:20 17:36 Temp 97.6 97.5 98.2 97.6 97.5 98.2 Pulse 102 101 97 Resp 34 B/P (MAP) 117/55 120/69 118/82 Pulse Ox 99 99 O2 Delivery High Flow Nasal Cannula Nasal Cannula O2 Flow Rate 4 4.0 04/05/19 04/05/19 04/05/19 04/05/19 17:45 17:50 18:10 19:00 Temp 97.9 97.8 97.8 97.9 97.8 97.8 Pulse 99 102 90 Resp B/P (MAP) 118/68 118/61 113/78 (90) Pulse Ox 99 98 O2 Delivery Nasal Cannula Room Air O2 Flow Rate 4.0 04/05/19 04/05/19 04/05/19 04/05/19 20:30 20:39 21:20 21:23 Temp 97.8 97.6 97.8 97.6 Pulse 90 90 Resp B/P (MAP) 113/78 120/81 Pulse Ox 98 O2 Delivery Nasal Cannula Nasal Cannula O2 Flow Rate 4.0 4.0 04/05/19 04/05/19 04/06/19 04/06/19 22:25 23:00 00:38 00:55 Temp 98.0 97.9 97.9 98.0 97.9 97.9 Pulse 90 92 93 Resp 18 B/P (MAP) 114/76 (89) 115/79 118/88 Pulse Ox 98 99 O2 Delivery Nasal Cannula Room Air O2 Flow Rate 4.0 04/06/19 04/06/19 04/06/19 04/06/19 01:55 02:55 03:21 04:02 Temp 97.7 97.9 97.9 97.5 97.7 97.9 97.9 97.5 Pulse 92 90 90 92 Resp B/P (MAP) 125/81 118/84 118/84 (95) 119/85 Pulse Ox 96 O2 Delivery Room Air 04/06/19 04/06/19 04/06/19 04/06/19 04:56 05:07 05:44 05:44 O2 Delivery Room Air Room Air Room Air Room Air 04/06/19 07:34 Temp 98.1 98.1 Pulse 73 Resp 20 B/P (MAP) 128/84 (99) Pulse Ox 96 O2 Delivery Nasal Cannula O2 Flow Rate 2.0 Intake and Output 04/05/19 04/05/19 04/06/19 14:59 22:59 06:59 Intake Total 50 ml 150 ml Balance 50 ml 150 ml Nutrition Consultation Dietary Evaluation: Recommendations by RD: Protein supplementation, PPN/TPN Comments: Continue w/regular diet as ordered, honor food preferences, and provide snacks as requested Continue w/PPN to supplement PO intake at this time, can stop PPN once PO intake consistently >50% meals and tolerated Expected Outcomes/Goals: PO intake + PPN to meet >75% est needs - met, goal ongoing Interpretation of weight loss: >20% in 1 year Malnutrition Findings: Food and Nutrition Intake (Mod: <75% est energy req 7days Weight Status: Appropriate TROY WASSERMAN MD Apr 06, 2019 09:03
--- NOTE | 2019-04-06 12:25 | PDOC ---
Infectious Disease Note Subjective Subjective feeling better, but sleepy all the time ROS ROS no n/v/d/ Vital Sign Vital Signs Vital Signs Date Time Temp Pulse Resp B/P (MAP) Pulse Ox O2 Delivery O2 Flow Rate FiO2 04/06/19 11:48 10 Room Air 04/06/19 11:11 98.7 71 125/83 (97) 97 2.0 98.7 Physical Exam PHYSICAL EXAM GENERAL: Propped up in bed, tired appearance, NAD HEENT: Pupils are equal and reactive. Oral cavity, pharynx is dry NECK: Supple, no JVD. LUNGS: Clear to auscultation bilaterally. HEART: S1, S2 with questionable murmur. ABDOMEN: Soft, nontender, no guarding or rebound. EXTREMITIES: Trace edema, no cyanosis SKIN: Warm to touch without rash. Multiple tattoos. NEUROLOGIC: Nonfocal, moves all extremities. PIVs Labs Lab Laboratory Tests Test 04/06/19 04:35 White Blood Count 14.2 x10^3/uL (4.0-11.0) Red Blood Count 3.20 x10^6/uL (3.50-5.40) Hemoglobin 9.0 g/dL (12.0-15.5) Hematocrit 27.1 % (36.0-47.0) Mean Corpuscular Volume 85 fL (79-100) Mean Corpuscular Hemoglobin 28 pg (25-35) Mean Corpuscular Hemoglobin Concent 33 g/dL (31-37) Red Cell Distribution Width 17.4 % (11.5-14.5) Platelet Count 88 x10^3/uL (140-400) Neutrophils (%) (Auto) 85 % (31-73) Lymphocytes (%) (Auto) 10 % (24-48) Monocytes (%) (Auto) 3 % (0-9) Eosinophils (%) (Auto) 1 % (0-3) Basophils (%) (Auto) 1 % (0-3) Neutrophils # (Auto) 12.1 x10^3/uL (1.8-7.7) Lymphocytes # (Auto) 1.5 x10^3/uL (1.0-4.8) Monocytes # (Auto) 0.5 x10^3/uL (0.0-1.1) Eosinophils # (Auto) 0.1 x10^3/uL (0.0-0.7) Basophils # (Auto) 0.1 x10^3/uL (0.0-0.2) Segmented Neutrophils % 81 % (35-66) Lymphocytes % 14 % (24-48) Monocytes % 5 % (0-10) Platelet Estimate Decreased (ADEQUATE) Anisocytosis Slight Sodium Level 141 mmol/L (136-145) Potassium Level 5.2 mmol/L (3.5-5.1) Chloride Level 112 mmol/L (98-107) Carbon Dioxide Level 19 mmol/L (21-32) Anion Gap 10 (6-14) Blood Urea Nitrogen 51 mg/dL (7-20) Creatinine 1.1 mg/dL (0.6-1.0) Estimated GFR (Cockcroft-Gault) 57.9 Glucose Level 105 mg/dL (70-99) Calcium Level 8.1 mg/dL (8.5-10.1) Micro BLOOD CULTURE Final GRAM POSITIVE COCCI IN CLUSTERS SEEN IN 1 OF 1 PED BOTTLES; 1 SET WAS DRAWN; RESULTS WERE CALLED TO [facility]ON VANN IN ICU AT 0815; 04/02/19 BY MAYA. THE BLOOD CULTURES HAVE BEEN SENT TO [facility] FOR FURTHER WORKUP. Objective Assessment Fever MRSA sepsis (at [facility] per report from blood 03/29). 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 PE Pulm HTN Hep C - ? if treated in past 4 weeks post Plan Plan of Care Cont Zyvox ,, ceftarolin, need fluids Trough 18.2 Perdiex - oral care F/u labs and cults May need GI eval from Hep C f/u todays labs D/w nursing ct chest, abd and pelvis,, noted [facility] report pending VERA CARTER MD Apr 06, 2019 12:25
--- NOTE | 2019-04-06 12:27 | PDOC ---
PROGRESS NOTES Chief Complaint Chief Complaint MRSA bacteremia Sepsis Tricuspid Vegetation Septic emboli acute metabolic encephalopathy resolved (heroine etc) polysubstance abuse, and withdrawal symptoms pancytopenia from sepsis multiple tattoes Acute precipitous drop hgb SP History of Present Illness History of Present Illness asking For pain meds Claims Dilaudid is the only one that's helping It is on file/ordered Toradol dropped off Hemoglobin up to 9 from 6 after blood transfusion yesterday K5.2, not on any K supplement Plan: Kayexalate 15 g 1 now recheck CBC and K tomorrow Resume Toradol Keep current Dilaudid Slated for [facility] rehabilitation-I updated her, she acted surprised Educated and counseled TRial of robitussin with codeine for the pleuritic CP when she coughs Vitals Vitals Vital Signs Date Time Temp Pulse Resp B/P (MAP) Pulse Ox O2 Delivery O2 Flow Rate FiO2 04/06/19 11:48 10 Room Air 04/06/19 11:11 98.7 71 125/83 (97) 97 2.0 98.7 Physical Exam Physical Exam GENERAL: Propped up in bed, tired appearance, NAD HEENT: Pupils are equal and reactive. Oral cavity, pharynx is dry NECK: Supple, no JVD. LUNGS: Clear to auscultation bilaterally. HEART: S1, S2 with questionable murmur. ABDOMEN: Soft, nontender, no guarding or rebound. EXTREMITIES: Trace edema, no cyanosis SKIN: Warm to touch without rash. Multiple tattoos. NEUROLOGIC: Nonfocal, moves all extremities. PIVs General: No acute distress Heart: Regular rate Lungs: Clear, Other Abdomen: Soft, No tenderness Extremities: No cyanosis, No edema Skin: No breakdown Labs LABS Laboratory Tests Test 04/06/19 04:35 White Blood Count 14.2 x10^3/uL (4.0-11.0) Red Blood Count 3.20 x10^6/uL (3.50-5.40) Hemoglobin 9.0 g/dL (12.0-15.5) Hematocrit 27.1 % (36.0-47.0) Mean Corpuscular Volume 85 fL (79-100) Mean Corpuscular Hemoglobin 28 pg (25-35) Mean Corpuscular Hemoglobin Concent 33 g/dL (31-37) Red Cell Distribution Width 17.4 % (11.5-14.5) Platelet Count 88 x10^3/uL (140-400) Neutrophils (%) (Auto) 85 % (31-73) Lymphocytes (%) (Auto) 10 % (24-48) Monocytes (%) (Auto) 3 % (0-9) Eosinophils (%) (Auto) 1 % (0-3) Basophils (%) (Auto) 1 % (0-3) Neutrophils # (Auto) 12.1 x10^3/uL (1.8-7.7) Lymphocytes # (Auto) 1.5 x10^3/uL (1.0-4.8) Monocytes # (Auto) 0.5 x10^3/uL (0.0-1.1) Eosinophils # (Auto) 0.1 x10^3/uL (0.0-0.7) Basophils # (Auto) 0.1 x10^3/uL (0.0-0.2) Segmented Neutrophils % 81 % (35-66) Lymphocytes % 14 % (24-48) Monocytes % 5 % (0-10) Platelet Estimate Decreased (ADEQUATE) Anisocytosis Slight Sodium Level 141 mmol/L (136-145) Potassium Level 5.2 mmol/L (3.5-5.1) Chloride Level 112 mmol/L (98-107) Carbon Dioxide Level 19 mmol/L (21-32) Anion Gap 10 (6-14) Blood Urea Nitrogen 51 mg/dL (7-20) Creatinine 1.1 mg/dL (0.6-1.0) Estimated GFR (Cockcroft-Gault) 57.9 Glucose Level 105 mg/dL (70-99) Calcium Level 8.1 mg/dL (8.5-10.1) Review of Systems Review of Systems pain when she coughs, no fever, there is far less 14 point negative Assessment and Plan Assessmemt and Plan Problems Medical Problems: (1) RIKY (acute kidney injury) Status: Acute (2) Endocarditis Status: Acute (3) Hypotension Status: Acute (4) Pulmonary hypertension Status: Chronic (5) Renal failure Status: Acute (6) Respiratory failure Status: Acute (7) Septic pulmonary embolism Status: Acute (8) Severe sepsis Status: Acute (9) Severe tricuspid regurgitation Status: Chronic Comment Review of Relevant I have reviewed the following items kim (where applicable) has been applied. Labs Laboratory Tests Test 04/05/19 03:20 04/06/19 04:35 White Blood Count 11.8 x10^3/uL (4.0-11.0) 14.2 x10^3/uL (4.0-11.0) Red Blood Count 2.52 x10^6/uL (3.50-5.40) 3.20 x10^6/uL (3.50-5.40) Hemoglobin 6.9 g/dL (12.0-15.5) 9.0 g/dL (12.0-15.5) Hematocrit 21.1 % (36.0-47.0) 27.1 % (36.0-47.0) Mean Corpuscular Volume 84 fL (79-100) 85 fL (79-100) Mean Corpuscular Hemoglobin 28 pg (25-35) 28 pg (25-35) Mean Corpuscular Hemoglobin Concent 33 g/dL (31-37) 33 g/dL (31-37) Red Cell Distribution Width 19.7 % (11.5-14.5) 17.4 % (11.5-14.5) Platelet Count 84 x10^3/uL (140-400) 88 x10^3/uL (140-400) Neutrophils (%) (Auto) 83 % (31-73) 85 % (31-73) Lymphocytes (%) (Auto) 11 % (24-48) 10 % (24-48) Monocytes (%) (Auto) 5 % (0-9) 3 % (0-9) Eosinophils (%) (Auto) 0 % (0-3) 1 % (0-3) Basophils (%) (Auto) 0 % (0-3) 1 % (0-3) Neutrophils # (Auto) 9.8 x10^3/uL (1.8-7.7) 12.1 x10^3/uL (1.8-7.7) Lymphocytes # (Auto) 1.3 x10^3/uL (1.0-4.8) 1.5 x10^3/uL (1.0-4.8) Monocytes # (Auto) 0.6 x10^3/uL (0.0-1.1) 0.5 x10^3/uL (0.0-1.1) Eosinophils # (Auto) 0.0 x10^3/uL (0.0-0.7) 0.1 x10^3/uL (0.0-0.7) Basophils # (Auto) 0.0 x10^3/uL (0.0-0.2) 0.1 x10^3/uL (0.0-0.2) Sodium Level 140 mmol/L (136-145) 141 mmol/L (136-145) Potassium Level 5.0 mmol/L (3.5-5.1) 5.2 mmol/L (3.5-5.1) Chloride Level 110 mmol/L (98-107) 112 mmol/L (98-107) Carbon Dioxide Level 18 mmol/L (21-32) 19 mmol/L (21-32) Anion Gap 12 (6-14) 10 (6-14) Blood Urea Nitrogen 58 mg/dL (7-20) 51 mg/dL (7-20) Creatinine 0.9 mg/dL (0.6-1.0) 1.1 mg/dL (0.6-1.0) Estimated GFR (Cockcroft-Gault) 73.0 57.9 BUN/Creatinine Ratio 64 (6-20) Glucose Level 83 mg/dL (70-99) 105 mg/dL (70-99) Calcium Level 7.9 mg/dL (8.5-10.1) 8.1 mg/dL (8.5-10.1) Total Bilirubin 0.3 mg/dL (0.2-1.0) Aspartate Amino Transf (AST/SGOT) 23 U/L (15-37) Alanine Aminotransferase (ALT/SGPT) 8 U/L (14-59) Alkaline Phosphatase 98 U/L (46-116) Total Protein 5.6 g/dL (6.4-8.2) Albumin 1.1 g/dL (3.4-5.0) Albumin/Globulin Ratio 0.2 (1.0-1.7) Segmented Neutrophils % 81 % (35-66) Lymphocytes % 14 % (24-48) Monocytes % 5 % (0-10) Platelet Estimate Decreased (ADEQUATE) Anisocytosis Slight Laboratory Tests Test 04/06/19 04:35 White Blood Count 14.2 x10^3/uL (4.0-11.0) Red Blood Count 3.20 x10^6/uL (3.50-5.40) Hemoglobin 9.0 g/dL (12.0-15.5) Hematocrit 27.1 % (36.0-47.0) Mean Corpuscular Volume 85 fL (79-100) Mean Corpuscular Hemoglobin 28 pg (25-35) Mean Corpuscular Hemoglobin Concent 33 g/dL (31-37) Red Cell Distribution Width 17.4 % (11.5-14.5) Platelet Count 88 x10^3/uL (140-400) Neutrophils (%) (Auto) 85 % (31-73) Lymphocytes (%) (Auto) 10 % (24-48) Monocytes (%) (Auto) 3 % (0-9) Eosinophils (%) (Auto) 1 % (0-3) Basophils (%) (Auto) 1 % (0-3) Neutrophils # (Auto) 12.1 x10^3/uL (1.8-7.7) Lymphocytes # (Auto) 1.5 x10^3/uL (1.0-4.8) Monocytes # (Auto) 0.5 x10^3/uL (0.0-1.1) Eosinophils # (Auto) 0.1 x10^3/uL (0.0-0.7) Basophils # (Auto) 0.1 x10^3/uL (0.0-0.2) Segmented Neutrophils % 81 % (35-66) Lymphocytes % 14 % (24-48) Monocytes % 5 % (0-10) Platelet Estimate Decreased (ADEQUATE) Anisocytosis Slight Sodium Level 141 mmol/L (136-145) Potassium Level 5.2 mmol/L (3.5-5.1) Chloride Level 112 mmol/L (98-107) Carbon Dioxide Level 19 mmol/L (21-32) Anion Gap 10 (6-14) Blood Urea Nitrogen 51 mg/dL (7-20) Creatinine 1.1 mg/dL (0.6-1.0) Estimated GFR (Cockcroft-Gault) 57.9 Glucose Level 105 mg/dL (70-99) Calcium Level 8.1 mg/dL (8.5-10.1) Microbiology 04/03/19 Blood Culture - Final, Complete Medications Current Medications Albumin Human 100 ml @ 100 mls/hr 1X ONCE IV Last administered on 03/29/19at 14:59; Start 03/29/19 at 14:30; Stop 03/29/19 at 15:29; Status DC Norepinephrine Bitartrate 250 ml @ 9.781 mls/ hr CONT PRN IV SEE I/O RECORD Last administered on 03/29/19at 23:25; Start 03/29/19 at 14:30; Stop 04/03/19 at 11:24; Status DC Sodium Chloride 1,000 ml @ 100 mls/hr Q10H IV Last administered on 03/29/19at 23:25; Start 03/29/19 at 14:30; Stop 03/30/19 at 12:08; Status DC Guaifenesin (Robitussin Dm) 10 ml PRN Q6HRS PRN PO COUGH Last administered on 04/06/19at 03:44; Start 03/29/19 at 15:30 Sodium Bicarbonate (Sodium Bicarb Adult 8.4% Syr) 50 meq 1X ONCE IV Last administered on 03/29/19at 16:49; Start 03/29/19 at 16:00; Stop 03/29/19 at 16:01; Status DC Sodium Bicarbonate (Sodium Bicarb Adult 8.4% Syr) 50 meq 1X ONCE IV Last administered on 03/29/19at 16:49; Start 03/29/19 at 16:00; Stop 03/29/19 at 16:01; Status DC Vancomycin HCl (Vanco Per Pharmacy) 1 each PRN DAILY PRN MC SEE COMMENTS Last administered on 04/02/19at 15:03; Start 03/29/19 at 17:15; Stop 04/03/19 at 07:34; Status DC Piperacillin Sod/ Tazobactam Sod (Zosyn Per Pharmacy) 1 each PRN DAILY PRN MC SEE COMMENTS; Start 03/29/19 at 17:15; Stop 03/31/19 at 07:37; Status DC Piperacillin Sod/ Tazobactam Sod 4.5 gm/Sodium Chloride 100 ml @ 200 mls/hr Q6HRS IV Last administered on 03/31/19at 06:23; Start 03/29/19 at 18:00; Stop 03/31/19 at 07:37; Status DC Vancomycin HCl 1.25 gm/Sodium Chloride 250 ml @ 166.667 mls/hr 1X ONCE IV Last administered on 03/29/19at 17:37; Start 03/29/19 at 17:15; Stop 03/29/19 at 18:44; Status DC Vancomycin HCl 750 mg/Sodium Chloride 250 ml @ 250 mls/hr Q18H IV Last administered on 03/30/19at 10:19; Start 03/30/19 at 11:00; Stop 03/30/19 at 12:54; Status DC Vancomycin HCl (Vancomycin Trough Level) 1 each 1X ONCE MC ; Start 03/31/19 at 09:30; Stop 03/31/19 at 09:31; Status DC Magnesium Sulfate 50 ml @ 25 mls/hr 1X ONCE IV Last administered on 03/29/19at 20:02; Start 03/29/19 at 20:00; Stop 03/29/19 at 21:59; Status DC Linezolid/Dextrose 300 ml @ 300 mls/hr Q12HR IV Last administered on 04/06/19at 11:46; Start 03/30/19 at 09:00 Chlorhexidine Gluconate (Peridex) 15 ml BID SWSP Last administered on 04/04/19at 08:17; Start 03/30/19 at 09:00 Amino Acids/ Glycerin/ Electrolytes 1,000 ml @ 100 mls/hr Q10H IV Last administered on 04/03/19at 07:36; Start 03/30/19 at 12:00; Stop 04/03/19 at 11:38; Status DC Vancomycin HCl 750 mg/Sodium Chloride 250 ml @ 250 mls/hr Q12H IV Last ad ministered on 04/02/19at 21:48; Start 03/30/19 at 22:00; Stop 04/03/19 at 07:34; Status DC Hydromorphone HCl (Dilaudid) 1 mg PRN Q4HRS PRN IV PAIN Last administered on 03/31/19at 05:11; Start 03/30/19 at 21:00; Stop 03/31/19 at 09:43; Status DC Hydromorphone HCl (Dilaudid) 1 mg PRN Q2HR PRN IV PAIN Last administered on 03/31/19at 20:06; Start 03/31/19 at 09:45; Stop 03/31/19 at 22:00; Status DC Haloperidol Lactate (Haldol Inj) 2 mg PRN Q6HRS PRN IVP AGITATION Last administered on 04/01/19at 00:07; Start 03/31/19 at 09:45 Hydromorphone HCl (Dilaudid) 1 mg PRN Q2HR PRN IV MOD TO SEVERE PAIN Last administered on 04/06/19 05:07; Start 04/01/19 at 00:45 Oxycodone/ Acetaminophen (Percocet 7.5/ 325) 1 tab PRN Q4HRS PRN PO PAIN Last administered on 04/06/19 11:48; Start 04/01/19 at 09:00 Sodium Chloride 1,000 ml @ 125 mls/hr 1X ONCE IV Last administered on 04/01/19 18:11; Start 04/01/19 at 09:00; Stop 04/01/19 at 16:59; Status DC Ketorolac Tromethamine (Toradol 15mg Vial) 15 mg PRN Q6HRS PRN IV MILD PAIN 1-3 Last administered on 04/06/19at 01:59; Start 04/01/19 at 09:00; Stop 04/06/19 at 08:59; Status DC Diphenhydramine HCl (Benadryl) 25 mg PRN Q6HRS PRN IVP ITCHING Last administered on 04/06/19at 03:45; Start 04/01/19 at 14:00 Lactobacillus Rhamnosus (Culturelle) 1 cap BID PO Last administered on 04/04/19at 21:02; Start 04/02/19 at 21:00 Ceftaroline Fosamil 600 mg/ Sodium Chloride 250 ml @ 250 mls/hr Q8HRS IV Last administered on 04/06/19 05:07; Start 04/03/19 at 08:00 Sodium Chloride 1,000 ml @ 200 mls/hr 1X ONCE IV Last administered on 04/03/19 08:45; Start 04/03/19 at 08:30; Stop 04/03/19 at 13:29; Status DC Iohexol (Omnipaque 240 Mg/ml) 30 ml 1X ONCE PO Last administered on 04/04/19at 13:49; Start 04/04/19 at 13:00; Stop 04/04/19 at 13:01; Status DC Iohexol (Omnipaque 300 Mg/ml) 75 ml 1X ONCE IV Last administered on 04/04/19at 14:42; Start 04/04/19 at 13:00; Stop 04/04/19 at 13:01; Status DC Lidocaine HCl (Xylocaine 2% Topical 5gm Tube) 1 garrison 1X ONCE TP Last administered on 04/05/19at 15:35; Start 04/05/19 at 08:45; Stop 04/05/19 at 08:47; Status DC Lidocaine HCl (Viscous Lidocaine) 15 ml 1X ONCE SWSW Last administered on 04/05/19at 15:36; Start 04/05/19 at 08:45; Stop 04/05/19 at 08:47; Status DC Benzocaine (Hurricaine One) 2 spray 1X ONCE MM Last administered on 04/05/19at 15:34; Start 04/05/19 at 08:45; Stop 04/05/19 at 08:47; Status DC Albuterol Sulfate (Ventolin Neb Soln) 2.5 mg PRN Q4HRS PRN NEB SHORTNESS OF BREATH; Start 04/05/19 at 08:45 Ondansetron HCl (Zofran) 4 mg PRN Q6HRS PRN IV NAUSEA/VOMITING; Start 04/05/19 at 08:45 Acetaminophen (Tylenol) 500 mg PRN Q6HRS PRN PO MILD PAIN / TEMP Last administered on 04/06/19at 04:56; Start 04/05/19 at 08:45 Docusate Sodium (Colace) 100 mg BID PO ; Start 04/05/19 at 09:00 Ferrous Sulfate (Feosol) 325 mg DAILY PO ; Start 04/05/19 at 09:00 Benzocaine (Hurricaine One) 1 spray STK-MED ONCE .ROUTE ; Start 04/05/19 at 1 3:39; Stop 04/05/19 at 13:40; Status DC Lidocaine HCl (Xylocaine 2% Topical 5gm Tube) 5 garrison STK-MED ONCE TP ; Start 04/05/19 at 13:39; Stop 04/05/19 at 13:40; Status DC Lidocaine HCl (Viscous Lidocaine) 15 ml STK-MED ONCE .ROUTE ; Start 04/05/19 at 13:39; Stop 04/05/19 at 13:40; Status DC Lidocaine/Sodium Bicarbonate (Buffered Lidocaine 1%) 3 ml STK-MED ONCE .ROUTE ; Start 04/05/19 at 13:50; Stop 04/05/19 at 13:50; Status DC Lidocaine/Sodium Bicarbonate (Buffered Lidocaine 1%) 6 ml 1X ONCE INJ Last ad ministered on 04/05/19at 14:14; Start 04/05/19 at 14:15; Stop 04/05/19 at 14:16; Status DC Ringer's Solution 1,000 ml @ 75 mls/hr [id number] IV Last administered on 04/05/19at 21:09; Start 04/05/19 at 15:30; Stop 04/06/19 at 08:37; Status DC Propofol 20 ml @ As Directed STK-MED ONCE IV ; Start 04/05/19 at 16:00; Stop 04/05/19 at 16:00; Status DC Lidocaine HCl (Lidocaine Pf 2% Vial) 5 ml STK-MED ONCE .ROUTE ; Start 04/05/19 at 16:00; Stop 04/05/19 at 16:00; Status DC Phenylephrine HCl (PHENYLEPHRINE in 0.9% NACL PF) 1 mg STK-MED ONCE IV ; Start 04/05/19 at 16:00; Stop 04/05/19 at 16:00; Status DC Sodium Polystyrene Sulfonate (Kayexalate) 15 gm 1X ONCE PO ; Start 04/06/19 at 08:45; Stop 04/06/19 at 08:46; Status DC Ketorolac Tromethamine (Toradol 15mg Vial) 15 mg PRN Q6HRS PRN IV PAIN; Start 04/06/19 at 12:30; Stop 04/11/19 at 12:29 Active Scripts Active Reported Prenate Elite Tablet ( #79/Iron Asp Gly/FA#1) 1 Each Tablet 1 Each PO DAILY Ibuprofen 800 Mg Tablet 800 Mg PO PRN Q6HRS PRN Ferrous Sulfate 325 Mg Tablet 325 Mg PO DAILY Docusate Sodium 100 Mg Capsule 100 Mg PO BID Vitals/I & O Vital Sign - Last 24 Hours 04/05/19 04/05/19 04/05/19 04/05/19 15:14 15:56 15:56 16:05 Temp 97.6 97.6 97.6 97.6 97.6 97.6 Pulse 105 106 106 Resp 34 30 32 B/P (MAP) 122/79 109/71 114/75 Pulse Ox 94 97 97 O2 Delivery Room Air Room Air Nasal Cannula High Flow Nasal Cannula High Flow Nasal Cannula O2 Flow Rate 4 4 4 04/05/19 04/05/19 04/05/19 04/05/19 16:20 16:45 17:20 17:36 Temp 97.6 97.5 98.2 97.6 97.5 98.2 Pulse 102 101 97 Resp 34 20 B/P (MAP) 117/55 120/69 118/82 Pulse Ox 99 99 O2 Delivery High Flow Nasal Cannula Nasal Cannula O2 Flow Rate 4 4.0 04/05/19 04/05/19 04/05/19 04/05/19 17:45 17:50 18:10 19:00 Temp 97.9 97.8 97.8 97.9 97.8 97.8 Pulse 99 102 90 Resp B/P (MAP) 118/68 118/61 113/78 (90) Pulse Ox 99 98 O2 Delivery Nasal Cannula Room Air O2 Flow Rate 4.0 04/05/19 04/05/19 04/05/19 04/05/19 20:30 20:39 21:20 21:23 Temp 97.8 97.6 97.8 97.6 Pulse 90 90 Resp B/P (MAP) 113/78 120/81 Pulse Ox 98 O2 Delivery Nasal Cannula Nasal Cannula O2 Flow Rate 4.0 4.0 04/05/19 04/05/19 04/06/19 04/06/19 22:25 23:00 00:38 00:55 Temp 98.0 97.9 97.9 98.0 97.9 97.9 Pulse 90 92 93 Resp 18 B/P (MAP) 114/76 (89) 115/79 118/88 Pulse Ox 98 99 O2 Delivery Nasal Cannula Room Air O2 Flow Rate 4.0 04/06/19 04/06/19 04/06/19 04/06/19 01:55 02:55 03:21 04:02 Temp 97.7 97.9 97.9 97.5 97.7 97.9 97.9 97.5 Pulse 92 90 90 92 Resp 20 22 B/P (MAP) 125/81 118/84 118/84 (95) 119/85 Pulse Ox 96 O2 Delivery Room Air 04/06/19 04/06/19 04/06/19 04/06/19 04:56 05:07 05:44 05:44 O2 Delivery Room Air Room Air Room Air Room Air 04/06/19 04/06/19 04/06/19 07:34 11:11 11:48 Temp 98.1 98.7 98.1 98.7 Pulse 73 71 Resp 20 18 10 B/P (MAP) 128/84 (99) 125/83 (97) Pulse Ox 96 97 O2 Delivery Nasal Cannula Nasal Cannula Room Air O2 Flow Rate 2.0 2.0 Intake and Output 04/05/19 04/05/19 04/06/19 15:00 23:00 07:00 Intake Total 50 ml 150 ml Balance 50 ml 150 ml Nutrition Consultation Dietary Evaluation: Recommendations by RD: Protein supplementation, PPN/TPN Comments: Continue w/regular diet as ordered, honor food preferences, and provide snacks as requested Continue w/PPN to supplement PO intake at this time, can stop PPN once PO intake consistently >50% meals and tolerated Expected Outcomes/Goals: PO intake + PPN to meet >75% est needs - met, goal ongoing Interpretation of weight loss: >20% in 1 year Malnutrition Findings: Food and Nutrition Intake (Mod: <75% est energy req 7days Weight Status: Appropriate MACIEJ LOWE MD Apr 06, 2019 12:27
--- NOTE | 2019-04-06 12:57 | RAD ---
Exam: Fluoroscopic and ultrasound guided right percutaneous inserted central venous catheter placement 04/06/2019 10:50 AM .Indication: BLOOD TRANSFUSION Technique: Informed oral and written consent were obtained. The right upper extremity was prepped and draped using sterile barrier technique. All elements of maximal sterile barrier technique including the use of a cap, mask, sterile gown, sterile gloves, large sterile sheet, appropriate hand hygiene, and 2% chlorhexidine for cutaneous antisepsis (or acceptable alternative antiseptic per current guidelines) were followed for this procedure.. Real-time ultrasound demonstrated a patent right basilic vein which was prepped and draped in usual sterile fashion. 1% lidocaine used for local anesthesia. Using real-time ultrasound guidance the access needle percutaneously punctured the selected right basilic vein. Reference ultrasound images were saved to the medical record. A guidewire was advanced through the needle to the cavoatrial junction, and a peel-away sheath placed. The catheter was cut to length and inserted through the peel-away sheath such that its tip is at the cavoatrial junction. The wire and sheath were removed, and the catheter secured in place, and a sterile dressing was applied. Catheter was found to flush and aspirate normally. No immediate complications are identified. FLUORO TIME: 0.7 min DOSE AREA PRODUCT: 1 Gycm2 Impression: Ultrasound and fluoroscopically guided placement of a right upper extremity PICC line.
--- NOTE | 2019-04-06 13:35 | NUR ---
SS following up with discharge planning. SS received phone contact from [facility], ; fax [phone], stating that pt will need to be more compliant with therapy prior to being accepted. SS will continue to follow for discharge planning.
[2019-04-06] MEDS: guaiFENesin/CODEINE 100mg/10mg 5 ML LIQUID PO SCH ×4 (14:31→23:04)
--- NOTE | 2019-04-06 15:30 | EKG ---
[facility] [address] [place] [address] Test Date: 2019-04-06 Test Time: 16:21:55 Pat Name: JODIE SAMSON Department: Room: 430 Gender: F Senior Housekeeper: RADHA : 1990 Requested By: BOB MCNAMARA Order Number: [id number] Reading MD: Sid Clayton MD Measurements Intervals [place] Rate: 83 P: 45 [place]: 134 QRS: 58 QRSD: 90 T: 114 QT: 428 QTc: 510 Interpretive Statements SINUS RHYTHM NON-SPECIFIC ST/T CHANGES PROLONGED QT Electronically Signed On 04-17-2019 14:40:39 CDT by Sid Clayton MD
[2019-04-06] MEDS ORDERED: SODIUM POLYSTYRENE SULFON/SORB 15 GM/60 ML ORAL.SUSP ONE (18:11)
--- NOTE | 2019-04-06 23:10 | NUR ---
During 2100 medication administration, patient refused scheduled dose of Robitussin. Medication was marked as non-administered and returned. Patient in room coughing and crying during 2300 rounds and asked for cough syrup, medication undone on eMAR and administered at this time, will continue to monitor.
[2019-04-07] MEDS: ONDANSETRON PF 4 MG/2 ML VIAL. IV PRN (02:02)
[2019-04-07] MEDS: HYDROmorphone 2 MG/ML VIAL IV PRN ×6 (02:06→22:20)
[2019-04-07 02:54] VITALS: BP 126/75
[2019-04-07] MEDS: KETOROLAC 15 MG/ML VIAL. IV PRN (05:49)
[2019-04-07] MEDS: CEFTAROLINE FOSAMIL 600 MG in IV NORMAL SALINE 250ML 250 ML IV SCH ×3 (05:49→22:16)
[2019-04-07 06:06] LABS: BASO # 0.1 x10^3/uL (0.0-0.2); BASO % 1 % (0-3); EOS # 0.1 x10^3/uL (0.0-0.7); EOS % 1 % (0-3); HEMATOCRIT 27.3 % (36.0-47.0); HEMOGLOBIN 8.9 g/dL (12.0-15.5); LYMPH # 1.4 x10^3/uL (1.0-4.8); LYMPH % 12 % (24-48); MEAN CORPUSCULAR HEMOGLOBIN 28 pg (25-35); MEAN CORPUSCULAR HGB CONC 33 g/dL (31-37); MEAN CORPUSCULAR VOLUME 86 fL (79-100); MONO # 0.6 x10^3/uL (0.0-1.1); MONO % 5 % (0-9); NEUT # 9.7 x10^3/uL (1.8-7.7); NEUT % 82 % (31-73); PLATELET COUNT 72 x10^3/uL (140-400); RED BLOOD COUNT 3.17 x10^6/uL (3.50-5.40); RED CELL DISTRIBUTION WIDTH 17.6 % (11.5-14.5); WHITE BLOOD COUNT 11.9 x10^3/uL (4.0-11.0)
[2019-04-07 07:00] VITALS: BP 124/95
[2019-04-07] MEDS: DOCUSATE SODIUM 100 MG CAPSULE. PO SCH ×2 (08:13→20:48)
[2019-04-07] MEDS: guaiFENesin/CODEINE 100mg/10mg 5 ML LIQUID PO SCH ×4 (08:29→20:48)
[2019-04-07] MEDS: LACTOBACILLUS RHAMNOSUS GG 1 CAPSULE. PO SCH ×2 (08:29→20:48)
[2019-04-07] MEDS: FERROUS SULFATE 325 MG TABLET. PO SCH (08:29)
[2019-04-07] MEDS: CHLORHEXIDINE 0.12% 15 ML MOUTHWASH. SWSP SCH ×2 (08:30→20:48)
--- NOTE | 2019-04-07 08:47 | PDOC ---
Infectious Disease Note Subjective Subjective feeling better, but sleepy all the time ROS ROS no n/v/d/sob Vital Sign Vital Signs Vital Signs Date Time Temp Pulse Resp B/P (MAP) Pulse Ox O2 Delivery O2 Flow Rate FiO2 04/07/19 08:28 Room Air 04/07/19 07:00 98.0 97 18 124/95 (105) 90 98.0 04/07/19 03:03 2.0 Physical Exam PHYSICAL EXAM GENERAL: Propped up in bed, tired appearance, NAD HEENT: Pupils are equal and reactive. Oral cavity, pharynx is dry NECK: Supple, no JVD. LUNGS: Clear to auscultation bilaterally. HEART: S1, S2 with questionable murmur. ABDOMEN: Soft, nontender, no guarding or rebound. EXTREMITIES: Trace edema, no cyanosis SKIN: Warm to touch without rash. Multiple tattoos. NEUROLOGIC: Nonfocal, moves all extremities. PIVs Labs Lab Laboratory Tests Test 04/07/19 05:30 White Blood Count 11.9 x10^3/uL (4.0-11.0) Red Blood Count 3.17 x10^6/uL (3.50-5.40) Hemoglobin 8.9 g/dL (12.0-15.5) Hematocrit 27.3 % (36.0-47.0) Mean Corpuscular Volume 86 fL (79-100) Mean Corpuscular Hemoglobin 28 pg (25-35) Mean Corpuscular Hemoglobin Concent 33 g/dL (31-37) Red Cell Distribution Width 17.6 % (11.5-14.5) Platelet Count 72 x10^3/uL (140-400) Neutrophils (%) (Auto) 82 % (31-73) Lymphocytes (%) (Auto) 12 % (24-48) Monocytes (%) (Auto) 5 % (0-9) Eosinophils (%) (Auto) 1 % (0-3) Basophils (%) (Auto) 1 % (0-3) Neutrophils # (Auto) 9.7 x10^3/uL (1.8-7.7) Lymphocytes # (Auto) 1.4 x10^3/uL (1.0-4.8) Monocytes # (Auto) 0.6 x10^3/uL (0.0-1.1) Eosinophils # (Auto) 0.1 x10^3/uL (0.0-0.7) Basophils # (Auto) 0.1 x10^3/uL (0.0-0.2) Potassium Level 5.1 mmol/L (3.5-5.1) Micro BLOOD CULTURE Final GRAM POSITIVE COCCI IN CLUSTERS SEEN IN 1 OF 1 PED BOTTLES; 1 SET WAS DRAWN; RESULTS WERE CALLED TO TON VANN IN ICU AT 0815; 04/02/19 BY MAYA. THE BLOOD CULTURES HAVE BEEN SENT TO [facility] FOR FURTHER WORKUP. Objective Assessment Fever MRSA sepsis (at [place] per report from blood 03/29). repeat BC 03/31 & 04/01 [facility]PC, + 04/03,,,, neg 04/06 TV endocarditis Cavitary nodules, likely septic emboli Leukocytosis, better Thrombocytopenia/anemia Substance abuse ? PE Pulm HTN Hep C - ? if treated in past 4 weeks post Plan Plan of Care Cont Zyvox ,, ceftarolin, need fluids Trough 18.2 Perdiex - oral care F/u labs and cults f/u todays labs D/w nursing ct chest, abd and pelvis,, noted HUNTER report pending VERA CARTER MD Apr 07, 2019 08:47
[2019-04-07] MEDS ORDERED: diphenhydrAMINE 50 MG/ML VIAL IVP PRN (09:15)
[2019-04-07] MEDS: oxyCODONE/APAP 7.5/325 1 TAB TABLET PO PRN (10:45)
[2019-04-07 11:00] VITALS: BP 125/95
--- NOTE | 2019-04-07 11:58 | PDOC ---
PULMONARY PROGRESS NOTES Subjective denies shortness of breath.. Comments no acute distress. Vitals Vital Signs Date Time Temp Pulse Resp B/P (MAP) Pulse Ox O2 Delivery O2 Flow Rate FiO2 04/07/19 11:48 Room Air 04/07/19 11:00 97.9 107 18 125/95 (105) 90 97.9 04/07/19 03:03 2.0 ROS: No Nausea, No Chest Pain, No Abdominal Pain, No Increase Cough General: Alert, No acute distress Lungs: Clear, Other Cardiovascular: S1, S2 Abdomen: Soft, Non-tender Neuro Exam: Alert, Oriented Extremities: No Edema Skin: Warm Labs Laboratory Tests Test 04/06/19 04:35 04/07/19 05:30 White Blood Count 14.2 x10^3/uL (4.0-11.0) 11.9 x10^3/uL (4.0-11.0) Red Blood Count 3.20 x10^6/uL (3.50-5.40) 3.17 x10^6/uL (3.50-5.40) Hemoglobin 9.0 g/dL (12.0-15.5) 8.9 g/dL (12.0-15.5) Hematocrit 27.1 % (36.0-47.0) 27.3 % (36.0-47.0) Mean Corpuscular Volume 85 fL (79-100) 86 fL (79-100) Mean Corpuscular Hemoglobin 28 pg (25-35) 28 pg (25-35) Mean Corpuscular Hemoglobin Concent 33 g/dL (31-37) 33 g/dL (31-37) Red Cell Distribution Width 17.4 % (11.5-14.5) 17.6 % (11.5-14.5) Platelet Count 88 x10^3/uL (140-400) 72 x10^3/uL (140-400) Neutrophils (%) (Auto) 85 % (31-73) 82 % (31-73) Lymphocytes (%) (Auto) 10 % (24-48) 12 % (24-48) Monocytes (%) (Auto) 3 % (0-9) 5 % (0-9) Eosinophils (%) (Auto) 1 % (0-3) 1 % (0-3) Basophils (%) (Auto) 1 % (0-3) 1 % (0-3) Neutrophils # (Auto) 12.1 x10^3/uL (1.8-7.7) 9.7 x10^3/uL (1.8-7.7) Lymphocytes # (Auto) 1.5 x10^3/uL (1.0-4.8) 1.4 x10^3/uL (1.0-4.8) Monocytes # (Auto) 0.5 x10^3/uL (0.0-1.1) 0.6 x10^3/uL (0.0-1.1) Eosinophils # (Auto) 0.1 x10^3/uL (0.0-0.7) 0.1 x10^3/uL (0.0-0.7) Basophils # (Auto) 0.1 x10^3/uL (0.0-0.2) 0.1 x10^3/uL (0.0-0.2) Segmented Neutrophils % 81 % (35-66) Lymphocytes % 14 % (24-48) Monocytes % 5 % (0-10) Platelet Estimate Decreased (ADEQUATE) Anisocytosis Slight Sodium Level 141 mmol/L (136-145) Potassium Level 5.2 mmol/L (3.5-5.1) 5.1 mmol/L (3.5-5.1) Chloride Level 112 mmol/L (98-107) Carbon Dioxide Level 19 mmol/L (21-32) Anion Gap 10 (6-14) Blood Urea Nitrogen 51 mg/dL (7-20) Creatinine 1.1 mg/dL (0.6-1.0) Estimated GFR (Cockcroft-Gault) 57.9 Glucose Level 105 mg/dL (70-99) Calcium Level 8.1 mg/dL (8.5-10.1) Laboratory Tests Test 04/07/19 05:30 White Blood Count 11.9 x10^3/uL (4.0-11.0) Red Blood Count 3.17 x10^6/uL (3.50-5.40) Hemoglobin 8.9 g/dL (12.0-15.5) Hematocrit 27.3 % (36.0-47.0) Mean Corpuscular Volume 86 fL (79-100) Mean Corpuscular Hemoglobin 28 pg (25-35) Mean Corpuscular Hemoglobin Concent 33 g/dL (31-37) Red Cell Distribution Width 17.6 % (11.5-14.5) Platelet Count 72 x10^3/uL (140-400) Neutrophils (%) (Auto) 82 % (31-73) Lymphocytes (%) (Auto) 12 % (24-48) Monocytes (%) (Auto) 5 % (0-9) Eosinophils (%) (Auto) 1 % (0-3) Basophils (%) (Auto) 1 % (0-3) Neutrophils # (Auto) 9.7 x10^3/uL (1.8-7.7) Lymphocytes # (Auto) 1.4 x10^3/uL (1.0-4.8) Monocytes # (Auto) 0.6 x10^3/uL (0.0-1.1) Eosinophils # (Auto) 0.1 x10^3/uL (0.0-0.7) Basophils # (Auto) 0.1 x10^3/uL (0.0-0.2) Potassium Level 5.1 mmol/L (3.5-5.1) Medications Active Scripts Medications Dose Route/Sig Max Daily Dose Days Date Category Prenate Elite Tablet ( #79/Iron Asp Gly/FA#1) 1 Each Tablet 1 Each PO DAILY 03/29/19 Reported Ibuprofen 800 Mg Tablet 800 Mg PO PRN Q6HRS PRN 03/29/19 Reported Ferrous Sulfate 325 Mg Tablet 325 Mg PO DAILY 03/29/19 Reported Docusate Sodium 100 Mg Capsule 100 Mg PO BID 03/29/19 Reported Impression . IMPRESSION: 1. Acute hypoxic respiratory failure secondary to sepsis with MRSA 2. septic emboli, history of IV meth abuse. still had 2/4 blood cultures positive from 03/31, 04/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 4. Lower lobe pulmonary emboli.Likely infective emboli. I suspect this is related to obstruction of the pulmonary vessels from right-sided vegetations and dislodgement. In the setting of anemia and thrombocytopenia, anticoagulation would be high risk and not indicated. 5. History of hepatitis C with chronic thrombocytopenia.--improving slowly/stable 6. Polysubstance abuse. 7. Hypotension. Suspect combination of hypovolemic and septic shock.---RESOLVED 8. Abn cxr with bilateral cavitary nodules Plan . 1. Continue with present oxygen. 2. minimize benzodiazepines and narcotics. 3. antibiotics per ID 4. No need for anticoagulation 5. Repeat CXR as needed. blood culture repeat per ID 6. HUNTER with large tricuspid vegetations in the setting of persistent bacteremia, . Discussed with RN. EMY SAEED MD Apr 07, 2019 11:58
--- NOTE | 2019-04-07 12:15 | PDOC ---
PROGRESS NOTES Subjective Subjective HPI - f/u of Thrombocytopenia due to sepsis ROS - no bleeding Objective Objective Vital Signs Date Time Temp Pulse Resp B/P (MAP) Pulse Ox O2 Delivery O2 Flow Rate FiO2 04/07/19 11:48 Room Air 04/07/19 11:00 97.9 107 18 125/95 (105) 90 97.9 04/07/19 03:03 2.0 Intake and Output 04/07/19 06:59 Intake Total 2700 ml Balance 2700 ml Intake Oral 350 ml IV Total 2350 ml # Voids 2 Physical Exam General: Alert, Oriented X3, No acute distress Neuro: Normal speech Psych/Mental Status: Mental status NL Assessment Assessment Problems Medical Problems: (1) RIKY (acute kidney injury) Status: Acute (2) Endocarditis Status: Acute (3) Hypotension Status: Acute (4) Pulmonary hypertension Status: Chronic (5) Renal failure Status: Acute (6) Respiratory failure Status: Acute (7) Septic pulmonary embolism Status: Acute (8) Severe sepsis Status: Acute (9) Severe tricuspid regurgitation Status: Chronic IMPRESSION AND PLAN: 1. Thrombocytopenia due to sepsis. Appreciate Infectious Disease consultation. The patient has methicillin-resistant Staphylococcus aureus sepsis noted in [facility]. Continue antibiotic management per Infectious Diseases. I suspect that the significant worsened thrombocytopenia is also due to underlying hepatitis C. No signs of bleeding. If she has any significant bleeding, she would need platelet transfusion. Plt 72. no bleeding. 2. Septic pulmonary emboli. Anticoagulation is not indicated for septic emboli as it increases the risk of bleeding, I agree with Dr. Hughes that treatment with antibiotics will be the primary modality of management. 3. Abnormal CT with bilateral cavitary nodules throughout the lungs, likely suggestive of septic emboli. I discussed with Dr. Hughes. Continue management per Dr. Hughes. 4. Sepsis - management per ID Comment Review of Relevant I have reviewed the following items kim (where applicable) has been applied. Labs Laboratory Tests Test 04/06/19 04:35 04/07/19 05:30 White Blood Count 14.2 x10^3/uL (4.0-11.0) 11.9 x10^3/uL (4.0-11.0) Red Blood Count 3.20 x10^6/uL (3.50-5.40) 3.17 x10^6/uL (3.50-5.40) Hemoglobin 9.0 g/dL (12.0-15.5) 8.9 g/dL (12.0-15.5) Hematocrit 27.1 % (36.0-47.0) 27.3 % (36.0-47.0) Mean Corpuscular Volume 85 fL (79-100) 86 fL (79-100) Mean Corpuscular Hemoglobin 28 pg (25-35) 28 pg (25-35) Mean Corpuscular Hemoglobin Concent 33 g/dL (31-37) 33 g/dL (31-37) Red Cell Distribution Width 17.4 % (11.5-14.5) 17.6 % (11.5-14.5) Platelet Count 88 x10^3/uL (140-400) 72 x10^3/uL (140-400) Neutrophils (%) (Auto) 85 % (31-73) 82 % (31-73) Lymphocytes (%) (Auto) 10 % (24-48) 12 % (24-48) Monocytes (%) (Auto) 3 % (0-9) 5 % (0-9) Eosinophils (%) (Auto) 1 % (0-3) 1 % (0-3) Basophils (%) (Auto) 1 % (0-3) 1 % (0-3) Neutrophils # (Auto) 12.1 x10^3/uL (1.8-7.7) 9.7 x10^3/uL (1.8-7.7) Lymphocytes # (Auto) 1.5 x10^3/uL (1.0-4.8) 1.4 x10^3/uL (1.0-4.8) Monocytes # (Auto) 0.5 x10^3/uL (0.0-1.1) 0.6 x10^3/uL (0.0-1.1) Eosinophils # (Auto) 0.1 x10^3/uL (0.0-0.7) 0.1 x10^3/uL (0.0-0.7) Basophils # (Auto) 0.1 x10^3/uL (0.0-0.2) 0.1 x10^3/uL (0.0-0.2) Segmented Neutrophils % 81 % (35-66) Lymphocytes % 14 % (24-48) Monocytes % 5 % (0-10) Platelet Estimate Decreased (ADEQUATE) Anisocytosis Slight Sodium Level 141 mmol/L (136-145) Potassium Level 5.2 mmol/L (3.5-5.1) 5.1 mmol/L (3.5-5.1) Chloride Level 112 mmol/L (98-107) Carbon Dioxide Level 19 mmol/L (21-32) Anion Gap 10 (6-14) Blood Urea Nitrogen 51 mg/dL (7-20) Creatinine 1.1 mg/dL (0.6-1.0) Estimated GFR (Cockcroft-Gault) 57.9 Glucose Level 105 mg/dL (70-99) Calcium Level 8.1 mg/dL (8.5-10.1) Laboratory Tests Test 04/07/19 05:30 White Blood Count 11.9 x10^3/uL (4.0-11.0) Red Blood Count 3.17 x10^6/uL (3.50-5.40) Hemoglobin 8.9 g/dL (12.0-15.5) Hematocrit 27.3 % (36.0-47.0) Mean Corpuscular Volume 86 fL (79-100) Mean Corpuscular Hemoglobin 28 pg (25-35) Mean Corpuscular Hemoglobin Concent 33 g/dL (31-37) Red Cell Distribution Width 17.6 % (11.5-14.5) Platelet Count 72 x10^3/uL (140-400) Neutrophils (%) (Auto) 82 % (31-73) Lymphocytes (%) (Auto) 12 % (24-48) Monocytes (%) (Auto) 5 % (0-9) Eosinophils (%) (Auto) 1 % (0-3) Basophils (%) (Auto) 1 % (0-3) Neutrophils # (Auto) 9.7 x10^3/uL (1.8-7.7) Lymphocytes # (Auto) 1.4 x10^3/uL (1.0-4.8) Monocytes # (Auto) 0.6 x10^3/uL (0.0-1.1) Eosinophils # (Auto) 0.1 x10^3/uL (0.0-0.7) Basophils # (Auto) 0.1 x10^3/uL (0.0-0.2) Potassium Level 5.1 mmol/L (3.5-5.1) Microbiology 04/03/19 Blood Culture - Preliminary, Resulted 04/03/19 Blood Culture Result 1 (WILMAN) - Preliminary, Resulted Medications Current Medications Albumin Human 100 ml @ 100 mls/hr 1X ONCE IV Last administered on 03/29/19at 14:59; Start 03/29/19 at 14:30; Stop 03/29/19 at 15:29; Status DC Norepinephrine Bitartrate 250 ml @ 9.781 mls/ hr CONT PRN IV SEE I/O RECORD Last administered on 03/29/19at 23:25; Start 03/29/19 at 14:30; Stop 04/03/19 at 11:24; Status DC Sodium Chloride 1,000 ml @ 100 mls/hr Q10H IV Last administered on 03/29/19at 23:25; Start 03/29/19 at 14:30; Stop 03/30/19 at 12:08; Status DC Guaifenesin (Robitussin Dm) 10 ml PRN Q6HRS PRN PO COUGH Last administered on 04/06/19at 03:44; Start 03/29/19 at 15:30; Stop 04/06/19 at 12:42; Status DC Sodium Bicarbonate (Sodium Bicarb Adult 8.4% Syr) 50 meq 1X ONCE IV Last administered on 03/29/19at 16:49; Start 03/29/19 at 16:00; Stop 03/29/19 at 16:01; Status DC Sodium Bicarbonate (Sodium Bicarb Adult 8.4% Syr) 50 meq 1X ONCE IV Last administered on 03/29/19at 16:49; Start 03/29/19 at 16:00; Stop 03/29/19 at 16:01; Status DC Vancomycin HCl (Vanco Per Pharmacy) 1 each PRN DAILY PRN MC SEE COMMENTS Last administered on 04/02/19at 15:03; Start 03/29/19 at 17:15; Stop 04/03/19 at 07:34; Status DC Piperacillin Sod/ Tazobactam Sod (Zosyn Per Pharmacy) 1 each PRN DAILY PRN MC SEE COMMENTS; Start 03/29/19 at 17:15; Stop 03/31/19 at 07:37; Status DC Piperacillin Sod/ Tazobactam Sod 4.5 gm/Sodium Chloride 100 ml @ 200 mls/hr Q6HRS IV Last administered on 03/31/19at 06:23; Start 03/29/19 at 18:00; Stop 03/31/19 at 07:37; Status DC Vancomycin HCl 1.25 gm/Sodium Chloride 250 ml @ 166.667 mls/hr 1X ONCE IV Last administered on 03/29/19at 17:37; Start 03/29/19 at 17:15; Stop 03/29/19 at 18:44; Status DC Vancomycin HCl 750 mg/Sodium Chloride 250 ml @ 250 mls/hr Q18H IV Last administered on 03/30/19at 10:19; Start 03/30/19 at 11:00; Stop 03/30/19 at 12:54; Status DC Vancomycin HCl (Vancomycin Trough Level) 1 each 1X ONCE MC ; Start 03/31/19 at 09:30; Stop 03/31/19 at 09:31; Status DC Magnesium Sulfate 50 ml @ 25 mls/hr 1X ONCE IV Last administered on 03/29/19at 20:02; Start 03/29/19 at 20:00; Stop 03/29/19 at 21:59; Status DC Linezolid/Dextrose 300 ml @ 300 mls/hr Q12HR IV Last administered on 04/07/19at 08:30; Start 03/30/19 at 09:00 Chlorhexidine Gluconate (Peridex) 15 ml BID SWSP Last administered on 04/04/19at 08:17; Start 03/30/19 at 09:00 Amino Acids/ Glycerin/ Electrolytes 1,000 ml @ 100 mls/hr Q10H IV Last administered on 04/03/19at 07:36; Start 03/30/19 at 12:00; Stop 04/03/19 at 11:38; Status DC Vancomycin HCl 750 mg/Sodium Chloride 250 ml @ 250 mls/hr Q12H IV Last administered on 04/02/19at 21:48; Start 03/30/19 at 22:00; Stop 04/03/19 at 07:34; Status DC Hydromorphone HCl (Dilaudid) 1 mg PRN Q4HRS PRN IV PAIN Last administered on 03/31/19at 05:11; Start 03/30/19 at 21:00; Stop 03/31/19 at 09:43; Status DC Hydromorphone HCl (Dilaudid) 1 mg PRN Q2HR PRN IV PAIN Last administered on 03/31/19at 20:06; Start 03/31/19 at 09:45; Stop 03/31/19 at 22:00; Status DC Haloperidol Lactate (Haldol Inj) 2 mg PRN Q6HRS PRN IVP AGITATION Last administered on 04/01/19at 00:07; Start 03/31/19 at 09:45 Hydromorphone HCl (Dilaudid) 1 mg PRN Q2HR PRN IV MOD TO SEVERE PAIN Last administered on 04/07/19at 11:45; Start 04/01/19 at 00:45 Oxycodone/ Acetaminophen (Percocet 7.5/ 325) 1 tab PRN Q4HRS PRN PO PAIN Last administered on 04/07/19at 10:45; Start 04/01/19 at 09:00 Sodium Chloride 1,000 ml @ 125 mls/hr 1X ONCE IV Last administered on 04/01/19at 18:11; Start 04/01/19 at 09:00; Stop 04/01/19 at 16:59; Status DC Ketorolac Tromethamine (Toradol 15mg Vial) 15 mg PRN Q6HRS PRN IV MILD PAIN 1-3 Last administered on 04/06/19at 01:59; Start 04/01/19 at 09:00; Stop 04/06/19 at 08:59; Status DC Diphenhydramine HCl (Benadryl) 25 mg PRN Q6HRS PRN IVP ITCHING Last adm inistered on 04/06/19at 22:28; Start 04/01/19 at 14:00; Stop 04/07/19 at 09:07; Status DC Lactobacillus Rhamnosus (Culturelle) 1 cap BID PO Last administered on 04/04/19at 21:02; Start 04/02/19 at 21:00 Ceftaroline Fosamil 600 mg/ Sodium Chloride 250 ml @ 250 mls/hr Q8HRS IV Last administered on 04/07/19at 05:49; Start 04/03/19 at 08:00 Sodium Chloride 1,000 ml @ 200 mls/hr 1X ONCE IV Last administered on 04/03/19at 08:45; Start 04/03/19 at 08:30; Stop 04/03/19 at 13:29; Status DC Iohexol (Omnipaque 240 Mg/ml) 30 ml 1X ONCE PO Last administered on 04/04/19at 13:49; Start 04/04/19 at 13:00; Stop 04/04/19 at 13:01; Status DC Iohexol (Omnipaque 300 Mg/ml) 75 ml 1X ONCE IV Last administered on 04/04/19at 14:42; Start 04/04/19 at 13:00; Stop 04/04/19 at 13:01; Status DC Lidocaine HCl (Xylocaine 2% Topical 5gm Tube) 1 garrison 1X ONCE TP Last administered on 04/05/19at 15:35; Start 04/05/19 at 08:45; Stop 04/05/19 at 08:47; Status DC Lidocaine HCl (Viscous Lidocaine) 15 ml 1X ONCE SWSW Last administered on at 15:36; Start 04/05/19 at 08:45; Stop 04/05/19 at 08:47; Status DC Benzocaine (Hurricaine One) 2 spray 1X ONCE MM Last administered on 04/05/19at 15:34; Start 04/05/19 at 08:45; Stop 04/05/19 at 08:47; Status DC Albuterol Sulfate (Ventolin Neb Soln) 2.5 mg PRN Q4HRS PRN NEB SHORTNESS OF BREATH; Start 04/05/19 at 08:45 Ondansetron HCl (Zofran) 4 mg PRN Q6HRS PRN IV NAUSEA/VOMITING Last administered on 04/07/19at 02:02; Start 04/05/19 at 08:45 Acetaminophen (Tylenol) 500 mg PRN Q6HRS PRN PO MILD PAIN / TEMP Last administered on 04/06/19at 04:56; Start 04/05/19 at 08:45 Docusate Sodium (Colace) 100 mg BID PO ; Start 04/05/19 at 09:00 Ferrous Sulfate (Feosol) 325 mg DAILY PO ; Start 04/05/19 at 09:00 Benzocaine (Hurricaine One) 1 spray STK-MED ONCE .ROUTE ; Start 04/05/19 at 13:39; Stop 04/05/19 at 13:40; Status DC Lidocaine HCl (Xylocaine 2% Topical 5gm Tube) 5 garrison STK-MED ONCE TP ; Start 04/05/19 at 13:39; Stop 04/05/19 at 13:40; Status DC Lidocaine HCl (Viscous Lidocaine) 15 ml STK-MED ONCE .ROUTE ; Start 04/05/19 at 13:39; Stop 04/05/19 at 13:40; Status DC Lidocaine/Sodium Bicarbonate (Buffered Lidocaine 1%) 3 ml STK-MED ONCE .ROUTE ; Start 04/05/19 at 13:50; Stop 04/05/19 at 13:50; Status DC Lidocaine/Sodium Bicarbonate (Buffered Lidocaine 1%) 6 ml 1X ONCE INJ Last administered on 04/05/19at 14:14; Start 04/05/19 at 14:15; Stop 04/05/19 at 14:16; Status DC Ringer's Solution 1,000 ml @ 75 mls/hr [id number] IV Last administered on 04/05/19at 21:09; Start 04/05/19 at 15:30; Stop 04/06/19 at 08:37; Status DC Propofol 20 ml @ As Directed STK-MED ONCE IV ; Start 04/05/19 at 16:00; Stop 04/05/19 at 16:00; Status DC Lidocaine HCl (Lidocaine Pf 2% Vial) 5 ml STK-MED ONCE .ROUTE ; Start 04/05/19 at 16:00; Stop 04/05/19 at 16:00; Status DC Phenylephrine HCl (PHENYLEPHRINE in 0.9% NACL PF) 1 mg STK-MED ONCE IV ; Start 04/05/19 at 16:00; Stop 04/05/19 at 16:00; Status DC Sodium Polystyrene Sulfonate (Kayexalate) 15 gm 1X ONCE PO Last administered on 04/06/19at 18:14; Start 04/06/19 at 08:45; Stop 04/06/19 at 08:46; Status DC Ketorolac Tromethamine (Toradol 15mg Vial) 15 mg PRN Q6HRS PRN IV PAIN Last administered on 04/07/19at 05:49; Start 04/06/19 at 12:30; Stop 04/11/19 at 12:29 Guaifenesin/ Codeine Phosphate (Robitussin Ac) 5 ml QID PO Last administered on 04/07/19at 08:29; Start 04/06/19 at 13:00 Sodium Polystyrene Sulfonate (Kayexalate) 15 gm STK-MED ONCE .ROUTE ; Start 04/06/19 at 18:11; Stop 04/06/19 at 18:11; Status DC Diphenhydramine HCl (Benadryl) 25 mg PRN Q8HRS PRN IVP ITCHING; Start 04/07/19 at 09:15 Active Scripts Active Reported Prenate Elite Tablet ( #79/Iron Asp Gly/FA#1) 1 Each Tablet 1 Each PO DAILY Ibuprofen 800 Mg Tablet 800 Mg PO PRN Q6HRS PRN Ferrous Sulfate 325 Mg Tablet 325 Mg PO DAILY Docusate Sodium 100 Mg Capsule 100 Mg PO BID Vitals/I & O Vital Sign - Last 24 Hours 04/06/19 04/06/19 04/06/19 04/06/19 12:48 15:06 16:49 17:19 Temp 98.0 98.0 Pulse 69 Resp 14 20 22 18 B/P (MAP) 128/83 (98) Pulse Ox 98 98 O2 Delivery Room Air Nasal Cannula Room Air Nasal Cannula O2 Flow Rate 2.0 04/06/19 04/06/19 04/06/19 04/06/19 19:00 19:45 22:28 23:00 Temp 97.9 97.9 97.9 97.9 Pulse 90 93 Resp 18 20 18 B/P (MAP) 123/90 (101) 129/76 (93) Pulse Ox 98 98 97 O2 Delivery Room Air Nasal Cannula Nasal Cannula Nasal Cannula O2 Flow Rate 2.0 2.0 2.0 04/07/19 04/07/19 04/07/19 04/07/19 00:00 02:06 02:54 03:03 Temp 97.9 97.9 Pulse 80 Resp 18 18 18 16 B/P (MAP) 126/75 (92) Pulse Ox 97 97 97 O2 Delivery Nasal Cannula Nasal Cannula Nasal Cannula Nasal Cannula O2 Flow Rate 2.0 2.0 2.0 2.0 04/07/19 04/07/19 04/07/19 04/07/19 07:00 07:30 07:34 08:28 Temp 98.0 98.0 Pulse 97 Resp 18 B/P (MAP) 124/95 (105) Pulse Ox 90 O2 Delivery Room Air Room Air Room Air Room Air 04/07/19 04/07/19 04/07/19 04/07/19 10:45 11:00 11:45 11:48 Temp 97.9 97.9 Pulse 107 Resp 18 B/P (MAP) 125/95 (105) Pulse Ox 90 O2 Delivery Room Air Room Air Room Air Room Air Intake and Output 04/06/19 04/06/19 04/07/19 14:59 22:59 06:59 Intake Total 0 ml 250 ml 2450 ml Balance 0 ml 250 ml 2450 ml Nutrition Consultation Dietary Evaluation: Recommendations by RD: Protein supplementation, Add supplement feedings Comments: Continue w/regular diet as ordered, honor food preferences, and provide snacks as requested Continue w/PPN to supplement PO intake at this time, can stop PPN once PO intake consistently >50% meals and tolerated, D/Cd 04/0304/07/2019-Pt. stated that she has an upset stomach, Current PO intake poor, Suggest continue regular diet and add Ensure Clear BID to increase protein/calorie intake Expected Outcomes/Goals: PO intake + Ensure Clear to meet >75% est needs - met, goal ongoing Interpretation of weight loss: >20% in 1 year Malnutrition Findings: Food and Nutrition Intake (Mod: <75% est energy req 7days Weight Status: Appropriate TROY WASSERMAN MD Apr 07, 2019 12:15
--- NOTE | 2019-04-07 12:39 | PDOC ---
PROGRESS NOTES Chief Complaint Chief Complaint MRSA bacteremia Sepsis Tricuspid Vegetation Septic emboli acute metabolic encephalopathy resolved (heroine etc) polysubstance abuse, and withdrawal symptoms pancytopenia from sepsis multiple tattoes Acute precipitous drop hgb SP History of Present Illness History of Present Illness HUNTER Read is still pending On IV abx per ID [facility] screen on going, they can do IV abx there EARLIER NTERY: asking For pain meds Claims Dilaudid is the only one that's helping It is on file Plan: Keep current Dilaudid Slated for [facility] rehabilitation- Educated and counseled TRial of robitussin with codeine for the pleuritic CP when she coughs IV abx FF up HUNTER Vitals Vitals Vital Signs Date Time Temp Pulse Resp B/P (MAP) Pulse Ox O2 Delivery O2 Flow Rate FiO2 04/07/19 11:48 Room Air 04/07/19 11:00 97.9 107 18 125/95 (105) 90 97.9 04/07/19 03:03 2.0 Physical Exam Physical Exam GENERAL: Propped up in bed, tired appearance, NAD HEENT: Pupils are equal and reactive. Oral cavity, pharynx is dry NECK: Supple, no JVD. LUNGS: Clear to auscultation bilaterally. HEART: S1, S2 with questionable murmur. ABDOMEN: Soft, nontender, no guarding or rebound. EXTREMITIES: Trace edema, no cyanosis SKIN: Warm to touch without rash. Multiple tattoos. NEUROLOGIC: Nonfocal, moves all extremities. PIVs General: Alert, Oriented X3, No acute distress Heart: Regular rate Lungs: Clear, Other Abdomen: Soft, No tenderness Extremities: No cyanosis, No edema Skin: No breakdown Labs LABS Laboratory Tests Test 04/07/19 05:30 White Blood Count 11.9 x10^3/uL (4.0-11.0) Red Blood Count 3.17 x10^6/uL (3.50-5.40) Hemoglobin 8.9 g/dL (12.0-15.5) Hematocrit 27.3 % (36.0-47.0) Mean Corpuscular Volume 86 fL (79-100) Mean Corpuscular Hemoglobin 28 pg (25-35) Mean Corpuscular Hemoglobin Concent 33 g/dL (31-37) Red Cell Distribution Width 17.6 % (11.5-14.5) Platelet Count 72 x10^3/uL (140-400) Neutrophils (%) (Auto) 82 % (31-73) Lymphocytes (%) (Auto) 12 % (24-48) Monocytes (%) (Auto) 5 % (0-9) Eosinophils (%) (Auto) 1 % (0-3) Basophils (%) (Auto) 1 % (0-3) Neutrophils # (Auto) 9.7 x10^3/uL (1.8-7.7) Lymphocytes # (Auto) 1.4 x10^3/uL (1.0-4.8) Monocytes # (Auto) 0.6 x10^3/uL (0.0-1.1) Eosinophils # (Auto) 0.1 x10^3/uL (0.0-0.7) Basophils # (Auto) 0.1 x10^3/uL (0.0-0.2) Potassium Level 5.1 mmol/L (3.5-5.1) Review of Systems Review of Systems neg 14 pt, sleepy Assessment and Plan Assessmemt and Plan Problems Medical Problems: (1) RIKY (acute kidney injury) Status: Acute (2) Endocarditis Status: Acute (3) Hypotension Status: Acute (4) Pulmonary hypertension Status: Chronic (5) Renal failure Status: Acute (6) Respiratory failure Status: Acute (7) Septic pulmonary embolism Status: Acute (8) Severe sepsis Status: Acute (9) Severe tricuspid regurgitation Status: Chronic Comment Review of Relevant I have reviewed the following items kim (where applicable) has been applied. Labs Laboratory Tests Test 04/06/19 04:35 04/07/19 05:30 White Blood Count 14.2 x10^3/uL (4.0-11.0) 11.9 x10^3/uL (4.0-11.0) Red Blood Count 3.20 x10^6/uL (3.50-5.40) 3.17 x10^6/uL (3.50-5.40) Hemoglobin 9.0 g/dL (12.0-15.5) 8.9 g/dL (12.0-15.5) Hematocrit 27.1 % (36.0-47.0) 27.3 % (36.0-47.0) Mean Corpuscular Volume 85 fL (79-100) 86 fL (79-100) Mean Corpuscular Hemoglobin 28 pg (25-35) 28 pg (25-35) Mean Corpuscular Hemoglobin Concent 33 g/dL (31-37) 33 g/dL (31-37) Red Cell Distribution Width 17.4 % (11.5-14.5) 17.6 % (11.5-14.5) Platelet Count 88 x10^3/uL (140-400) 72 x10^3/uL (140-400) Neutrophils (%) (Auto) 85 % (31-73) 82 % (31-73) Lymphocytes (%) (Auto) 10 % (24-48) 12 % (24-48) Monocytes (%) (Auto) 3 % (0-9) 5 % (0-9) Eosinophils (%) (Auto) 1 % (0-3) 1 % (0-3) Basophils (%) (Auto) 1 % (0-3) 1 % (0-3) Neutrophils # (Auto) 12.1 x10^3/uL (1.8-7.7) 9.7 x10^3/uL (1.8-7.7) Lymphocytes # (Auto) 1.5 x10^3/uL (1.0-4.8) 1.4 x10^3/uL (1.0-4.8) Monocytes # (Auto) 0.5 x10^3/uL (0.0-1.1) 0.6 x10^3/uL (0.0-1.1) Eosinophils # (Auto) 0.1 x10^3/uL (0.0-0.7) 0.1 x10^3/uL (0.0-0.7) Basophils # (Auto) 0.1 x10^3/uL (0.0-0.2) 0.1 x10^3/uL (0.0-0.2) Segmented Neutrophils % 81 % (35-66) Lymphocytes % 14 % (24-48) Monocytes % 5 % (0-10) Platelet Estimate Decreased (ADEQUATE) Anisocytosis Slight Sodium Level 141 mmol/L (136-145) Potassium Level 5.2 mmol/L (3.5-5.1) 5.1 mmol/L (3.5-5.1) Chloride Level 112 mmol/L (98-107) Carbon Dioxide Level 19 mmol/L (21-32) Anion Gap 10 (6-14) Blood Urea Nitrogen 51 mg/dL (7-20) Creatinine 1.1 mg/dL (0.6-1.0) Estimated GFR (Cockcroft-Gault) 57.9 Glucose Level 105 mg/dL (70-99) Calcium Level 8.1 mg/dL (8.5-10.1) Laboratory Tests Test 04/07/19 05:30 White Blood Count 11.9 x10^3/uL (4.0-11.0) Red Blood Count 3.17 x10^6/uL (3.50-5.40) Hemoglobin 8.9 g/dL (12.0-15.5) Hematocrit 27.3 % (36.0-47.0) Mean Corpuscular Volume 86 fL (79-100) Mean Corpuscular Hemoglobin 28 pg (25-35) Mean Corpuscular Hemoglobin Concent 33 g/dL (31-37) Red Cell Distribution Width 17.6 % (11.5-14.5) Platelet Count 72 x10^3/uL (140-400) Neutrophils (%) (Auto) 82 % (31-73) Lymphocytes (%) (Auto) 12 % (24-48) Monocytes (%) (Auto) 5 % (0-9) Eosinophils (%) (Auto) 1 % (0-3) Basophils (%) (Auto) 1 % (0-3) Neutrophils # (Auto) 9.7 x10^3/uL (1.8-7.7) Lymphocytes # (Auto) 1.4 x10^3/uL (1.0-4.8) Monocytes # (Auto) 0.6 x10^3/uL (0.0-1.1) Eosinophils # (Auto) 0.1 x10^3/uL (0.0-0.7) Basophils # (Auto) 0.1 x10^3/uL (0.0-0.2) Potassium Level 5.1 mmol/L (3.5-5.1) Microbiology 04/03/19 Blood Culture - Preliminary, Resulted 04/03/19 Blood Culture Result 1 (WILMAN) - Preliminary, Resulted Medications Current Medications Albumin Human 100 ml @ 100 mls/hr 1X ONCE IV Last administered on 03/29/19at 14:59; Start 03/29/19 at 14:30; Stop 03/29/19 at 15:29; Status DC Norepinephrine Bitartrate 250 ml @ 9.781 mls/ hr CONT PRN IV SEE I/O RECORD Last administered on 03/29/19at 23:25; Start 03/29/19 at 14:30; Stop 04/03/19 at 11:24; Status DC Sodium Chloride 1,000 ml @ 100 mls/hr Q10H IV Last administered on 03/29/19at 23:25; Start 03/29/19 at 14:30; Stop 03/30/19 at 12:08; Status DC Guaifenesin (Robitussin Dm) 10 ml PRN Q6HRS PRN PO COUGH Last administered on 04/06/19at 03:44; Start 03/29/19 at 15:30; Stop 04/06/19 at 12:42; Status DC Sodium Bicarbonate (Sodium Bicarb Adult 8.4% Syr) 50 meq 1X ONCE IV Last administered on 03/29/19at 16:49; Start 03/29/19 at 16:00; Stop 03/29/19 at 16:01; Status DC Sodium Bicarbonate (Sodium Bicarb Adult 8.4% Syr) 50 meq 1X ONCE IV Last administered on 03/29/19at 16:49; Start 03/29/19 at 16:00; Stop 03/29/19 at 16:01; Status DC Vancomycin HCl (Vanco Per Pharmacy) 1 each PRN DAILY PRN MC SEE COMMENTS Last administered on 04/02/19at 15:03; Start 03/29/19 at 17:15; Stop 04/03/19 at 07:34; Status DC Piperacillin Sod/ Tazobactam Sod (Zosyn Per Pharmacy) 1 each PRN DAILY PRN MC SEE COMMENTS; Start 03/29/19 at 17:15; Stop 03/31/19 at 07:37; Status DC Piperacillin Sod/ Tazobactam Sod 4.5 gm/Sodium Chloride 100 ml @ 200 mls/hr Q6HRS IV Last administered on 03/31/19at 06:23; Start 03/29/19 at 18:00; Stop 03/31/19 at 07:37; Status DC Vancomycin HCl 1.25 gm/Sodium Chloride 250 ml @ 166.667 mls/hr 1X ONCE IV Las t administered on 03/29/19at 17:37; Start 03/29/19 at 17:15; Stop 03/29/19 at 18:44; Status DC Vancomycin HCl 750 mg/Sodium Chloride 250 ml @ 250 mls/hr Q18H IV Last administered on 03/30/19at 10:19; Start 03/30/19 at 11:00; Stop 03/30/19 at 12:54; Status DC Vancomycin HCl (Vancomycin Trough Level) 1 each 1X ONCE MC ; Start 03/31/19 at 09:30; Stop 03/31/19 at 09:31; Status DC Magnesium Sulfate 50 ml @ 25 mls/hr 1X ONCE IV Last administered on 03/29/19at 20:02; Start 03/29/19 at 20:00; Stop 03/29/19 at 21:59; Status DC Linezolid/Dextrose 300 ml @ 300 mls/hr Q12HR IV Last administered on 04/07/19at 08:30; Start 03/30/19 at 09:00 Chlorhexidine Gluconate (Peridex) 15 ml BID SWSP Last administered on 04/04/19at 08:17; Start 03/30/19 at 09:00 Amino Acids/ Glycerin/ Electrolytes 1,000 ml @ 100 mls/hr Q10H IV Last administered on 04/03/19at 07:36; Start 03/30/19 at 12:00; Stop 04/03/19 at 11:38; Status DC Vancomycin HCl 750 mg/Sodium Chloride 250 ml @ 250 mls/hr Q12H IV Last administered on 04/02/19at 21:48; Start 03/30/19 at 22:00; Stop 04/03/19 at 07:34; Status DC Hydromorphone HCl (Dilaudid) 1 mg PRN Q4HRS PRN IV PAIN Last administered on 03/31/19at 05:11; Start 03/30/19 at 21:00; Stop 03/31/19 at 09:43; Status DC Hydromorphone HCl (Dilaudid) 1 mg PRN Q2HR PRN IV PAIN Last administered on 03/31/19at 20:06; Start 03/31/19 at 09:45; Stop 03/31/19 at 22:00; Status DC Haloperidol Lactate (Haldol Inj) 2 mg PRN Q6HRS PRN IVP AGITATION Last administered on 04/01/19at 00:07; Start 03/31/19 at 09:45 Hydromorphone HCl (Dilaudid) 1 mg PRN Q2HR PRN IV MOD TO SEVERE PAIN Last administered on 04/07/19at 11:45; Start 04/01/19 at 00:45 Oxycodone/ Acetaminophen (Percocet 7.5/ 325) 1 tab PRN Q4HRS PRN PO PAIN Last administered on 04/07/19 10:45; Start 04/01/19 at 09:00 Sodium Chloride 1,000 ml @ 125 mls/hr 1X ONCE IV Last administered on 04/01/19at 18:11; Start 04/01/19 at 09:00; Stop 04/01/19 at 16:59; Status DC Ketorolac Tromethamine (Toradol 15mg Vial) 15 mg PRN Q6HRS PRN IV MILD PAIN 1-3 Last administered on 04/06/19at 01:59; Start 04/01/19 at 09:00; Stop 04/06/19 at 08:59; Status DC Diphenhydramine HCl (Benadryl) 25 mg PRN Q6HRS PRN IVP ITCHING Last administered on 04/06/19 22:28; Start 04/01/19 at 14:00; Stop 04/07/19 at 09:07; Status DC Lactobacillus Rhamnosus (Culturelle) 1 cap BID PO Last administered on 04/04/19at 21:02; Start 04/02/19 at 21:00 Ceftaroline Fosamil 600 mg/ Sodium Chloride 250 ml @ 250 mls/hr Q8HRS IV Last administered on 04/07/19 05:49; Start 04/03/19 at 08:00 Sodium Chloride 1,000 ml @ 200 mls/hr 1X ONCE IV Last administered on 04/03/19 08:45; Start 04/03/19 at 08:30; Stop 04/03/19 at 13:29; Status DC Iohexol (Omnipaque 240 Mg/ml) 30 ml 1X ONCE PO Last administered on 04/04/19at 13:49; Start 04/04/19 at 13:00; Stop 04/04/19 at 13:01; Status DC Iohexol (Omnipaque 300 Mg/ml) 75 ml 1X ONCE IV Last administered on 04/04/19at 14:42; Start 04/04/19 at 13:00; Stop 04/04/19 at 13:01; Status DC Lidocaine HCl (Xylocaine 2% Topical 5gm Tube) 1 garrison 1X ONCE TP Last administered on 04/05/19at 15:35; Start 04/05/19 at 08:45; Stop 04/05/19 at 08:47; Status DC Lidocaine HCl (Viscous Lidocaine) 15 ml 1X ONCE SWSW Last administered on 04/05/19at 15:36; Start 04/05/19 at 08:45; Stop 04/05/19 at 08:47; Status DC Benzocaine (Hurricaine One) 2 spray 1X ONCE MM Last administered on 04/05/19at 15:34; Start 04/05/19 at 08:45; Stop 04/05/19 at 08:47; Status DC Albuterol Sulfate (Ventolin Neb Soln) 2.5 mg PRN Q4HRS PRN NEB SHORTNESS OF BREATH; Start 04/05/19 at 08:45 Ondansetron HCl (Zofran) 4 mg PRN Q6HRS PRN IV NAUSEA/VOMITING Last administered on 04/07/19at 02:02; Start 04/05/19 at 08:45 Acetaminophen (Tylenol) 500 mg PRN Q6HRS PRN PO MILD PAIN / TEMP Last administered on 04/06/19at 04:56; Start 04/05/19 at 08:45 Docusate Sodium (Colace) 100 mg BID PO ; Start 04/05/19 at 09:00 Ferrous Sulfate (Feosol) 325 mg DAILY PO ; Start 04/05/19 at 09:00 Benzocaine (Hurricaine One) 1 spray STK-MED ONCE .ROUTE ; Start 04/05/19 at 13:39; Stop 04/05/19 at 13:40; Status DC Lidocaine HCl (Xylocaine 2% Topical 5gm Tube) 5 garrison STK-MED ONCE TP ; Start 04/05/19 at 13:39; Stop 04/05/19 at 13:40; Status DC Lidocaine HCl (Viscous Lidocaine) 15 ml STK-MED ONCE .ROUTE ; Start 04/05/19 at 13:39; Stop 04/05/19 at 13:40; Status DC Lidocaine/Sodium Bicarbonate (Buffered Lidocaine 1%) 3 ml STK-MED ONCE .ROUTE ; Start 04/05/19 at 13:50; Stop 04/05/19 at 13:50; Status DC Lidocaine/Sodium Bicarbonate (Buffered Lidocaine 1%) 6 ml 1X ONCE INJ Last administered on 04/05/19at 14:14; Start 04/05/19 at 14:15; Stop 04/05/19 at 14:16; Status DC Ringer's Solution 1,000 ml @ 75 mls/hr [id number] IV Last administered on 04/05/19at 21:09; Start 04/05/19 at 15:30; Stop 04/06/19 at 08:37; Status DC Propofol 20 ml @ As Directed STK-MED ONCE IV ; Start 04/05/19 at 16:00; Stop 04/05/19 at 16:00; Status DC Lidocaine HCl (Lidocaine Pf 2% Vial) 5 ml STK-MED ONCE .ROUTE ; Start 04/05/19 at 16:00; Stop 04/05/19 at 16:00; Status DC Phenylephrine HCl (PHENYLEPHRINE in 0.9% NACL PF) 1 mg STK-MED ONCE IV ; Start 04/05/19 at 16:00; Stop 04/05/19 at 16:00; Status DC Sodium Polystyrene Sulfonate (Kayexalate) 15 gm 1X ONCE PO Last administered on 04/06/19at 18:14; Start 04/06/19 at 08:45; Stop 04/06/19 at 08:46; Status DC Ketorolac Tromethamine (Toradol 15mg Vial) 15 mg PRN Q6HRS PRN IV PAIN Last administered on 04/07/19at 05:49; Start 04/06/19 at 12:30; Stop 04/11/19 at 12:29 Guaifenesin/ Codeine Phosphate (Robitussin Ac) 5 ml QID PO Last administered on 04/07/19at 08:29; Start 04/06/19 at 13:00 Sodium Polystyrene Sulfonate (Kayexalate) 15 gm STK-MED ONCE .ROUTE ; Start 04/06/19 at 18:11; Stop 04/06/19 at 18:11; Status DC Diphenhydramine HCl (Benadryl) 25 mg PRN Q8HRS PRN IVP ITCHING; Start 04/07/19 at 09:15 Active Scripts Active Reported Prenate Elite Tablet ( #79/Iron Asp Gly/FA#1) 1 Each Tablet 1 Each PO DAILY Ibuprofen 800 Mg Tablet 800 Mg PO PRN Q6HRS PRN Ferrous Sulfate 325 Mg Tablet 325 Mg PO DAILY Docusate Sodium 100 Mg Capsule 100 Mg PO BID Vitals/I & O Vital Sign - Last 24 Hours 04/06/19 04/06/19 04/06/19 04/06/19 12:48 15:06 16:49 17:19 Temp 98.0 98.0 Pulse 69 Resp 14 20 22 18 B/P (MAP) 128/83 (98) Pulse Ox 98 98 O2 Delivery Room Air Nasal Cannula Room Air Nasal Cannula O2 Flow Rate 2.0 04/06/19 04/06/19 04/06/19 04/06/19 19:00 19:45 22:28 23:00 Temp 97.9 97.9 97.9 97.9 Pulse 90 93 Resp 18 20 18 B/P (MAP) 123/90 (101) 129/76 (93) Pulse Ox 98 98 97 O2 Delivery Room Air Nasal Cannula Nasal Cannula Nasal Cannula O2 Flow Rate 2.0 2.0 2.0 04/07/19 04/07/19 04/07/19 04/07/19 00:00 02:06 02:54 03:03 Temp 97.9 97.9 Pulse 80 Resp 18 18 18 16 B/P (MAP) 126/75 (92) Pulse Ox 97 97 97 O2 Delivery Nasal Cannula Nasal Cannula Nasal Cannula Nasal Cannula O2 Flow Rate 2.0 2.0 2.0 2.0 04/07/19 04/07/19 04/07/19 04/07/19 07:00 07:30 07:34 08:28 Temp 98.0 98.0 Pulse 97 Resp 18 B/P (MAP) 124/95 (105) Pulse Ox 90 O2 Delivery Room Air Room Air Room Air Room Air 04/07/19 04/07/19 04/07/19 04/07/19 10:45 11:00 11:45 11:48 Temp 97.9 97.9 Pulse 107 Resp 18 B/P (MAP) 125/95 (105) Pulse Ox 90 O2 Delivery Room Air Room Air Room Air Room Air Intake and Output 04/06/19 04/06/19 04/07/19 15:00 23:00 07:00 Intake Total 0 ml 250 ml 2450 ml Balance 0 ml 250 ml 2450 ml Nutrition Consultation Dietary Evaluation: Recommendations by RD: Protein supplementation, Add supplement feedings Comments: Continue w/regular diet as ordered, honor food preferences, and provide snacks as requested Continue w/PPN to supplement PO intake at this time, can stop PPN once PO intake consistently >50% meals and tolerated, D/Cd 04/0304/07/2019-Pt. stated that she has an upset stomach, Current PO intake poor, Suggest continue regular diet and add Ensure Clear BID to increase protein/calorie intake Expected Outcomes/Goals: PO intake + Ensure Clear to meet >75% est needs - met, goal ongoing Interpretation of weight loss: >20% in 1 year Malnutrition Findings: Food and Nutrition Intake (Mod: <75% est energy req 7days Weight Status: Appropriate MACIEJ LOWE MD Apr 07, 2019 12:39
--- NOTE | 2019-04-07 13:54 | CARD ---
MR#: [id number] Date of Study: 04/05/2019 Ordering Physician: BOB MCNAMARA, Referring Physician: BOB MCNAMARA, Tech: Justina Zepeda APPROVED REPORT EXAM: Transesophageal echocardiogram with color flow Doppler. INDICATION Endocarditis, Tachycardia Reason For Test : Rule out endocarditis. PROCEDURE After obtaining informed consent, patient underwent transesophageal echo in the PACU. Type of Sedation : General Anesthesia Sedation was administered by Dr. Sachin Jiménez. Sedation was achieved with Propofol 160mg intravenously. Transesophageal probe was inserted and advanced into esophagus by Charan Minaya MD. The HUNTER was performed without complications. Throughout the procedure, the blood pressure, pulse oximetry, cardiac rhythm, and rate were monitored . The patient tolerated the procedure without adverse effects. Recovery from general anesthesia was une ventful and vital signs were stable. LEFT VENTRICLE The left ventricle is normal size. There is normal left ventricular wall thickness. The left ventricu lar systolic function is mildly diminished. The Ejection Fraction is 45%. There is a flattened septum consistent with right ventricle volume and pressure overload. No left ventricle thrombus noted on th is study. RIGHT VENTRICLE The right ventricle is mildly to moderately dilated. There is normal right ventricular wall thickness . Systolic function is mildly reduced. ATRIA The left atrium size is normal. The right atrium is moderately dilated. The interatrial septum is int act with no evidence for an atrial septal defect or patent foramen ovale as noted on 2-D or Doppler i maging. AORTIC VALVE The aortic valve is normal in structure and function. Doppler and Color Flow revealed no significant aortic regurgitation. There is no significant aortic valvular stenosis. MITRAL VALVE The mitral valve is normal in structure and function. There is no evidence of mitral valve prolapse. There is no mitral valve stenosis. Doppler and Color-flow revealed trace mitral regurgitation. TRICUSPID VALVE The tricuspid valve is not well visualized due to large vegetation on the valve. Doppler and Color Fl ow revealed severe tricuspid regurgitation. There is a large vegetation on the tricuspid valve. There is no tricuspid valve stenosis. PULMONIC VALVE The pulmonary valve is normal in structure and function. Doppler and Color Flow revealed trace pulmon ic valvular regurgitation. There is no pulmonic valvular stenosis. GREAT VESSELS The aortic root is normal in size. Normal left upper pulmonary vein. PERICARDIAL EFFUSION There is trace pericardial effusion. There is no pleural effusion. Critical Notification Critical Value: No <Conclusion> The left ventricular systolic function is mildly diminished. The Ejection Fraction is 45%. There is a flattened septum consistent with right ventricle volume and pressure overload. Trace mitral regurgitation. There is a large mobile vegetation on the tricuspid valve measuring 2 x 2.4 cm. The septal leaflet of tricuspid valve appears to be flail with Severe tricuspid regurgitation. No abscess was visualized. There is trace pericardial effusion. Signed by : Charan Minaya, Electronically Approved : 04/06/2019 15:33:41
[2019-04-07 15:00] VITALS: BP 124/94
[2019-04-07 19:00] VITALS: BP 144/97
[2019-04-07 23:15] VITALS: BP 130/91
[2019-04-08] MEDS: oxyCODONE/APAP 7.5/325 1 TAB TABLET PO PRN ×2 (01:10→19:56)
[2019-04-08] MEDS: HYDROmorphone 2 MG/ML VIAL IV PRN ×5 (01:11→19:56)
[2019-04-08 03:00] VITALS: BP 118/87
[2019-04-08] MEDS: CEFTAROLINE FOSAMIL 600 MG in IV NORMAL SALINE 250ML 250 ML IV SCH ×3 (06:24→23:03)
[2019-04-08] MEDS: KETOROLAC 15 MG/ML VIAL. IV PRN ×2 (06:26→13:56)
[2019-04-08] MEDS: ONDANSETRON PF 4 MG/2 ML VIAL. IV PRN (06:35)
[2019-04-08 07:00] VITALS: BP 122/92
--- NOTE | 2019-04-08 07:31 | PDOC ---
PULMONARY PROGRESS NOTES Subjective no sob, has occ cough, has pain all over Comments no acute distress. Vitals Vital Signs Date Time Temp Pulse Resp B/P (MAP) Pulse Ox O2 Delivery O2 Flow Rate FiO2 04/08/19 03:00 97.7 112 22 118/87 (97) 91 Nasal Cannula 3.0 97.7 ROS: No Nausea, No Chest Pain, No Abdominal Pain, No Increase Cough General: Alert, No acute distress Lungs: Clear, Other Cardiovascular: S1, S2 Abdomen: Soft, Non-tender Neuro Exam: Alert, Oriented Extremities: No Edema Skin: Warm Labs Laboratory Tests Test 04/07/19 05:30 White Blood Count 11.9 x10^3/uL (4.0-11.0) Red Blood Count 3.17 x10^6/uL (3.50-5.40) Hemoglobin 8.9 g/dL (12.0-15.5) Hematocrit 27.3 % (36.0-47.0) Mean Corpuscular Volume 86 fL (79-100) Mean Corpuscular Hemoglobin 28 pg (25-35) Mean Corpuscular Hemoglobin Concent 33 g/dL (31-37) Red Cell Distribution Width 17.6 % (11.5-14.5) Platelet Count 72 x10^3/uL (140-400) Neutrophils (%) (Auto) 82 % (31-73) Lymphocytes (%) (Auto) 12 % (24-48) Monocytes (%) (Auto) 5 % (0-9) Eosinophils (%) (Auto) 1 % (0-3) Basophils (%) (Auto) 1 % (0-3) Neutrophils # (Auto) 9.7 x10^3/uL (1.8-7.7) Lymphocytes # (Auto) 1.4 x10^3/uL (1.0-4.8) Monocytes # (Auto) 0.6 x10^3/uL (0.0-1.1) Eosinophils # (Auto) 0.1 x10^3/uL (0.0-0.7) Basophils # (Auto) 0.1 x10^3/uL (0.0-0.2) Potassium Level 5.1 mmol/L (3.5-5.1) Medications Active Scripts Medications Dose Route/Sig Max Daily Dose Days Date Category Prenate Elite Tablet ( #79/Iron Asp Gly/FA#1) 1 Each Tablet 1 Each PO DAILY 03/29/19 Reported Ibuprofen 800 Mg Tablet 800 Mg PO PRN Q6HRS PRN 03/29/19 Reported Ferrous Sulfate 325 Mg Tablet 325 Mg PO DAILY 03/29/19 Reported Docusate Sodium 100 Mg Capsule 100 Mg PO BID 03/29/19 Reported Impression . IMPRESSION: 1. Acute hypoxic respiratory failure secondary to sepsis with MRSA 2. septic emboli, history of IV meth abuse. still had 2/4 blood cultures positive from 03/31, 04/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 4. Lower lobe pulmonary emboli.Likely infective emboli. I suspect this is related to obstruction of the pulmonary vessels from right-sided vegetations and dislodgement. In the setting of anemia and thrombocytopenia, anticoagulation would be high risk and not indicated. 5. History of hepatitis C with chronic thrombocytopenia.--improving slowly/stable 6. Polysubstance abuse. 7. Hypotension. Suspect combination of hypovolemic and septic shoc k.---RESOLVED 8. Abn cxr with bilateral cavitary nodules Plan . 1. 02 titration 2. minimize benzodiazepines and narcotics. 3. antibiotics per ID 4. No need for anticoagulation 5. Repeat CXR as needed. blood culture repeat per ID 6. HUNTER with large tricuspid vegetations in the setting of persistent bacteremia, . Discussed with JAKY. KAMERON RODRIGEZ MD Apr 08, 2019 07:31
[2019-04-08] MEDS: guaiFENesin/CODEINE 100mg/10mg 5 ML LIQUID PO SCH ×4 (07:55→19:57)
[2019-04-08] MEDS: LACTOBACILLUS RHAMNOSUS GG 1 CAPSULE. PO SCH ×2 (08:01→19:57)
[2019-04-08] MEDS: FERROUS SULFATE 325 MG TABLET. PO SCH (08:01)
[2019-04-08] MEDS: DOCUSATE SODIUM 100 MG CAPSULE. PO SCH ×2 (08:01→19:57)
[2019-04-08] MEDS: CHLORHEXIDINE 0.12% 15 ML MOUTHWASH. SWSP SCH ×2 (08:02→19:57)
--- NOTE | 2019-04-08 09:55 | PDOC ---
PROGRESS NOTES Chief Complaint Chief Complaint MRSA bacteremia Sepsis Tricuspid Vegetation Septic emboli acute metabolic encephalopathy resolved (heroine etc) polysubstance abuse, and withdrawal symptoms pancytopenia from sepsis multiple tattoes Acute precipitous drop hgb SP History of Present Illness History of Present Illness Her HUNTER reveals vegetation on tricuspid valve She is asleep, tends to be sleepy likes her Benadryl narcotics She is being slated for [facility] rehabilitation They're able to do IV antibiotics there But [facility] rehabilitation is say she has to be compliant before they accept her ID on board No fevers so far Plan: CPM Slated for [facility] rehabilitation- reeval likely WEDNESDAY POSITIVE TR VEGETATION ON HUNTER Educated and counseled TRial of robitussin with codeine for the pleuritic CP when she coughs IV abx Vitals Vitals Vital Signs Date Time Temp Pulse Resp B/P (MAP) Pulse Ox O2 Delivery O2 Flow Rate FiO2 04/08/19 07:56 Nasal Cannula 2.5 04/08/19 07:00 97.9 104 22 122/92 (102) 92 97.9 Physical Exam Physical Exam GENERAL: Propped up in bed, tired appearance, NAD HEENT: Pupils are equal and reactive. Oral cavity, pharynx is dry NECK: Supple, no JVD. LUNGS: Clear to auscultation bilaterally. HEART: S1, S2 with questionable murmur. ABDOMEN: Soft, nontender, no guarding or rebound. EXTREMITIES: Trace edema, no cyanosis SKIN: Warm to touch without rash. Multiple tattoos. NEUROLOGIC: Nonfocal, moves all extremities. PIVs General: Alert, Oriented X3, No acute distress Heart: Regular rate Lungs: Clear, Other Abdomen: Soft, No tenderness Extremities: No cyanosis, No edema Skin: No breakdown Review of Systems Review of Systems Cough, pleuritic chest pain with coughing, no fevers, weak, the rest of ROS 14 point negative Assessment and Plan Assessmemt and Plan Problems Medical Problems: (1) RIKY (acute kidney injury) Status: Acute (2) Endocarditis Status: Acute (3) Hypotension Status: Acute (4) Pulmonary hypertension Status: Chronic (5) Renal failure Status: Acute (6) Respiratory failure Status: Acute (7) Septic pulmonary embolism Status: Acute (8) Severe sepsis Status: Acute (9) Severe tricuspid regurgitation Status: Chronic Comment Review of Relevant I have reviewed the following items kim (where applicable) has been applied. Labs Laboratory Tests Test 04/07/19 05:30 White Blood Count 11.9 x10^3/uL (4.0-11.0) Red Blood Count 3.17 x10^6/uL (3.50-5.40) Hemoglobin 8.9 g/dL (12.0-15.5) Hematocrit 27.3 % (36.0-47.0) Mean Corpuscular Volume 86 fL (79-100) Mean Corpuscular Hemoglobin 28 pg (25-35) Mean Corpuscular Hemoglobin Concent 33 g/dL (31-37) Red Cell Distribution Width 17.6 % (11.5-14.5) Platelet Count 72 x10^3/uL (140-400) Neutrophils (%) (Auto) 82 % (31-73) Lymphocytes (%) (Auto) 12 % (24-48) Monocytes (%) (Auto) 5 % (0-9) Eosinophils (%) (Auto) 1 % (0-3) Basophils (%) (Auto) 1 % (0-3) Neutrophils # (Auto) 9.7 x10^3/uL (1.8-7.7) Lymphocytes # (Auto) 1.4 x10^3/uL (1.0-4.8) Monocytes # (Auto) 0.6 x10^3/uL (0.0-1.1) Eosinophils # (Auto) 0.1 x10^3/uL (0.0-0.7) Basophils # (Auto) 0.1 x10^3/uL (0.0-0.2) Potassium Level 5.1 mmol/L (3.5-5.1) Microbiology 04/06/19 Blood Culture - Preliminary, Resulted NO GROWTH AFTER 1 DAY Medications Current Medications Albumin Human 100 ml @ 100 mls/hr 1X ONCE IV Last administered on 03/29/19at 14:59; Start 03/29/19 at 14:30; Stop 03/29/19 at 15:29; Status DC Norepinephrine Bitartrate 250 ml @ 9.781 mls/ hr CONT PRN IV SEE I/O RECORD Last administered on 03/29/19at 23:25; Start 03/29/19 at 14:30; Stop 04/03/19 at 11:24; Status DC Sodium Chloride 1,000 ml @ 100 mls/hr Q10H IV Last administered on 03/29/19at 23:25; Start 03/29/19 at 14:30; Stop 03/30/19 at 12:08; Status DC Guaifenesin (Robitussin Dm) 10 ml PRN Q6HRS PRN PO COUGH Last administered on 04/06/19at 03:44; Start 03/29/19 at 15:30; Stop 04/06/19 at 12:42; Status DC Sodium Bicarbonate (Sodium Bicarb Adult 8.4% Syr) 50 meq 1X ONCE IV Last administered on 03/29/19at 16:49; Start 03/29/19 at 16:00; Stop 03/29/19 at 16:01; Status DC Sodium Bicarbonate (Sodium Bicarb Adult 8.4% Syr) 50 meq 1X ONCE IV Last administered on 03/29/19at 16:49; Start 03/29/19 at 16:00; Stop 03/29/19 at 16:01; Status DC Vancomycin HCl (Vanco Per Pharmacy) 1 each PRN DAILY PRN MC SEE COMMENTS Last administered on 04/02/19at 15:03; Start 03/29/19 at 17:15; Stop 04/03/19 at 07:34; Status DC Piperacillin Sod/ Tazobactam Sod (Zosyn Per Pharmacy) 1 each PRN DAILY PRN MC SEE COMMENTS; Start 03/29/19 at 17:15; Stop 03/31/19 at 07:37; Status DC Piperacillin Sod/ Tazobactam Sod 4.5 gm/Sodium Chloride 100 ml @ 200 mls/hr Q6HRS IV Last administered on 03/31/19at 06:23; Start 03/29/19 at 18:00; Stop 03/31/19 at 07:37; Status DC Vancomycin HCl 1.25 gm/Sodium Chloride 250 ml @ 166.667 mls/hr 1X ONCE IV Last administered on 03/29/19at 17:37; Start 03/29/19 at 17:15; Stop 03/29/19 at 18:44; Status DC Vancomycin HCl 750 mg/Sodium Chloride 250 ml @ 250 mls/hr Q18H IV Last administered on 03/30/19at 10:19; Start 03/30/19 at 11:00; Stop 03/30/19 at 12 :54; Status DC Vancomycin HCl (Vancomycin Trough Level) 1 each 1X ONCE MC ; Start 03/31/19 at 09:30; Stop 03/31/19 at 09:31; Status DC Magnesium Sulfate 50 ml @ 25 mls/hr 1X ONCE IV Last administered on 03/29/19 20:02; Start 03/29/19 at 20:00; Stop 03/29/19 at 21:59; Status DC Linezolid/Dextrose 300 ml @ 300 mls/hr Q12HR IV Last administered on 04/08/19 07:56; Start 03/30/19 at 09:00 Chlorhexidine Gluconate (Peridex) 15 ml BID SWSP Last administered on 04/04/19 08:17; Start 03/30/19 at 09:00 Amino Acids/ Glycerin/ Electrolytes 1,000 ml @ 100 mls/hr Q10H IV Last administered on 04/03/19at 07:36; Start 03/30/19 at 12:00; Stop 04/03/19 at 11:38; Status DC Vancomycin HCl 750 mg/Sodium Chloride 250 ml @ 250 mls/hr Q12H IV Last administered on 04/02/19at 21:48; Start 03/30/19 at 22:00; Stop 04/03/19 at 07:34; Status DC Hydromorphone HCl (Dilaudid) 1 mg PRN Q4HRS PRN IV PAIN Last administered on 03/31/19 05:11; Start 03/30/19 at 21:00; Stop 03/31/19 at 09:43; Status DC Hydromorphone HCl (Dilaudid) 1 mg PRN Q2HR PRN IV PAIN Last administered on 03/31/19at 20:06; Start 03/31/19 at 09:45; Stop 03/31/19 at 22:00; Status DC Haloperidol Lactate (Haldol Inj) 2 mg PRN Q6HRS PRN IVP AGITATION Last administered on 04/01/19at 00:07; Start 03/31/19 at 09:45 Hydromorphone HCl (Dilaudid) 1 mg PRN Q2HR PRN IV MOD TO SEVERE PAIN Last administered on 04/08/19at 07:56; Start 04/01/19 at 00:45 Oxycodone/ Acetaminophen (Percocet 7.5/ 325) 1 tab PRN Q4HRS PRN PO PAIN Last administered on 04/08/19 01:10; Start 04/01/19 at 09:00 Sodium Chloride 1,000 ml @ 125 mls/hr 1X ONCE IV Last administered on 04/01/19at 18:11; Start 04/01/19 at 09:00; Stop 04/01/19 at 16:59; Status DC Ketorolac Tromethamine (Toradol 15mg Vial) 15 mg PRN Q6HRS PRN IV MILD PAIN 1-3 Last administered on 04/06/19at 01:59; Start 04/01/19 at 09:00; Stop 04/06/19 at 08:59; Status DC Diphenhydramine HCl (Benadryl) 25 mg PRN Q6HRS PRN IVP ITCHING Last administered on 04/06/19 22:28; Start 04/01/19 at 14:00; Stop 04/07/19 at 09:07; Status DC Lactobacillus Rhamnosus (Culturelle) 1 cap BID PO Last administered on 04/04/19at 21:02; Start 04/02/19 at 21:00 Ceftaroline Fosamil 600 mg/ Sodium Chloride 250 ml @ 250 mls/hr Q8HRS IV Last administered on 04/08/19 06:24; Start 04/03/19 at 08:00 Sodium Chloride 1,000 ml @ 200 mls/hr 1X ONCE IV Last administered on 04/03/19 08:45; Start 04/03/19 at 08:30; Stop 04/03/19 at 13:29; Status DC Iohexol (Omnipaque 240 Mg/ml) 30 ml 1X ONCE PO Last administered on 04/04/19at 13:49; Start 04/04/19 at 13:00; Stop 04/04/19 at 13:01; Status DC Iohexol (Omnipaque 300 Mg/ml) 75 ml 1X ONCE IV Last administered on 04/04/19at 14:42; Start 04/04/19 at 13:00; Stop 04/04/19 at 13:01; Status DC Lidocaine HCl (Xylocaine 2% Topical 5gm Tube) 1 garrison 1X ONCE TP Last administered on 04/05/19at 15:35; Start 04/05/19 at 08:45; Stop 04/05/19 at 08:47; Status DC Lidocaine HCl (Viscous Lidocaine) 15 ml 1X ONCE SWSW Last administered on 04/05/19at 15:36; Start 04/05/19 at 08:45; Stop 04/05/19 at 08:47; Status DC Benzocaine (Hurricaine One) 2 spray 1X ONCE MM Last administered on 04/05/19at 15:34; Start 04/05/19 at 08:45; Stop 04/05/19 at 08:47; Status DC Albuterol Sulfate (Ventolin Neb Soln) 2.5 mg PRN Q4HRS PRN NEB SHORTNESS OF BREATH; Start 04/05/19 at 08:45 Ondansetron HCl (Zofran) 4 mg PRN Q6HRS PRN IV NAUSEA/VOMITING Last administered on 04/08/19at 06:35; Start 04/05/19 at 08:45 Acetaminophen (Tylenol) 500 mg PRN Q6HRS PRN PO MILD PAIN / TEMP Last administered on 04/06/19at 04:56; Start 04/05/19 at 08:45 Docusate Sodium (Colace) 100 mg BID PO ; Start 04/05/19 at 09:00 Ferrous Sulfate (Feosol) 325 mg DAILY PO ; Start 04/05/19 at 09:00 Benzocaine (Hurricaine One) 1 spray STK-MED ONCE .ROUTE ; Start 04/05/19 at 13:39; Stop 04/05/19 at 13:40; Status DC Lidocaine HCl (Xylocaine 2% Topical 5gm Tube) 5 garrison STK-MED ONCE TP ; Start 04/05/19 at 13:39; Stop 04/05/19 at 13:40; Status DC Lidocaine HCl (Viscous Lidocaine) 15 ml STK-MED ONCE .ROUTE ; Start 04/05/19 at 13:39; Stop 04/05/19 at 13:40; Status DC Lidocaine/Sodium Bicarbonate (Buffered Lidocaine 1%) 3 ml STK-MED ONCE .ROUTE ; Start 04/05/19 at 13:50; Stop 04/05/19 at 13:50; Status DC Lidocaine/Sodium Bicarbonate (Buffered Lidocaine 1%) 6 ml 1X ONCE INJ Last administered on 04/05/19at 14:14; Start 04/05/19 at 14:15; Stop 04/05/19 at 14:16; Status DC Ringer's Solution 1,000 ml @ 75 mls/hr [id number] IV Last administered on 04/05/19at 21:09; Start 04/05/19 at 15:30; Stop 04/06/19 at 08:37; Status DC Propofol 20 ml @ As Directed STK-MED ONCE IV ; Start 04/05/19 at 16:00; Stop 04/05/19 at 16:00; Status DC Lidocaine HCl (Lidocaine Pf 2% Vial) 5 ml STK-MED ONCE .ROUTE ; Start 04/05/19 at 16:00; Stop 04/05/19 at 16:00; Status DC Phenylephrine HCl (PHENYLEPHRINE in 0.9% NACL PF) 1 mg STK-MED ONCE IV ; Start 04/05/19 at 16:00; Stop 04/05/19 at 16:00; Status DC Sodium Polystyrene Sulfonate (Kayexalate) 15 gm 1X ONCE PO Last administered on 04/06/19at 18:14; Start 04/06/19 at 08:45; Stop 04/06/19 at 08:46; Status DC Ketorolac Tromethamine (Toradol 15mg Vial) 15 mg PRN Q6HRS PRN IV MILD TO MO DERATE PAIN Last administered on 04/08/19at 06:26; Start 04/06/19 at 12:30; Stop 04/11/19 at 12:29 Guaifenesin/ Codeine Phosphate (Robitussin Ac) 5 ml QID PO Last administered on 04/08/19at 07:55; Start 04/06/19 at 13:00 Sodium Polystyrene Sulfonate (Kayexalate) 15 gm STK-MED ONCE .ROUTE ; Start 04/06/19 at 18:11; Stop 04/06/19 at 18:11; Status DC Diphenhydramine HCl (Benadryl) 25 mg PRN Q8HRS PRN IVP ITCHING; Start 04/07/19 at 09:15 Active Scripts Active Reported Prenate Elite Tablet ( #79/Iron Asp Gly/FA#1) 1 Each Tablet 1 Each PO DAILY Ibuprofen 800 Mg Tablet 800 Mg PO PRN Q6HRS PRN Ferrous Sulfate 325 Mg Tablet 325 Mg PO DAILY Docusate Sodium 100 Mg Capsule 100 Mg PO BID Vitals/I & O Vital Sign - Last 24 Hours 04/07/19 04/07/19 04/07/19 04/07/19 10:45 11:00 11:45 11:48 Temp 97.9 97.9 Pulse 107 Resp 18 B/P (MAP) 125/95 (105) Pulse Ox 90 O2 Delivery Room Air Room Air Room Air Room Air 04/07/19 04/07/19 04/07/19 04/07/19 12:45 15:00 15:42 19:00 Temp 98.2 98.1 98.2 98.1 Pulse 108 114 Resp 18 22 B/P (MAP) 124/94 (104) 144/97 (113) Pulse Ox 90 93 O2 Delivery Room Air Room Air Room Air Nasal Cannula O2 Flow Rate 2.0 04/07/19 04/07/19 04/07/19 04/07/19 20:15 20:30 20:48 22:20 Resp 18 18 Pulse Ox 90 90 O2 Delivery Nasal Cannula Nasal Cannula Room Air Room Air O2 Flow Rate 2.0 2.0 2.0 04/07/19 04/07/19 04/08/19 04/08/19 22:52 23:15 01:10 01:11 Temp 98.8 98.8 Pulse 117 Resp 22 20 20 B/P (MAP) 130/91 (104) Pulse Ox 87 93 93 O2 Delivery Room Air Nasal Cannula Nasal Cannula Nasal Cannula O2 Flow Rate 2.0 2.0 2.0 2.0 04/08/19 04/08/19 04/08/19 04/08/19 01:42 02:10 03:00 07:00 Temp 97.7 97.9 97.7 97.9 Pulse 112 104 Resp 22 22 B/P (MAP) 118/87 (97) 122/92 (102) Pulse Ox 91 92 O2 Delivery Nasal Cannula Nasal Cannula Nasal Cannula Nasal Cannula O2 Flow Rate 2.0 2.0 3.0 3.0 04/08/19 04/08/19 07:20 07:56 O2 Delivery Room Air Nasal Cannula O2 Flow Rate 2.5 Intake and Output 04/07/19 04/07/19 04/08/19 15:00 23:00 07:00 Intake Total 220 ml 200 ml 120 ml Balance 220 ml 200 ml 120 ml Nutrition Consultation Dietary Evaluation: Recommendations by RD: Protein supplementation, Add supplement feedings Comments: Continue w/regular diet as ordered, honor food preferences, and provide snacks as requested Continue w/PPN to supplement PO intake at this time, can stop PPN once PO intake consistently >50% meals and tolerated, D/Cd 04/0304/07/2019-Pt. stated that she has an upset stomach, Current PO intake poor, Suggest continue regular diet and add Ensure Clear BID to increase protein/calorie intake Expected Outcomes/Goals: PO intake + Ensure Clear to meet >75% est needs - met, goal ongoing Interpretation of weight loss: >20% in 1 year Malnutrition Findings: Food and Nutrition Intake (Mod: <75% est energy req 7days Weight Status: Appropriate MACIEJ LOWE MD Apr 08, 2019 09:55
[2019-04-08 11:00] VITALS: BP 122/92
--- NOTE | 2019-04-08 12:03 | NUR ---
Pt. stating she does not feel good. Pt.educated that getting out of the bed and showering may help her to feel better. Pt. stated she would take a shower after dinner tonight.
--- NOTE | 2019-04-08 13:02 | PDOC ---
Infectious Disease Note Subjective Subjective c/o some chest discomfort, mild SOA and cough Intermittent nausea Requesting Dr. Lynn to drink Denies F/C/S ROS ROS per HPI Vital Sign Vital Signs Vital Signs Date Time Temp Pulse Resp B/P (MAP) Pulse Ox O2 Delivery O2 Flow Rate FiO2 04/08/19 11:56 Nasal Cannula 2.0 04/08/19 11:00 97.0 106 22 122/92 (102) 93 97.0 Physical Exam PHYSICAL EXAM GENERAL: Propped up in bed, tired appearance, eating HEENT: Pupils are equal and reactive. Oral cavity, pharynx dry NECK: Supple LUNGS: Clear to auscultation bilaterally. HEART: S1, S2 with questionable murmur. ABDOMEN: Soft, nontender EXTREMITIES: Trace edema, no cyanosis SKIN: Warm to touch without rash. Multiple tattoos. NEUROLOGIC: Nonfocal, moves all extremities. RUE-PICC (04/06) clean Labs Lab HUNTER, 04/05 <Conclusion> The left ventricular systolic function is mildly diminished. The Ejection Fraction is 45%. There is a flattened septum consistent with right ventricle volume and pressure overload. Trace mitral regurgitation. There is a large mobile vegetation on the tricuspid valve measuring 2 x 2.4 cm. The septal leaflet of tricuspid valve appears to be flail with Severe tricuspid regurgitation. No abscess was visualized. There is trace pericardial effusion. Micro 04/06. BLOOD CULTURE Preliminary NO GROWTH AFTER 1 DAY Objective Assessment Fever - better MRSA sepsis (at [facility] per report from blood 03/29),03/31, 04/01,04/03,,,,neg 04/06 so far TV endocarditis. large 2 X 2.4 vegetation w/ severe tricuspid regurgitation Cavitary nodules, likely septic emboli Leukocytosis, better Thrombocytopenia/anemia Substance abuse ? PE Pulm HTN Hep C - ? if treated in past 4 weeks post Plan Plan of Care Cont Zyvox (03/30) and ceftarolin, Perdiex - oral care f/u BC Monitor labs Patient seen and examined. Chart reviewed in detail. Case discussed with TUBE REBUILDER. Agree with above plan. JRERY ZUNIGA APRN Apr 08, 2019 13:02 SANJUANA SHOOK MD Apr 08, 2019 19:34
[2019-04-08 15:00] VITALS: BP 106/59
[2019-04-08 19:00] VITALS: BP 100/70
[2019-04-08 23:00] VITALS: BP 113/74
[2019-04-09] VITALS (8 sets, daily range): BP systolic 85–121; BP diastolic 34–60
[2019-04-09] MEDS: KETOROLAC 15 MG/ML VIAL. IV PRN ×2 (01:15→07:35)
[2019-04-09] MEDS: HYDROmorphone 2 MG/ML VIAL IV PRN (03:08)
[2019-04-09] MEDS: oxyCODONE/APAP 7.5/325 1 TAB TABLET PO PRN ×2 (06:39→11:17)
[2019-04-09] MEDS: CEFTAROLINE FOSAMIL 600 MG in IV NORMAL SALINE 250ML 250 ML IV SCH ×3 (06:39→23:17)
--- NOTE | 2019-04-09 07:41 | PDOC ---
PULMONARY PROGRESS NOTES Subjective sob better, has cough, Comments no acute distress. Vitals Vital Signs Date Time Temp Pulse Resp B/P (MAP) Pulse Ox O2 Delivery O2 Flow Rate FiO2 04/09/19 06:43 97.6 103 20 108/57 (74) 94 Nasal Cannula 3.0 97.6 ROS: No Nausea General: Alert, No acute distress HEENT: Other (nc at perrl ) Lungs: Clear, Other Cardiovascular: S1, S2 Abdomen: Soft, Non-tender Neuro Exam: Alert, Oriented Extremities: No Edema Skin: Warm Medications Active Scripts Medications Dose Route/Sig Max Daily Dose Days Date Category Prenate Elite Tablet ( #79/Iron Asp Gly/FA#1) 1 Each Tablet 1 Each PO DAILY 03/29/19 Reported Ibuprofen 800 Mg Tablet 800 Mg PO PRN Q6HRS PRN 03/29/19 Reported Ferrous Sulfate 325 Mg Tablet 325 Mg PO DAILY 03/29/19 Reported Docusate Sodium 100 Mg Capsule 100 Mg PO BID 03/29/19 Reported Impression . IMPRESSION: 1. Acute hypoxic respiratory failure secondary to sepsis with MRSA 2. septic emboli, history of IV meth abuse. still had 2/4 blood cultures positive from 03/31, 04/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 4. Lower lobe pulmonary emboli.Likely infective emboli. I suspect this is related to obstruction of the pulmonary vessels from right-sided vegetations and dislodgement. In the setting of anemia and thrombocytopenia, anticoagulation would be high risk and not indicated. 5. History of hepatitis C with chronic thrombocytopenia.--improving slowly/stable 6. Polysubstance abuse. 7. Hypotension. Suspect combination of hypovolemic and septic shock.---RESOLVED 8. Abn cxr with bilateral cavitary nodules Plan . 1. 02 titration 2. minimize benzodiazepines and narcotics. avoid oversedation 3. antibiotics per ID 4. No need for anticoagulation 5. Repeat CXR in am. blood culture repeat per ID 6. HUNTER with large tricuspid vegetations in the setting of persistent bacteremia, . Discussed with JAKY. KAMERON RODRIGEZ MD Apr 09, 2019 07:41
[2019-04-09] MEDS: FERROUS SULFATE 325 MG TABLET. PO SCH (08:20)
[2019-04-09] MEDS: LACTOBACILLUS RHAMNOSUS GG 1 CAPSULE. PO SCH ×2 (08:20→21:53)
[2019-04-09] MEDS: DOCUSATE SODIUM 100 MG CAPSULE. PO SCH ×2 (08:20→21:53)
[2019-04-09] MEDS: CHLORHEXIDINE 0.12% 15 ML MOUTHWASH. SWSP SCH ×4 (08:21→21:00)
[2019-04-09] MEDS: ONDANSETRON PF 4 MG/2 ML VIAL. IV PRN ×3 (08:21→23:17)
[2019-04-09] MEDS: guaiFENesin/CODEINE 100mg/10mg 5 ML LIQUID PO SCH ×4 (08:21→21:53)
--- NOTE | 2019-04-09 10:23 | PDOC ---
Infectious Disease Note Subjective Subjective c/o pain and nausea Denies F/C/S/SOA ROS ROS per HPI Vital Sign Vital Signs Vital Signs Date Time Temp Pulse Resp B/P (MAP) Pulse Ox O2 Delivery O2 Flow Rate FiO2 04/09/19 07:56 Room Air 04/09/19 06:43 97.6 103 20 108/57 (74) 94 3.0 97.6 Physical Exam PHYSICAL EXAM GENERAL: Lying down, softly moaning HEENT: Pupils are equal and reactive. Oral cavity, pharynx dry NECK: Supple LUNGS: Clear to auscultation bilaterally. HEART: S1, S2 with questionable murmur. ABDOMEN: Soft, nontender EXTREMITIES: 1+ edema lower extremities, bilaterally. no cyanosis SKIN: Warm to touch without rash. Multiple tattoos. NEUROLOGIC: Nonfocal, moves all extremities. RUE-PICC (04/06) clean Labs Micro 04/06. BLOOD CULTURE Preliminary NO GROWTH AFTER 2 DAY Objective Assessment Fever - better MRSA sepsis (at [place] per report from blood 03/29),03/31, 04/01,04/03,,,,neg 04/06 so far TV endocarditis. large 2 X 2.4 vegetation w/ severe tricuspid regurgitation Cavitary nodules, likely septic emboli Leukocytosis, better Thrombocytopenia/anemia Substance abuse ? PE Pulm HTN Hep C - ? if treated in past 4 weeks post Plan Plan of Care Cont Zyvox (03/30) and ceftarolin, Perdiex - oral care f/u BC CXR and labs in am D/w nursing Patient seen and examined. Chart reviewed in detail. Case discussed with TECHNICAL SERVICE REP. Agree with above plan. JERRY ZUNIGA APRN Apr 09, 2019 10:23 SANJUANA SHOOK MD Apr 09, 2019 20:32
[2019-04-09] MEDS ORDERED: KETOROLAC 15 MG/ML VIAL. IV PRN (11:00)
[2019-04-09] MEDS ORDERED: KETOROLAC 30 MG/ML VIAL. IV PRN (11:00)
[2019-04-09] MEDS: IV NORMAL SALINE 1000ML BAG 1,000 ML IV SCH ×2 (11:00→18:41)
[2019-04-09] MEDS ORDERED: IV NORMAL SALINE 1000ML BAG 1,000 ML IV ONE (11:00)
--- NOTE | 2019-04-09 11:00 | NUR ---
Pt. BP dropped into 80's over 30's with a HR in the 100's. This nurse notified MD. Orders were placed. Will continue to monitor.
--- NOTE | 2019-04-09 12:19 | PDOC ---
PROGRESS NOTES Chief Complaint Chief Complaint HYPOTENSION, ARTERIAL NARc induced likely MRSA bacteremia Sepsis Tricuspid Vegetation by HUNTER Septic emboli acute metabolic encephalopathy resolved (heroine etc) polysubstance abuse, and withdrawal symptoms pancytopenia from sepsis multiple tattoes Acute precipitous drop hgb s/p BT -s table now History of Present Illness History of Present Illness Her HUNTER reveals vegetation on tricuspid valve - AND SHE DID NOT KNOW THIS I presented her a copy SHE IS WIDE AWAKE TODAY BEC I STOPPED HER DILAUDID BEC OF HYPOTENSION WE TALKED< and i explained dilaudid and hypotension and her compliance to treatment plan as this is also required by [facility] for her to be accepted there - she seemed calmer after i explained NO morefevers On IV abx per ID [facility] can do althea iV abx that she needs Plan: BOLUS NOW 1 L then ns 125cc hr I did increase toradol for pain which she was less interetsd in [facility] for [facility]- POSITIVE TR VEGETATION ON HUNTER Educated and counseled cont f robitussin with codeine for the pleuritic CP when she coughs IV abx Vitals Vitals Vital Signs Date Time Temp Pulse Resp B/P (MAP) Pulse Ox O2 Delivery O2 Flow Rate FiO2 04/09/19 11:17 Room Air 04/09/19 10:44 97.6 105 85/49 (61) 93 3.0 97.6 04/09/19 06:43 20 Physical Exam Physical Exam GENERAL: Lying down, softly moaning HEENT: Pupils are equal and reactive. Oral cavity, pharynx dry NECK: Supple LUNGS: Clear to auscultation bilaterally. HEART: S1, S2 with questionable murmur. ABDOMEN: Soft, nontender EXTREMITIES: 1+ edema lower extremities, bilaterally. no cyanosis SKIN: Warm to touch without rash. Multiple tattoos. NEUROLOGIC: Nonfocal, moves all extremities. RUE-PICC (04/06) clean General: Alert, Oriented X3, No acute distress Heart: Regular rate Lungs: Clear, Other Abdomen: Soft, No tenderness Extremities: No cyanosis, No edema Skin: No breakdown Review of Systems Review of Systems PAin everywhere, no efvers Assessment and Plan Assessmemt and Plan Problems Medical Problems: (1) RIKY (acute kidney injury) Status: Acute (2) Endocarditis Status: Acute (3) Hypotension Status: Acute (4) Pulmonary hypertension Status: Chronic (5) Renal failure Status: Acute (6) Respiratory failure Status: Acute (7) Septic pulmonary embolism Status: Acute (8) Severe sepsis Status: Acute (9) Severe tricuspid regurgitation Status: Chronic Comment Review of Relevant I have reviewed the following items kim (where applicable) has been applied. Labs Microbiology 04/06/19 Blood Culture - Preliminary, Resulted NO GROWTH AFTER 2 DAYS Medications Current Medications Albumin Human 100 ml @ 100 mls/hr 1X ONCE IV Last administered on 03/29/19at 14:59; Start 03/29/19 at 14:30; Stop 03/29/19 at 15:29; Status DC Norepinephrine Bitartrate 250 ml @ 9.781 mls/ hr CONT PRN IV SEE I/O RECORD Last administered on 03/29/19at 23:25; Start 03/29/19 at 14:30; Stop 04/03/19 at 11:24; Status DC Sodium Chloride 1,000 ml @ 100 mls/hr Q10H IV Last administered on 03/29/19at 23:25; Start 03/29/19 at 14:30; Stop 03/30/19 at 12:08; Status DC Guaifenesin (Robitussin Dm) 10 ml PRN Q6HRS PRN PO COUGH Last administered on 04/06/19at 03:44; Start 03/29/19 at 15:30; Stop 04/06/19 at 12:42; Status DC Sodium Bicarbonate (Sodium Bicarb Adult 8.4% Syr) 50 meq 1X ONCE IV Last administered on 03/29/19at 16:49; Start 03/29/19 at 16:00; Stop 03/29/19 at 16:01; Status DC Sodium Bicarbonate (Sodium Bicarb Adult 8.4% Syr) 50 meq 1X ONCE IV Last administered on 03/29/19at 16:49; Start 03/29/19 at 16:00; Stop 03/29/19 at 16:01; Status DC Vancomycin HCl (Vanco Per Pharmacy) 1 each PRN DAILY PRN MC SEE COMMENTS Last administered on 04/02/19at 15:03; Start 03/29/19 at 17:15; Stop 04/03/19 at 07:34; Status DC Piperacillin Sod/ Tazobactam Sod (Zosyn Per Pharmacy) 1 each PRN DAILY PRN MC SEE COMMENTS; Start 03/29/19 at 17:15; Stop 03/31/19 at 07:37; Status DC Piperacillin Sod/ Tazobactam Sod 4.5 gm/Sodium Chloride 100 ml @ 200 mls/hr Q6HRS IV Last administered on 03/31/19at 06:23; Start 03/29/19 at 18:00; Stop 03/31/19 at 07:37; Status DC Vancomycin HCl 1.25 gm/Sodium Chloride 250 ml @ 166.667 mls/hr 1X ONCE IV Last administered on 03/29/19at 17:37; Start 03/29/19 at 17:15; Stop 03/29/19 at 18:44; Status DC Vancomycin HCl 750 mg/Sodium Chloride 250 ml @ 250 mls/hr Q18H IV Last adm inistered on 03/30/19at 10:19; Start 03/30/19 at 11:00; Stop 03/30/19 at 12:54; Status DC Vancomycin HCl (Vancomycin Trough Level) 1 each 1X ONCE MC ; Start 03/31/19 at 09:30; Stop 03/31/19 at 09:31; Status DC Magnesium Sulfate 50 ml @ 25 mls/hr 1X ONCE IV Last administered on 03/29/19at 20:02; Start 03/29/19 at 20:00; Stop 03/29/19 at 21:59; Status DC Linezolid/Dextrose 300 ml @ 300 mls/hr Q12HR IV Last administered on 04/09/19at 10:08; Start 03/30/19 at 09:00 Chlorhexidine Gluconate (Peridex) 15 ml BID SWSP Last administered on 04/04/19at 08:17; Start 03/30/19 at 09:00 Amino Acids/ Glycerin/ Electrolytes 1,000 ml @ 100 mls/hr Q10H IV Last administered on 04/03/19at 07:36; Start 03/30/19 at 12:00; Stop 04/03/19 at 11:38; Status DC Vancomycin HCl 750 mg/Sodium Chloride 250 ml @ 250 mls/hr Q12H IV Last administered on 04/02/19at 21:48; Start 03/30/19 at 22:00; Stop 04/03/19 at 07:34; Status DC Hydromorphone HCl (Dilaudid) 1 mg PRN Q4HRS PRN IV PAIN Last administered on 03/31/19at 05:11; Start 03/30/19 at 21:00; Stop 03/31/19 at 09:43; Status DC Hydromorphone HCl (Dilaudid) 1 mg PRN Q2HR PRN IV PAIN Last administered on 03/31/19at 20:06; Start 03/31/19 at 09:45; Stop 03/31/19 at 22:00; Status DC Haloperidol Lactate (Haldol Inj) 2 mg PRN Q6HRS PRN IVP AGITATION Last administered on 04/01/19at 00:07; Start 03/31/19 at 09:45 Hydromorphone HCl (Dilaudid) 1 mg PRN Q2HR PRN IV MOD TO SEVERE PAIN Last administered on 04/09/19at 03:08; Start 04/01/19 at 00:45; Stop 04/09/19 at 10:59; Status DC Oxycodone/ Acetaminophen (Percocet 7.5/ 325) 1 tab PRN Q4HRS PRN PO PAIN Last administered on 04/09/19at 11:17; Start 04/01/19 at 09:00 Sodium Chloride 1,000 ml @ 125 mls/hr 1X ONCE IV Last administered on 04/01/19at 18:11; Start 04/01/19 at 09:00; Stop 04/01/19 at 16:59; Status DC Ketorolac Tromethamine (Toradol 15mg Vial) 15 mg PRN Q6HRS PRN IV MILD PAIN 1-3 Last administered on 04/06/19at 01:59; Start 04/01/19 at 09:00; Stop 04/06/19 at 08:59; Status DC Diphenhydramine HCl (Benadryl) 25 mg PRN Q6HRS PRN IVP ITCHING Last administered on 04/06/19at 22:28; Start 04/01/19 at 14:00; Stop 04/07/19 at 09:07; Status DC Lactobacillus Rhamnosus (Culturelle) 1 cap BID PO Last administered on 04/09/19at 08:20; Start 04/02/19 at 21:00 Ceftaroline Fosamil 600 mg/ Sodium Chloride 250 ml @ 250 mls/hr Q8HRS IV Last administered on 04/09/19 06:39; Start 04/03/19 at 08:00 Sodium Chloride 1,000 ml @ 200 mls/hr 1X ONCE IV Last administered on 04/03/19 08:45; Start 04/03/19 at 08:30; Stop 04/03/19 at 13:29; Status DC Iohexol (Omnipaque 240 Mg/ml) 30 ml 1X ONCE PO Last administered on 04/04/19 13:49; Start 04/04/19 at 13:00; Stop 04/04/19 at 13:01; Status DC Iohexol (Omnipaque 300 Mg/ml) 75 ml 1X ONCE IV Last administered on 04/04/19 14:42; Start 04/04/19 at 13:00; Stop 04/04/19 at 13:01; Status DC Lidocaine HCl (Xylocaine 2% Topical 5gm Tube) 1 garrison 1X ONCE TP Last administered on 04/05/19 15:35; Start 04/05/19 at 08:45; Stop 04/05/19 at 08:47; Status DC Lidocaine HCl (Viscous Lidocaine) 15 ml 1X ONCE SWSW Last administered on 04/05/19 15:36; Start 04/05/19 at 08:45; Stop 04/05/19 at 08:47; Status DC Benzocaine (Hurricaine One) 2 spray 1X ONCE MM Last administered on 04/05/19 15:34; Start 04/05/19 at 08:45; Stop 04/05/19 at 08:47; Status DC Albuterol Sulfate (Ventolin Neb Soln) 2.5 mg PRN Q4HRS PRN NEB SHORTNESS OF BREATH; Start 04/05/19 at 08:45 Ondansetron HCl (Zofran) 4 mg PRN Q6HRS PRN IV NAUSEA/VOMITING Last administered on 04/09/19 08:21; Start 04/05/19 at 08:45 Acetaminophen (Tylenol) 500 mg PRN Q6HRS PRN PO MILD PAIN / TEMP Last administered on 04/06/19 04:56; Start 04/05/19 at 08:45 Docusate Sodium (Colace) 100 mg BID PO Last administered on 04/09/19 08:20; Start 04/05/19 at 09:00 Ferrous Sulfate (Feosol) 325 mg DAILY PO ; Start 04/05/19 at 09:00 Benzocaine (Hurricaine One) 1 spray STK-MED ONCE .ROUTE ; Start 04/05/19 at 13:39; Stop 04/05/19 at 13:40; Status DC Lidocaine HCl (Xylocaine 2% Topical 5gm Tube) 5 garrison STK-MED ONCE TP ; Start 04/05/19 at 13:39; Stop 04/05/19 at 13:40; Status DC Lidocaine HCl (Viscous Lidocaine) 15 ml STK-MED ONCE .ROUTE ; Start 04/05/19 at 13:39; Stop 04/05/19 at 13:40; Status DC Lidocaine/Sodium Bicarbonate (Buffered Lidocaine 1%) 3 ml STK-MED ONCE .ROUTE ; Start 04/05/19 at 13:50; Stop 04/05/19 at 13:50; Status DC Lidocaine/Sodium Bicarbonate (Buffered Lidocaine 1%) 6 ml 1X ONCE INJ Last administered on 04/05/19at 14:14; Start 04/05/19 at 14:15; Stop 04/05/19 at 14:16; Status DC Ringer's Solution 1,000 ml @ 75 mls/hr [id number] IV Last administered on 04/05/19at 21:09; Start 04/05/19 at 15:30; Stop 04/06/19 at 08:37; Status DC Propofol 20 ml @ As Directed STK-MED ONCE IV ; Start 04/05/19 at 16:00; Stop 04/05/19 at 16:00; Status DC Lidocaine HCl (Lidocaine Pf 2% Vial) 5 ml STK-MED ONCE .ROUTE ; Start 04/05/19 at 16:00; Stop 04/05/19 at 16:00; Status DC Phenylephrine HCl (PHENYLEPHRINE in 0.9% NACL PF) 1 mg STK-MED ONCE IV ; Start 04/05/19 at 16:00; Stop 04/05/19 at 16:00; Status DC Sodium Polystyrene Sulfonate (Kayexalate) 15 gm 1X ONCE PO Last administered on 04/06/19at 18:14; Start 04/06/19 at 08:45; Stop 04/06/19 at 08:46; Status DC Ketorolac Tromethamine (Toradol 15mg Vial) 15 mg PRN Q6HRS PRN IV MILD TO MODERATE PAIN Last administered on 04/09/19at 07:35; Start 04/06/19 at 12:30; Stop 04/09/19 at 10:59; Status DC Guaifenesin/ Codeine Phosphate (Robitussin Ac) 5 ml QID PO Last administered on 04/09/19at 08:21; Start 04/06/19 at 13:00 Sodium Polystyrene Sulfonate (Kayexalate) 15 gm STK-MED ONCE .ROUTE ; Start 04/06/19 at 18:11; Stop 04/06/19 at 18:11; Status DC Diphenhydramine HCl (Benadryl) 25 mg PRN Q8HRS PRN IVP ITCHING; Start 04/07/19 at 09:15; Stop 04/09/19 at 10:59; Status DC Ketorolac Tromethamine (Toradol 15mg Vial) 30 mg PRN Q6HRS PRN IV MILD TO MODERATE PAIN; Start 04/09/19 at 11:00; Stop 04/09/19 at 11:00; Status DC Sodium Chloride 1,000 ml @ 1,000 mls/hr 1X ONCE IV Last administered on 04/09/19at 11:11; Start 04/09/19 at 11:00; Stop 04/09/19 at 11:59; Status DC Sodium Chloride 1,000 ml @ 125 mls/hr Q8H IV ; Start 04/09/19 at 11:00 Ketorolac Tromethamine (Toradol 30mg Vial) 30 mg PRN Q6HRS PRN IV MILD TO MODERATE PAIN; Start 04/09/19 at 11:00; Stop 04/14/19 at 10:59 Active Scripts Active Reported Prenate Elite Tablet ( #79/Iron Asp Gly/FA#1) 1 Each Tablet 1 Each PO DAILY Ibuprofen 800 Mg Tablet 800 Mg PO PRN Q6HRS PRN Ferrous Sulfate 325 Mg Tablet 325 Mg PO DAILY Docusate Sodium 100 Mg Capsule 100 Mg PO BID Vitals/I & O Vital Sign - Last 24 Hours 04/08/19 04/08/19 04/08/19 04/08/19 15:00 16:01 19:00 19:56 Temp 97.7 97.7 97.7 97.7 Pulse 113 60 Resp 22 16 18 B/P (MAP) 106/59 (75) 100/70 (80) Pulse Ox 92 100 100 O2 Delivery Nasal Cannula Nasal Cannula Room Air Room Air O2 Flow Rate 3.0 2.0 3.0 3.0 04/08/19 04/08/19 04/08/19 04/08/19 19:56 19:56 20:30 21:00 Resp 18 Pulse Ox 100 O2 Delivery Room Air Nasal Cannula Nasal Cannula Nasal Cannula O2 Flow Rate 3.0 3.0 3.0 3.0 04/08/19 04/09/19 04/09/19 04/09/19 23:00 03:08 03:11 03:38 Temp 97.7 97.7 Pulse 99 105 Resp 16 20 20 B/P (MAP) 113/74 (87) 91/58 (69) Pulse Ox 98 95 95 O2 Delivery Room Air Nasal Cannula Nasal Cannula Nasal Cannula O2 Flow Rate 3.0 3.0 3.0 04/09/19 04/09/19 04/09/19 04/09/19 06:39 06:43 07:44 07:56 Temp 97.6 97.6 Pulse 103 Resp 18 20 B/P (MAP) 108/57 (74) Pulse Ox 95 94 O2 Delivery Nasal Cannula Nasal Cannula Room Air Room Air O2 Flow Rate 3.0 3.0 04/09/19 04/09/19 10:44 11:17 Temp 97.6 97.6 Pulse 105 B/P (MAP) 85/49 (61) Pulse Ox 93 O2 Delivery Nasal Cannula Room Air O2 Flow Rate 3.0 Intake and Output 04/08/19 04/08/19 04/09/19 14:59 22:59 06:59 Intake Total 200 ml 100 ml Balance 200 ml 100 ml Nutrition Consultation Dietary Evaluation: Recommendations by RD: Protein supplementation, Add supplement feedings Comments: Continue w/regular diet as ordered, honor food preferences, and provide snacks as requested Continue w/PPN to supplement PO intake at this time, can stop PPN once PO intake consistently >50% meals and tolerated, D/Cd 04/0304/07/2019-Pt. stated that she has an upset stomach, Current PO intake poor, Suggest continue regular diet and add Ensure Clear BID to increase protein/calorie intake Expected Outcomes/Goals: PO intake + Ensure Clear to meet >75% est needs - met, goal ongoing Interpretation of weight loss: >20% in 1 year Malnutrition Findings: Food and Nutrition Intake (Mod: <75% est energy req 7days Weight Status: Appropriate MACIEJ LOWE MD Apr 09, 2019 12:19
[2019-04-09] MEDS ORDERED: ALPRAZolam 0.5 MG TABLET PO PRN (12:45)
--- NOTE | 2019-04-09 14:00 | NUR ---
Pt. is diaphoretic, cool, had labored breathing, and continued to have BP in the 80's over 30's. This nurse notified MD. Orders were placed. Will continue to monitor.
[2019-04-09] MEDS: METHADONE 10 MG TABLET. PO SCH (17:02)
[2019-04-09] MEDS ORDERED: IV NORMAL SALINE 500ML BAG 500 ML IV ONE (17:15)
[2019-04-10] VITALS (31 sets, daily range): BP systolic 68–109; BP diastolic 42–67
[2019-04-10] MEDS: CEFTAROLINE FOSAMIL 600 MG in IV NORMAL SALINE 250ML 250 ML IV SCH (06:04)
[2019-04-10 06:05] LABS: BASO # 0.2 x10^3/uL (0.0-0.2); BASO % 1 % (0-3); EOS % 0 % (0-3); HEMOGLOBIN 9.6 g/dL (12.0-15.5); LYMPH # 1.9 x10^3/uL (1.0-4.8); LYMPH % 11 % (24-48); MEAN CORPUSCULAR HEMOGLOBIN 29 pg (25-35); MEAN CORPUSCULAR HGB CONC 31 g/dL (31-37); MEAN CORPUSCULAR VOLUME 92 fL (79-100); MONO # 0.5 x10^3/uL (0.0-1.1); MONO % 3 % (0-9); NEUT # 13.8 x10^3/uL (1.8-7.7); NEUT % 85 % (31-73); PLATELET COUNT 64 x10^3/uL (140-400); RED BLOOD COUNT 3.37 x10^6/uL (3.50-5.40); RED CELL DISTRIBUTION WIDTH 19.4 % (11.5-14.5); WHITE BLOOD COUNT 16.4 x10^3/uL (4.0-11.0)
[2019-04-10 06:16] LABS: CALCIUM 7.8 mg/dL (8.5-10.1); CREATININE 2.3 mg/dL (0.6-1.0); GFR 24.7
[2019-04-10 06:18] LABS: POTASSIUM 6.3 mmol/L (3.5-5.1)
--- NOTE | 2019-04-10 06:26 | NUR ---
Dr Welch notified of pts condition. Pt has remained lethargic throughout night, barely answering questions when asked. She is cool, diapheretic, and edematous all over. Unable to remove ring on finger. Pt on O2 2l nc unable to wean down without desat. VS had been stable this shift until RN rechecked bp after decreasing IVF from 150 down to 75/hr 0545 BP 66/38 HR 91. RN ordered stat labs K+ critical at 6.3 Cr elevated to 2.3 BUN 53 WBC 16.0 Pt has had 11lbs gain in 24 hrs. Orders were received to transfer pt to ICU along with multiple other orders. Report was given to Naima in ICU at 0721 and Pt was transfered to . 108
[2019-04-10] MEDS ORDERED: INSULIN REGULAR 100 UNIT/ML 3ML VIAL. IV ONE ×2 (06:30→07:00)
[2019-04-10] MEDS ORDERED: NOREPINEPHRIN 8MG/250ML PREMIX 250 ML IV PRN ×2 (06:30→06:45)
[2019-04-10] MEDS ORDERED: DEXTROSE 5% IV ONE (06:30)
[2019-04-10] MEDS ORDERED: SODIUM BICARB ADULT 8.4% 50 MEQ/50 ML DISP.SYRIN. IV ONE (07:00)
[2019-04-10] MEDS ORDERED: DEXTROSE 25% 10 ML DISP.SYRIN. IV ONE (07:00)
[2019-04-10] MEDS ORDERED: SODIUM POLYSTYRENE SULFON/SORB 15 GM/60 ML ORAL.SUSP PO ONE ×2 (07:00)
[2019-04-10] MEDS ORDERED: CALCIUM GLUCONATE 1,000 MG/10 ML VIAL. IVP ONE (07:00)
[2019-04-10] MEDS ORDERED: DEXTROSE 50% 25 GM / 50ML DISP.SYRIN. IV ONE (07:00)
[2019-04-10] MEDS ORDERED: ALBUMIN HUMAN 25% 100 ML IV ONE ×2 (07:00→08:00)
[2019-04-10] MEDS ORDERED: ALBUMIN HUMAN 5% 500 ML IV ONE (07:39)
[2019-04-10] MEDS: METHADONE 10 MG TABLET. PO SCH (08:00)
[2019-04-10] MEDS ORDERED: CALCIUM GLUCONATE 1,000 MG in IV DEXTROSE 5% 100ML 100 ML IV ONE (08:30)
--- NOTE | 2019-04-10 08:30 | PDOC ---
PROGRESS NOTES Chief Complaint Chief Complaint MRSA bacteremia Septic shock Tricuspid Vegetation by HUNTER Acute pulmonary Septic emboli submassive - not a candidate initially for anticoagulation due to anemia and thrombocytopenia Acute metabolic encephalopathy polysubstance abuse, and withdrawal symptoms Thrombocytopenia from sepsis multiple tattoos Acute anemia - with precipitous drop hgb s/p 3u PRBC RIKY - both vasomotor nephropathy and possible AIN History of Present Illness History of Present Illness S/p HUNTER - Ejection Fraction is 45%. There is a flattened septum consistent with right ventricle volume and pressure overload. Trace mitral regurgitation. There is a large mobile vegetation on the tricuspid valve measuring 2 x 2.4 cm. NO more fevers On IV abx per ID Overnight UOP dropped, potassium 6.3, and creatinine is up. BP is 70/30. Transferred to ICU for levophed this morning. She is arousable to painful stimuli, immediately c/o pain. Plan: BOLUS NOW 1 L then ns 125cc hr, Albumin bolus, hyperkalemia treatment with bicarb, albuterol, insulin, D50 IV abx POSITIVE TR VEGETATION ON HUNTER - will consult Cardiothoracic surgery. Unfortunately our coverage is difficult currently and not for emergent cases. I will d/w pulmonology, nephrology, ID to consider transfer to a tertiary facility. CC time 38 minutes Vitals Vitals Vital Signs Date Time Temp Pulse Resp B/P (MAP) Pulse Ox O2 Delivery O2 Flow Rate FiO2 04/10/19 07:00 92 81/43 (56) 04/10/19 06:00 18 92 Nasal Cannula 2.5 04/10/19 03:30 97.4 97.4 Physical Exam Physical Exam GENERAL: Lying down, softly moaning HEENT: Pupils are equal and reactive. Oral cavity, pharynx dry NECK: Supple LUNGS: Clear to auscultation bilaterally. HEART: S1, S2 with questionable murmur. ABDOMEN: Soft, nontender EXTREMITIES: 1+ edema lower extremities, bilaterally. no cyanosis SKIN: Warm to touch without rash. Multiple tattoos. NEUROLOGIC: Nonfocal, moves all extremities. RUE-PICC (04/06) clean General: Alert, Oriented X3, No acute distress Heart: Regular rate Lungs: Clear, Other Abdomen: Soft, No tenderness Extremities: No cyanosis, No edema Skin: No breakdown Labs LABS Laboratory Tests Test 04/10/19 05:55 White Blood Count 16.4 x10^3/uL (4.0-11.0) Red Blood Count 3.37 x10^6/uL (3.50-5.40) Hemoglobin 9.6 g/dL (12.0-15.5) Hematocrit 31.0 % (36.0-47.0) Mean Corpuscular Volume 92 fL (79-100) Mean Corpuscular Hemoglobin 29 pg (25-35) Mean Corpuscular Hemoglobin Concent 31 g/dL (31-37) Red Cell Distribution Width 19.4 % (11.5-14.5) Platelet Count 64 x10^3/uL (140-400) Neutrophils (%) (Auto) 85 % (31-73) Lymphocytes (%) (Auto) 11 % (24-48) Monocytes (%) (Auto) 3 % (0-9) Eosinophils (%) (Auto) 0 % (0-3) Basophils (%) (Auto) 1 % (0-3) Neutrophils # (Auto) 13.8 x10^3/uL (1.8-7.7) Lymphocytes # (Auto) 1.9 x10^3/uL (1.0-4.8) Monocytes # (Auto) 0.5 x10^3/uL (0.0-1.1) Eosinophils # (Auto) 0.0 x10^3/uL (0.0-0.7) Basophils # (Auto) 0.2 x10^3/uL (0.0-0.2) Erythrocyte Sedimentation Rate 24 (0-25) Sodium Level 142 mmol/L (136-145) Potassium Level 6.3 mmol/L (3.5-5.1) Chloride Level 115 mmol/L (98-107) Carbon Dioxide Level 17 mmol/L (21-32) Anion Gap 10 (6-14) Blood Urea Nitrogen 53 mg/dL (7-20) Creatinine 2.3 mg/dL (0.6-1.0) Estimated GFR (Cockcroft-Gault) 24.7 Glucose Level 108 mg/dL (70-99) Calcium Level 7.8 mg/dL (8.5-10.1) Assessment and Plan Assessmemt and Plan Problems Medical Problems: (1) RIKY (acute kidney injury) Status: Acute (2) Endocarditis Status: Acute (3) Hypotension Status: Acute (4) Pulmonary hypertension Status: Chronic (5) Renal failure Status: Acute (6) Respiratory failure Status: Acute (7) Septic pulmonary embolism Status: Acute (8) Severe sepsis Status: Acute (9) Severe tricuspid regurgitation Status: Chronic Comment Review of Relevant I have reviewed the following items kim (where applicable) has been applied. Labs Laboratory Tests Test 04/10/19 05:55 White Blood Count 16.4 x10^3/uL (4.0-11.0) Red Blood Count 3.37 x10^6/uL (3.50-5.40) Hemoglobin 9.6 g/dL (12.0-15.5) Hematocrit 31.0 % (36.0-47.0) Mean Corpuscular Volume 92 fL (79-100) Mean Corpuscular Hemoglobin 29 pg (25-35) Mean Corpuscular Hemoglobin Concent 31 g/dL (31-37) Red Cell Distribution Width 19.4 % (11.5-14.5) Platelet Count 64 x10^3/uL (140-400) Neutrophils (%) (Auto) 85 % (31-73) Lymphocytes (%) (Auto) 11 % (24-48) Monocytes (%) (Auto) 3 % (0-9) Eosinophils (%) (Auto) 0 % (0-3) Basophils (%) (Auto) 1 % (0-3) Neutrophils # (Auto) 13.8 x10^3/uL (1.8-7.7) Lymphocytes # (Auto) 1.9 x10^3/uL (1.0-4.8) Monocytes # (Auto) 0.5 x10^3/uL (0.0-1.1) Eosinophils # (Auto) 0.0 x10^3/uL (0.0-0.7) Basophils # (Auto) 0.2 x10^3/uL (0.0-0.2) Erythrocyte Sedimentation Rate 24 (0-25) Sodium Level 142 mmol/L (136-145) Potassium Level 6.3 mmol/L (3.5-5.1) Chloride Level 115 mmol/L (98-107) Carbon Dioxide Level 17 mmol/L (21-32) Anion Gap 10 (6-14) Blood Urea Nitrogen 53 mg/dL (7-20) Creatinine 2.3 mg/dL (0.6-1.0) Estimated GFR (Cockcroft-Gault) 24.7 Glucose Level 108 mg/dL (70-99) Calcium Level 7.8 mg/dL (8.5-10.1) Laboratory Tests Test 04/10/19 05:55 White Blood Count 16.4 x10^3/uL (4.0-11.0) Red Blood Count 3.37 x10^6/uL (3.50-5.40) Hemoglobin 9.6 g/dL (12.0-15.5) Hematocrit 31.0 % (36.0-47.0) Mean Corpuscular Volume 92 fL (79-100) Mean Corpuscular Hemoglobin 29 pg (25-35) Mean Corpuscular Hemoglobin Concent 31 g/dL (31-37) Red Cell Distribution Width 19.4 % (11.5-14.5) Platelet Count 64 x10^3/uL (140-400) Neutrophils (%) (Auto) 85 % (31-73) Lymphocytes (%) (Auto) 11 % (24-48) Monocytes (%) (Auto) 3 % (0-9) Eosinophils (%) (Auto) 0 % (0-3) Basophils (%) (Auto) 1 % (0-3) Neutrophils # (Auto) 13.8 x10^3/uL (1.8-7.7) Lymphocytes # (Auto) 1.9 x10^3/uL (1.0-4.8) Monocytes # (Auto) 0.5 x10^3/uL (0.0-1.1) Eosinophils # (Auto) 0.0 x10^3/uL (0.0-0.7) Basophils # (Auto) 0.2 x10^3/uL (0.0-0.2) Erythrocyte Sedimentation Rate 24 (0-25) Sodium Level 142 mmol/L (136-145) Potassium Level 6.3 mmol/L (3.5-5.1) Chloride Level 115 mmol/L (98-107) Carbon Dioxide Level 17 mmol/L (21-32) Anion Gap 10 (6-14) Blood Urea Nitrogen 53 mg/dL (7-20) Creatinine 2.3 mg/dL (0.6-1.0) Estimated GFR (Cockcroft-Gault) 24.7 Glucose Level 108 mg/dL (70-99) Calcium Level 7.8 mg/dL (8.5-10.1) Microbiology 04/06/19 Blood Culture - Preliminary, Resulted NO GROWTH AFTER 3 DAYS Medications Current Medications Albumin Human 100 ml @ 100 mls/hr 1X ONCE IV Last administered on 03/29/19at 14:59; Start 03/29/19 at 14:30; Stop 03/29/19 at 15:29; Status DC Norepinephrine Bitartrate 250 ml @ 9.781 mls/ hr CONT PRN IV SEE I/O RECORD Last administered on 03/29/19at 23:25; Start 03/29/19 at 14:30; Stop 04/03/19 at 11:24; Status DC Sodium Chloride 1,000 ml @ 100 mls/hr Q10H IV Last administered on 03/29/19at 23:25; Start 03/29/19 at 14:30; Stop 03/30/19 at 12:08; Status DC Guaifenesin (Robitussin Dm) 10 ml PRN Q6HRS PRN PO COUGH Last administered on 04/06/19at 03:44; Start 03/29/19 at 15:30; Stop 04/06/19 at 12:42; Status DC Sodium Bicarbonate (Sodium Bicarb Adult 8.4% Syr) 50 meq 1X ONCE IV Last administered on 03/29/19at 16:49; Start 03/29/19 at 16:00; Stop 03/29/19 at 16:01; Status DC Sodium Bicarbonate (Sodium Bicarb Adult 8.4% Syr) 50 meq 1X ONCE IV Last administered on 03/29/19at 16:49; Start 03/29/19 at 16:00; Stop 03/29/19 at 16:01; Status DC Vancomycin HCl (Vanco Per Pharmacy) 1 each PRN DAILY PRN MC SEE COMMENTS Last administered on 04/02/19at 15:03; Start 03/29/19 at 17:15; Stop 04/03/19 at 07:34; Status DC Piperacillin Sod/ Tazobactam Sod (Zosyn Per Pharmacy) 1 each PRN DAILY PRN MC SEE COMMENTS; Start 03/29/19 at 17:15; Stop 03/31/19 at 07:37; Status DC Piperacillin Sod/ Tazobactam Sod 4.5 gm/Sodium Chloride 100 ml @ 200 mls/hr Q6HRS IV Last administered on 03/31/19at 06:23; Start 03/29/19 at 18:00; Stop 03/31/19 at 07:37; Status DC Vancomycin HCl 1.25 gm/Sodium Chloride 250 ml @ 166.667 mls/hr 1X ONCE IV Last administered on 03/29/19at 17:37; Start 03/29/19 at 17:15; Stop 03/29/19 at 18:44; Status DC Vancomycin HCl 750 mg/Sodium Chloride 250 ml @ 250 mls/hr Q18H IV Last administered on 03/30/19at 10:19; Start 03/30/19 at 11:00; Stop 03/30/19 at 12:54; Status DC Vancomycin HCl (Vancomycin Trough Level) 1 each 1X ONCE MC ; Start 03/31/19 at 09:30; Stop 03/31/19 at 09:31; Status DC Magnesium Sulfate 50 ml @ 25 mls/hr 1X ONCE IV Last administered on 03/29/19at 20:02; Start 03/29/19 at 20:00; Stop 03/29/19 at 21:59; Status DC Linezolid/Dextrose 300 ml @ 300 mls/hr Q12HR IV Last administered on 04/09/19at 21:53; Start 03/30/19 at 09:00 Chlorhexidine Gluconate (Peridex) 15 ml BID SWSP Last administered on 04/04/19at 08:17; Start 03/30/19 at 09:00 Amino Acids/ Glycerin/ Electrolytes 1,000 ml @ 100 mls/hr Q10H IV Last administered on 04/03/19at 07:36; Start 03/30/19 at 12:00; Stop 04/03/19 at 11:38; Status DC Vancomycin HCl 750 mg/Sodium Chloride 250 ml @ 250 mls/hr Q12H IV Last administered on 04/02/19at 21:48; Start 03/30/19 at 22:00; Stop 04/03/19 at 07:34; Status DC Hydromorphone HCl (Dilaudid) 1 mg PRN Q4HRS PRN IV PAIN Last administered on 03/31/19at 05:11; Start 03/30/19 at 21:00; Stop 03/31/19 at 09:43; Status DC Hydromorphone HCl (Dilaudid) 1 mg PRN Q2HR PRN IV PAIN Last administered on 03/31/19at 20:06; Start 03/31/19 at 09:45; Stop 03/31/19 at 22:00; Status DC Haloperidol Lactate (Haldol Inj) 2 mg PRN Q6HRS PRN IVP AGITATION Last administered on 04/01/19at 00:07; Start 03/31/19 at 09:45 Hydromorphone HCl (Dilaudid) 1 mg PRN Q2HR PRN IV MOD TO SEVERE PAIN Last administered on 04/09/19 03:08; Start 04/01/19 at 00:45; Stop 04/09/19 at 10:59; Status DC Oxycodone/ Acetaminophen (Percocet 7.5/ 325) 1 tab PRN Q4HRS PRN PO PAIN Last administered on 04/09/19 11:17; Start 04/01/19 at 09:00 Sodium Chloride 1,000 ml @ 125 mls/hr 1X ONCE IV Last administered on 04/01/19at 18:11; Start 04/01/19 at 09:00; Stop 04/01/19 at 16:59; Status DC Ketorolac Tromethamine (Toradol 15mg Vial) 15 mg PRN Q6HRS PRN IV MILD PAIN 1-3 Last administered on 04/06/19at 01:59; Start 04/01/19 at 09:00; Stop 04/06/19 at 08:59; Status DC Diphenhydramine HCl (Benadryl) 25 mg PRN Q6HRS PRN IVP ITCHING Last administered on 04/06/19at 22:28; Start 04/01/19 at 14:00; Stop 04/07/19 at 09:07; Status DC Lactobacillus Rhamnosus (Culturelle) 1 cap BID PO Last administered on 04/09/19at 21:53; Start 04/02/19 at 21:00 Ceftaroline Fosamil 600 mg/ Sodium Chloride 250 ml @ 250 mls/hr Q8HRS IV Last administered on 04/10/19at 06:04; Start 04/03/19 at 08:00 Sodium Chloride 1,000 ml @ 200 mls/hr 1X ONCE IV Last administered on 04/03/19 08:45; Start 04/03/19 at 08:30; Stop 04/03/19 at 13:29; Status DC Iohexol (Omnipaque 240 Mg/ml) 30 ml 1X ONCE PO Last administered on 04/04/19 13:49; Start 04/04/19 at 13:00; Stop 04/04/19 at 13:01; Status DC Iohexol (Omnipaque 300 Mg/ml) 75 ml 1X ONCE IV Last administered on 04/04/19at 14:42; Start 04/04/19 at 13:00; Stop 04/04/19 at 13:01; Status DC Lidocaine HCl (Xylocaine 2% Topical 5gm Tube) 1 garrison 1X ONCE TP Last administered on 04/05/19 15:35; Start 04/05/19 at 08:45; Stop 04/05/19 at 08:47; Status DC Lidocaine HCl (Viscous Lidocaine) 15 ml 1X ONCE SWSW Last administered on 04/05/19at 15:36; Start 04/05/19 at 08:45; Stop 04/05/19 at 08:47; Status DC Benzocaine (Hurricaine One) 2 spray 1X ONCE MM Last administered on 04/05/19 15:34; Start 04/05/19 at 08:45; Stop 04/05/19 at 08:47; Status DC Albuterol Sulfate (Ventolin Neb Soln) 2.5 mg PRN Q4HRS PRN NEB SHORTNESS OF BREATH; Start 04/05/19 at 08:45 Ondansetron HCl (Zofran) 4 mg PRN Q6HRS PRN IV NAUSEA/VOMITING Last administered on 04/09/19 23:17; Start 04/05/19 at 08:45 Acetaminophen (Tylenol) 500 mg PRN Q6HRS PRN PO MILD PAIN / TEMP Last administered on 04/06/19 04:56; Start 04/05/19 at 08:45 Docusate Sodium (Colace) 100 mg BID PO Last administered on 04/09/19 21:53; Start 04/05/19 at 09:00 Ferrous Sulfate (Feosol) 325 mg DAILY PO ; Start 04/05/19 at 09:00 Benzocaine (Hurricaine One) 1 spray STK-MED ONCE .ROUTE ; Start 04/05/19 at 13:39; Stop 04/05/19 at 13:40; Status DC Lidocaine HCl (Xylocaine 2% Topical 5gm Tube) 5 garrison STK-MED ONCE TP ; Start 04/05/19 at 13:39; Stop 04/05/19 at 13:40; Status DC Lidocaine HCl (Viscous Lidocaine) 15 ml STK-MED ONCE .ROUTE ; Start 04/05/19 at 13:39; Stop 04/05/19 at 13:40; Status DC Lidocaine/Sodium Bicarbonate (Buffered Lidocaine 1%) 3 ml STK-MED ONCE .ROUTE ; Start 04/05/19 at 13:50; Stop 04/05/19 at 13:50; Status DC Lidocaine/Sodium Bicarbonate (Buffered Lidocaine 1%) 6 ml 1X ONCE INJ Last administered on 04/05/19at 14:14; Start 04/05/19 at 14:15; Stop 04/05/19 at 14:16; Status DC Ringer's Solution 1,000 ml @ 75 mls/hr [id number] IV Last administered on 04/05at 21:09; Start 04/05/19 at 15:30; Stop 04/06/19 at 08:37; Status DC Propofol 20 ml @ As Directed STK-MED ONCE IV ; Start 04/05/19 at 16:00; Stop 04/05/19 at 16:00; Status DC Lidocaine HCl (Lidocaine Pf 2% Vial) 5 ml STK-MED ONCE .ROUTE ; Start 04/05/19 at 16:00; Stop 04/05/19 at 16:00; Status DC Phenylephrine HCl (PHENYLEPHRINE in 0.9% NACL PF) 1 mg STK-MED ONCE IV ; Start 04/05/19 at 16:00; Stop 04/05/19 at 16:00; Status DC Sodium Polystyrene Sulfonate (Kayexalate) 15 gm 1X ONCE PO Last administered on 04/06/19at 18:14; Start 04/06/19 at 08:45; Stop 04/06/19 at 08:46; Status DC Ketorolac Tromethamine (Toradol 15mg Vial) 15 mg PRN Q6HRS PRN IV MILD TO MODERATE PAIN Last administered on 04/09/19at 07:35; Start 04/06/19 at 12:30; Stop 04/09/19 at 10:59; Status DC Guaifenesin/ Codeine Phosphate (Robitussin Ac) 5 ml QID PO Last administered on 04/09/19at 21:53; Start 04/06/19 at 13:00 Sodium Polystyrene Sulfonate (Kayexalate) 15 gm STK-MED ONCE .ROUTE ; Start 04/06/19 at 18:11; Stop 04/06/19 at 18:11; Status DC Diphenhydramine HCl (Benadryl) 25 mg PRN Q8HRS PRN IVP ITCHING; Start 04/07/19 at 09:15; Stop 04/09/19 at 10:59; Status DC Ketorolac Tromethamine (Toradol 15mg Vial) 30 mg PRN Q6HRS PRN IV MILD TO MODERATE PAIN; Start 04/09/19 at 11:00; Stop 04/09/19 at 11:00; Status DC Sodium Chloride 1,000 ml @ 1,000 mls/hr 1X ONCE IV Last administered on 04/09/19at 11:11; Start 04/09/19 at 11:00; Stop 04/09/19 at 11:59; Status DC Sodium Chloride 1,000 ml @ 150 mls/hr Q6H40M IV Last administered on 04/09/19at 18:41; Start 04/09/19 at 11:00; Stop 04/10/19 at 06:37; Status DC Ketorolac Tromethamine (Toradol 30mg Vial) 30 mg PRN Q6HRS PRN IV MILD TO MODERATE PAIN Last administered on 04/09/19at 13:47; Start 04/09/19 at 11:00; Stop 04/10/19 at 06:37; Status DC Alprazolam (Xanax) 0.5 mg PRN Q8HRS PRN PO ANXIETY / AGITATION Last administered on 04/09/19at 13:59; Start 04/09/19 at 12:45 Methadone HCl (Dolophine) 20 mg DAILY08 PO Last administered on 04/09/19at 17:02; Start 04/09/19 at 17:00 Sodium Chloride 500 ml @ 500 mls/hr 1X ONCE IV Last administered on 04/09/19at 17:09; Start 04/09/19 at 17:15; Stop 04/09/19 at 18:14; Status DC Norepinephrine Bitartrate 250 ml @ 14.549 mls/ hr CONT PRN IV SEE I/O RECORD Last administered on 04/10/19at 08:08; Start 04/10/19 at 06:45 Albumin Human 100 ml @ 100 mls/hr 1X ONCE IV ; Start 04/10/19 at 07:00; Stop 04/10/19 at 07:59; Status Cancel Sodium Polystyrene Sulfonate (Kayexalate) 30 gm 1X ONCE PO ; Start 04/10/19 at 07:00; Stop 04/10/19 at 07:01; Status DC Sodium Bicarbonate (Sodium Bicarb Adult 8.4% Syr) 50 meq 1X ONCE IV Last administered on 04/10/19at 07:57; Start 04/10/19 at 07:00; Stop 04/10/19 at 07:01; Status DC Insulin Human Regular (HumuLIN R VIAL) 10 unit 1X ONCE IV Last administered on 04/10/19at 07:58; Start 04/10/19 at 07:00; Stop 04/10/19 at 07:01; Status DC Dextrose (Dextrose 25% Syringe) 10 ml 1X ONCE IV ; Start 04/10/19 at 07:00; Stop 04/10/19 at 07:01; Status Cancel Albumin Human 100 ml @ 100 mls/hr 1X ONCE IV ; Start 04/10/19 at 08:00; Stop 04/10/19 at 08:59; Status Cancel Sodium Polystyrene Sulfonate (Kayexalate) 30 gm 1X ONCE PO ; Start 04/10/19 at 07:00; Stop 04/10/19 at 07:01; Status DC Norepinephrine Bitartrate 250 ml @ 14.549 mls/ hr CONT PRN IV SEE I/O RECORD; Start 04/10/19 at 06:30; Status UNV Calcium Gluconate (Calcium Gluconate) 1,000 mg 1X ONCE IVP ; Start 04/10/19 at 07:00; Stop 04/10/19 at 07:01; Status Cancel Insulin Human Regular (HumuLIN R VIAL) 10 unit 1X ONCE IV ; Start 04/10/19 at 06:30; Stop 04/10/19 at 06:31; Status UNV Dextrose 100 ml @ 200 mls/hr 1X ONCE IV ; Start 04/10/19 at 06:30; Stop 04/10/19 at 06:59; Status UNV Dextrose (Dextrose 50%-Water Syringe) 25 gm 1X ONCE IV Last administered on 04/10/19at 07:57; Start 04/10/19 at 07:00; Stop 04/10/19 at 07:01; Status DC Calcium Gluconate 1000 mg/Dextrose 110 ml @ 220 mls/hr 1X ONCE IV Last administered on 04/10/19at 07:59; Start 04/10/19 at 08:30; Stop 04/10/19 at 08:59 Albumin Human 500 ml @ As Directed STK-MED ONCE IV ; Start 04/10/19 at 07:39; Stop 04/10/19 at 07:40; Status DC Active Scripts Active Reported Prenate Elite Tablet ( #79/Iron Asp Gly/FA#1) 1 Each Tablet 1 Each PO DAILY Ibuprofen 800 Mg Tablet 800 Mg PO PRN Q6HRS PRN Ferrous Sulfate 325 Mg Tablet 325 Mg PO DAILY Docusate Sodium 100 Mg Capsule 100 Mg PO BID Vitals/I & O Vital Sign - Last 24 Hours 04/09/19 04/09/19 04/09/19 04/09/19 10:44 11:15 11:17 12:58 Temp 97.6 97.6 Pulse 105 102 Resp 18 B/P (MAP) 85/49 (61) 95/56 (69) Pulse Ox 93 94 95 O2 Delivery Nasal Cannula Nasal Cannula Room Air Nasal Cannula O2 Flow Rate 3.0 2.0 2.0 04/09/19 04/09/19 04/09/19 04/09/19 13:59 15:22 20:00 20:00 Temp 97.5 97.4 97.5 97.4 Pulse 100 99 98 Resp 20 16 18 B/P (MAP) 121/45 (70) 87/34 (51) 121/40 (67) Pulse Ox 96 95 95 O2 Delivery Nasal Cannula Nasal Cannula Room Air Nasal Cannula O2 Flow Rate 2.0 2.0 2.0 04/09/19 04/10/19 04/10/19 04/10/19 23:00 03:30 05:45 06:00 Temp 97.5 97.4 97.5 97.4 Pulse 94 95 91 99 Resp 20 18 18 B/P (MAP) 103/60 (74) 100/57 (71) 68/42 (51) 71/45 (54) Pulse Ox 93 93 92 O2 Delivery Nasal Cannula Nasal Cannula Nasal Cannula O2 Flow Rate 2.0 2.5 2.5 04/10/19 04/10/19 04/10/19 04/10/19 06:00 06:15 06:30 07:00 Pulse 94 92 94 92 B/P (MAP) 82/50 (61) 77/51 (60) 71/47 (55) 81/43 (56) Intake and Output 04/09/19 04/09/19 04/10/19 15:00 23:00 07:00 Intake Total 100 ml 100 ml Output Total 350 ml Balance -350 ml 100 ml 100 ml Nutrition Consultation Dietary Evaluation: Recommendations by RD: Protein supplementation, Add supplement feedings Comments: Continue w/regular diet as ordered, honor food preferences, and provide snacks as requested Continue w/PPN to supplement PO intake at this time, can stop PPN once PO intake consistently >50% meals and tolerated, D/Cd 04/0304/07/2019-Pt. stated that she has an upset stomach, Current PO intake poor, Suggest continue regular diet and add Ensure Clear BID to increase protein/calorie intake Expected Outcomes/Goals: PO intake + Ensure Clear to meet >75% est needs - met, goal ongoing Interpretation of weight loss: >20% in 1 year Malnutrition Findings: Food and Nutrition Intake (Mod: <75% est energy req 7days Weight Status: Appropriate KAY AGOSTO MD Apr 10, 2019 08:30
[2019-04-10] MEDS: CHLORHEXIDINE 0.12% 15 ML MOUTHWASH. SWSP SCH (09:00)
[2019-04-10] MEDS: LACTOBACILLUS RHAMNOSUS GG 1 CAPSULE. PO SCH (09:00)
[2019-04-10] MEDS: DOCUSATE SODIUM 100 MG CAPSULE. PO SCH (09:00)
[2019-04-10] MEDS: guaiFENesin/CODEINE 100mg/10mg 5 ML LIQUID PO SCH ×3 (09:00→16:54)
[2019-04-10] MEDS: FERROUS SULFATE 325 MG TABLET. PO SCH (09:00)
--- NOTE | 2019-04-10 09:41 | PDOC ---
Infectious Disease Note Subjective Subjective Transferred to MICU for decrease responsiveness, hypoxia, hypotension and worsening renal function. Now on Levophed gtt Satting 96% on 2L O2 ROS ROS unobtainable Vital Sign Vital Signs Vital Signs Date Time Temp Pulse Resp B/P (MAP) Pulse Ox O2 Delivery O2 Flow Rate FiO2 04/10/19 07:00 92 81/43 (56) 04/10/19 06:00 18 92 Nasal Cannula 2.5 04/10/19 03:30 97.4 97.4 Physical Exam PHYSICAL EXAM GENERAL: Lying down, unresponsive to verbal HEENT: Pupils are equal and reactive. Oral cavity, pharynx dry NECK: Supple LUNGS: Clear to auscultation bilaterally. HEART: S1, S2 with questionable murmur. ABDOMEN: Soft : [place] EXTREMITIES: 1+ edema lower extremities, bilaterally. no cyanosis SKIN: Warm to touch without rash. Multiple tattoos. NEUROLOGIC: Unresponsive RUE-PICC (04/06) clean Labs Lab Laboratory Tests Test 04/10/19 05:55 White Blood Count 16.4 x10^3/uL (4.0-11.0) Red Blood Count 3.37 x10^6/uL (3.50-5.40) Hemoglobin 9.6 g/dL (12.0-15.5) Hematocrit 31.0 % (36.0-47.0) Mean Corpuscular Volume 92 fL (79-100) Mean Corpuscular Hemoglobin 29 pg (25-35) Mean Corpuscular Hemoglobin Concent 31 g/dL (31-37) Red Cell Distribution Width 19.4 % (11.5-14.5) Platelet Count 64 x10^3/uL (140-400) Neutrophils (%) (Auto) 85 % (31-73) Lymphocytes (%) (Auto) 11 % (24-48) Monocytes (%) (Auto) 3 % (0-9) Eosinophils (%) (Auto) 0 % (0-3) Basophils (%) (Auto) 1 % (0-3) Neutrophils # (Auto) 13.8 x10^3/uL (1.8-7.7) Lymphocytes # (Auto) 1.9 x10^3/uL (1.0-4.8) Monocytes # (Auto) 0.5 x10^3/uL (0.0-1.1) Eosinophils # (Auto) 0.0 x10^3/uL (0.0-0.7) Basophils # (Auto) 0.2 x10^3/uL (0.0-0.2) Erythrocyte Sedimentation Rate 24 (0-25) Sodium Level 142 mmol/L (136-145) Potassium Level 6.3 mmol/L (3.5-5.1) Chloride Level 115 mmol/L (98-107) Carbon Dioxide Level 17 mmol/L (21-32) Anion Gap 10 (6-14) Blood Urea Nitrogen 53 mg/dL (7-20) Creatinine 2.3 mg/dL (0.6-1.0) Estimated GFR (Cockcroft-Gault) 24.7 Glucose Level 108 mg/dL (70-99) Calcium Level 7.8 mg/dL (8.5-10.1) Micro 04/06. BLOOD CULTURE Preliminary NO GROWTH AFTER 3 DAY Objective Assessment MRSA sepsis (at [facility] per report from blood 03/29), 03/31, 04/01,04/03,,,,neg 04/06 so far TV endocarditis. large 2 X 2.4 vegetation w/ severe tricuspid regurgitation Cavitary nodules, likely septic emboli Leukocytosis Hypotension, now on Levaphed Encephalopathy RIKY Thrombocytopenia/anemia Substance abuse ? PE Pulm HTN Hep C - ? if treated in past 4 weeks post Anasarca Plan Plan of Care Cont Zyvox (03/30) continue Ceftaroline, dose adjusted for renal function Perdiex - oral care BC from 04/06 neg so far Labs in am Await nephrology eval CTS consulted D/w nursing D/w Dr. Hughes Critically ill Less responsive Attending Co-Sign Attending Co-Sign The patient was seen and interviewed as well as examined at the bedside. The art was reviewed. The case was discussed. Agree with the plan of care. JERRY ZUNIGA APRN Apr 10, 2019 09:41 BREN LOCKHART MD Apr 10, 2019 14:35
--- NOTE | 2019-04-10 10:15 | PDOC ---
PULMONARY PROGRESS NOTES Subjective transfer to ICU due to dyspnea/ RIKY, lethargy Vitals Vital Signs Date Time Temp Pulse Resp B/P (MAP) Pulse Ox O2 Delivery O2 Flow Rate FiO2 04/10/19 07:00 92 81/43 (56) 04/10/19 06:00 18 92 Nasal Cannula 2.5 04/10/19 03:30 97.4 97.4 ROS: No Nausea General: No acute distress, Lethargic Lungs: Other (decrease bs) Cardiovascular: S1, S2 Abdomen: Soft, Non-tender Neuro Exam: Oriented Extremities: Other (2+edema) Skin: Warm Labs Laboratory Tests Test 04/10/19 05:55 04/10/19 09:05 White Blood Count 16.4 x10^3/uL (4.0-11.0) Red Blood Count 3.37 x10^6/uL (3.50-5.40) Hemoglobin 9.6 g/dL (12.0-15.5) Hematocrit 31.0 % (36.0-47.0) Mean Corpuscular Volume 92 fL (79-100) Mean Corpuscular Hemoglobin 29 pg (25-35) Mean Corpuscular Hemoglobin Concent 31 g/dL (31-37) Red Cell Distribution Width 19.4 % (11.5-14.5) Platelet Count 64 x10^3/uL (140-400) Neutrophils (%) (Auto) 85 % (31-73) Lymphocytes (%) (Auto) 11 % (24-48) Monocytes (%) (Auto) 3 % (0-9) Eosinophils (%) (Auto) 0 % (0-3) Basophils (%) (Auto) 1 % (0-3) Neutrophils # (Auto) 13.8 x10^3/uL (1.8-7.7) Lymphocytes # (Auto) 1.9 x10^3/uL (1.0-4.8) Monocytes # (Auto) 0.5 x10^3/uL (0.0-1.1) Eosinophils # (Auto) 0.0 x10^3/uL (0.0-0.7) Basophils # (Auto) 0.2 x10^3/uL (0.0-0.2) Erythrocyte Sedimentation Rate 24 (0-25) Sodium Level 142 mmol/L (136-145) Potassium Level 6.3 mmol/L (3.5-5.1) Chloride Level 115 mmol/L (98-107) Carbon Dioxide Level 17 mmol/L (21-32) Anion Gap 10 (6-14) Blood Urea Nitrogen 53 mg/dL (7-20) Creatinine 2.3 mg/dL (0.6-1.0) Estimated GFR (Cockcroft-Gault) 24.7 Glucose Level 108 mg/dL (70-99) Calcium Level 7.8 mg/dL (8.5-10.1) Lactic Acid Level 2.6 mmol/L (0.4-2.0) Laboratory Tests Test 04/10/19 05:55 04/10/19 09:05 White Blood Count 16.4 x10^3/uL (4.0-11.0) Red Blood Count 3.37 x10^6/uL (3.50-5.40) Hemoglobin 9.6 g/dL (12.0-15.5) Hematocrit 31.0 % (36.0-47.0) Mean Corpuscular Volume 92 fL (79-100) Mean Corpuscular Hemoglobin 29 pg (25-35) Mean Corpuscular Hemoglobin Concent 31 g/dL (31-37) Red Cell Distribution Width 19.4 % (11.5-14.5) Platelet Count 64 x10^3/uL (140-400) Neutrophils (%) (Auto) 85 % (31-73) Lymphocytes (%) (Auto) 11 % (24-48) Monocytes (%) (Auto) 3 % (0-9) Eosinophils (%) (Auto) 0 % (0-3) Basophils (%) (Auto) 1 % (0-3) Neutrophils # (Auto) 13.8 x10^3/uL (1.8-7.7) Lymphocytes # (Auto) 1.9 x10^3/uL (1.0-4.8) Monocytes # (Auto) 0.5 x10^3/uL (0.0-1.1) Eosinophils # (Auto) 0.0 x10^3/uL (0.0-0.7) Basophils # (Auto) 0.2 x10^3/uL (0.0-0.2) Erythrocyte Sedimentation Rate 24 (0-25) Sodium Level 142 mmol/L (136-145) Potassium Level 6.3 mmol/L (3.5-5.1) Chloride Level 115 mmol/L (98-107) Carbon Dioxide Level 17 mmol/L (21-32) Anion Gap 10 (6-14) Blood Urea Nitrogen 53 mg/dL (7-20) Creatinine 2.3 mg/dL (0.6-1.0) Estimated GFR (Cockcroft-Gault) 24.7 Glucose Level 108 mg/dL (70-99) Calcium Level 7.8 mg/dL (8.5-10.1) Lactic Acid Level 2.6 mmol/L (0.4-2.0) Medications Active Scripts Medications Dose Route/Sig Max Daily Dose Days Date Category Prenate Elite Tablet ( #79/Iron Asp Gly/FA#1) 1 Each Tablet 1 Each PO DAILY 03/29/19 Reported Ibuprofen 800 Mg Tablet 800 Mg PO PRN Q6HRS PRN 03/29/19 Reported Ferrous Sulfate 325 Mg Tablet 325 Mg PO DAILY 03/29/19 Reported Docusate Sodium 100 Mg Capsule 100 Mg PO BID 03/29/19 Reported Comments cxr bilateral nodules/ increase RLL effusion Impression . IMPRESSION: 1. Acute hypoxic respiratory failure secondary to sepsis with MRSA 2. septic emboli, history of IV meth abuse. 2/4 blood cultures positive from 03/31, 04/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 4. Lower lobe pulmonary emboli.Likely infective emboli. I suspect this is related to obstruction of the pulmonary vessels from right-sided vegetations and dislodgement. In the setting of anemia and thrombocytopenia, anticoagulation would be high risk and not indicated. 5. History of hepatitis C with chronic thrombocytopenia.--improving slowly/stable 6. Polysubstance abuse. 7. Hypotension. Suspect combination of hypovolemic and septic shock.---RESOLVED 8. Abn cxr with bilateral cavitary nodules, now with effusion 9 RIKY Plan . 1. 02 titration 2. minimize benzodiazepines and narcotics. avoid oversedation 3. antibiotics per ID 4. No need for anticoagulation 5. blood culture repeat per ID 6. HUNTER with large tricuspid vegetations in the setting of persistent bacteremia and suspect failed Abx, now in CHF/ RIKY. would rec CV surgery consult and possible transfer to . Discussed with EMY ALMEIDA MD Apr 10, 2019 10:15
--- NOTE | 2019-04-10 10:36 | PDOC2 ---
CONSULT Date of Consult Date of Consult DATE: 04/10/19 TIME: 10:15 Reason for Consult Reason for Consult: RIKY Source Source: Chart review History of Present Illness Reason for Visit: Pt is a 29 yo CF, seen by Renal as new consult on 03/30 2019 for RIKY. Renal signed off as Cr was back at baseline Normal We are Reconsulted for RIKY and Hyperkalemia . Per Dr. Colunga and Chart review she was diaphoretic, cool, had labored breathing, and BP in the 80's over 30's. Overnight UOP dropped, potassium 6.3, BP is 70/30. Transferred to ICU for levophed started this morning. She is arousable to painful stimuli NO more fevers,On IV abx per ID S/P 1 L NS bous and NS at 125cc hr, Albumin bolus, hyperkalemia treatment with bicarb, albuterol, insulin, D50 Past Medical History Pulmonary: Asthma Hepatobiliary: Hep A/B/C (C) Psych: Depression Past Surgical History Past Surgical History: (x3) Social History <1 pack per day ALCOHOL: occassional Drugs: Other (hx of marijuana and IV meth use) Lives: with Family Current Problem List Problem List Problems Medical Problems: (1) RIKY (acute kidney injury) Status: Acute (2) Endocarditis Status: Acute (3) Hypotension Status: Acute (4) Pulmonary hypertension Status: Chronic (5) Renal failure Status: Acute (6) Respiratory failure Status: Acute (7) Septic pulmonary embolism Status: Acute (8) Severe sepsis Status: Acute (9) Severe tricuspid regurgitation Status: Chronic Current Medications Current Medications Current Medications Albumin Human 100 ml @ 100 mls/hr 1X ONCE IV Last administered on 03/29/19at 14:59; Start 03/29/19 at 14:30; Stop 03/29/19 at 15:29; Status DC Norepinephrine Bitartrate 250 ml @ 9.781 mls/ hr CONT PRN IV SEE I/O RECORD Last administered on 03/29/19at 23:25; Start 03/29/19 at 14:30; Stop 04/03/19 at 11:24; Status DC Sodium Chloride 1,000 ml @ 100 mls/hr Q10H IV Last administered on 03/29/19at 23:25; Start 03/29/19 at 14:30; Stop 03/30/19 at 12:08; Status DC Guaifenesin (Robitussin Dm) 10 ml PRN Q6HRS PRN PO COUGH Last administered on 04/06/19at 03:44; Start 03/29/19 at 15:30; Stop 04/06/19 at 12:42; Status DC Sodium Bicarbonate (Sodium Bicarb Adult 8.4% Syr) 50 meq 1X ONCE IV Last administered on 03/29/19at 16:49; Start 03/29/19 at 16:00; Stop 03/29/19 at 16:01; Status DC Sodium Bicarbonate (Sodium Bicarb Adult 8.4% Syr) 50 meq 1X ONCE IV Last administered on 03/29/19at 16:49; Start 03/29/19 at 16:00; Stop 03/29/19 at 16:01; Status DC Vancomycin HCl (Vanco Per Pharmacy) 1 each PRN DAILY PRN MC SEE COMMENTS Last administered on 04/02/19at 15:03; Start 03/29/19 at 17:15; Stop 04/03/19 at 07:34; Status DC Piperacillin Sod/ Tazobactam Sod (Zosyn Per Pharmacy) 1 each PRN DAILY PRN MC SEE COMMENTS; Start 03/29/19 at 17:15; Stop 03/31/19 at 07:37; Status DC Piperacillin Sod/ Tazobactam Sod 4.5 gm/Sodium Chloride 100 ml @ 200 mls/hr Q6HRS IV Last administered on 03/31/19at 06:23; Start 03/29/19 at 18:00; Stop 03/31/19 at 07:37; Status DC Vancomycin HCl 1.25 gm/Sodium Chloride 250 ml @ 166.667 mls/hr 1X ONCE IV Last administered on 03/29/19at 17:37; Start 03/29/19 at 17:15; Stop 03/29/19 at 18:44; Status DC Vancomycin HCl 750 mg/Sodium Chloride 250 ml @ 250 mls/hr Q18H IV Last administered on 03/30/19at 10:19; Start 03/30/19 at 11:00; Stop 03/30/19 at 12:54; Status DC Vancomycin HCl (Vancomycin Trough Level) 1 each 1X ONCE MC ; Start 03/31/19 at 09:30; Stop 03/31/19 at 09:31; Status DC Magnesium Sulfate 50 ml @ 25 mls/hr 1X ONCE IV Last administered on 03/29/19 20:02; Start 03/29/19 at 20:00; Stop 03/29/19 at 21:59; Status DC Linezolid/Dextrose 300 ml @ 300 mls/hr Q12HR IV Last administered on 04/10/19 09:57; Start 03/30/19 at 09:00 Chlorhexidine Gluconate (Peridex) 15 ml BID SWSP Last administered on 04/04/19 08:17; Start 03/30/19 at 09:00 Amino Acids/ Glycerin/ Electrolytes 1,000 ml @ 100 mls/hr Q10H IV Last administered on 04/03/19at 07:36; Start 03/30/19 at 12:00; Stop 04/03/19 at 11:38; Status DC Vancomycin HCl 750 mg/Sodium Chloride 250 ml @ 250 mls/hr Q12H IV Last administered on 04/02/19at 21:48; Start 03/30/19 at 22:00; Stop 04/03/19 at 07:34; Status DC Hydromorphone HCl (Dilaudid) 1 mg PRN Q4HRS PRN IV PAIN Last administered on 03/31/19at 05:11; Start 03/30/19 at 21:00; Stop 03/31/19 at 09:43; Status DC Hydromorphone HCl (Dilaudid) 1 mg PRN Q2HR PRN IV PAIN Last administered on 03/31/19at 20:06; Start 03/31/19 at 09:45; Stop 03/31/19 at 22:00; Status DC Haloperidol Lactate (Haldol Inj) 2 mg PRN Q6HRS PRN IVP AGITATION Last administered on 04/01/19at 00:07; Start 03/31/19 at 09:45 Hydromorphone HCl (Dilaudid) 1 mg PRN Q2HR PRN IV MOD TO SEVERE PAIN Last administered on 04/09/19at 03:08; Start 04/01/19 at 00:45; Stop 04/09/19 at 10:59; Status DC Oxycodone/ Acetaminophen (Percocet 7.5/ 325) 1 tab PRN Q4HRS PRN PO PAIN Last administered on 04/09/19 11:17; Start 04/01/19 at 09:00 Sodium Chloride 1,000 ml @ 125 mls/hr 1X ONCE IV Last administered on 04/01/19at 18:11; Start 04/01/19 at 09:00; Stop 04/01/19 at 16:59; Status DC Ketorolac Tromethamine (Toradol 15mg Vial) 15 mg PRN Q6HRS PRN IV MILD PAIN 1-3 Last administered on 04/06/19at 01:59; Start 04/01/19 at 09:00; Stop 04/06/19 at 08:59; Status DC Diphenhydramine HCl (Benadryl) 25 mg PRN Q6HRS PRN IVP ITCHING Last a dministered on 04/06/19 22:28; Start 04/01/19 at 14:00; Stop 04/07/19 at 09:07; Status DC Lactobacillus Rhamnosus (Culturelle) 1 cap BID PO Last administered on 04/09/19at 21:53; Start 04/02/19 at 21:00 Ceftaroline Fosamil 600 mg/ Sodium Chloride 250 ml @ 250 mls/hr Q8HRS IV Last administered on 04/10/19 06:04; Start 04/03/19 at 08:00; Stop 04/10/19 at 09:30; Status DC Sodium Chloride 1,000 ml @ 200 mls/hr 1X ONCE IV Last administered on 04/03/19 08:45; Start 04/03/19 at 08:30; Stop 04/03/19 at 13:29; Status DC Iohexol (Omnipaque 240 Mg/ml) 30 ml 1X ONCE PO Last administered on 04/04/19 13:49; Start 04/04/19 at 13:00; Stop 04/04/19 at 13:01; Status DC Iohexol (Omnipaque 300 Mg/ml) 75 ml 1X ONCE IV Last administered on 04/04/19at 14:42; Start 04/04/19 at 13:00; Stop 04/04/19 at 13:01; Status DC Lidocaine HCl (Xylocaine 2% Topical 5gm Tube) 1 garrison 1X ONCE TP Last admi nistered on 04/05/19at 15:35; Start 04/05/19 at 08:45; Stop 04/05/19 at 08:47; Status DC Lidocaine HCl (Viscous Lidocaine) 15 ml 1X ONCE SWSW Last administered on 04/05/19at 15:36; Start 04/05/19 at 08:45; Stop 04/05/19 at 08:47; Status DC Benzocaine (Hurricaine One) 2 spray 1X ONCE MM Last administered on 04/05/19at 15:34; Start 04/05/19 at 08:45; Stop 04/05/19 at 08:47; Status DC Albuterol Sulfate (Ventolin Neb Soln) 2.5 mg PRN Q4HRS PRN NEB SHORTNESS OF BREATH; Start 04/05/19 at 08:45 Ondansetron HCl (Zofran) 4 mg PRN Q6HRS PRN IV NAUSEA/VOMITING Last administered on 04/09/19at 23:17; Start 04/05/19 at 08:45 Acetaminophen (Tylenol) 500 mg PRN Q6HRS PRN PO MILD PAIN / TEMP Last administered on 04/06/19at 04:56; Start 04/05/19 at 08:45 Docusate Sodium (Colace) 100 mg BID PO Last administered on 04/09/19at 21:53; Start 04/05/19 at 09:00 Ferrous Sulfate (Feosol) 325 mg DAILY PO ; Start 04/05/19 at 09:00 Benzocaine (Hurricaine One) 1 spray STK-MED ONCE .ROUTE ; Start 04/05/19 at 13:39; Stop 04/05/19 at 13:40; Status DC Lidocaine HCl (Xylocaine 2% Topical 5gm Tube) 5 garrison STK-MED ONCE TP ; Start 04/05/19 at 13:39; Stop 04/05/19 at 13:40; Status DC Lidocaine HCl (Viscous Lidocaine) 15 ml STK-MED ONCE .ROUTE ; Start 04/05/19 at 13:39; Stop 04/05/19 at 13:40; Status DC Lidocaine/Sodium Bicarbonate (Buffered Lidocaine 1%) 3 ml STK-MED ONCE .ROUTE ; Start 04/05/19 at 13:50; Stop 04/05/19 at 13:50; Status DC Lidocaine/Sodium Bicarbonate (Buffered Lidocaine 1%) 6 ml 1X ONCE INJ Last administered on 04/05/19at 14:14; Start 04/05/19 at 14:15; Stop 04/05/19 at 14:16; Status DC Ringer's Solution 1,000 ml @ 75 mls/hr [id number] IV Last administered on 04/05/19at 21:09; Start 04/05/19 at 15:30; Stop 04/06/19 at 08:37; Status DC Propofol 20 ml @ As Directed STK-MED ONCE IV ; Start 04/05/19 at 16:00; Stop 04/05/19 at 16:00; Status DC Lidocaine HCl (Lidocaine Pf 2% Vial) 5 ml STK-MED ONCE .ROUTE ; Start 04/05/19 at 16:00; Stop 04/05/19 at 16:00; Status DC Phenylephrine HCl (PHENYLEPHRINE in 0.9% NACL PF) 1 mg STK-MED ONCE IV ; Start 04/05/19 at 16:00; Stop 04/05/19 at 16:00; Status DC Sodium Polystyrene Sulfonate (Kayexalate) 15 gm 1X ONCE PO Last administered on 04/06/19at 18:14; Start 04/06/19 at 08:45; Stop 04/06/19 at 08:46; Status DC Ketorolac Tromethamine (Toradol 15mg Vial) 15 mg PRN Q6HRS PRN IV MILD TO MODERATE PAIN Last administered on 04/09/19at 07:35; Start 04/06/19 at 12:30; Stop 04/09/19 at 10:59; Status DC Guaifenesin/ Codeine Phosphate (Robitussin Ac) 5 ml QID PO Last administered on 04/09/19at 21:53; Start 04/06/19 at 13:00 Sodium Polystyrene Sulfonate (Kayexalate) 15 gm STK-MED ONCE .ROUTE ; Start 04/06/19 at 18:11; Stop 04/06/19 at 18:11; Status DC Diphenhydramine HCl (Benadryl) 25 mg PRN Q8HRS PRN IVP ITCHING; Start 04/07/19 at 09:15; Stop 04/09/19 at 10:59; Status DC Ketorolac Tromethamine (Toradol 15mg Vial) 30 mg PRN Q6HRS PRN IV MILD TO MODERATE PAIN; Start 04/09/19 at 11:00; Stop 04/09/19 at 11:00; Status DC Sodium Chloride 1,000 ml @ 1,000 mls/hr 1X ONCE IV Last administered on 04/09/19at 11:11; Start 04/09/19 at 11:00; Stop 04/09/19 at 11:59; Status DC Sodium Chloride 1,000 ml @ 150 mls/hr Q6H40M IV Last administered on 04/09/19at 18:41; Start 04/09/19 at 11:00; Stop 04/10/19 at 06:37; Status DC Ketorolac Tromethamine (Toradol 30mg Vial) 30 mg PRN Q6HRS PRN IV MILD TO MODERATE PAIN Last administered on 04/09/19at 13:47; Start 04/09/19 at 11:00; Stop 04/10/19 at 06:37; Status DC Alprazolam (Xanax) 0.5 mg PRN Q8HRS PRN PO ANXIETY / AGITATION Last administered on 04/09/19at 13:59; Start 04/09/19 at 12:45 Methadone HCl (Dolophine) 20 mg DAILY08 PO Last administered on 04/09/19at 17:02; Start 04/09/19 at 17:00 Sodium Chloride 500 ml @ 500 mls/hr 1X ONCE IV Last administered on 04/09/19at 17:09; Start 04/09/19 at 17:15; Stop 04/09/19 at 18:14; Status DC Norepinephrine Bitartrate 250 ml @ 14.549 mls/ hr CONT PRN IV SEE I/O RECORD Last administered on 04/10/19at 08:08; Start 04/10/19 at 06:45 Albumin Human 100 ml @ 100 mls/hr 1X ONCE IV ; Start 04/10/19 at 07:00; Stop 04/10/19 at 07:59; Status Cancel Sodium Polystyrene Sulfonate (Kayexalate) 30 gm 1X ONCE PO ; Start 04/10/19 at 07:00; Stop 04/10/19 at 07:01; Status DC Sodium Bicarbonate (Sodium Bicarb Adult 8.4% Syr) 50 meq 1X ONCE IV Last administered on 04/10/19at 07:57; Start 04/10/19 at 07:00; Stop 04/10/19 at 07:01; Status DC Insulin Human Regular (HumuLIN R VIAL) 10 unit 1X ONCE IV Last administered on 04/10/19at 07:58; Start 04/10/19 at 07:00; Stop 04/10/19 at 07:01; Status DC Dextrose (Dextrose 25% Syringe) 10 ml 1X ONCE IV ; Start 04/10/19 at 07:00; Stop 04/10/19 at 07:01; Status Cancel Albumin Human 100 ml @ 100 mls/hr 1X ONCE IV ; Start 04/10/19 at 08:00; Stop 04/10/19 at 08:59; Status Cancel Sodium Polystyrene Sulfonate (Kayexalate) 30 gm 1X ONCE PO ; Start 04/10/19 at 07:00; Stop 04/10/19 at 07:01; Status DC Norepinephrine Bitartrate 250 ml @ 14.549 mls/ hr CONT PRN IV SEE I/O RECORD; Start 04/10/19 at 06:30; Status UNV Calcium Gluconate (Calcium Gluconate) 1,000 mg 1X ONCE IVP ; Start 04/10/19 at 07:00; Stop 04/10/19 at 07:01; Status Cancel Insulin Human Regular (HumuLIN R VIAL) 10 unit 1X ONCE IV ; Start 04/10/19 at 06:30; Stop 04/10/19 at 06:31; Status UNV Dextrose 100 ml @ 200 mls/hr 1X ONCE IV ; Start 04/10/19 at 06:30; Stop 04/10/19 at 06:59; Status UNV Dextrose (Dextrose 50%-Water Syringe) 25 gm 1X ONCE IV Last administered on 04/10/19at 07:57; Start 04/10/19 at 07:00; Stop 04/10/19 at 07:01; Status DC Calcium Gluconate 1000 mg/Dextrose 110 ml @ 220 mls/hr 1X ONCE IV Last administered on 04/10/19at 07:59; Start 04/10/19 at 08:30; Stop 04/10/19 at 08:59; Status DC Albumin Human 500 ml @ As Directed STK-MED ONCE IV ; Start 04/10/19 at 07:39; Stop 04/10/19 at 07:40; Status DC Ceftaroline Fosamil 400 mg/ Sodium Chloride 250 ml @ 250 mls/hr Q8HRS IV ; Start 04/10/19 at 14:00 Active Scripts Active Reported Prenate Elite Tablet ( #79/Iron Asp Gly/FA#1) 1 Each Tablet 1 Each PO DAILY Ibuprofen 800 Mg Tablet 800 Mg PO PRN Q6HRS PRN Ferrous Sulfate 325 Mg Tablet 325 Mg PO DAILY Docusate Sodium 100 Mg Capsule 100 Mg PO BID Allergies Allergies: Coded Allergies: Latex, Natural Rubber (Verified Allergy, Intermediate, Unknown, 03/29/19) I S O L A T I O N *CONTACT* (Verified Allergy, Unknown, 04/04/19) mrsa prochlorperazine (Verified Adverse Reaction, Intermediate, Anxiety, 03/29/19) ROS Review of System Unable to Obtain Physical Exam Physical Exam GENERAL: NAD responds to painful stimuli HEENT: OM dry NECK: Supple LUNGS: Clear to auscultation bilaterally. HEART: S1, S2 with murmur. ABDOMEN: Soft, nontender EXTREMITIES: 1+ edema lower extremities, bilaterally. no cyanosis SKIN: Warm to touch without rash. Multiple tattoos. NEUROLOGIC: Nonfocal, moves all extremities. Sen[place] + Vital Signs Vital Signs Date Time Temp Pulse Resp B/P (MAP) Pulse Ox O2 Delivery O2 Flow Rate FiO2 04/10/19 07:00 92 81/43 (56) 04/10/19 06:00 18 92 Nasal Cannula 2.5 04/10/19 03:30 97.4 97.4 Assessment & Plan RIKY- ATN /Vasomotor Cr on 04/06 1.1 ,No Interval labs Cr 2.6 this am Currently UOP decreased Supportive care,IVF, Strict I/O , Monitor Hyperkalemia- mild Temporizing Measures Metabolic acidosis - IVF as discussed Hypotension - On pressors and IVF MRSA bacteremia Septic shock Tricuspid Vegetation by HUNTER- large mobile vegetation on the tricuspid valve measuring 2 x 2.4 cm, with Severe tricuspid regurgitation. Likely Transfer to Acute pulmonary Septic emboli submassive - not a candidate initially for anticoagulation due to anemia and thrombocytopenia Acute metabolic encephalopathy Polysubstance abuse, and withdrawal symptoms Thrombocytopenia from sepsis Acute anemia - with precipitous drop hgb s/p 3u PRBC Discussed with Dr. Hughes and Dr. Colunga Labs Labs Laboratory Tests Test 04/10/19 05:55 04/10/19 09:05 White Blood Count 16.4 x10^3/uL (4.0-11.0) Red Blood Count 3.37 x10^6/uL (3.50-5.40) Hemoglobin 9.6 g/dL (12.0-15.5) Hematocrit 31.0 % (36.0-47.0) Mean Corpuscular Volume 92 fL (79-100) Mean Corpuscular Hemoglobin 29 pg (25-35) Mean Corpuscular Hemoglobin Concent 31 g/dL (31-37) Red Cell Distribution Width 19.4 % (11.5-14.5) Platelet Count 64 x10^3/uL (140-400) Neutrophils (%) (Auto) 85 % (31-73) Lymphocytes (%) (Auto) 11 % (24-48) Monocytes (%) (Auto) 3 % (0-9) Eosinophils (%) (Auto) 0 % (0-3) Basophils (%) (Auto) 1 % (0-3) Neutrophils # (Auto) 13.8 x10^3/uL (1.8-7.7) Lymphocytes # (Auto) 1.9 x10^3/uL (1.0-4.8) Monocytes # (Auto) 0.5 x10^3/uL (0.0-1.1) Eosinophils # (Auto) 0.0 x10^3/uL (0.0-0.7) Basophils # (Auto) 0.2 x10^3/uL (0.0-0.2) Erythrocyte Sedimentation Rate 24 (0-25) Sodium Level 142 mmol/L (136-145) Potassium Level 6.3 mmol/L (3.5-5.1) Chloride Level 115 mmol/L (98-107) Carbon Dioxide Level 17 mmol/L (21-32) Anion Gap 10 (6-14) Blood Urea Nitrogen 53 mg/dL (7-20) Creatinine 2.3 mg/dL (0.6-1.0) Estimated GFR (Cockcroft-Gault) 24.7 Glucose Level 108 mg/dL (70-99) Calcium Level 7.8 mg/dL (8.5-10.1) Lactic Acid Level 2.6 mmol/L (0.4-2.0) Laboratory Tests Test 04/10/19 05:55 04/10/19 09:05 White Blood Count 16.4 x10^3/uL (4.0-11.0) Red Blood Count 3.37 x10^6/uL (3.50-5.40) Hemoglobin 9.6 g/dL (12.0-15.5) Hematocrit 31.0 % (36.0-47.0) Mean Corpuscular Volume 92 fL (79-100) Mean Corpuscular Hemoglobin 29 pg (25-35) Mean Corpuscular Hemoglobin Concent 31 g/dL (31-37) Red Cell Distribution Width 19.4 % (11.5-14.5) Platelet Count 64 x10^3/uL (140-400) Neutrophils (%) (Auto) 85 % (31-73) Lymphocytes (%) (Auto) 11 % (24-48) Monocytes (%) (Auto) 3 % (0-9) Eosinophils (%) (Auto) 0 % (0-3) Basophils (%) (Auto) 1 % (0-3) Neutrophils # (Auto) 13.8 x10^3/uL (1.8-7.7) Lymphocytes # (Auto) 1.9 x10^3/uL (1.0-4.8) Monocytes # (Auto) 0.5 x10^3/uL (0.0-1.1) Eosinophils # (Auto) 0.0 x10^3/uL (0.0-0.7) Basophils # (Auto) 0.2 x10^3/uL (0.0-0.2) Erythrocyte Sedimentation Rate 24 (0-25) Sodium Level 142 mmol/L (136-145) Potassium Level 6.3 mmol/L (3.5-5.1) Chloride Level 115 mmol/L (98-107) Carbon Dioxide Level 17 mmol/L (21-32) Anion Gap 10 (6-14) Blood Urea Nitrogen 53 mg/dL (7-20) Creatinine 2.3 mg/dL (0.6-1.0) Estimated GFR (Cockcroft-Gault) 24.7 Glucose Level 108 mg/dL (70-99) Calcium Level 7.8 mg/dL (8.5-10.1) Lactic Acid Level 2.6 mmol/L (0.4-2.0) Review All relevant outside records, renal labs, imaging studies, telemetry/EKG's were reviewed. EMMETT NARANJO MD Apr 10, 2019 10:36
[2019-04-10] MEDS ORDERED: SODIUM BICARBONATE VIAL 150 MEQ in IV DEXTROSE 5% 1,000 ML IV SCH (11:00)
--- NOTE | 2019-04-10 11:05 | RAD ---
CHEST AP ONLY Clinical Indication: Abnormal chest CT follow-up Comparison: 04/02/2019 portable chest exam, 04/04/2019 CT chest abdomen and pelvis with contrast. Findings: Portable upright frontal view of the chest was obtained. Right-sided PICC is noted. The cardiomediastinal silhouette is normal. Pulmonary vascular congestion is present. Multiple pulmonary nodules are present but partially obscured due to interstitial edema. Bibasilar atelectasis is noted. Bibasilar pleural effusions are present tracking to the midthoracic level. There is no pneumothorax. No acute bone abnormality. IMPRESSION: Bilateral lower lobe atelectatic consolidations, bilateral moderate sized pleural effusions, pulmonary nodules. There maybe slight improvement in comparison to the previous CT exam of 04/04/2019 but direct comparison is limited. Decreased aeration and increased bibasilar pleural effusions is notable since portable chest x-ray exam of 04/02/2019. Electronically signed by: Jon Montejo MD (04/10/2019 11:02 AM) [facility]
--- NOTE | 2019-04-10 11:27 | NUR ---
SS following up with discharge planning. Pt transferred to ICU due to change in medical condition. PT/OT recommending acute rehabilitation and [facility] is assessing for rehab needs. SS phoned and faxed clinical updates to [facility], ; fax [phone], and am currently awaiting acceptance decision and insurance determination. SS will continue to follow for discharge planning.
[2019-04-10] MEDS ORDERED: IV NORMAL SALINE 500ML BAG 500 ML IV ONE (11:30)
--- NOTE | 2019-04-10 11:31 | NUR ---
Paged Dr Colunga regarding pt positive sepsis screen and elevated lactic acid.
[2019-04-10] MEDS ORDERED: IV NORMAL SALINE 1000ML BAG 1,000 ML IV ONE (12:30)
--- NOTE | 2019-04-10 12:33 | NUR ---
SS following up with discharge planning. Request made for [facility] transfer. SS contacted transfer team, , and made request for transfer. SS spoke with Patria, . SS faxed clinical to [phone]. Case management made request for images to be clouded to . SS will await acceptance decision and will proceed accordingly.
[2019-04-10] MEDS ORDERED: NORMAL SALINE IV SCH (14:00)
[2019-04-10] MEDS ORDERED: CEFTAROLINE FOSAMIL IV SCH (14:00)
--- NOTE | 2019-04-10 14:17 | PDOC ---
PROGRESS NOTES Subjective Subjective HPI - f/u of thrombocytopenia Objective Objective Vital Signs Date Time Temp Pulse Resp B/P (MAP) Pulse Ox O2 Delivery O2 Flow Rate FiO2 04/10/19 12:30 96 17 109/56 (73) 96 Nasal Cannula 2.0 04/10/19 10:45 97.0 97.0 Intake and Output 04/10/19 06:59 Intake Total 200 ml Output Total 350 ml Balance -150 ml Intake Oral 200 ml Output Urine Total 350 ml # Voids 1 Physical Exam General: No acute distress Neck: No JVD Assessment Assessment Problems Medical Problems: (1) RIKY (acute kidney injury) Status: Acute (2) Endocarditis Status: Acute (3) Hypotension Status: Acute (4) Pulmonary hypertension Status: Chronic (5) Renal failure Status: Acute (6) Respiratory failure Status: Acute (7) Septic pulmonary embolism Status: Acute (8) Severe sepsis Status: Acute (9) Severe tricuspid regurgitation Status: Chronic IMPRESSION AND PLAN: 1. Thrombocytopenia due to sepsis. Appreciate Infectious Disease consultation. The patient has methicillin-resistant Staphylococcus aureus sepsis noted in [facility]. Continue antibiotic management per Infectious Diseases. I suspect that the significant worsened thrombocytopenia is also due to underlying hepatitis C. No signs of bleeding. If she has any significant bleeding, she would need platelet transfusion. Plt 64. no bleeding. I d/w Dr Colunga. 2. Septic pulmonary emboli. Anticoagulation is not indicated for septic emboli as it increases the risk of bleeding, I agree with Dr. Hughes that treatment with antibiotics will be the primary modality of management. 3. Abnormal CT with bilateral cavitary nodules throughout the lungs, likely suggestive of septic emboli. I discussed with Dr. Hughes. Continue management per Dr. Hughes. 4. Sepsis - management per ID Comment Review of Relevant I have reviewed the following items kim (where applicable) has been applied. Labs Laboratory Tests Test 04/10/19 05:55 04/10/19 09:05 White Blood Count 16.4 x10^3/uL (4.0-11.0) Red Blood Count 3.37 x10^6/uL (3.50-5.40) Hemoglobin 9.6 g/dL (12.0-15.5) Hematocrit 31.0 % (36.0-47.0) Mean Corpuscular Volume 92 fL (79-100) Mean Corpuscular Hemoglobin 29 pg (25-35) Mean Corpuscular Hemoglobin Concent 31 g/dL (31-37) Red Cell Distribution Width 19.4 % (11.5-14.5) Platelet Count 64 x10^3/uL (140-400) Neutrophils (%) (Auto) 85 % (31-73) Lymphocytes (%) (Auto) 11 % (24-48) Monocytes (%) (Auto) 3 % (0-9) Eosinophils (%) (Auto) 0 % (0-3) Basophils (%) (Auto) 1 % (0-3) Neutrophils # (Auto) 13.8 x10^3/uL (1.8-7.7) Lymphocytes # (Auto) 1.9 x10^3/uL (1.0-4.8) Monocytes # (Auto) 0.5 x10^3/uL (0.0-1.1) Eosinophils # (Auto) 0.0 x10^3/uL (0.0-0.7) Basophils # (Auto) 0.2 x10^3/uL (0.0-0.2) Erythrocyte Sedimentation Rate 24 (0-25) Sodium Level 142 mmol/L (136-145) Potassium Level 6.3 mmol/L (3.5-5.1) Chloride Level 115 mmol/L (98-107) Carbon Dioxide Level 17 mmol/L (21-32) Anion Gap 10 (6-14) Blood Urea Nitrogen 53 mg/dL (7-20) Creatinine 2.3 mg/dL (0.6-1.0) Estimated GFR (Cockcroft-Gault) 24.7 Glucose Level 108 mg/dL (70-99) Calcium Level 7.8 mg/dL (8.5-10.1) Lactic Acid Level 2.6 mmol/L (0.4-2.0) Laboratory Tests Test 04/10/19 05:55 04/10/19 09:05 White Blood Count 16.4 x10^3/uL (4.0-11.0) Red Blood Count 3.37 x10^6/uL (3.50-5.40) Hemoglobin 9.6 g/dL (12.0-15.5) Hematocrit 31.0 % (36.0-47.0) Mean Corpuscular Volume 92 fL (79-100) Mean Corpuscular Hemoglobin 29 pg (25-35) Mean Corpuscular Hemoglobin Concent 31 g/dL (31-37) Red Cell Distribution Width 19.4 % (11.5-14.5) Platelet Count 64 x10^3/uL (140-400) Neutrophils (%) (Auto) 85 % (31-73) Lymphocytes (%) (Auto) 11 % (24-48) Monocytes (%) (Auto) 3 % (0-9) Eosinophils (%) (Auto) 0 % (0-3) Basophils (%) (Auto) 1 % (0-3) Neutrophils # (Auto) 13.8 x10^3/uL (1.8-7.7) Lymphocytes # (Auto) 1.9 x10^3/uL (1.0-4.8) Monocytes # (Auto) 0.5 x10^3/uL (0.0-1.1) Eosinophils # (Auto) 0.0 x10^3/uL (0.0-0.7) Basophils # (Auto) 0.2 x10^3/uL (0.0-0.2) Erythrocyte Sedimentation Rate 24 (0-25) Sodium Level 142 mmol/L (136-145) Potassium Level 6.3 mmol/L (3.5-5.1) Chloride Level 115 mmol/L (98-107) Carbon Dioxide Level 17 mmol/L (21-32) Anion Gap 10 (6-14) Blood Urea Nitrogen 53 mg/dL (7-20) Creatinine 2.3 mg/dL (0.6-1.0) Estimated GFR (Cockcroft-Gault) 24.7 Glucose Level 108 mg/dL (70-99) Calcium Level 7.8 mg/dL (8.5-10.1) Lactic Acid Level 2.6 mmol/L (0.4-2.0) Microbiology 04/06/19 Blood Culture - Preliminary, Resulted NO GROWTH AFTER 4 DAYS Medications Current Medications Albumin Human 100 ml @ 100 mls/hr 1X ONCE IV Last administered on 03/29/19at 14:59; Start 03/29/19 at 14:30; Stop 03/29/19 at 15:29; Status DC Norepinephrine Bitartrate 250 ml @ 9.781 mls/ hr CONT PRN IV SEE I/O RECORD Last administered on 03/29/19 23:25; Start 03/29/19 at 14:30; Stop 04/03/19 at 11:24; Status DC Sodium Chloride 1,000 ml @ 100 mls/hr Q10H IV Last administered on 03/29/19at 23:25; Start 03/29/19 at 14:30; Stop 03/30/19 at 12:08; Status DC Guaifenesin (Robitussin Dm) 10 ml PRN Q6HRS PRN PO COUGH Last administered on 04/06/19at 03:44; Start 03/29/19 at 15:30; Stop 04/06/19 at 12:42; Status DC Sodium Bicarbonate (Sodium Bicarb Adult 8.4% Syr) 50 meq 1X ONCE IV Last administered on 03/29/19at 16:49; Start 03/29/19 at 16:00; Stop 03/29/19 at 16:01; Status DC Sodium Bicarbonate (Sodium Bicarb Adult 8.4% Syr) 50 meq 1X ONCE IV Last administered on 03/29/19at 16:49; Start 03/29/19 at 16:00; Stop 03/29/19 at 16:01; Status DC Vancomycin HCl (Vanco Per Pharmacy) 1 each PRN DAILY PRN MC SEE COMMENTS Last administered on 04/02/19at 15:03; Start 03/29/19 at 17:15; Stop 04/03/19 at 07:34; Status DC Piperacillin Sod/ Tazobactam Sod (Zosyn Per Pharmacy) 1 each PRN DAILY PRN MC SEE COMMENTS; Start 03/29/19 at 17:15; Stop 03/31/19 at 07:37; Status DC Piperacillin Sod/ Tazobactam Sod 4.5 gm/Sodium Chloride 100 ml @ 200 mls/hr Q6HRS IV Last administered on 03/31/19at 06:23; Start 03/29/19 at 18:00; Stop 03/31/19 at 07:37; Status DC Vancomycin HCl 1.25 gm/Sodium Chloride 250 ml @ 166.667 mls/hr 1X ONCE IV Last administered on 03/29/19at 17:37; Start 03/29/19 at 17:15; Stop 03/29/19 at 18:44; Status DC Vancomycin HCl 750 mg/Sodium Chloride 250 ml @ 250 mls/hr Q18H IV Last administered on 03/30/19at 10:19; Start 03/30/19 at 11:00; Stop 03/30/19 at 12:54; Status DC Vancomycin HCl (Vancomycin Trough Level) 1 each 1X ONCE MC ; Start 03/31/19 at 09:30; Stop 03/31/19 at 09:31; Status DC Magnesium Sulfate 50 ml @ 25 mls/hr 1X ONCE IV Last administered on 03/29/19at 20:02; Start 03/29/19 at 20:00; Stop 03/29/19 at 21:59; Status DC Linezolid/Dextrose 300 ml @ 300 mls/hr Q12HR IV Last administered on 04/10/19 09:57; Start 03/30/19 at 09:00 Chlorhexidine Gluconate (Peridex) 15 ml BID SWSP Last administered on 04/04/19at 08:17; Start 03/30/19 at 09:00 Amino Acids/ Glycerin/ Electrolytes 1,000 ml @ 100 mls/hr Q10H IV Last administered on 04/03/19at 07:36; Start 03/30/19 at 12:00; Stop 04/03/19 at 11:38; Status DC Vancomycin HCl 750 mg/Sodium Chloride 250 ml @ 250 mls/hr Q12H IV Last administered on 04/02/19at 21:48; Start 03/30/19 at 22:00; Stop 04/03/19 at 07:34; Status DC Hydromorphone HCl (Dilaudid) 1 mg PRN Q4HRS PRN IV PAIN Last administered on 03/31/19at 05:11; Start 03/30/19 at 21:00; Stop 03/31/19 at 09:43; Status DC Hydromorphone HCl (Dilaudid) 1 mg PRN Q2HR PRN IV PAIN Last administered on 03/31/19at 20:06; Start 03/31/19 at 09:45; Stop 03/31/19 at 22:00; Status DC Haloperidol Lactate (Haldol Inj) 2 mg PRN Q6HRS PRN IVP AGITATION Last administered on 04/01/19at 00:07; Start 03/31/19 at 09:45 Hydromorphone HCl (Dilaudid) 1 mg PRN Q2HR PRN IV MOD TO SEVERE PAIN Last administered on 04/09/19 03:08; Start 04/01/19 at 00:45; Stop 04/09/19 at 10:59; Status DC Oxycodone/ Acetaminophen (Percocet 7.5/ 325) 1 tab PRN Q4HRS PRN PO PAIN Last administered on 04/09/19at 11:17; Start 04/01/19 at 09:00 Sodium Chloride 1,000 ml @ 125 mls/hr 1X ONCE IV Last administered on 04/01at 18:11; Start 04/01/19 at 09:00; Stop 04/01/19 at 16:59; Status DC Ketorolac Tromethamine (Toradol 15mg Vial) 15 mg PRN Q6HRS PRN IV MILD PAIN 1-3 Last administered on 04/06/19at 01:59; Start 04/01/19 at 09:00; Stop 04/06/19 at 08:59; Status DC Diphenhydramine HCl (Benadryl) 25 mg PRN Q6HRS PRN IVP ITCHING Last administered on 04/06/19at 22:28; Start 04/01/19 at 14:00; Stop 04/07/19 at 09:07; Status DC Lactobacillus Rhamnosus (Culturelle) 1 cap BID PO Last administered on 04/09/19at 21:53; Start 04/02/19 at 21:00 Ceftaroline Fosamil 600 mg/ Sodium Chloride 250 ml @ 250 mls/hr Q8HRS IV Last administered on 04/10/19at 06:04; Start 04/03/19 at 08:00; Stop 04/10/19 at 09:30; Status DC Sodium Chloride 1,000 ml @ 200 mls/hr 1X ONCE IV Last administered on 04/03/19at 08:45; Start 04/03/19 at 08:30; Stop 04/03/19 at 13:29; Status DC Iohexol (Omnipaque 240 Mg/ml) 30 ml 1X ONCE PO Last administered on 04/04/19at 13:49; Start 04/04/19 at 13:00; Stop 04/04/19 at 13:01; Status DC Iohexol (Omnipaque 300 Mg/ml) 75 ml 1X ONCE IV Last administered on 04/04/19at 14:42; Start 04/04/19 at 13:00; Stop 04/04/19 at 13:01; Status DC Lidocaine HCl (Xylocaine 2% Topical 5gm Tube) 1 garrison 1X ONCE TP Last administered on 04/05/19at 15:35; Start 04/05/19 at 08:45; Stop 04/05/19 at 08:47; Status DC Lidocaine HCl (Viscous Lidocaine) 15 ml 1X ONCE SWSW Last administered on 04/05/19at 15:36; Start 04/05/19 at 08:45; Stop 04/05/19 at 08:47; Status DC Benzocaine (Hurricaine One) 2 spray 1X ONCE MM Last administered on 04/05/19at 15:34; Start 04/05/19 at 08:45; Stop 04/05/19 at 08:47; Status DC Albuterol Sulfate (Ventolin Neb Soln) 2.5 mg PRN Q4HRS PRN NEB SHORTNESS OF BREATH; Start 04/05/19 at 08:45 Ondansetron HCl (Zofran) 4 mg PRN Q6HRS PRN IV NAUSEA/VOMITING Last adminis tered on 04/09/19at 23:17; Start 04/05/19 at 08:45 Acetaminophen (Tylenol) 500 mg PRN Q6HRS PRN PO MILD PAIN / TEMP Last adminis tered on 04/06/19at 04:56; Start 04/05/19 at 08:45 Docusate Sodium (Colace) 100 mg BID PO Last administered on 04/09/19at 21:53; Start 04/05/19 at 09:00 Ferrous Sulfate (Feosol) 325 mg DAILY PO ; Start 04/05/19 at 09:00 Benzocaine (Hurricaine One) 1 spray STK-MED ONCE .ROUTE ; Start 04/05/19 at 13:39; Stop 04/05/19 at 13:40; Status DC Lidocaine HCl (Xylocaine 2% Topical 5gm Tube) 5 garrison STK-MED ONCE TP ; Start 04/05/19 at 13:39; Stop 04/05/19 at 13:40; Status DC Lidocaine HCl (Viscous Lidocaine) 15 ml STK-MED ONCE .ROUTE ; Start 04/05/19 at 13:39; Stop 04/05/19 at 13:40; Status DC Lidocaine/Sodium Bicarbonate (Buffered Lidocaine 1%) 3 ml STK-MED ONCE .ROUTE ; Start 04/05/19 at 13:50; Stop 04/05/19 at 13:50; Status DC Lidocaine/Sodium Bicarbonate (Buffered Lidocaine 1%) 6 ml 1X ONCE INJ Last administered on 04/05/19at 14:14; Start 04/05/19 at 14:15; Stop 04/05/19 at 14:16; Status DC Ringer's Solution 1,000 ml @ 75 mls/hr [id number] IV Last administered on 04/05/19at 21:09; Start 04/05/19 at 15:30; Stop 04/06/19 at 08:37; Status DC Propofol 20 ml @ As Directed STK-MED ONCE IV ; Start 04/05/19 at 16:00; Stop 04/05/19 at 16:00; Status DC Lidocaine HCl (Lidocaine Pf 2% Vial) 5 ml STK-MED ONCE .ROUTE ; Start 04/05/19 at 16:00; Stop 04/05/19 at 16:00; Status DC Phenylephrine HCl (PHENYLEPHRINE in 0.9% NACL PF) 1 mg STK-MED ONCE IV ; Start 04/05/19 at 16:00; Stop 04/05/19 at 16:00; Status DC Sodium Polystyrene Sulfonate (Kayexalate) 15 gm 1X ONCE PO Last administered on 04/06/19at 18:14; Start 04/06/19 at 08:45; Stop 04/06/19 at 08:46; Status DC Ketorolac Tromethamine (Toradol 15mg Vial) 15 mg PRN Q6HRS PRN IV MILD TO MODERATE PAIN Last administered on 04/09/19at 07:35; Start 04/06/19 at 12:30; Stop 04/09/19 at 10:59; Status DC Guaifenesin/ Codeine Phosphate (Robitussin Ac) 5 ml QID PO Last administered on 04/09/19at 21:53; Start 04/06/19 at 13:00 Sodium Polystyrene Sulfonate (Kayexalate) 15 gm STK-MED ONCE .ROUTE ; Start 04/06/19 at 18:11; Stop 04/06/19 at 18:11; Status DC Diphenhydramine HCl (Benadryl) 25 mg PRN Q8HRS PRN IVP ITCHING; Start 04/07/19 at 09:15; Stop 04/09/19 at 10:59; Status DC Ketorolac Tromethamine (Toradol 15mg Vial) 30 mg PRN Q6HRS PRN IV MILD TO MODERATE PAIN; Start 04/09/19 at 11:00; Stop 04/09/19 at 11:00; Status DC Sodium Chloride 1,000 ml @ 1,000 mls/hr 1X ONCE IV Last administered on 04/09/19at 11:11; Start 04/09/19 at 11:00; Stop 04/09/19 at 11:59; Status DC Sodium Chloride 1,000 ml @ 150 mls/hr Q6H40M IV Last administered on 04/09/19at 18:41; Start 04/09/19 at 11:00; Stop 04/10/19 at 06:37; Status DC Ketorolac Tromethamine (Toradol 30mg Vial) 30 mg PRN Q6HRS PRN IV MILD TO MODERATE PAIN Last administered on 04/09/19at 13:47; Start 04/09/19 at 11:00; Stop 04/10/19 at 06:37; Status DC Alprazolam (Xanax) 0.5 mg PRN Q8HRS PRN PO ANXIETY / AGITATION Last administered on 04/09/19at 13:59; Start 04/09/19 at 12:45 Methadone HCl (Dolophine) 20 mg DAILY08 PO Last administered on 04/09/19at 17:02; Start 04/09/19 at 17:00 Sodium Chloride 500 ml @ 500 mls/hr 1X ONCE IV Last administered on 04/09/19at 17:09; Start 04/09/19 at 17:15; Stop 04/09/19 at 18:14; Status DC Norepinephrine Bitartrate 250 ml @ 14.549 mls/ hr CONT PRN IV SEE I/O RECORD Last administered on 04/10/19at 08:08; Start 04/10/19 at 06:45 Albumin Human 100 ml @ 100 mls/hr 1X ONCE IV ; Start 04/10/19 at 07:00; Stop 04/10/19 at 07:59; Status Cancel Sodium Polystyrene Sulfonate (Kayexalate) 30 gm 1X ONCE PO ; Start 04/10/19 at 07:00; Stop 04/10/19 at 07:01; Status DC Sodium Bicarbonate (Sodium Bicarb Adult 8.4% Syr) 50 meq 1X ONCE IV Last administered on 04/10/19at 07:57; Start 04/10/19 at 07:00; Stop 04/10/19 at 07:01; Status DC Insulin Human Regular (HumuLIN R VIAL) 10 unit 1X ONCE IV Last administered on 04/10/19at 07:58; Start 04/10/19 at 07:00; Stop 04/10/19 at 07:01; Status DC Dextrose (Dextrose 25% Syringe) 10 ml 1X ONCE IV ; Start 04/10/19 at 07:00; Stop 04/10/19 at 07:01; Status Cancel Albumin Human 100 ml @ 100 mls/hr 1X ONCE IV ; Start 04/10/19 at 08:00; Stop 04/10/19 at 08:59; Status Cancel Sodium Polystyrene Sulfonate (Kayexalate) 30 gm 1X ONCE PO ; Start 04/10/19 at 07:00; Stop 04/10/19 at 07:01; Status DC Norepinephrine Bitartrate 250 ml @ 14.549 mls/ hr CONT PRN IV SEE I/O RECORD; Start 04/10/19 at 06:30; Status UNV Calcium Gluconate (Calcium Gluconate) 1,000 mg 1X ONCE IVP ; Start 04/10/19 at 07:00; Stop 04/10/19 at 07:01; Status Cancel Insulin Human Regular (HumuLIN R VIAL) 10 unit 1X ONCE IV ; Start 04/10/19 at 06:30; Stop 04/10/19 at 06:31; Status UNV Dextrose 100 ml @ 200 mls/hr 1X ONCE IV ; Start 04/10/19 at 06:30; Stop 04/10/19 at 06:59; Status UNV Dextrose (Dextrose 50%-Water Syringe) 25 gm 1X ONCE IV Last administered on 04/10/19at 07:57; Start 04/10/19 at 07:00; Stop 04/10/19 at 07:01; Status DC Calcium Gluconate 1000 mg/Dextrose 110 ml @ 220 mls/hr 1X ONCE IV Last administered on 04/10/19at 07:59; Start 04/10/19 at 08:30; Stop 04/10/19 at 08:59; Status DC Albumin Human 500 ml @ As Directed STK-MED ONCE IV ; Start 04/10/19 at 07:39; Stop 04/10/19 at 07:40; Status DC Ceftaroline Fosamil 400 mg/ Sodium Chloride 250 ml @ 250 mls/hr Q8HRS IV ; Start 04/10/19 at 14:00 Sodium Bicarbonate 150 meq/Dextrose 1,150 ml @ 100 mls/hr [id number] IV Last administered on 04/10/19at 11:08; Start 04/10/19 at 11:00 Sodium Chloride 500 ml @ 500 mls/hr 1X ONCE IV Last administered on 04/10/19at 11:38; Start 04/10/19 at 11:30; Stop 04/10/19 at 12:29; Status DC Sodium Chloride 1,000 ml @ 1,000 mls/hr 1X ONCE IV Last administered on 04/10/19at 12:44; Start 04/10/19 at 12:30; Stop 04/10/19 at 13:29; Status DC Active Scripts Active Reported Prenate Elite Tablet ( #79/Iron Asp Gly/FA#1) 1 Each Tablet 1 Each PO DAILY Ibuprofen 800 Mg Tablet 800 Mg PO PRN Q6HRS PRN Ferrous Sulfate 325 Mg Tablet 325 Mg PO DAILY Docusate Sodium 100 Mg Capsule 100 Mg PO BID Vitals/I & O Vital Sign - Last 24 Hours 04/09/19 04/09/19 04/09/19 04/09/19 15:22 20:00 20:00 23:00 Temp 97.5 97.4 97.5 97.5 97.4 97.5 Pulse 99 98 94 Resp 16 18 20 B/P (MAP) 87/34 (51) 121/40 (67) 103/60 (74) Pulse Ox 95 95 93 O2 Delivery Nasal Cannula Room Air Nasal Cannula Nasal Cannula O2 Flow Rate 2.0 2.0 2.0 04/10/19 04/10/19 04/10/19 04/10/19 03:30 05:45 06:00 06:00 Temp 97.4 97.4 Pulse 95 91 99 94 Resp 18 18 B/P (MAP) 100/57 (71) 68/42 (51) 71/45 (54) 82/50 (61) Pulse Ox 93 92 O2 Delivery Nasal Cannula Nasal Cannula O2 Flow Rate 2.5 2.5 04/10/19 04/10/19 04/10/19 04/10/19 06:15 06:30 07:00 08:45 Pulse 92 94 92 98 Resp 16 B/P (MAP) 77/51 (60) 71/47 (55) 81/43 (56) 77/49 (58) Pulse Ox 95 O2 Delivery Nasal Cannula O2 Flow Rate 2.0 04/10/19 04/10/19 04/10/19 04/10/19 09:00 09:11 09:15 09:30 Pulse 98 90 94 94 Resp 14 17 16 13 B/P (MAP) 79/43 (55) 99/49 (66) 100/53 (69) 84/53 (63) Pulse Ox 95 97 97 97 O2 Delivery Nasal Cannula Nasal Cannula Nasal Cannula Nasal Cannula O2 Flow Rate 2.0 2.0 2.0 2.0 04/10/19 04/10/19 04/10/19 04/10/19 09:45 10:00 10:15 10:30 Pulse 92 94 90 92 Resp 16 18 14 15 B/P (MAP) 94/57 (69) 98/51 (67) 83/53 (63) 83/56 (65) Pulse Ox 97 97 97 97 O2 Delivery Nasal Cannula Nasal Cannula Nasal Cannula Nasal Cannula O2 Flow Rate 2.0 2.0 2.0 2.0 04/10/19 04/10/19 04/10/19 04/10/19 10:45 11:01 11:15 11:30 Temp 97.0 97.0 Pulse 92 91 92 92 Resp 13 18 16 16 B/P (MAP) 90/61 (71) 97/60 (72) 99/67 (78) 107/58 (74) Pulse Ox 97 97 97 97 O2 Delivery Nasal Cannula Nasal Cannula Nasal Cannula Nasal Cannula O2 Flow Rate 2.0 2.0 2.0 2.0 04/10/19 04/10/19 04/10/19 11:45 12:00 12:30 Pulse 94 98 96 Resp 14 13 17 B/P (MAP) 95/60 (72) 104/53 (70) 109/56 (73) Pulse Ox 97 97 96 O2 Delivery Nasal Cannula Nasal Cannula Nasal Cannula O2 Flow Rate 2.0 2.0 2.0 Intake and Output 04/09/19 04/09/19 04/10/19 14:59 22:59 06:59 Intake Total 100 ml 100 ml Output Total 350 ml Balance -350 ml 100 ml 100 ml Nutrition Consultation Dietary Evaluation: Recommendations by RD: Protein supplementation, Add supplement feedings Comments: Continue w/regular diet as ordered, honor food preferences, and provide snacks as requested Continue w/PPN to supplement PO intake at this time, can stop PPN once PO intake consistently >50% meals and tolerated, D/Cd 04/0304/07/2019-Pt. stated that she has an upset stomach, Current PO intake poor, Suggest continue regular diet and add Ensure Clear BID to increase protein/calorie intake Expected Outcomes/Goals: PO intake + Ensure Clear to meet >75% est needs - met, goal ongoing Interpretation of weight loss: >20% in 1 year Malnutrition Findings: Food and Nutrition Intake (Mod: <75% est energy req 7days Weight Status: Appropriate TROY WASSERMAN MD Apr 10, 2019 14:17
--- NOTE | 2019-04-10 15:40 | SNU/HH DC ---
DISCHARGE ORDERS DISCHARGE INFORMATION: DISCHARGE DATE: Apr 10, 2019 FINAL DIAGNOSIS Problems Medical Problems: (1) RIKY (acute kidney injury) Status: Acute (2) Endocarditis Status: Acute (3) Hypotension Status: Acute (4) Pulmonary hypertension Status: Chronic (5) Renal failure Status: Acute (6) Respiratory failure Status: Acute (7) Septic pulmonary embolism Status: Acute (8) Severe sepsis Status: Acute (9) Severe tricuspid regurgitation Status: Chronic CONDITION ON DISCHARGE: Guarded CODE STATUS: Code Status: Full TREATMENT/EQUIPMENT ORDERS: INFUSION EQUIPMENT NEEDED: PICC Line RESPIRATORY EQUIPMENT NEEDED: Oxygen DISCHARGE MEDICATIONS: Home Meds Reported Medications #79/Iron Asp Gly/FA#1 (Prenate Elite Tablet) 1 Each Tablet, 1 EACH PO DAILY for pnv, TAB 03/29/19 Discontinued Reported Medications Ibuprofen (IBUPROFEN) 800 Mg Tablet, 800 MG PO PRN Q6HRS PRN for INFLAMMATION, TAB 03/29/19 Ferrous Sulfate (FERROUS SULFATE) 325 Mg Tablet, 325 MG PO DAILY for iron, TAB 03/29/19 Docusate Sodium (DOCUSATE SODIUM) 100 Mg Capsule, 100 MG PO BID for stool, CAP 03/29/19 KAY AGOSTO MD Apr 10, 2019 15:40
--- NOTE | 2019-04-10 15:55 | PDOC3 ---
Discharge Summary Visit Information Date of Admission: Mar 29, 2019 Date of Discharge: Apr 10, 2019 Admitting Diagnosis: Septic pulmonary emboli Final Diagnosis Problems Medical Problems: (1) RIKY (acute kidney injury) Status: Acute (2) Endocarditis Status: Acute (3) Hypotension Status: Acute (4) Pulmonary hypertension Status: Chronic (5) Renal failure Status: Acute (6) Respiratory failure Status: Acute (7) Septic pulmonary embolism Status: Acute (8) Severe sepsis Status: Acute (9) Severe tricuspid regurgitation Status: Chronic Brief Hospital Course Allergies Allergies Coded Allergies Type Severity Reaction Last Updated Verified Latex, Natural Rubber Allergy Intermediate Unknown 03/29/19 Yes I S O L A T I O N *CONTACT* Allergy Unknown 04/04/19 Yes prochlorperazine Adverse Reaction Intermediate Anxiety 03/29/19 Yes Vital Signs Vital Signs Date Time Temp Pulse Resp B/P (MAP) Pulse Ox O2 Delivery O2 Flow Rate FiO2 04/10/19 12:30 96 17 109/56 (73) 96 Nasal Cannula 2.0 04/10/19 10:45 97.0 97.0 Lab Results Laboratory Tests Test 04/10/19 05:55 04/10/19 09:05 White Blood Count 16.4 x10^3/uL (4.0-11.0) Red Blood Count 3.37 x10^6/uL (3.50-5.40) Hemoglobin 9.6 g/dL (12.0-15.5) Hematocrit 31.0 % (36.0-47.0) Mean Corpuscular Volume 92 fL (79-100) Mean Corpuscular Hemoglobin 29 pg (25-35) Mean Corpuscular Hemoglobin Concent 31 g/dL (31-37) Red Cell Distribution Width 19.4 % (11.5-14.5) Platelet Count 64 x10^3/uL (140-400) Neutrophils (%) (Auto) 85 % (31-73) Lymphocytes (%) (Auto) 11 % (24-48) Monocytes (%) (Auto) 3 % (0-9) Eosinophils (%) (Auto) 0 % (0-3) Basophils (%) (Auto) 1 % (0-3) Neutrophils # (Auto) 13.8 x10^3/uL (1.8-7.7) Lymphocytes # (Auto) 1.9 x10^3/uL (1.0-4.8) Monocytes # (Auto) 0.5 x10^3/uL (0.0-1.1) Eosinophils # (Auto) 0.0 x10^3/uL (0.0-0.7) Basophils # (Auto) 0.2 x10^3/uL (0.0-0.2) Erythrocyte Sedimentation Rate 24 (0-25) Sodium Level 142 mmol/L (136-145) Potassium Level 6.3 mmol/L (3.5-5.1) Chloride Level 115 mmol/L (98-107) Carbon Dioxide Level 17 mmol/L (21-32) Anion Gap 10 (6-14) Blood Urea Nitrogen 53 mg/dL (7-20) Creatinine 2.3 mg/dL (0.6-1.0) Estimated GFR (Cockcroft-Gault) 24.7 Glucose Level 108 mg/dL (70-99) Calcium Level 7.8 mg/dL (8.5-10.1) Lactic Acid Level 2.6 mmol/L (0.4-2.0) Laboratory Tests Test 04/10/19 05:55 04/10/19 09:05 White Blood Count 16.4 x10^3/uL (4.0-11.0) Red Blood Count 3.37 x10^6/uL (3.50-5.40) Hemoglobin 9.6 g/dL (12.0-15.5) Hematocrit 31.0 % (36.0-47.0) Mean Corpuscular Volume 92 fL (79-100) Mean Corpuscular Hemoglobin 29 pg (25-35) Mean Corpuscular Hemoglobin Concent 31 g/dL (31-37) Red Cell Distribution Width 19.4 % (11.5-14.5) Platelet Count 64 x10^3/uL (140-400) Neutrophils (%) (Auto) 85 % (31-73) Lymphocytes (%) (Auto) 11 % (24-48) Monocytes (%) (Auto) 3 % (0-9) Eosinophils (%) (Auto) 0 % (0-3) Basophils (%) (Auto) 1 % (0-3) Neutrophils # (Auto) 13.8 x10^3/uL (1.8-7.7) Lymphocytes # (Auto) 1.9 x10^3/uL (1.0-4.8) Monocytes # (Auto) 0.5 x10^3/uL (0.0-1.1) Eosinophils # (Auto) 0.0 x10^3/uL (0.0-0.7) Basophils # (Auto) 0.2 x10^3/uL (0.0-0.2) Erythrocyte Sedimentation Rate 24 (0-25) Sodium Level 142 mmol/L (136-145) Potassium Level 6.3 mmol/L (3.5-5.1) Chloride Level 115 mmol/L (98-107) Carbon Dioxide Level 17 mmol/L (21-32) Anion Gap 10 (6-14) Blood Urea Nitrogen 53 mg/dL (7-20) Creatinine 2.3 mg/dL (0.6-1.0) Estimated GFR (Cockcroft-Gault) 24.7 Glucose Level 108 mg/dL (70-99) Calcium Level 7.8 mg/dL (8.5-10.1) Lactic Acid Level 2.6 mmol/L (0.4-2.0) Brief Hospital Course Ms Douglas is a 29-year-old female who is not a very good historian currently as she has a history of substance abuse including meth, marijuana, and per nursing report, some heroin as well as asthma; previous miscarriage; history of hepatitis C, uncertain if it has ever been treated or not; depression; trauma; visual impairment; history of urinary tract infections who was admitted as a transfer from [facility] for sepsis initially. She reports that she had been feeling ill since Wednesday03/27/2019, she began taking cephalexin which she got from a friend. She denies any known previous staph or strep infections, but does state that she had previous urinary tract infections. She presented to [facility] on 03/29/2019 with lightheadedness and dehydration as well as shortness of air. She is 4 weeks with a and bilateral tubal ligation. She states that her last meth use was about a year ago or so at least IV-padron, but she does admit states that some people put it in a vape pen and she is unaware of it at times. While at [facility], she underwent a CT scan of her chest after a chest x-ray, which showed some bilateral interstitial infiltrates and nodular opacities. White count was 6.26, hemoglobin was 7.9, platelets were 39. She had 83% neutrophils. Sodium was 129, creatinine was 1.3. Urinalysis did not appear infected as the nitrite and leukocyte esterase were negative. test was negative. Drug screen was positive for methamphetamines and tricyclics. She had a normal TSH of 1.33 and her lactic acid was 3.8. CT scan revealed she had acute PE in the lower lungs, left greater than right with multiple bilateral pulmonary nodules, many of which are cavitary. She had blood cultures obtained. She was given Zosyn and then transferred to [facility]. She underwent an echo 03/29/2019 in afternoon, showed she had a vegetation on her tricuspid valve, it is 1.3 x 1.4 cm. Additionally, she had severe pulmonary hypertension with a PA pressure of 74. [facility] states that a blood culture is positive for MRSA and she had multiple MRSA positive blood cultures in house from 03/29/19 through 04/03/2019. Her culture from 04/06/2019 is thus far negative. She was noted to have thrombocytopenia with a platelet count of 25,000 on admission which gradually improved to 64,000. S/p HUNTER - Ejection Fraction is 45%. There is a flattened septum consistent with right ventricle volume and pressure overload. Trace mitral regurgitation. There is a large mobile vegetation on the tricuspid valve measuring 2 x 2.4 cm. Seen by ID, pulmonology, cardiology, Hematology/Oncology, and nephrology in consultation. She was transitioned to teflaro and zyvox per ID with her continually positive blood cultures. On 04/10/2019 in the morning upon assessment it was noted she was anuric for the past 24 hours and her Cr has bumped to 2.3 from 1.1 and potassium to 6.3 and her BP was 70/30. Transferred to ICU for levophed, which did improve her BP along with normal saline bolus and albumin bolus. I have contacted CT surgery, unfortunately our CT surgeon has just moved to [place] and coverage from [facility] will not be available for the next week. She is arousable to painful stimuli, immediately c/o pain. Hyperkalemia treatment with bicarb, albuterol, insulin, D50 Will transfer to [facility] with Dr. Barriga accepting. Assessment: MRSA bacteremia Septic shock Tricuspid Vegetation by HUNTER Acute pulmonary Septic emboli submassive - not a candidate initially for anticoagulation due to anemia and thrombocytopenia Acute metabolic encephalopathy polysubstance abuse, and withdrawal symptoms Thrombocytopenia from sepsis multiple tattoos Acute anemia - with precipitous drop hgb s/p 3u PRBC RIKY - both vasomotor nephropathy and possible AIN Plan: Cont current IV abx Cont current pressors - levophed POSITIVE TR VEGETATION ON HUNTER - will consult Cardiothoracic surgery. Unfortu nately our coverage is difficult currently and not for emergent cases. I will d/w pulmonology, nephrology, ID to consider transfer to a tertiary facility. 38 minutes discharge time Discharge Information Condition at Discharge: Stable Follow Up: As Needed Disposition/Orders: D/C to Another Facility ([facility]) Scheduled #79/Iron Asp Gly/FA#1 (Prenate Elite Tablet) 1 Each Tablet, 1 EACH PO DAILY for pnv, (Reported) Entered as Reported by: GUTIERREZ CORREA on 03/29/191301 Last Action: HELD on 04/05/19845 by MACIEJ LOWE Discontinued Medications Docusate Sodium (Docusate Sodium) 100 Mg Capsule, 100 MG PO BID for stool, (Reported) Entered as Reported by: GUTIERREZ CORREA on 03/29/19 130 Last Action: Continued on 04/05/19845 by MACIEJ LOWE Ferrous Sulfate (Ferrous Sulfate) 325 Mg Tablet, 325 MG PO DAILY for iron, (Reported) Entered as Reported by: GUTIERREZ CORREA on 03/29/19 130 Last Action: Continued on 04/05/19845 by MACIEJ LOWE Ibuprofen (Ibuprofen) 800 Mg Tablet, 800 MG PO PRN Q6HRS PRN for INFLAMMATION, (Reported) Entered as Reported by: GUTIERREZ CORREA on 03/29/19 1302 Last Action: HELD on 04/05/19845 by KAY SCHNEIDER MD Apr 10, 2019 15:54
--- NOTE | 2019-04-10 18:53 | NUR ---
0740 Trans from 5th floor w hypotension. Report per phone.Albumin,antibiotics,levo gtt started well as calcium gluconate ,insulin, blood culteure per orders prior to transfer. Renal notified of transfer /lab work reported. Bicarb gtt started per orders. Condition guarded/ 1300 Marleen assumed care at 0900 /this nurse now back on unit and resumed patient care. NBP unregistered so doppled/marked radial pulse . Levo titrated to keep SBP 90-100 see flow sheets for specifics. No cardio thoracic surgeon available. Communication w [facility] per SS to transfer. Accepted and left unit per leslie,monitor,O2 all gtts remain on pump during transport. Merna at notified ETA ( detailed report called earlier) aware of [facility] transfer per phone at 1530.
== END 2019-04-10 18:35 | disposition short-term general hospital (02) | DRG 871 ==
LOC: 1 WEST ICU 12:29 → 4 NORTH 04-03 11:23 → 1 WEST ICU 04-10 07:41
PROVIDERS: ADMIT Internal Medicine; ATTEND Internal Medicine
PROC: B24BZZ4 Ultrasonography of Heart with Aorta, Transesophageal (ICD-10-PCS; 2019-04-05)
PROC: 30233N1 Transfusion of Nonautologous Red Blood Cells into Peripheral Vein, Percutaneous Approach (ICD-10-PCS; principal; 2019-04-06)
PROC: 02HV33Z Insertion of Infusion Device into Superior Vena Cava, Percutaneous Approach (ICD-10-PCS; 2019-04-06)
PROC: B548ZZA Ultrasonography of Superior Vena Cava, Guidance (ICD-10-PCS; 2019-04-06)
DX: A41.02 Sepsis due to Methicillin resistant Staphylococcus aureus (principal); J96.01 Acute respiratory failure with hypoxia; G93.41 Metabolic encephalopathy; I26.90 Septic pulmonary embolism without acute cor pulmonale; I33.0 Acute and subacute infective endocarditis; R65.21 Severe sepsis with septic shock; N17.0 Acute kidney failure with tubular necrosis; D61.818 Other pancytopenia; E87.1 Hypo-osmolality and hyponatremia; I47.2 Ventricular tachycardia; I76 Septic arterial embolism; F53.0 Postpartum depression; F12.90 Cannabis use, unspecified, uncomplicated; F17.210 Nicotine dependence, cigarettes, uncomplicated; D69.59 Other secondary thrombocytopenia; I27.20 Pulmonary hypertension, unspecified; D50.9 Iron deficiency anemia, unspecified; I07.1 Rheumatic tricuspid insufficiency; E86.0 Dehydration; E87.5 Hyperkalemia; F15.10 Other stimulant abuse, uncomplicated; Z88.8 Allergy status to other drugs, medicaments and biological substances; Z91.040 Latex allergy status; Z87.440 Personal history of urinary (tract) infections; Z30.2 Encounter for sterilization
CPT/HCPCS: 36415; 36573; 36600; 71045; 71260; 74177; 76770; 77001; 80048; 80053; 80202; 80307; 81001; 81025; 82533; 82607; 82728; 82805; 83540; 83550; 83605; 83735; 84132; 84145; 85007; 85025; 85027; 85045; 85610; 85651; 85730; 86850; 86900; 86901; 86920; 87040; 87077; 87205; 93005; 93306; 93312; 93320; 93325; 93970; 94760; 99406; C1751; C1892; J0610; J0712; J1170; J1200; J1630; J1815; J1885; J2001; J2020; J2370; J2405; J2543; J2704; J3370; J3475; J7030; J7040; J7042; J7050; J7120; P9016; P9046; Q9966; Q9967; 97110; 97530; 97535; G0378